=== PATIENT | male | born 1965 | race Caucasian/White ===

== ENCOUNTER 2016-12-12 11:56 | Emergency (ER) | payer SELFPAY ==
[~2016-12-12] VITALS: Ht 193 cm; Wt 75.0 kg
[~2016-12-12 11:56] MED LIST: ASPI325T PO; METO50TA PO
[2016-12-12 12:04] VITALS: BP 146/89; PULSE 76; RESP 16; TEMP 98; O2SAT 98
[2016-12-12 12:16] VITALS: BP 131/86; PULSE 80; RESP 20; TEMP 98; O2SAT 98
--- NOTE | 2016-12-12 12:33 | PD ---
HPI Chief Complaint: Injury Time Seen by Provider: 12:10 Travel History International Travel<30 days: No Contact w/Intl Traveler<30days: No Traveled to known affect area: No History of Present Illness HPI 51-year-old male presents to emergency department via EMS with complaint of left knee pain. He became lightheaded on Saturday and blacked out and fell to the ground. He says his head doesn't hurt and he doesn't think he hit his head. His witnessed the fall. He says he has history of becoming lightheaded and passing out, and he has been through extensive tests, and they cannot find a reason why. He was just diagnosed with stage IV skin cancer. Takes aspirin daily. Denies other anticoagulant therapy. Denies lightheadedness, dizziness, headache. Denies chest pain, shortness breath, abdominal pain, vomiting. Denies focal deficits or weakness. Says he cannot ambulate on the affected extremity. Reports left knee swelling. Denies paresthesias, loss of sensation to the affected extremity. Reports decreased range of motion at the knee. Symptoms are moderate in severity. Has been icing the knee for symptom management. Has not taken any medications to alleviate symptoms. Pain is aggravated with palpation and trying to bend the knee. Allergies to acetaminophen, codeine, ibuprofen, oxycodone; patient says he can take all these medications the just upset his stomach and prefers to take them with crackers. Dr. Ayala is PCP. Has no other medical complaints. No other modifying factors or associated signs and symptoms. PFSH Past Medical History Cancer: Yes (MELENOMA) Cardiovascular Problems: Yes ("REVEARSE HEART BEAT") Diminished Hearing: No Hypertension: Yes Immunizations Current: Yes Past Surgical History Abdominal Surgery: Yes (HERNIA REPAIR X 2) Neurologic Surgery: Yes (CARPAL TUNNEL BILATERALLY) Social History Alcohol Use: Yes (2-3 DAILY BEER) Tobacco Use: Yes (ONE PPD) Substance Use: No Allergies-Medications (Allergen,Severity, Reaction): Coded Allergies: acetaminophen (Unverified Allergy, Severe, ITCHING, 12/12/16) codeine (Unverified Allergy, Severe, ITCHING, 12/12/16) ibuprofen (Unverified Allergy, Severe, UPSET STOMACH, 12/12/16) oxycodone (Unverified Allergy, Severe, GI UPSET, 12/12/16) Reported Meds & Prescriptions Reported Meds & Active Scripts Active Reported Metoprolol Tartrate 50 mg (Metoprolol Tartrate) 50 Mg Tab 50 Mg PO BID Aspirin 325 Mg Tab (Aspirin) 325 Mg Tab 325 Mg PO DAILY Review of Systems Except as stated in HPI: all other systems reviewed are Neg Physical Exam Narrative GENERAL: Well-nourished, well-developed male patient, in no acute distress; afebrile, nontoxic-appearing SKIN: Warm and dry. HEAD: Atraumatic. Normocephalic. EYES: Pupils equal and round. No scleral icterus. No injection or drainage. ENT: Mucosa pink and moist. Airway patent. NECK: Trachea midline. CARDIOVASCULAR: Regular rate. RESPIRATORY: No accessory muscle use. GASTROINTESTINAL: Flat. MUSCULOSKELETAL: Left knee edematous, nonerythematous, and without ecchymosis; full range of motion and flexion to 90; point tenderness to the [-] aspect; joint stable with negative drawer test; no obvious deformity. Left Lower extremity is supple and non-tense with 2+ pedal pulse and sensory intact and without erythema or edema. Unable to assess ambulatory status. No clubbing. No cyanosis. NEUROLOGICAL: Awake and alert. Oriented 3. No obvious cranial nerve deficits. Motor grossly within normal limits. Normal speech. PSYCHIATRIC: Appropriate mood and affect; insight and judgment normal. Data Data Last Documented VS Vital Signs Date Time Temp Pulse Resp B/P (MAP) Pulse Ox O2 Delivery O2 Flow Rate FiO2 12/12/16 12:16 98.0 80 20 131/86 (101) 98 Room Air Orders Orders Knee, Complete (4vws) (12/12/16 12:09) Ice/Cold Pack (12/12/16 12:09) Electrocardiogram (12/12/16 12:41) Acetamin-Hydrocod 325-5 Mg (Tovey 5-325 (12/12/16 13:00) Canvas Knee Splint (Cks) (12/12/16 ) Crutches (12/12/16 13:02) Ed Discharge Order (12/12/16 13:02) MDM Medical Decision Making Medical Screen Exam Complete: Yes Emergency Medical Condition: Yes Medical Record Reviewed: Yes Differential Diagnosis Patellar fracture, tibial plateau fracture, knee strain, ACL tear, meniscal tear Narrative Course 51-year-old male with left knee injury after a syncopal fall on Saturday. Arrived via EMS. Left knee x-ray ordered. I spoke with Dr. melo, my attending physician, and he recommends EKG only, since the patient has history of syncopal episodes and has had extensive workup with no findings in the past. The patient has no other medical complaints other than his left knee pain and swelling, and also agrees with treatment plan. EKG ordered. Lortab ordered. 1255: Left knee x-ray concludes: Patellar fracture. EKG with normal sinus rhythm; without ST elevation or depression; signed off by Dr. Mccallum. Came his knee splint and crutches provided for support. Lortab prescribed for home. Patient instructed to follow-up with orthopedic surgeon. Instructed patient to follow up with primary care provider. Patient verbalizes understanding and agreement with treatment plan. Patient is medically cleared and stable for discharge. Discussed reasons to return to the emergency department. Patient agrees with treatment plan. The patients vital signs are stable and the patient is stable for outpatient follow-up and treatment. Patient discharged home, stable and in no acute distress. Diagnosis Primary Impression: Syncopal episodes Qualified Codes: R55 - Syncope and collapse Additional Impression: Left patella fracture Qualified Codes: S82.002A - Unspecified fracture of left patella, initial encounter for closed fracture Referrals: Orthopaedic Surgeon Primary Care Physician Patient Instructions: General Instructions, Patellar Fracture (ED) Departure Forms: Tests/Procedures, Work Release Special Instructions: Unable to work until cleared by primary care provider or orthopedic surgeon Additional Instructions: Tylenol or ibuprofen as needed and as directed to reduce pain and inflammation Rest, ice, compress, and elevate extremity to decrease pain and inflammation Knee brace for support Crutches for support Avoid aggravating activity; increase activity as tolerated Follow-up with primary care provider Follow-up with orthopedics surgeon; call and make an appointment 1-2 days Return to the emergency department immediately with worsening symptoms Med/Other Pt SpecificInfo: Prescription(s) given Scripts Hydrocodone-Acetaminophen (Lortab) 5-325 Mg Tab 1-2 TAB PO Q6H Y for PAIN, #20 TAB 0 Refills Prov: Amanda Llanos 12/12/16 Disposition: 01 DISCHARGE HOME Condition: Stable Amanda Llanos Dec 12, 2016 12:33
--- NOTE | 2016-12-12 12:52 | RADRPT ---
EXAM DATE/TIME: 12/12/2016 12:31 [facility] COMPARISON: No previous studies available for comparison. INDICATIONS : Left knee pain and swelling after blacking out and falling. MEDICAL HISTORY : Hypertension. Carcinoma, basal cell. SURGICAL HISTORY : Inguinal hernia repair. ENCOUNTER: Initial ACUITY: 4 - 6 days PAIN SCORE: 10/10 LOCATION: Left knee FINDINGS: Patella fracture, 2 part soft tissue swelling enlarged with effusion. Distal femur and proximal tibi a are intact. CONCLUSION: Patellar fracture. Obed Arora MD FACR on December 12, 2016 at 12:48 Board Certified Radiologist. This report was verified electronically.
[2016-12-12] MEDS ORDERED: ACETAMINOPHEN/HYDROcodone 325 MG/5 MG TAB PO ONE (13:00)
[2016-12-12] MEDS ORDERED: HYDR-3533 PO (13:10)
--- NOTE | 2016-12-13 13:30 | EKG ---
Date Performed: 12/12/2016 Time Performed: 12:53:30 PTAGE: 51 years EKG: Ectopic atrial or junctional rhythm which has replaced Sinus rhythm from the old tracing Slight nonspecific ST-T abnormality ABNORMAL ECG PREVIOUS TRACING : 10/31/2015 09.08 DOCTOR: Jordan Harris Interpretating Date/Time 12/13/2016 13:29:27
== END 2016-12-12 13:40 | disposition home or self-care (01) ==
LOC: NEPK 11:56
DX: R55 Syncope and collapse (principal); S82.002A Unspecified fracture of left patella, initial encounter for closed fracture; I10 Essential (primary) hypertension; Z79.82 Long term (current) use of aspirin; W19.XXXA Unspecified fall, initial encounter; Z91.81 History of falling
CPT/HCPCS: 73564; 93005; 99284; E0113; L1830

== ENCOUNTER → 2017-01-03 | Outpatient (CLI) | payer OTHER ==
[~2017-01-03] MED LIST changes: +HYDR-3533 PO; +IOHEXOL 350 MG/ML 10 ML VIAL (for RAD DIAG) IVCONTRAST ONE
--- NOTE | 2017-01-03 15:00 | RADRPT ---
EXAM DATE/TIME: 01/03/2017 14:06 [facility] COMPARISON: No previous studies available for comparison. INDICATIONS : Diffuse abdomen discomfort, basal cell carcinoma. IV CONTRAST: 100 cc Omnipaque 350 (iohexol) IV ; Cumulative dose for multiple exams. ORAL CONTRAST: No oral contrast ingested. RADIATION DOSE: 8.99 CTDIvol (mGy) ; Combined studies - Thorax/Abdomen/Pelvis MEDICAL HISTORY : Hypertension. SURGICAL HISTORY : Inguinal hernia repair. ENCOUNTER: Initial ACUITY: 1 day PAIN SCALE: 1/10 LOCATION: Bilateral lower quadrant TECHNIQUE: Volumetric scanning of the abdomen and pelvis was performed. Using automated exposure control and ad justment of the mA and/or kV according to patient size, radiation dose was kept as low as reasonably achievable to obtain optimal diagnostic quality images. DICOM format image data is available electro nically for review and comparison. FINDINGS: LOWER LUNGS: The visualized lower lungs are clear. LIVER: Homogeneous density without lesion. There is no dilation of the biliary tree. No calcified gallston es. SPLEEN: Normal size without lesion. PANCREAS: Within normal limits. KIDNEYS: Normal in size and shape. There is no mass, stone or hydronephrosis. ADRENAL GLANDS: Within normal limits. VASCULAR: Mild to moderate calcified plaque is present in the aorta. There is no evidence of aneurysmal enlarge ment. BOWEL/MESENTERY: The stomach, small bowel, and colon demonstrate no acute abnormality. There is no free intraperitone al air or fluid. ABDOMINAL WALL: Within normal limits. RETROPERITONEUM: There is no lymphadenopathy. BLADDER: No wall thickening or mass. REPRODUCTIVE: Within normal limits. INGUINAL: There is no lymphadenopathy or hernia. MUSCULOSKELETAL: Severe degenerative disc disease with scoliosis is present throughout the lumbar spine. CONCLUSION: 1. Unremarkable evaluation of the abdomen pelvis. 2. Advanced degenerative disc disease with mild scoliosis of the lumbar spine. Jd Morgan MD on January 03, 2017 at 14:53 Board Certified Radiologist. This report was verified electronically.
--- NOTE | 2017-01-03 16:21 | RADRPT ---
EXAM DATE/TIME: 01/03/2017 14:06 [facility] COMPARISON: No previous studies available for comparison. INDICATIONS : Short of breath, basal cell carcinoma. IV CONTRAST: 100 cc Omnipaque 350 (iohexol) IV ; Cumulative dose for multiple exams. RADIATION DOSE: 8.99 CTDIvol (mGy) ; Combined studies - Thorax/Abdomen/Pelvis MEDICAL HISTORY : Hypertension. SURGICAL HISTORY : Inguinal hernia repair. ENCOUNTER: Initial ACUITY: 1 day PAIN SCALE: 1/10 LOCATION: Bilateral chest TECHNIQUE: Volumetric scanning of the chest was performed. Using automated exposure control and adjustment of t he mA and/or kV according to patient size, radiation dose was kept as low as reasonably achievable to obtain optimal diagnostic quality images. DICOM format image data is available electronically for review and comparison. Follow-up recommendations for detected pulmonary nodules are based at a minimum on nodule size and pa tient risk factors according to Fleischner Society Guidelines. FINDINGS: LUNGS: The lungs are hyperinflated. Emphysematous changes are identified in the right upper lobe. There is r ight apical pleural-parenchymal scarring and mild cortical banding in both lower lobes. There are no suspicious nodular densities. PLEURA: There is no pleural thickening or pleural effusion. MEDIASTINUM: The heart and great vessels demonstrate no acute abnormality. There is no mediastinal or hilar lymph adenopathy. Mild to moderate coronary artery calcification is noted. AXILLAE: Mildly prominent axillary lymph nodes are noted. The largest is identified in the left basilar and me asures 1.6 x 0.9 cm in size. SKELETAL: Within normal limits for patient age. MISCELLANEOUS: A large cutaneous soft tissue mass with subcutaneous extension into the chest wall is identified ante riorly in the mid sternal region. It measures 9.6 x 5.4 x 3.2 cm in size. Poorly defined tissue plane s are seen along its inferior margin with suspected intercostal muscle involvement. Upper bowel structures are unremarkable. CONCLUSION: 1. Large cutaneous/subcutaneous mass in the anterior chest wall along the mid sternum characteristic of the patient's known basal cell carcinoma. There is evidence of chest wall involvement with poor de lineation of the posterior margin. 2. Mildly prominent but not overtly malignant axillary lymph nodes. 3. Emphysematous lung disease with COPD. 4. Coronary calcification. Jd Morgan MD on January 03, 2017 at 16:12 Board Certified Radiologist. This report was verified electronically.
== END ==
LOC: HRAD 13:08
PROVIDERS: ATTEND Surgery
DX: C44.91 Basal cell carcinoma of skin, unspecified (principal)
CPT/HCPCS: 71260; 74177; Q9967

== ENCOUNTER 2017-01-24 18:19 | Observation (INO) | payer OTHER ==
[~2017-01-24] VITALS: Ht 193 cm; Wt 66.7 kg
[~2017-01-24 18:19] MED LIST changes: -IOHEXOL 350 MG/ML 10 ML VIAL (for RAD DIAG) IVCONTRAST ONE
[2017-01-24 18:23] VITALS: BP 135/75; PULSE 60; RESP 16; TEMP 97.5; O2SAT 99
[2017-01-24] MEDS ORDERED: VANCOMYCIN INJ 1,000 MG in SODIUM CHLOR 0.9% 250 ML INJ 250 ML IV ONE (18:45)
[2017-01-24] MEDS ORDERED: MORPHINE SULFATE 4 MG/ML INJ IV PUSH ONE (18:45)
--- NOTE | 2017-01-24 18:46 | PD ---
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 Alonso for IV antibiotics for superinfection to these lesions. Patient reports that he has had these lesions for several years. Over the last 8 weeks or so he has been having purulent drainage and increasing pain. He has not yet received any therapy for these lesions, however Dr. Alonso plans to begin chemotherapy. Patient reports that she will not start chemotherapy until the infection is under control. He denies fevers or chills. Pain is severe, constant, worse with movements. No dyspnea. PFSH Past Medical History Hx Anticoagulant Therapy: No Cancer: Yes (MELENOMA) Cardiovascular Problems: Yes (HTN, CHOL) Diabetes: No Diminished Hearing: No Hypertension: Yes Immunizations Current: Yes Past Surgical History Abdominal Surgery: Yes (HERNIA REPAIR X 2) Neurologic Surgery: Yes (CARPAL TUNNEL BILATERALLY) Social History Alcohol Use: Yes (2-3 DAILY BEER) Tobacco Use: Yes (ONE PPD) Substance Use: No Allergies-Medications (Allergen,Severity, Reaction): Coded Allergies: acetaminophen (Unverified Allergy, Severe, ITCHING, 01/24/17) codeine (Unverified Allergy, Severe, ITCHING, 01/24/17) ibuprofen (Unverified Allergy, Severe, UPSET STOMACH, 01/24/17) oxycodone (Unverified Allergy, Severe, GI UPSET, 01/24/17) Reported Meds & Prescriptions Reported Meds & Active Scripts Active Review of Systems Except as stated in HPI: all other systems reviewed are Neg Physical Exam Narrative GENERAL: Well-developed, well-nourished, comfortable, no apparent distress. SKIN: Large/rays/erythematous lesion with smooth/shiny borders to the anterior chest with areas of necrosis as well as a moderate amount of very foul smelling purulent drainage. There is surrounding warmth and erythema to this wound. He has an ulcerating lesion to his left lateral shoulder as well as mid upper back a moderate size, no purulent, mild surrounding erythema. HEAD: Atraumatic. Normocephalic. EYES: Pupils equal and round. No scleral icterus. No injection or drainage. ENT: Mucous membranes pink and dry. NECK: Trachea midline. No JVD. CARDIOVASCULAR: Regular rate and rhythm. RESPIRATORY: No accessory muscle use. Clear to auscultation. Breath sounds equal bilaterally. GASTROINTESTINAL: Abdomen soft, non-tender, nondistended. MUSCULOSKELETAL: No obvious deformities. No clubbing. No cyanosis. No edema. NEUROLOGICAL: Awake and alert. No obvious cranial nerve deficits. Motor grossly within normal limits. Normal speech. PSYCHIATRIC: Appropriate mood and affect; insight and judgment normal. Data Data Last Documented VS Vital Signs Date Time Temp Pulse Resp B/P (MAP) Pulse Ox O2 Delivery O2 Flow Rate FiO2 01/24/17 20:21 60 18 159/91 (113) 99 Room Air 01/24/17 18:23 97.5 Orders Orders Sepsis Workup Initiated (01/24/17 ) Complete Blood Count With Diff (01/24/17 18:41) Comprehensive Metabolic Panel (01/24/17 18:41) Prothrombin Time / Inr (Pt) (01/24/17 18:41) Act Partial Throm Time (Ptt) (01/24/17 18:41) Lactic Acid Sepsis Protocol (01/24/17 18:41) Blood Culture (01/24/17 18:41) Ecg Monitoring (01/24/17 18:41) Iv Access Insert/Monitor (01/24/17 18:41) Oximetry (01/24/17 18:41) Vancomycin Inj (Vancomycin Inj) (01/24/17 18:45) Morphine Inj (Morphine Inj) (01/24/17 18:45) Wound Culture And Gram Stain (01/24/17 18:44) Admit Order (Ed Use Only) (01/24/17 20:27) Labs Laboratory Tests Test 01/24/17 19:01 White Blood Count 9.6 TH/MM3 Red Blood Count 4.08 MIL/MM3 Hemoglobin 13.0 GM/DL Hematocrit 38.8 % Mean Corpuscular Volume 95.2 FL Mean Corpuscular Hemoglobin 31.9 PG Mean Corpuscular Hemoglobin Concent 33.5 % Red Cell Distribution Width 12.2 % Platelet Count 239 TH/MM3 Mean Platelet Volume 8.8 FL Neutrophils (%) (Auto) 60.3 % Lymphocytes (%) (Auto) 27.7 % Monocytes (%) (Auto) 8.4 % Eosinophils (%) (Auto) 2.9 % Basophils (%) (Auto) 0.7 % Neutrophils # (Auto) 5.8 TH/MM3 Lymphocytes # (Auto) 2.6 TH/MM3 Monocytes # (Auto) 0.8 TH/MM3 Eosinophils # (Auto) 0.3 TH/MM3 Basophils # (Auto) 0.1 TH/MM3 CBC Comment DIFF FINAL Differential Comment Prothrombin Time 10.2 SEC Prothromb Time International Ratio 0.9 RATIO Activated Partial Thromboplast Time 29.2 SEC Blood Urea Nitrogen 5 MG/DL Creatinine 0.51 MG/DL Random Glucose 78 MG/DL Total Protein 7.4 GM/DL Albumin 3.3 GM/DL Calcium Level 8.5 MG/DL Alkaline Phosphatase 107 U/L Aspartate Amino Transf (AST/SGOT) 25 U/L Alanine Aminotransferase (ALT/SGPT) 17 U/L Total Bilirubin 0.3 MG/DL Sodium Level 141 MEQ/L Potassium Level 3.9 MEQ/L Chloride Level 106 MEQ/L Carbon Dioxide Level 28.1 MEQ/L Anion Gap 7 MEQ/L Estimat Glomerular Filtration Rate 171 ML/MIN Lactic Acid Level 2.2 mmol/L [facility] Medical Decision Making Medical Screen Exam Complete: Yes Emergency Medical Condition: Yes Medical Record Reviewed: Yes Differential Diagnosis Skin cancer with superinfection, cellulitis Narrative Course Vital signs are within normal limits. CBC and CMP are essentially unremarkable. Patient has a very large anterior chest wall mass that has a significant amount of very foul-smelling purulent drainage. Sterile nonadherent dressing was applied with Xeroform applied to the wound. Patient was given a dose of IV vancomycin. He will be admitted for further IV antibiotic therapy. Case discussed with hospitalist CARL Peraza and the patient will be admitted to their service under Dr. Dan, Diagnosis Primary Impression: Infected skin lesion Additional Impression: Cellulitis of chest wall Admitting Information Admitting Physician Requests: Admit Joe Garcia MD Jan 24, 2017 18:46
[2017-01-24 19:06] VITALS: BP 147/83; PULSE 60; RESP 18; O2SAT 99
[2017-01-24 19:19] LABS: AUTOMATED NEUTROPHIL # 5.8 TH/MM3 (1.8-7.7); BASOPHIL # 0.1 TH/MM3 (0-0.2); BASOPHIL % 0.7 % (0.0-2.0); EOSINOPHIL # 0.3 TH/MM3 (0-0.4); EOSINOPHIL % 2.9 % (0.0-4.0); HEMATOCRIT 38.8 % (39.0-51.0); HEMO FLAGS DIFF FINAL; LYMPH % 27.7 % (9.0-44.0); LYMPHOCYTE # 2.6 TH/MM3 (1.0-4.8); MEAN CELL VOLUME 95.2 FL (80.0-100.0); MEAN CORPUSCULAR HEMOGLOBIN 31.9 PG (27.0-34.0); MEAN CORPUSCULAR HGB CONC 33.5 % (32.0-36.0); MONO % 8.4 % (0.0-8.0); NEUT % 60.3 % (16.0-70.0); PLATELET COUNT 239 TH/MM3 (150-450); RED BLOOD COUNT 4.08 MIL/MM3 (4.50-5.90); RED CELL DISTRIBUTION WIDTH 12.2 % (11.6-17.2); WHITE BLOOD COUNT 9.6 TH/MM3 (4.0-11.0)
[2017-01-24 19:25] LABS: CHLORIDE 106 MEQ/L (98-107); POTASSIUM 3.9 MEQ/L (3.5-5.1); SODIUM (NA) 141 MEQ/L (136-145)
[2017-01-24 19:29] LABS: ANION GAP 7 MEQ/L (5-15); BICARBONATE 28.1 MEQ/L (21.0-32.0); BLOOD UREA NITROGEN 5 MG/DL (7-18)
[2017-01-24 19:31] LABS: APTT (PATIENT) 29.2 SEC (24.3-30.1); INTERNATIONAL NORMALIZED RATIO 0.9 RATIO; PROTHROMBIN TIME - PATIENT 10.2 SEC (9.8-11.6)
[2017-01-24 19:32] LABS: ALT (GPT) 17 U/L (12-78); AST (GOT) 25 U/L (15-37); GLOMERULAR FILTRATION RATE 171 ML/MIN (>89)
[2017-01-24 19:34] LABS: TOTAL BILIRUBIN ADULT 0.3 MG/DL (0.2-1.0)
[2017-01-24 19:35] LABS: ALKALINE PHOSPHATASE 107 U/L (45-117)
[2017-01-24 20:21] VITALS: BP 159/91; PULSE 60; RESP 18; O2SAT 99
[2017-01-24] MEDS ORDERED: NALOXONE HCL 0.4 MG/ML AMP IV PUSH PRN (20:45)
[2017-01-24] MEDS ORDERED: SODIUM CHLORIDE 0.9% FLUSH 10 ML FLUSH IV FLUSH PRN (20:45)
[2017-01-24] MEDS: SODIUM CHLORIDE 0.9% FLUSH 10 ML FLUSH IV FLUSH SCH (21:00)
[2017-01-24] MEDS ORDERED: Vancomycin Consult Pharmacy 1 EA OTHER SCH (21:00)
[2017-01-24 21:11] LABS: LACTIC ACID GHOST NOT REPORTABLE
[2017-01-24] MEDS: PIPERACIL-TAZO 3.375 GM PREMIX 50 ML IV SCH (21:24)
[2017-01-24] MEDS: ENOXAPARIN SODIUM 40 MG/0.4 ML SYRINGE SQ SCH (21:24)
[2017-01-24 21:26] VITALS: BP 146/83; PULSE 60; RESP 16; O2SAT 99
[2017-01-25] VITALS (7 sets, daily range): BP systolic 126–162; BP diastolic 78–90; PULSE 57–84; RESP 14–20; TEMP 96.2–98.1; O2SAT 97–99
[2017-01-25] MEDS ORDERED: MORPHINE SULFATE 2 MG/ML INJ IV PUSH PRN (02:00)
[2017-01-25] MEDS: PIPERACIL-TAZO 3.375 GM PREMIX 50 ML IV SCH ×3 (03:55→12:57)
[2017-01-25] MEDS ORDERED: VANCOMYCIN INJ 1,250 MG in SODIUM CHLOR 0.9% 250 ML INJ 250 ML IV SCH (06:00)
[2017-01-25 06:51] LABS: BASOPHIL # 0.1 TH/MM3 (0-0.2); BASOPHIL % 0.8 % (0.0-2.0); EOSINOPHIL # 0.4 TH/MM3 (0-0.4); EOSINOPHIL % 4.6 % (0.0-4.0); HEMO FLAGS DIFF FINAL; LYMPH % 21.5 % (9.0-44.0); LYMPHOCYTE # 1.7 TH/MM3 (1.0-4.8); MEAN CELL VOLUME 95.5 FL (80.0-100.0); MEAN CORPUSCULAR HEMOGLOBIN 31.4 PG (27.0-34.0); MEAN CORPUSCULAR HGB CONC 32.9 % (32.0-36.0); MONO % 9.6 % (0.0-8.0); NEUT % 63.5 % (16.0-70.0); PLATELET COUNT 224 TH/MM3 (150-450); RED BLOOD COUNT 3.88 MIL/MM3 (4.50-5.90); RED CELL DISTRIBUTION WIDTH 12.1 % (11.6-17.2)
[2017-01-25 07:01] LABS: POTASSIUM 3.8 MEQ/L (3.5-5.1)
[2017-01-25 07:04] LABS: BICARBONATE 24.5 MEQ/L (21.0-32.0)
[2017-01-25] MEDS ORDERED: PNEUMOCOCCAL POLYVALENT INJ 25 MCG/0.5 ML SYR IM ONE (09:00)
[2017-01-25] MEDS: SODIUM CHLORIDE 0.9% FLUSH 10 ML FLUSH IV FLUSH SCH ×2 (09:09→20:46)
--- NOTE | 2017-01-25 13:48 | HHI.DCPOC ---
Discharge Care Plan Diagnosis: (1) Tumor associated pain Goals to Promote Your Health * To prevent worsening of your condition and complications * To maintain your health at the optimal level Directions to Meet Your Goals Take your medications as prescribed Follow your dietary instruction Follow activity as directed Keep your appointments as scheduled Take your immunizations and boosters as scheduled If your symptoms worsen call your PCP, if no PCP go to Urgent Care Center or Emergency Room Smoking is Dangerous to Your Health. Avoid second hand smoke Call the 24-hour hour crisis hotline for domestic abuse at Reema Delgado MD Jan 25, 2017 13:48
--- NOTE | 2017-01-25 14:37 | HHI.HP ---
[facility] Service [place] [facility] Primary Care Physician David Ramesh MD Admission Diagnosis infected chest wall skin cancer Diagnoses: Chief Complaint: sent by oncology Travel History International Travel<30 Days: No Contact w/Intl Traveler <30 Da: No Traveled to Known Affected Are: No History of Present Illness patient is a 51 male with stage 4 skin ca in outpatient follow up. His oncologist sent him in to the hospital for concern for large fungating mass in chest which will need neoadjuvant chemo prior to surgical resection. He has no fever or chills, no cough, no swelling. He has been trying to manage at home with home wound care using feminine hygiene products for dressings and using soap and water for cleaning. He has difficulty ambulating due to recent knee injury and has been depending on his for care. he has not been on any antibiotics. He was having trouble getting outpatient services due to lack of funding. Review of Systems Constitutional: DENIES: Diaphoretic episodes, Fatigue, Fever, Weight gain, Weight loss, Chills, Dizziness, Change in appetite, Night Sweats Endocrine: DENIES: Heat/cold intolerance, Polydipsia, Polyuria, Polyphagia Eyes: DENIES: Blurred vision, Diplopia, Eye inflammation, Eye pain, Vision loss , Photosensitivity, Double Vision Ears, nose, mouth, throat: DENIES: Tinnitus, Hearing loss, Vertigo, Nasal discharge, Oral lesions, Throat pain, Hoarseness, Ear Pain, Running Nose, Epistaxis, Sinus Pain, Toothache, Odynophagia Respiratory: DENIES: Apneas, Cough, Snoring, Wheezing, Hemoptysis, Sputum production, Shortness of breath Cardiovascular: COMPLAINS OF: Chest pain, DENIES: Palpitations, Syncope, Dyspnea on Exertion, PND, Lower Extremity Edema, Orthopnea, Claudication Gastrointestinal: DENIES: Abdominal pain, Black stools, Bloody stools, Constipation, Diarrhea, Nausea, Vomiting, Difficulty Swallowing, Anorexia Genitourinary: DENIES: Sexual dysfunction, Urinary frequency, Urinary incontinence, Urgency, Hematuria, Dysuria, Nocturia, Penile Discharge, Testicular Pain, Testicular Swelling Musculoskeletal: DENIES: Joint pain, Muscle aches, Stiffness, Joint Swelling, Back pain, Neck pain Integumentary: DENIES: Abnormal pigmentation, Nail changes, Pruritus, Rash Hematologic/lymphatic: DENIES: Bruising, Lymphadenopathy Immunologic/allergic: DENIES: Eczema, Urticaria Neurologic: DENIES: Abnormal gait, Headache, Localized weakness, Paresthesias, Seizures, Speech Problems, Tremor, Poor Balance Psychiatric: DENIES: Anxiety, Confusion, Mood changes, Depression, Hallucinations, Agitation, Suicidal Ideation, Homicidal Ideation, Delusions Except as stated in HPI: all other systems reviewed are Neg Past Family Social History Past Medical History basal cell ca stage 4 Past Surgical History bx Reported Medications denies Allergies: Coded Allergies: acetaminophen (Unverified Allergy, Severe, ITCHING, 01/24/17) codeine (Unverified Allergy, Severe, ITCHING, 01/24/17) ibuprofen (Unverified Allergy, Severe, UPSET STOMACH, 01/24/17) oxycodone (Unverified Allergy, Severe, GI UPSET, 01/24/17) Active Ordered Medications reviewed in the EMR Family History htn Social History acco, etoh, Physical Exam Vital Signs Vital Signs Date Time Temp Pulse Resp B/P (MAP) Pulse Ox O2 Delivery O2 Flow Rate FiO2 01/25/17 12:00 96.2 76 14 159/78 (105) 97 01/25/17 08:00 98.1 79 16 162/82 (108) 98 01/25/17 02:00 97.6 57 20 154/78 (103) 99 01/25/17 00:11 97.8 65 14 126/83 (97) 96 01/25/17 00:00 97.6 57 20 154/78 (103) 99 01/24/17 21:26 60 16 146/83 (104) 99 Room Air 01/24/17 20:21 60 18 159/91 (113) 99 Room Air 01/24/17 19:24 16 01/24/17 19:06 99 Room Air 01/24/17 19:06 60 18 147/83 (104) 99 Room Air 01/24/17 18:23 97.5 60 16 135/75 (95) 99 Physical Exam GENERAL: This is a well-nourished, well-developed patient, in no apparent distress. SKIN: large chest tumor with central necrosis and sloughing, left shuolder and back shallow clean ulcers, No rashes, ecchymoses or lesions. Cool and dry. HEAD: Atraumatic. Normocephalic. No temporal or scalp tenderness. EYES: Pupils equal round and reactive. Extraocular motions intact. No scleral icterus. No injection or drainage. ENT: Nose without bleeding, purulent drainage or septal hematoma. Throat without erythema, tonsillar hypertrophy or exudate. Uvula midline. Airway patent. NECK: Trachea midline. No JVD or lymphadenopathy. Supple, nontender, no meningeal signs. CARDIOVASCULAR: Regular rate and rhythm without murmurs, gallops, or rubs. RESPIRATORY: Clear to auscultation. Breath sounds equal bilaterally. No wheezes , rales, or rhonchi. GASTROINTESTINAL: Abdomen soft, non-tender, nondistended. No hepato-splenomegaly , or palpable masses. No guarding. MUSCULOSKELETAL: Extremities without clubbing, cyanosis, or edema. No joint tenderness, effusion, or edema noted. No calf tenderness. Negative Homans sign bilaterally. NEUROLOGICAL: Awake and alert. Cranial nerves II through XII intact. Motor and sensory grossly within normal limits. Five out of 5 muscle strength in all muscle groups. Normal speech. Laboratory Laboratory Tests Test 01/24/17 19:01 01/24/17 21:28 01/25/17 05:57 White Blood Count 9.6 8.0 Red Blood Count 4.08 3.88 Hemoglobin 13.0 12.2 Hematocrit 38.8 37.0 Mean Corpuscular Volume 95.2 95.5 Mean Corpuscular Hemoglobin 31.9 31.4 Mean Corpuscular Hemoglobin Concent 33.5 32.9 Red Cell Distribution Width 12.2 12.1 Platelet Count 239 224 Mean Platelet Volume 8.8 9.3 Neutrophils (%) (Auto) 60.3 63.5 Lymphocytes (%) (Auto) 27.7 21.5 Monocytes (%) (Auto) 8.4 9.6 Eosinophils (%) (Auto) 2.9 4.6 Basophils (%) (Auto) 0.7 0.8 Neutrophils # (Auto) 5.8 5.0 Lymphocytes # (Auto) 2.6 1.7 Monocytes # (Auto) 0.8 0.8 Eosinophils # (Auto) 0.3 0.4 Basophils # (Auto) 0.1 0.1 CBC Comment DIFF FINAL DIFF FINAL Differential Comment Prothrombin Time 10.2 Prothromb Time International Ratio 0.9 Activated Partial Thromboplast Time 29.2 Blood Urea Nitrogen 5 6 Creatinine 0.51 0.40 Random Glucose 78 64 Total Protein 7.4 Albumin 3.3 Calcium Level 8.5 8.2 Alkaline Phosphatase 107 Aspartate Amino Transf (AST/SGOT) 25 Alanine Aminotransferase (ALT/SGPT) 17 Total Bilirubin 0.3 Sodium Level 141 143 Potassium Level 3.9 3.8 Chloride Level 106 108 Carbon Dioxide Level 28.1 24.5 Anion Gap 7 11 Estimat Glomerular Filtration Rate 171 226 Lactic Acid Level 2.2 2.3 Date/Time Source Procedure Growth Status 01/24/17 19:01 Blood Peripheral Aerobic Blood Culture - Preliminary NO GROWTH IN 1 DAY Resulted 01/24/17 19:01 Blood Peripheral Anaerobic Blood Culture - Preliminary NO GROWTH IN 1 DAY Resulted 01/24/17 18:30 Wound Chest Gram Stain - Final Resulted 01/24/17 18:30 Wound Chest Wound Culture - Preliminary IMMATURE GROWTH - REINCUBATE Resulted Result Diagram: 01/25/17 0557 01/25/17 0557 Caprini VTE Risk Assessment Caprini VTE Risk Assessment: Mod/High Risk (score >= 2) Caprini Risk Assessment Model Point Value = 1 Point Value = 2 Point Value = 3 Point Value = 5 Age 41-60 Minor surgery BMI > 25 kg/m2 Swollen legs Varicose veins or History of unexplained or recurrent spontaneous Oral contraceptives or hormone replacement Sepsis (< 1 month) Serious lung disease, including pneumonia (< 1 month) Abnormal pulmonary function Acute myocardial infarction Congestive heart failure (< 1 month) History of inflammatory bowel disease Medical patient at bed rest Age 61-74 Arthroscopic surgery Major open surgery (> 45 min) Laparoscopic surgery (> 45 min) Malignancy Confined to bed (> 72 hours) Immobilizing plaster cast Central venous access Age >= 75 History of VTE Family history of VTE Factor V Leiden Prothrombin [id number] Lupus anticoagulant Anticardiolipin antibodies Elevated serum homocysteine Heparin-induced thrombocytopenia Other congenital or acquired thrombophilia Stroke (< 1 month) Elective arthroplasty Hip, pelvis, or leg fracture Acute spinal cord injury (< 1 month) Prophylaxis Regimen Total Risk Factor Score Risk Level Prophylaxis Regimen 0-1 Low Early ambulation 2 Moderate Order ONE of the following: *Sequential Compression Device (SCD) *Heparin 5000 units SQ BID 3-4 Higher Order ONE of the following medications: *Heparin 5000 units SQ TID *Enoxaparin/Lovenox 40 mg SQ daily (WT < 150 kg, CrCl > 30 mL/min) *Enoxaparin/Lovenox 30 mg SQ daily (WT < 150 kg, CrCl > 10-29 mL/min) *Enoxaparin/Lovenox 30 mg SQ BID (WT < 150 kg, CrCl > 30 mL/min) AND/OR *Sequential Compression Device (SCD) 5 or more Highest Order ONE of the following medications: *Heparin 5000 units SQ TID (Preferred with Epidurals) *Enoxaparin/Lovenox 40 mg SQ daily (WT < 150 kg, CrCl > 30 mL/min) *Enoxaparin/Lovenox 30 mg SQ daily (WT < 150 kg, CrCl > 10-29 mL/min) *Enoxaparin/Lovenox 30 mg SQ BID (WT < 150 kg, CrCl > 30 mL/min) AND *Sequential Compression Device (SCD) Assessment and Plan Problem List: (1) Tumor associated pain ICD Code: G89.3 - Neoplasm related pain (acute) (chronic) Plan: Not septic Basal cell ca in outpatient management for chemo prior to surgical rx (Dr. Alonso) cont wound care, consult pending bactrim Code Status full code Reema Delgado MD Jan 25, 2017 14:37
[2017-01-25] MEDS ORDERED: traMADol HCL 50 MG TAB PO PRN (15:00)
[2017-01-25] MEDS: SULFAMETHOXAZOLE-TRIMETHOPRIM DS 800-160 MG TAB PO SCH ×2 (17:45→20:46)
[2017-01-25] MEDS: ENOXAPARIN SODIUM 40 MG/0.4 ML SYRINGE SQ SCH (20:46)
[2017-01-26 00:54] VITALS: BP 139/89; PULSE 89; RESP 18; TEMP 98; O2SAT 97
[2017-01-26] MEDS ORDERED: PHARMACY ORDERED LAB ONE (05:45)
[2017-01-26 07:50] VITALS: BP 164/79; PULSE 78; RESP 20; TEMP 97.9
--- NOTE | 2017-01-26 08:35 | MB ---
cc: DEANGELO HERNANDEZ MD DATE OF CONSULTATION: 01/26/2017 REASON FOR CONSULTATION: Infected chest wall, skin cancer known to service. HISTORY OF PRESENT ILLNESS The patient is 51-year-old male with a history of stage IV basal cell skin cancer. He has been evaluated by the oncologist and was sent due to large fungating mass on chest. The patient is in need of neoadjuvant chemo prior to surgical resection, he was denying any fevers or chills at home and states he has had longstanding basal cell carcinoma of his chest wall left shoulder and back, for which again he has been undergoing further workup and treatment. He has been doing dressing changes and good hygiene however, the mass is noted to have increased in some drainage and odor as well. He states he is having some mild pain from this currently at 4/10, with some improvement with pain medication he has a dull ache and denies any associated other symptoms as well. PAST MEDICAL HISTORY Stage IV basal cell cancer. PAST SURGICAL HISTORY Surgical biopsy. MEDICATIONS See EMR. ALLERGIES Acetaminophen, the IV troponin ox was alone. SOCIAL HISTORY Occasional ethyl alcohol, denies smoking or Intravenous drug abuse. FAMILY HISTORY hypertension in parents. REVIEW OF SYSTEMS GENERAL: Denies fevers and chills. HEAD, EYES, EARS, NOSE, AND THROAT: Denies eye pain, ear pain. NECK: Denies for pain. ' LUNGS: Denies cough or wheeze. HEART: Denies chest pain, complaining of or palpitations associated wit cardiac. ABDOMEN: Denies nausea, vomiting. GENITOURINARY: Denies dysuria, hematuria. ENDOCRINE: Denies polyuria, polydipsia. EXTREMITIES: Denies arthralgia, myalgias. PHYSICAL EXAMINATION GENERAL: The patient has no acute distress. HEAD, EYES, EARS, NOSE, AND THROAT: Head normocephalic, atraumatic. NECK: Supple. Trachea midline. HEART: S1-S2 regular rhythm. RESPIRATORY: Bilateral expansion. Clear. ABDOMEN: Soft, nontender, nondistended. MUSCULOSKELETAL: Warm, well-perfused. NEUROLOGIC: 5/5 motor all extremities. GCS of 15. INTEGUMENTARY: Integument large of basal cell tumors central chest wall approximately 15 X 15 cm, left shoulder small 3 X 3-cm back with small basal cell lesion as well. Dressings in place. Scant drainage. LABORATORY AND DIAGNOSTIC DATA Previous CT chest 01/03/2017; large cutaneous anterior chest wall consistent with basal cell, mildly enlarged lymph nodes in axilla, emphysema changes with chronic obstructive pulmonary disease. Coronary calcifications, chest wall mass 9.6 x 5.4 x 3 cm size. LABORATORY WBC and 8.0, hemoglobin 12, 237 platelets 2247, 143, potassium 3.8, chloride 108, BUN is six, creatinine 0.4, glucose 64. ASSESSMENT The patient is 51-year-old male history of longstanding basal cell carcinoma with a very large a fungating mass. PLAN After full clinical radiologic laboratory workup the patient above-named issues including large fungating basal cell carcinoma, I recommend IV antibiotics pain control. Local wound care, does not appear to have evidence of abscess at this time, I would not recommend any aggressive surgical intervention. The patient can continue with hygiene and wound care and follow up with the Dr. Ahn as an outpatient. MD BRYAN Arcos/nato /8:00 AM /8:10 AM
[2017-01-26] MEDS: SODIUM CHLORIDE 0.9% FLUSH 10 ML FLUSH IV FLUSH SCH (09:00)
[2017-01-26] MEDS: SULFAMETHOXAZOLE-TRIMETHOPRIM DS 800-160 MG TAB PO SCH (09:00)
[2017-01-26 11:50] VITALS: BP 154/79; PULSE 81; RESP 20; TEMP 98.3; O2SAT 98
[2017-01-26] MEDS ORDERED: TRAM50 PO (12:49)
--- NOTE | 2017-01-26 12:51 | HHI.DS ---
cc: Yoselin Alonso MD Discharge Summary Admission Date Jan 24, 2017 at 20:28 Discharge Date: Jan 26, 2017 Admitting Diagnosis infected chest wall skin cancer (1) Tumor associated pain ICD Code: G89.3 - Neoplasm related pain (acute) (chronic) Procedures none Brief History - From Admission patient is a 51 male with stage 4 skin ca in outpatient follow up. His oncologist sent him in to the hospital for concern for large fungating mass in chest which will need neoadjuvant chemo prior to surgical resection. He has no fever or chills, no cough, no swelling. He has been trying to manage at home with home wound care using feminine hygiene products for dressings and using soap and water for cleaning. He has difficulty ambulating due to recent knee injury and has been depending on his for care. he has not been on any antibiotics. He was having trouble getting outpatient services due to lack of funding. CBC/BMP: 01/25/17 0557 01/25/17 0557 Significant Findings Laboratory Tests Test 01/24/17 19:01 01/24/17 21:28 01/25/17 05:57 01/26/17 06:22 Red Blood Count 4.08 MIL/MM3 (4.50-5.90) 3.88 MIL/MM3 (4.50-5.90) Hematocrit 38.8 % (39.0-51.0) 37.0 % (39.0-51.0) Monocytes (%) (Auto) 8.4 % (0.0-8.0) 9.6 % (0.0-8.0) Blood Urea Nitrogen 5 MG/DL (7-18) 6 MG/DL (7-18) Creatinine 0.51 MG/DL (0.60-1.30) 0.40 MG/DL (0.60-1.30) Albumin 3.3 GM/DL (3.4-5.0) Lactic Acid Level 2.2 mmol/L (0.4-2.0) 2.3 mmol/L (0.4-2.0) Hemoglobin 12.2 GM/DL (13.0-17.0) Eosinophils (%) (Auto) 4.6 % (0.0-4.0) Random Glucose 64 MG/DL (74-106) Calcium Level 8.2 MG/DL (8.5-10.1) Chloride Level 108 MEQ/L (98-107) Vancomycin Level Trough 3.6 MCG/ML (5.0-10.0) PE at Discharge Chest mass unchanged from previous exam GENERAL: This is a well-nourished, well-developed patient, in no apparent distress. CARDIOVASCULAR: Regular rate and rhythm without murmurs, gallops, or rubs. RESPIRATORY: Clear to auscultation. Breath sounds equal bilaterally. No wheezes , rales, or rhonchi. GASTROINTESTINAL: Abdomen soft, non-tender, nondistended. Normal active bowel sounds MUSCULOSKELETAL: Extremities without clubbing, cyanosis, or edema. NEURO: Alert & Oriented x4 to person, place, time, situation. Moves all ext x4 Pt update on day of discharge Patient seen and evaluated. I did review his plans for discharge as well as plans for wound care Hospital Course This patient is a pleasant 51-year-old gentleman with known advanced stage IV skin cancer. Currently in medical management of the outpatient oncology team as well as outpatient surgery. He is scheduled for neoadjuvant chemotherapy prior to surgical resection. He was sent to the hospital because of some concern for infection as well as the need for wound care. The patient has significant amount of tumor load with some necrosis and sloughing. There has been evaluation by the surgical team recommends continued outpatient management with oncology and surgical services. He was treated with wound dressing changes and continued to improve. He and his spouse are educated on wound care and he was discharged home Pt Condition on Discharge: Good Discharge Disposition: Discharge Home Discharge Time: <= 30 minutes Discharge Instructions DIET: Follow Instructions for: As Tolerated, No Restrictions Activities you can perform: Regular-No Restrictions Follow up Referrals: Oncology/Hematology - 1 Week with Yoselin Alonso MD New Medications: Sulfamethoxazole-Trimethoprim (Sulfamethoxazole-Trimethoprim) 800-160 Mg Tab 1 TAB PO Q12HR for Infection, #6 TAB Tramadol (Ultram) 50 Mg Tab 50 MG PO Q8H PRN for PAIN SCALE 5 TO 10, #30 TAB Reema Delgado MD Jan 26, 2017 12:51
[2017-01-26] MEDS ORDERED: SULF1TAB23 PO (12:59)
== END 2017-01-26 13:52 | disposition home or self-care (01) ==
LOC: PHED 18:19 → INTOOBSV 20:28 → PHEDA 20:28 → PH3A 01-25 00:10
PROVIDERS: ADMIT Hospitalist; ATTEND Hospitalist
DX: G89.3 Neoplasm related pain (acute) (chronic) (principal); C44.519 Basal cell carcinoma of skin of other part of trunk; L03.313 Cellulitis of chest wall; L08.9 Local infection of the skin and subcutaneous tissue, unspecified; I10 Essential (primary) hypertension; F17.200 Nicotine dependence, unspecified, uncomplicated; Z23 Encounter for immunization
CPT/HCPCS: 80048; 80053; 80202; 83605; 85025; 85610; 85730; 87040; 87070; 87077; 87186; 87205; 90471; 90732; 96365; 96366; 96367; 96368; 96372; 96375; 96376; 99285; G0378; J1650; J2270; J2543; J3370; J7050; G0009

== ENCOUNTER 2017-05-05 17:21 | Emergency (ER) | payer OTHER ==
[~2017-05-05] VITALS: Ht 190.5 cm; Wt 72.0 kg
[~2017-05-05 17:21] MED LIST changes: -ASPI325T PO; +DAKINSHST TOPICAL; -HYDR-3533 PO; -METO50TA PO; +PROC10TA PO; +TRAM50 PO; +VISM150C
[2017-05-05 17:40] VITALS: BP 137/83; PULSE 74; RESP 18; TEMP 98.5; O2SAT 98
[2017-05-05 18:19] LABS: AUTOMATED NEUTROPHIL # 5.8 TH/MM3 (1.8-7.7); BASOPHIL # 0.1 TH/MM3 (0-0.2); BASOPHIL % 0.8 % (0.0-2.0); EOSINOPHIL # 0.2 TH/MM3 (0-0.4); EOSINOPHIL % 2.2 % (0.0-4.0); HEMOGLOBIN 10.9 GM/DL (13.0-17.0); LYMPH % 20.4 % (9.0-44.0); LYMPHOCYTE # 1.8 TH/MM3 (1.0-4.8); MEAN CELL VOLUME 97.1 FL (80.0-100.0); MEAN CORPUSCULAR HEMOGLOBIN 33.2 PG (27.0-34.0); MEAN CORPUSCULAR HGB CONC 34.3 % (32.0-36.0); MEAN PLATELET VOLUME 8.7 FL (7.0-11.0); MONO % 10.7 % (0.0-8.0); MONOCYTE # 0.9 TH/MM3 (0-0.9); NEUT % 65.9 % (16.0-70.0); PLATELET COUNT 238 TH/MM3 (150-450); RED BLOOD COUNT 3.29 MIL/MM3 (4.50-5.90); RED CELL DISTRIBUTION WIDTH 13.2 % (11.6-17.2); WHITE BLOOD COUNT 8.8 TH/MM3 (4.0-11.0)
--- NOTE | 2017-05-05 18:19 | PD ---
HPI Chief Complaint: Bleeding Time Seen by Provider: 18:00 Travel History International Travel<30 days: No Contact w/Intl Traveler<30days: No Traveled to known affect area: No History of Present Illness HPI 51 YO M presents to the ED via EMS for evaluation of bleeding from a known SCC of the right upper chest. Patient stats that the bleeding started around 2 pm. He denies injury to the area. He treated at home with a pressure dressing and was able to stop the bleeding "for about an hour" but the bleeding resumed. On presentation he denies headache, dizziness, CP, palpitations, SOB, N/V, weakness. He is current pack-a-day smoker. He states that he is being treated by Dr. Alonso, Oncology and Dr. Quiles, PCP. [facility] Past Medical History Hx Anticoagulant Therapy: No Cancer: Yes (MELENOMA) Cardiovascular Problems: Yes (HTN, CHOL) Diabetes: No Diminished Hearing: No Hypertension: Yes Immunizations Current: Yes Past Surgical History Abdominal Surgery: Yes (HERNIA REPAIR X 2) Neurologic Surgery: Yes (CARPAL TUNNEL BILATERALLY) Social History Alcohol Use: Yes (2-3 DAILY BEER) Tobacco Use: Yes (ONE PPD) Substance Use: Yes (occassionally) Allergies-Medications (Allergen,Severity, Reaction): Coded Allergies: acetaminophen (Unverified Allergy, Severe, ITCHING, 05/05/17) codeine (Unverified Allergy, Severe, ITCHING, 05/05/17) ibuprofen (Unverified Allergy, Severe, UPSET STOMACH, 05/05/17) oxycodone (Unverified Allergy, Severe, GI UPSET, 05/05/17) Reported Meds & Prescriptions Reported Meds & Active Scripts Active Dakins Solution Half Strength Topical (Sodium Hypochlorite) 0.2-0.25 % Soln 473 Ml TOPICAL BID Ultram (Tramadol HCl) 50 Mg Tab 50 Mg PO Q8H PRN Reported Erivedge (Vismodegib) 150 Mg Cap Review of Systems Except as stated in HPI: all other systems reviewed are Neg Physical Exam Narrative GENERAL: Well-nourished, well-developed white male in no acute distress. SKIN: Focused skin assessment warm/dry. Approximate 14 cm lesion characteristic of SCC in the right upper chest. There is pinpoint bleeding in the 12 o'clock position. HEAD: Normocephalic. EYES: No scleral icterus. No injection or drainage. NECK: Supple, trachea midline. No JVD or lymphadenopathy. CARDIOVASCULAR: Regular rate and rhythm without murmurs, gallops, or rubs. RESPIRATORY: Breath sounds equal bilaterally. No accessory muscle use. GASTROINTESTINAL: Abdomen soft, non-tender, nondistended. MUSCULOSKELETAL: No cyanosis, or edema. BACK: Nontender without obvious deformity. No CVA tenderness. Data Data Last Documented VS Vital Signs Date Time Temp Pulse Resp B/P (MAP) Pulse Ox O2 Delivery O2 Flow Rate FiO2 05/05/17 17:40 98.5 74 18 137/83 (101) 98 Orders Orders Complete Blood Count With Diff (05/05/17 18:00) Basic Metabolic Panel (Bmp) (05/05/17 18:00) Ed Discharge Order (05/05/17 18:51) Labs Laboratory Tests Test 05/05/17 18:05 White Blood Count 8.8 TH/MM3 Red Blood Count 3.29 MIL/MM3 Hemoglobin 10.9 GM/DL Hematocrit 32.0 % Mean Corpuscular Volume 97.1 FL Mean Corpuscular Hemoglobin 33.2 PG Mean Corpuscular Hemoglobin Concent 34.3 % Red Cell Distribution Width 13.2 % Platelet Count 238 TH/MM3 Mean Platelet Volume 8.7 FL Neutrophils (%) (Auto) 65.9 % Lymphocytes (%) (Auto) 20.4 % Monocytes (%) (Auto) 10.7 % Eosinophils (%) (Auto) 2.2 % Basophils (%) (Auto) 0.8 % Neutrophils # (Auto) 5.8 TH/MM3 Lymphocytes # (Auto) 1.8 TH/MM3 Monocytes # (Auto) 0.9 TH/MM3 Eosinophils # (Auto) 0.2 TH/MM3 Basophils # (Auto) 0.1 TH/MM3 CBC Comment DIFF FINAL Differential Comment Blood Urea Nitrogen 5 MG/DL Creatinine 0.51 MG/DL Random Glucose 87 MG/DL Calcium Level 8.1 MG/DL Sodium Level 135 MEQ/L Potassium Level 3.9 MEQ/L Chloride Level 103 MEQ/L Carbon Dioxide Level 21.8 MEQ/L Anion Gap 10 MEQ/L Estimat Glomerular Filtration Rate 171 ML/MIN [facility] Medical Decision Making Medical Screen Exam Complete: Yes Emergency Medical Condition: Yes Differential Diagnosis bleeding from chronic wound versus anemia versus wound check versus other Narrative Course 51 YO M presents to the ED via EMS for evaluation of bleeding from a known SCC of the right upper chest. Patient states that the bleeding started around 2 pm. No known trauma. He treated at home with a pressure dressing and was able to stop the bleeding "for about an hour" but the bleeding resumed. He states that he is being treated by Dr. Alonso, Oncology and Dr. Quiles, PCP. Vitals reviewed. On exam there is a 10-12 cm SCC on the right anterior chest wall. there is pinpoint bleeding from the 12 o'clock position. Surgicel was applied and a pressure dressing was held in place for 5 minutes. Bleeding resolved. ABD pads were used for a bulky dressing. CBC with mild anemia, chronic according to chart review. The patient is stable and discharged home. Diagnosis Primary Impression: Bleeding from open wound of chest wall Qualified Codes: S21.101A - Unspecified open wound of right front wall of thorax without penetration into thoracic cavity, initial encounter Referrals: Keshia Quiles MD,Yoselin Peraza MD Patient Instructions: General Instructions, Squamous Cell Carcinoma (DC) Additional Instructions: Rest, hydrate. Keep the wound clean, dry and covered. Follow up with Dr. Quiles and Dr. Alonso. Return to the ED for worsening symptoms or any urgent or emergent medical condition. Disposition: 01 DISCHARGE HOME Condition: Stable Lucrecia Fuchs May 05, 2017 18:19
[2017-05-05 18:36] LABS: BICARBONATE 21.8 MEQ/L (21.0-32.0); CALCIUM 8.1 MG/DL (8.5-10.1); CREATININE 0.51 MG/DL (0.60-1.30)
== END 2017-05-05 21:19 | disposition home or self-care (01) ==
LOC: NEPE 17:21
DX: C44.529 Squamous cell carcinoma of skin of other part of trunk (principal); F17.210 Nicotine dependence, cigarettes, uncomplicated
CPT/HCPCS: 80048; 85025; 99283

== ENCOUNTER 2017-08-01 17:37 | Inpatient (IN) ==
[2017-08-24] MEDS ORDERED: Sodium Chlor 0.9% Inj 250 ML ONE ×2 (23:01)
[2017-08-24] MEDS ORDERED: Morphine Inj 30 MG/30 ML PCA.VIAL PCA ONE (23:44)
[2017-08-25] MEDS ORDERED: Metoprolol Inj 5 MG/5 ML Vial ONE
[2017-08-25] MEDS ORDERED: Azithromycin Inj 500 MG in Sodium Chlor 0.9% Inj 250 ML IV.SIG SCH ×2
[2017-08-25] MEDS ORDERED: Bisacodyl 10 MG Supp RECTAL PRN
[2017-08-25] MEDS: Piperacil/Tazo 4.5 GM Premix 4.5 GM/100 ML BAG IV.SIG SCH ×4 (02:32→18:18)
[2017-08-25] MEDS ORDERED: Metoprolol Tartrate 25 MG Tablet PO SCH (06:00)
[2017-08-25] MEDS ORDERED: PCA - Total MG Morphine Delevered per Shift MISCELLANE ONE (06:00)
[2017-08-25 06:01] LABS: Baso # (Auto) 0.1 th/mm3 (0.0-0.2); Baso % (Auto) 0.6 % (0.0-2.0); Eos # (Auto) 0.4 th/mm3 (0.0-0.4); Eos % (Auto) 3.2 % (0.0-4.0); Hematocrit 31.3 % (39.0-51.0); Hemoglobin 10.2 gm/dL (13.0-17.0); Lymph # (Auto) 1.6 th/mm3 (1.0-4.8); Lymph % (Auto) 13.6 % (9.0-44.0); Mean Corpuscular HGB Conc 32.5 % (32.0-36.0); Mean Corpuscular Hemoglobin 27.9 pg (27.0-34.0); Mean Platelet Volume 9.1 fL (7.0-11.0); Mono % (Auto) 8.7 % (0.0-8.0); Neut # (Auto) 8.7 th/mm3 (1.8-7.7); Neut % (Auto) 73.9 % (16.0-70.0); Platelet Count 524 th/mm3 (150-450); Red Blood Count 3.64 mil/mm3 (4.50-5.90); Red Cell Distribution Width 16.5 % (11.6-17.2); White Blood Count 11.8 th/mm3 (4.0-11.0)
[2017-08-25 06:36] LABS: Anion Gap 11 meq/L (5-15); Blood Urea Nitrogen 4 mg/dL (7-18); Carbon Dioxide 24.9 meq/L (21.0-32.0); Chloride 103 meq/L (98-107); Glomerular Filtration Rate Greater Than 89 mL/min (>89); Glucose,Random 74 mg/dL (74-106); Magnesium 1.4 mg/dL (1.5-2.5); Phosphorus 3.4 mg/dL (2.5-4.9); Sodium 139 meq/L (136-145)
[2017-08-25] MEDS: Metoprolol Inj 5 MG/5 ML Vial IV.PUSH PRN ×2 (06:38→11:45)
[2017-08-25] MEDS ORDERED: Senna/Docusate Sodium 8.6/50 MG Tablet PO SCH (09:00)
[2017-08-25] MEDS: Nystatin 100,000 UNITS/GM Powder 15 GM Bottle TOPICAL SCH ×2 (09:16→16:54)
[2017-08-25] MEDS: Enoxaparin Inj 40 MG/0.4 ML Syringe SQ SCH (09:17)
[2017-08-25] MEDS: Morphine Inj 30 MG/30 ML PCA.VIAL PCA PRN (09:24)
[2017-08-25] MEDS: Sodium Hypochlorite 0.125% Top Soln 500 ML Bottle TOPICAL SCH (09:42)
[2017-08-25] MEDS ORDERED: Mag Sulf 1 gm/100 ml Premix 100 ML IV.SIG ONE (09:45)
[2017-08-25] MEDS: Magnesium Oxide 400 MG Tablet PO SCH ×2 (10:35→22:56)
[2017-08-25] MEDS: Metoprolol Tartrate 50 MG Tablet PO SCH ×2 (10:35→22:56)
[2017-08-25] MEDS ORDERED: Naloxone Inj 0.4 MG/ML Vial IV.PUSH PRN (14:26)
--- NOTE | 2017-08-25 18:33 | P.PN ---
Subjective Interval history: Follow-up chest pain, hypoxia and A. fib. CTA without PE but has bilateral infiltrates and bibasilar alveolar consolidations. Patient complains of shortness of breath with hypoxia. Started on Zosyn and Zithromax. Also developed RVR today received IV Lopressor. Physical Exam Vital signs: Vital Signs 08/24/17 23:35 08/25/17 02:00 08/25/17 03:00 Pulse Rate 110 H 111 H Respiratory Rate 16 Blood Pressure 168/107 H 145/90 H Pulse Oximetry 96 08/25/17 04:10 08/25/17 05:42 08/25/17 13:00 Pulse Rate 94 H Respiratory Rate 16 16 18 Blood Pressure 138/79 Pulse Oximetry 95 08/25/17 14:07 08/25/17 18:05 Pulse Rate Respiratory Rate 18 20 Blood Pressure Pulse Oximetry Intake & Output 08/24/17 08/25/17 08/25/17 18:59 06:59 18:59 Intake Total 680 / 680 Output Total 1890 / 1890 Balance -1210 / -1210 Intake: IV 200 / 200 Zosyn 4.5 GM Premix 4.5 gm In 200 / 200 100 ml @ 200 mls/hr IV.SIG Q6HR TAWANA Rx#:[id number] Oral 480 / 480 Output: Urine 1750 / 1750 Wound Drainage 80 / 80 # 1 Right JN Drain 0 / 0 # 2 Right JN Drain 20 / 20 Anterior Medial Chest 60 / 60 Chest Tube Drainage 60 / 60 #1 Right Upper 60 / 60 Narrative: GENERAL: Patient lying in bed. Appears comfortable. SKIN: Warm and dry. CARDIOVASCULAR: Tachycardic without murmurs, gallops, or rubs. RESPIRATORY: Breath sounds equal bilaterally. No accessory muscle use. CT in place GASTROINTESTINAL: Abdomen soft, non-tender, nondistended. MUSCULOSKELETAL: Chest with wound VAC. No cyanosis, or edema. BACK: Nontender without obvious deformity. No CVA tenderness. Insight and judgment is good Procedures 08/07 PROCEDURES PERFORMED: 1. 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 2. Closure of chest wall defect 6 x 4 cm with dermal matrix biological mesh. 3. Placement of VAC dressing to wound, 26 x 21 cm. 4. Right thoracostomy tube placement. 08/10 vac dressing 08/20 Right pedicled latissimus muscle flap to right chest wound Left pectoralis major muscle flap to right chest wound 08/23 Right chest wound VAC change (77073) Right chest wound debridement (04383, 10446 x 6) Results - Labs CBC & Chem 7: 08/25/17 04:01 08/25/17 04:01 Laboratory Results - last 24 hr 08/22/17 08/22/17 08/23/17 04:40 04:40 05:25 WBC 8.6 RBC 3.32 L Hgb 9.2 L Hct 28.5 L MCV 86.0 MCH 27.8 MCHC 32.4 RDW 16.2 Plt Count 439 MPV 9.6 Neut % (Auto) Lymph % (Auto) [place] % (Auto) Eos % (Auto) Baso % (Auto) Neut # (Auto) Lymph # (Auto) [place] # (Auto) Eos # (Auto) Baso # (Auto) CBC Comment WBC Differential Differential Comment Hematology Comments Sodium 138 136 Potassium 4.0 4.3 Chloride 104 102 Carbon Dioxide 24.8 23.5 Anion Gap 9 11 BUN 3 L 6 L Creatinine 0.37 L 0.45 L Estimated GFR 247 197 Random Glucose 75 130 H Hemoglobin A1c 5.5 Calcium 7.8 L 7.7 L Phosphorus 3.9 Magnesium 1.7 1.4 L Total Bilirubin 0.2 AST 16 ALT 13 Alkaline Phosphatase 106 B-Natriuretic Peptide Total Protein 5.6 L D Albumin 1.6 L Free T4 1.16 TSH 3rd Generation 2.720 08/23/17 08/24/17 08/24/17 05:45 05:48 08:47 WBC 13.1 H 11.3 H RBC 3.18 L 2.99 L Hgb 8.8 L 8.4 L Hct 27.0 L 26.8 L MCV 84.9 89.8 D MCH 27.6 28.2 MCHC 32.5 31.4 L RDW 16.3 16.9 Plt Count 464 H 426 MPV 9.8 9.2 Neut % (Auto) 87.8 H 79.6 H Lymph % (Auto) 7.2 L 10.7 [place] % (Auto) 4.8 9.2 H Eos % (Auto) 0.0 0.3 Baso % (Auto) 0.2 0.2 Neut # (Auto) 11.5 H 9.0 H Lymph # (Auto) 0.9 L 1.2 [place] # (Auto) 0.6 1.0 H Eos # (Auto) 0.0 0.0 Baso # (Auto) 0.0 0.0 CBC Comment DIFF FINAL DIFF FINAL WBC Differential Differential Comment Hematology Comments Sodium 139 Potassium 3.9 Chloride 107 Carbon Dioxide 23.1 Anion Gap 9 BUN 6 L Creatinine 0.55 L Estimated GFR 156 Random Glucose 90 Hemoglobin A1c Calcium 8.0 L Phosphorus 3.3 Magnesium 1.6 Total Bilirubin 0.1 L AST 47 H ALT 23 Alkaline Phosphatase 120 H B-Natriuretic Peptide Total Protein 5.5 L Albumin 1.7 L Free T4 TSH 3rd Generation 08/25/17 08/25/17 08/25/17 04:01 04:01 14:46 WBC 11.8 H RBC 3.64 L Hgb 10.2 L Hct 31.3 L MCV 86.0 MCH 27.9 MCHC 32.5 RDW 16.5 Plt Count 524 H MPV 9.1 Neut % (Auto) 73.9 H Lymph % (Auto) 13.6 [place] % (Auto) 8.7 H Eos % (Auto) 3.2 Baso % (Auto) 0.6 Neut # (Auto) 8.7 H Lymph # (Auto) 1.6 [place] # (Auto) 1.0 H Eos # (Auto) 0.4 Baso # (Auto) 0.1 CBC Comment WBC Differential . Differential Comment Auto diff final Hematology Comments Sodium 139 Potassium 4.0 Chloride 103 Carbon Dioxide 24.9 Anion Gap 11 BUN 4 L Creatinine 0.49 L Estimated GFR Greater than 89 Random Glucose 74 Hemoglobin A1c Calcium 8.0 L Phosphorus 3.4 Magnesium 1.4 L Total Bilirubin AST ALT Alkaline Phosphatase B-Natriuretic Peptide 867 H Total Protein Albumin Free T4 TSH 3rd Generation Assessment and Plan - Plan 51yM s/p chest wall mass resection. now complicated by intermittent afib RVR. increase amiodarone to 400mg po bid and d/c drip. continue po beta blockade. continue aggressive electrolyte replacement. can transfer out of ICU from my standpoint. PAF Rapid ventricular response - We will increase Lopressor to 50 mg every 12 hours - metoprolol 5mg iv prn for HR > 110. May need to restart amiodarone drip - aggressive electrolyte replacement targeting K > 4.5 and Mg > 2.5 - Cards is following- Dr. Sandoval recommending coumadin or noac CHADS score of 3 if pt agrees and cleared by surgery. 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 Change to po oxycodone 10 mg for pain scale 1-5 and Lortab 15 mg scale of 6-10 for better control -Wound VAC and CT in place. -GS following, will be alerted because of tiny right pneumothorax with air leak. Hypoxia with abnormal CTA showing bilateral infiltrates and bibasilar alveolar consolidations suspected pneumonia versus fluid overload. Obtain BNP, blood culture, pneumococcal and Legionella antigen. Continue IV Zosyn and Zithromax for now secondary bacterial infection - resolved -Wound cx: PSAE 08/01 -ID is following -completed course of antibiotics. Prophylactic Cefepime and vanco ordered 08/21. = Appreciate ID assistance. Hypertension -Metoprolol : Monitor renal function, electrolytes replacement per protocol. GI: On PO diet DVT GI prophylaxis -Marcello's and SCDs. Lovenox -GI prophylaxis-on po diet Discharge Planning We will need cardiology, surgery clearance
[2017-08-25] MEDS: Azithromycin Inj 500 MG in Sodium Chlor 0.9% Inj 250 ML IV.SIG SCH (22:58)
[2017-08-26] MEDS: Piperacil/Tazo 4.5 GM Premix 4.5 GM/100 ML BAG IV.SIG SCH ×6 (00:13→23:57)
[2017-08-26] MEDS ORDERED: Atropine Inj 1 MG/10 ML Syringe ONE (01:36)
[2017-08-26] MEDS ORDERED: Chlorhexidine Gluconate 2% 1 Pack (2 Cloths) TOPICAL SCH (02:30)
[2017-08-26] MEDS ORDERED: Sodium Chlor 0.9% Inj 500 ML IV.SIG SCH (03:00)
[2017-08-26 07:38] LABS: Anion Gap 10 meq/L (5-15); Blood Urea Nitrogen 4 mg/dL (7-18); Calcium 7.5 mg/dL (8.5-10.1); Chloride 103 meq/L (98-107); Glomerular Filtration Rate Greater Than 89 mL/min (>89); Glucose,Random 68 mg/dL (74-106); Potassium 3.7 meq/L (3.5-5.1); Sodium 140 meq/L (136-145)
[2017-08-26] MEDS: Metoprolol Tartrate 50 MG Tablet PO SCH ×2 (08:27→23:39)
[2017-08-26] MEDS: Magnesium Oxide 400 MG Tablet PO SCH ×2 (08:27→23:39)
[2017-08-26] MEDS: Enoxaparin Inj 40 MG/0.4 ML Syringe SQ SCH (08:29)
--- NOTE | 2017-08-26 10:37 | P.PN ---
Subjective Interval history: Follow-up A. fib. Converted to SR with episode of bradycardia overnight. Seen after surgery today operative report not yet available. Physical Exam Vital signs: Vital Signs 08/25/17 10:48 08/25/17 11:00 08/25/17 12:00 Temperature 98.4 F Pulse Rate 138 H 139 H 135 H Respiratory Rate 22 Blood Pressure Pulse Oximetry 95 08/25/17 13:00 08/25/17 14:00 08/25/17 14:07 Temperature Pulse Rate 132 H 140 H Respiratory Rate 18 18 Blood Pressure Pulse Oximetry 08/25/17 15:00 08/25/17 16:00 08/25/17 18:05 Temperature 98.6 F Pulse Rate 136 H 103 H Respiratory Rate 22 20 Blood Pressure 111/76 Pulse Oximetry 96 08/25/17 20:00 08/26/17 00:00 08/26/17 04:00 Temperature 98.5 F 98.2 F 98.0 F Pulse Rate 141 H 61 63 Respiratory Rate 20 18 18 Blood Pressure 115/79 103/71 119/72 Pulse Oximetry 97 98 97 08/26/17 10:25 Temperature Pulse Rate Respiratory Rate Blood Pressure Pulse Oximetry 97 Intake & Output 08/25/17 08/26/17 08/26/17 18:59 06:59 18:59 Intake Total 930 / 930 440 / 440 Output Total 1790 / 1790 1010 / 1010 Balance -860 / -860 -570 / -570 Weight 71.8 kg Intake: IV 100 / 100 200 / 200 Zosyn 4.5 GM Premix 4.5 gm In 100 / 100 200 / 200 100 ml @ 200 mls/hr IV.SIG Q6HR TAWANA Rx#:[id number] Oral 830 / 830 240 / 240 Output: Urine 1600 / 1600 1000 / 1000 Wound Drainage 60 / 60 10 / 10 # 1 Right JN Drain 0 / 0 # 2 Right JN Drain 30 / 30 10 / 10 Anterior Medial Chest 30 / 30 Chest Tube Drainage 130 / 130 0 / 0 #1 Right Upper 130 / 130 0 / 0 Other: Date of Last Bowel Movement 08/24/17 Narrative: GENERAL: Patient lying in bed. Appears comfortable. SKIN: Warm and dry. CARDIOVASCULAR: Regular rate and rhythm without murmurs, gallops, or rubs. RESPIRATORY: Breath sounds equal bilaterally. No accessory muscle use. CT in place GASTROINTESTINAL: Abdomen soft, non-tender, nondistended. MUSCULOSKELETAL: Chest with wound VAC. No cyanosis, or edema. BACK: Nontender without obvious deformity. No CVA tenderness. Insight and judgment is good Results - Labs CBC & Chem 7: 08/25/17 04:01 08/26/17 05:04 Laboratory Results - last 24 hr 08/25/17 08/26/17 14:46 05:04 Sodium 140 Potassium 3.7 Chloride 103 Carbon Dioxide 27.0 Anion Gap 10 BUN 4 L Creatinine 0.41 L Estimated GFR Greater than 89 Random Glucose 68 L Calcium 7.5 L B-Natriuretic Peptide 867 H - Procedures 08/07 PROCEDURES PERFORMED: 1. 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 2. Closure of chest wall defect 6 x 4 cm with dermal matrix biological mesh. 3. Placement of VAC dressing to wound, 26 x 21 cm. 4. Right thoracostomy tube placement. 08/10 vac dressing 08/20 Right pedicled latissimus muscle flap to right chest wound Left pectoralis major muscle flap to right chest wound 08/23 Right chest wound VAC change (03953) Right chest wound debridement (52820, 84642 x 6) Assessment and Plan - Plan 51yM s/p chest wall mass resection. now complicated by intermittent afib RVR. increase amiodarone to 400mg po bid and d/c drip. continue po beta blockade. continue aggressive electrolyte replacement. can transfer out of ICU from my standpoint. PAF Rapid ventricular response. Improved status post IV Lopressor 5 mg 2. Now in sinus rhythm - Continue Lopressor 50 mg every 12 hours with hold parameters - metoprolol 5mg iv prn for HR > 110. May need to restart amiodarone drip - aggressive electrolyte replacement targeting K > 4.5 and Mg > 2.5 - Cards is following- Dr. Sandoval recommending coumadin or noac CHADS score of 3 if pt agrees and cleared by surgery. 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 Change to po oxycodone 10 mg for pain scale 1-5 and Lortab 15 mg scale of 6-10 for better control -Wound VAC and CT in place. -GS following, will be alerted because of tiny right pneumothorax with air leak. Patient currently denies shortness of breath. He always has chest pain which is improved from previous after adjusting p.o. meds Hypoxia with abnormal CTA showing bilateral infiltrates and bibasilar alveolar consolidations suspected pneumonia versus fluid overload. Ordered blood culture , pneumococcal and Legionella antigen. Continue IV Zosyn and Zithromax for now. Elevated BNP check echocardiogram secondary bacterial infection - resolved -Wound cx: PSAE 08/01 -ID is following -completed course of antibiotics. Prophylactic Cefepime and vanco ordered 08/21. = Appreciate ID assistance. Hypertension -Metoprolol : Monitor renal function, electrolytes replacement per protocol. GI: On PO diet DVT GI prophylaxis -Marcello's and SCDs. Lovenox -GI prophylaxis-on po diet Discharge Planning We will need cardiology, surgery clearance
--- NOTE | 2017-08-26 10:43 | ECG ---
Date Performed: 08/26/2017 Time Performed: 01:50:50 PTAGE: 51 years EKG: Sinus rhythm with PVC(s) rSr'(V1) - probable normal variant Inferior/lateral ST changes are nonspecific Compared to previous tracing sinus rhythm has replaced atrial fibrillation with rapid response Borderline ECG PREVIOUS TRACING :08/10/17 DOCTOR: Juan Bailey Interpretating Date/Time 08/26/2017 10:41:41
[2017-08-26] MEDS ORDERED: Lidocaine 1%/Epinephrine 1:100,000 Inj 50 ML Vial ONE (11:18)
[2017-08-26] MEDS ORDERED: Bupivacaine/Epinephrine Inj 0.25% 50 ML Vial ONE (11:18)
[2017-08-26] MEDS ORDERED: Phenylephrine/NS 1000 MCG/10ML Syringe IV.PUSH ONE (12:00)
[2017-08-26] MEDS ORDERED: Neostigmine Inj 5 MG/5 ML Syringe IV.PUSH ONE (12:00)
[2017-08-26] MEDS ORDERED: Sodium Chlor 0.9% Inj 500 ML IV.SIG ONE (12:00)
[2017-08-26] MEDS ORDERED: Glycopyrrolate Inj 1 MG/5 ML Syringe IV.PUSH ONE (12:00)
[2017-08-26] MEDS ORDERED: Lidocaine PF 1% Inj 5 ML Syringe INFILTRATN ONE (12:00)
[2017-08-26] MEDS ORDERED: fentaNYL Citrate Inj 100 MCG/2 ML Ampul ONE (13:50)
[2017-08-26] MEDS: Morphine Inj 30 MG/30 ML PCA.VIAL PCA PRN (15:44)
[2017-08-26] MEDS: Nystatin 100,000 UNITS/GM Powder 15 GM Bottle TOPICAL SCH ×2 (19:23→23:38)
[2017-08-26] MEDS: Azithromycin Inj 500 MG in Sodium Chlor 0.9% Inj 250 ML IV.SIG SCH (23:53)
[2017-08-27] MEDS: Piperacil/Tazo 4.5 GM Premix 4.5 GM/100 ML BAG IV.SIG SCH ×4 (06:22→23:35)
[2017-08-27] MEDS: Magnesium Oxide 400 MG Tablet PO SCH ×2 (08:58→23:30)
[2017-08-27] MEDS: Metoprolol Tartrate 50 MG Tablet PO SCH ×2 (08:58→23:30)
[2017-08-27] MEDS: Enoxaparin Inj 40 MG/0.4 ML Syringe SQ SCH (08:59)
[2017-08-27] MEDS: Sodium Hypochlorite 0.125% Top Soln 500 ML Bottle TOPICAL SCH (09:00)
[2017-08-27] MEDS: Morphine Inj 30 MG/30 ML PCA.VIAL PCA PRN ×2 (09:16→15:48)
[2017-08-27] MEDS: Nystatin 100,000 UNITS/GM Powder 15 GM Bottle TOPICAL SCH ×2 (13:05→23:31)
--- NOTE | 2017-08-27 16:58 | ECHRPT ---
Indication: HEART FAILURE CONCLUSIONS Normal left ventricular size. Wall thickness is normal. The left ventricular systolic function is lo w normal with an estimated ejection fraction in the range of 55-60%. Normal wall motion. No definite eviden ce for diastolic dysfunction. Trace mitral valve regurgitation. Minimal mitral annular calcification is present. BP: / HR: Rhythm: MEASUREMENTS (Male / Female) Normal Values Technical Quality: 2D ECHO LV Diastolic Diameter PLAX 5.5 cm 4.2 - 5.9 / 3.9 - 5.3 cm LV Systolic Diameter PLAX 4.0 cm IVS Diastolic Thickness 1.2 cm 0.6 - 1.0 / 0.6 - 0.9 cm LVPW Diastolic Thickness 0.8 cm 0.6 - 1.0 / 0.6 - 0.9 cm LV Relative Wall Thickness 0.4 RV Internal Dim ED PLAX 2.8 cm LA Systolic Diameter LX 4.0 cm 3.0 - 4.0 / 2.7 - 3.8 cm M-MODE Aortic Root Diameter MM 3.3 cm AV Cusp Separation MM 2.3 cm DOPPLER Mitral E Point Velocity 64.2 cm/s Mitral A Point Velocity 36.5 cm/s Mitral E to A Ratio 1.8 TR Peak Velocity 331.0 cm/s TR Peak Gradient 43.8 mmHg Right Atrial Pressure 10.0 mmHg Pulmonary Artery Systolic Pressu 53.8 mmHg Right Ventricular Systolic Press 53.8 mmHg FINDINGS LEFT VENTRICLE Normal left ventricular size. Wall thickness is normal. The left ventricular systolic function is lo w normal with an estimated ejection fraction in the range of 55-60%. Normal wall motion. RIGHT VENTRICLE Normal right ventricular size and systolic function. LEFT ATRIUM The left atrial size is normal. RIGHT ATRIUM The right atrial size is normal. ATRIAL SEPTUM Normal atrial septal thickness without atrial level shunting by limited color doppler interrogation. AORTA The aortic root and proximal ascending aorta are normal in size on limited imaging. MITRAL VALVE Trace mitral valve regurgitation. Minimal mitral annular calcification is present. AORTIC VALVE Trileaflet aortic valve. No aortic valve stenosis or regurgitation. TRICUSPID VALVE Structurally normal tricuspid valve. No tricuspid valve stenosis or regurgitation. PULMONARY VALVE No pulmonary valve regurgitation or stenosis. VESSELS The inferior vena cava is normal in size. PERICARDIUM A left sided pleural effusion is present. Oswald Dubose MD (Electronically Signed) Final Date:27 August 2017 16:58
--- NOTE | 2017-08-27 17:49 | P.OP ---
- Preoperative Diagnosis (1) Open chest wound - Postoperative Diagnosis (1) Open chest wound Date of procedure: 08/26/17 Procedure: Right chest wound VAC change (38250) Debridement of muscle, 30 cm (54783, 14557) Anesthesia: GETA Surgeon: Joey Stauffer MD Operation and Findings: 51-year-old male with right chest wound status post skin cancer resection with resultant latissimus dorsi myocutaneous flap and pectoralis major advancement flap was found to have several centimeters of distal latissimus muscle flap necrosis at the initial VAC change, and is now status post one VAC change and debridement following the muscle flaps. Risks benefits alternative treatments were discussed. All questions were answered and the patient expressed understanding. Patient elected to assume the risks of VAC change under anesthesia with possible skin graft. Informed consent was obtained. Surgical site was marked in the preoperative holding bay. The patient was on antibiotics already for pneumonia which gave good coverage for skin pathogens. He was due for his Zosyn dose, which was given preoperatively. The patient was taken to the operating room and all pressure points were padded. After the smooth induction of general anesthesia the wound VAC was removed. The surgical site was prepped and draped in the usual sterile fashion. There were limited areas of partial necrosis of the latissimus flap, roughly 30 cm. These were sharply debrided to bleeding tissue. The superior aspect of the latissimus, which was viable, was rearranged to abut the cutaneous skin paddle in order to fill in the resultant defect where the muscle was debrided. This allowed for complete coverage of the sternal defect, whose superior aspect had been uncovered following muscle debridement. There were several scattered 1 cm areas of exposed anterior rib, primarily in the inferior aspect of the wound which were not covered by granulation tissue and/or latissimus. Because of this as well as the limited necrosis, the wound was not deemed appropriate for grafting at this time. The wound VAC was replaced and suction applied at -75 mmHg. The plan will be for the patient to be taken back in 3 days for VAC change. If at this time the wound appears stable, the patient will likely undergo wound VAC changes on the floor until the wound bed has confluent granulation tissue, at which time it will likely be skin grafted. All needle sponge and instrument counts were correct 2. The patient was awoken from anesthesia and arrived stable and doing well to the PACU.
--- NOTE | 2017-08-27 17:54 | P.DIET ---
Nutritional Evaluation Type of nutrition evaluation: initial Nutrition consult regarding: Diet Evaluation Nutrition screening: [facility]: Supplement to Oral Intake; Pt w/Low Albumin and Large Wound Subjective Subjective Comments: Pt says he is getting tired of the food. Doesnt Care for Ensure. Pt's brings in Boost supplement for pt w/20g Protein per serving. Pt says he drinks two of the Boost daily. Pt drank a Boost during this visit. Pt provided w/ additional menu options during this visit. Pt receptive to having cafeteria menu options Saturday through Saturday for the lunch meal. Objective - Diagnosis Infected Chest Wall Malignancy - Indications of Malnutrition Classification: Acute disease or injury-related Malnutrition Characteristics: Insufficient energy intake - Objective % IBW: 69 Body Weight Used for Calculations: Actual Energy Needs - Lower Range (kCal/kg): 38 Energy Needs - Upper Range (kCal/kg): 43 Lower Limit kCal/kg (kCals): 2,421 Upper Limit kCal/kg (kCals): 2,739 Lower Limit Protein Factor (Grams per Kg): 1.4 Upper Limit Protein Factor (Grams per Kg): 1.8 Lower Protein Needs (Protein): 89 Upper Protein Needs (Protein): 115 Dietitian Reviewed in Medical Record: Current diet, Curent medications, Intake & Output, Labs, Medical history, Wound/DTI Diet Order: Regular w/Ensure Oral Diet Intake Amount: Fair 50-75% Objective Comments: PMH: AFib, infected chest wall malignancy s/p radical resection of chest wall malignancy; chest w/wound vac inplace Labs Include: Albumin 1.7, pre-albumin 9 LBM 08/24 Assessment Assessment: Pt is at high nutritional risk r/t diagnosis, low BMI and extended hospital stay. [facility] for Ensure. Pt does not like Ensure. Pt's brings preferred Boost supplement for this pt w/20g Protein per serving. Pt reports drinking two Boost daily. Pt provided w/ increased menu options to assist w/adequate po intake and promote healing. Plan to provide pt w/cafeteria lunch options Saturday through Saturday. Labs reviewed-noted concern for low albumin and pre-albumin; however, albumin and pre -albumin are acute-phase proteins and reflect the inflammatory process vs. nutritional status. Wt noted. Dietitian following. Recommendations: 1.Pt does not like Ensure-prefers Boost supplement 2.Pt's brings preferred Boost supplement in for this pt 3.Provide increased menu options to assist w/adequate po intake and promote healing 4.Plan to provide pt w/cafeteria lunch options Saturday through Saturday 5.Dietitian following Dietitian to Monitor: Lab values, Supplement acceptance, Intake & Output, Weight change, PO Intake, Wound/skin status, Medical course
--- NOTE | 2017-08-27 19:34 | P.PNIM ---
Subjective Interval history: patient c/o chest soareness denies sob. Pain controlled with pain medications Denies fevers or chills Physical Exam Vital signs: Vital Signs 08/26/17 20:00 08/27/17 00:00 08/27/17 02:00 Temperature 98.0 F 98.4 F Pulse Rate 96 H 77 Respiratory Rate 18 18 18 Blood Pressure 135/72 140/77 Pulse Oximetry 96 99 08/27/17 04:00 08/27/17 08:00 08/27/17 09:53 Temperature 97.9 F 98.2 F Pulse Rate 65 65 Respiratory Rate 18 16 16 Blood Pressure 124/67 133/73 Pulse Oximetry 95 92 L 08/27/17 12:00 08/27/17 16:00 Temperature 98.7 F 98.5 F Pulse Rate 62 59 L Respiratory Rate 18 18 Blood Pressure 123/72 117/71 Pulse Oximetry 91 L 88 L Intake & Output 08/27/17 08/27/17 08/28/17 06:59 18:59 06:59 Intake Total 200 / 200 680 / 680 Output Total 300 / 300 901 / 901 Balance -100 / -100 -221 / -221 Intake: IV 200 / 200 200 / 200 Zosyn 4.5 GM Premix 4.5 gm In 200 / 200 200 / 200 100 ml @ 200 mls/hr IV.SIG Q6HR [facility] Rx#:[id number] Oral 480 / 480 Output: Urine 300 / 300 900 / 900 Wound Drainage # 2 Right JN Drain Other: # Voids 1 Date of Last Bowel Movement 08/24/17 08/24/17 Narrative: GENERAL: Patient lying in bed. Appears comfortable. SKIN: Warm and dry. CARDIOVASCULAR: Regular rate and rhythm without murmurs, gallops, or rubs. RESPIRATORY: Breath sounds equal bilaterally. No accessory muscle use. CT in place GASTROINTESTINAL: Abdomen soft, non-tender, nondistended. MUSCULOSKELETAL: Chest with wound VAC. No cyanosis, or edema. BACK: Nontender without obvious deformity. No CVA tenderness. Insight and judgment is good Results - Labs CBC & Chem 7: 08/25/17 04:01 08/26/17 05:04 Laboratory Results - last 24 hr 08/27/17 10:02 Prealbumin 9 L Microbiology 08/26/17 10:30 Urine - Clean Catch Urine Streptococcus pneumoniae Antigen ( M - Final Presumptive negative for streptococcus pneumoniae antigen, suggesting no current or recent infection. Infection due to Streptococcus pneumoniae cannot be ruled out since the antigen present in the sample may be below the detection limit of the test. 08/26/17 09:00 Urine - Clean Catch Urine Legionella Antigen - Final Presumptive negative for Legionella pneumophila serogroup 1 antigen in urine, suggesting no recent or recurrent infection. Infection due to Legionella cannot be ruled out since other serogroups and species may cause disease, antigen may not be present in urine in early infection, and the level of antigen present in the urine may be below the detection limit of the test. - Procedures 08/07 PROCEDURES PERFORMED: 1. 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 2. Closure of chest wall defect 6 x 4 cm with dermal matrix biological mesh. 3. Placement of VAC dressing to wound, 26 x 21 cm. 4. Right thoracostomy tube placement. 08/10 vac dressing 08/20 Right pedicled latissimus muscle flap to right chest wound Left pectoralis major muscle flap to right chest wound 08/23 Right chest wound VAC change (39877) Right chest wound debridement (97199, 74868 x 6) Assessment and Plan - Plan 51yM s/p chest wall mass resection. now complicated by intermittent afib RVR. increase amiodarone to 400mg po bid and d/c drip. continue po beta blockade. continue aggressive electrolyte replacement. can transfer out of ICU from my standpoint. PAF Rapid ventricular response. Improved status post IV Lopressor 5 mg 2. Now in sinus rhythm - Continue Lopressor 50 mg every 12 hours with hold parameters - metoprolol 5mg iv prn for HR > 110. May need to restart amiodarone drip - aggressive electrolyte replacement targeting K > 4.5 and Mg > 2.5 - Cards is following- Dr. Sandoval recommending coumadin or noac CHADS score of 3 if pt agrees and cleared by surgery. 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 Change to po oxycodone 10 mg for pain scale 1-5 and Lortab 15 mg scale of 6-10 for better control -Wound VAC and CT in place. -GS following, will be alerted because of tiny right pneumothorax with air leak. Patient currently denies shortness of breath. He always has chest pain which is improved from previous after adjusting p.o. meds. 08/[address] Topete - plan is for wound vac change on . Hypoxia with abnormal CTA showing bilateral infiltrates and bibasilar alveolar consolidations suspected pneumonia versus fluid overload. Ordered blood culture , pneumococcal and Legionella antigen. Continue IV Zosyn and Zithromax for now. 08/27 2D echo with normal ef, no definite diastolic dysfunction. 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 secondary bacterial infection - resolved -Wound cx: PSAE 08/01 -ID is following -completed course of antibiotics. Prophylactic Cefepime and vanco ordered 08/21. = Appreciate ID assistance. Hypertension -Metoprolol : Monitor renal function, electrolytes replacement per protocol. GI: On PO diet DVT GI prophylaxis -Marcello's and SCDs. Lovenox -GI prophylaxis-on po diet Discharge Planning: Continue to monitor in the medical floor.
[2017-08-27] MEDS: Azithromycin Inj 500 MG in Sodium Chlor 0.9% Inj 250 ML IV.SIG SCH (23:36)
[2017-08-28] MEDS: Nystatin 100,000 UNITS/GM Powder 15 GM Bottle TOPICAL SCH ×4 (06:29→21:02)
[2017-08-28] MEDS: Piperacil/Tazo 4.5 GM Premix 4.5 GM/100 ML BAG IV.SIG SCH ×4 (06:30→23:34)
[2017-08-28] MEDS: Morphine Inj 30 MG/30 ML PCA.VIAL PCA PRN ×3 (08:20→22:17)
[2017-08-28] MEDS: Enoxaparin Inj 40 MG/0.4 ML Syringe SQ SCH (08:21)
[2017-08-28] MEDS: Metoprolol Tartrate 50 MG Tablet PO SCH ×2 (08:21→20:54)
[2017-08-28] MEDS: Sodium Hypochlorite 0.125% Top Soln 500 ML Bottle TOPICAL SCH (08:22)
--- NOTE | 2017-08-28 16:30 | P.PNIM ---
Subjective Interval history: The patient denies shortness of breath. Chest pain is controlled. Denies fevers or chills. Physical Exam Vital signs: Vital Signs 08/27/17 20:00 08/28/17 00:00 08/28/17 04:00 Temperature 98.3 F 98.3 F 97.6 F Pulse Rate 62 57 L 53 L Respiratory Rate 18 18 18 Blood Pressure 120/69 119/71 125/70 Pulse Oximetry 93 L 95 96 08/28/17 04:28 08/28/17 08:00 08/28/17 12:00 Temperature 97.9 F 98.6 F Pulse Rate 64 52 L Respiratory Rate 18 14 14 Blood Pressure 136/75 113/69 Pulse Oximetry 94 L 96 08/28/17 16:00 08/28/17 16:13 Temperature Pulse Rate Respiratory Rate 14 14 Blood Pressure Pulse Oximetry Intake & Output 08/27/17 08/28/17 08/28/17 18:59 06:59 18:59 Intake Total 780 / 780 100 / 100 100 / 100 Output Total 1331 / 1331 355 / 355 Balance -551 / -551 -255 / -255 100 / 100 Weight 68 kg Intake: IV 300 / 300 100 / 100 100 / 100 Zosyn 4.5 GM Premix 4.5 gm In 300 / 300 100 / 100 100 / 100 100 ml @ 200 mls/hr IV.SIG Q6HR [facility] Rx#:[id number] Oral 480 / 480 Output: Urine 1200 / 1200 225 / 225 Wound Drainage / 20 / 20 # 1 Right JN Drain 20 / 20 # 2 Right JN Drain Chest Tube Drainage 130 / 130 110 / 110 #1 Right Upper 130 / 130 110 / 110 Other: Date of Last Bowel Movement 08/24/17 08/24/17 08/24/17 Narrative: GENERAL: Patient lying in bed. Appears comfortable. SKIN: Warm and dry. CARDIOVASCULAR: Regular rate and rhythm without murmurs, gallops, or rubs. RESPIRATORY: Breath sounds equal bilaterally. No accessory muscle use. CT in place GASTROINTESTINAL: Abdomen soft, non-tender, nondistended. MUSCULOSKELETAL: Chest with wound VAC. No cyanosis, or edema. BACK: Nontender without obvious deformity. No CVA tenderness. Insight and judgment is good Results - Labs CBC & Chem 7: 08/25/17 04:01 08/26/17 05:04 - Procedures 6/13 PROCEDURES PERFORMED: 1. 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 2. Closure of chest wall defect 6 x 4 cm with dermal matrix biological mesh. 3. Placement of VAC dressing to wound, 26 x 21 cm. 4. Right thoracostomy tube placement. 08/10 vac dressing 08/20 Right pedicled latissimus muscle flap to right chest wound Left pectoralis major muscle flap to right chest wound 08/23 Right chest wound VAC change (02917) Right chest wound debridement (27284, 55715 x 6) Assessment and Plan - Plan 51yM s/p chest wall mass resection. now complicated by intermittent afib RVR. increase amiodarone to 400mg po bid and d/c drip. continue po beta blockade. continue aggressive electrolyte replacement. can transfer out of ICU from my standpoint. PAF Rapid ventricular response. Improved status post IV Lopressor 5 mg 2. Now in sinus rhythm - Continue Lopressor 50 mg every 12 hours with hold parameters - metoprolol 5mg iv prn for HR > 110. May need to restart amiodarone drip - aggressive electrolyte replacement targeting K > 4.5 and Mg > 2.5 - Cards is following- Dr. Sandoval recommending coumadin or noac CHADS score of 3 if pt agrees and cleared by surgery. 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 Change to po oxycodone 10 mg for pain scale 1-5 and Lortab 15 mg scale of 6-10 for better control -Wound VAC and CT in place. -GS following, will be alerted because of tiny right pneumothorax with air leak. Patient currently denies shortness of breath. He always has chest pain which is improved from previous after adjusting p.o. meds. 08/[address] Topete - plan is for wound vac change on . Hypoxia with abnormal CTA showing bilateral infiltrates and bibasilar alveolar consolidations suspected pneumonia versus fluid overload. Ordered blood culture , pneumococcal and Legionella antigen. Continue IV Zosyn and Zithromax for now. 08/27 2D echo with normal ef, no definite diastolic dysfunction. Continue supplemental o2 - if there is clinical deterioration, transfer to icu and consult core dropper. secondary bacterial infection - resolved -Wound cx: PSAE 08/01 -ID is following -completed course of antibiotics. Prophylactic Cefepime and vanco ordered 08/21. = Appreciate ID assistance. Hypertension -Metoprolol : Monitor renal function, electrolytes replacement per protocol. GI: On PO diet DVT GI prophylaxis -Marcello's and SCDs. Lovenox -GI prophylaxis-on po diet Discharge Planning: Continue to monitor in the medical floor.
[2017-08-28] MEDS: Azithromycin Inj 500 MG in Sodium Chlor 0.9% Inj 250 ML IV.SIG SCH (23:35)
[2017-08-29] MEDS ORDERED: Chlorhexidine Gluconate 2% 1 Pack (2 Cloths) TOPICAL SCH (01:30)
[2017-08-29] MEDS ORDERED: Sodium Chlor 0.9% Inj 500 ML IV.SIG SCH (02:00)
[2017-08-29] MEDS: Piperacil/Tazo 4.5 GM Premix 4.5 GM/100 ML BAG IV.SIG SCH ×3 (06:19→17:00)
[2017-08-29] MEDS: Sodium Hypochlorite 0.125% Top Soln 500 ML Bottle TOPICAL SCH (08:49)
[2017-08-29] MEDS: Enoxaparin Inj 40 MG/0.4 ML Syringe SQ SCH (08:50)
[2017-08-29] MEDS: Morphine Inj 30 MG/30 ML PCA.VIAL PCA PRN ×2 (09:47→18:35)
[2017-08-29] MEDS: Metoprolol Tartrate 50 MG Tablet PO SCH ×3 (10:19→22:51)
--- NOTE | 2017-08-29 12:01 | P.PNIM ---
Subjective Interval history: Patient states pain is controlled. Denies fevers or chills, denies cough. Reported 12 episodes of nonsustained V. tach. Bigeminy on telemetry. Physical Exam Vital signs: Vital Signs 08/28/17 16:00 08/28/17 16:13 08/28/17 20:00 Temperature 98.2 F 98.3 F Pulse Rate 59 L 58 L Respiratory Rate 18 14 18 Blood Pressure 138/78 154/77 H Pulse Oximetry 96 98 08/28/17 22:19 08/29/17 00:00 08/29/17 00:08 Temperature 98 F Pulse Rate 55 L Respiratory Rate 18 18 18 Blood Pressure 127/69 Pulse Oximetry 95 08/29/17 02:00 08/29/17 03:49 08/29/17 04:00 Temperature 97.7 F Pulse Rate 74 Respiratory Rate 18 18 18 Blood Pressure 145/71 H Pulse Oximetry 94 L 08/29/17 08:00 08/29/17 10:19 Temperature 97.4 F L Pulse Rate 80 Respiratory Rate 16 16 Blood Pressure 139/73 Pulse Oximetry 92 L Intake & Output 08/28/17 08/29/17 08/29/17 18:59 06:59 18:59 Intake Total 300 / 300 100 / 100 100 / 100 Output Total 220 / 220 700 / 700 180 / 180 Balance 80 / 80 -600 / -600 -80 / -80 Intake: IV 300 / 300 100 / 100 100 / 100 Zosyn 4.5 GM Premix 4.5 gm In 300 / 300 100 / 100 100 / 100 100 ml @ 200 mls/hr IV.SIG Q6HR [facility] Rx#:[id number] Output: Urine 700 / 700 Wound Drainage 20 / 20 30 / 30 # 2 Right JN Drain 20 / 20 30 / 30 Chest Tube Drainage 200 / 200 150 / 150 #1 Right Upper 200 / 200 150 / 150 Other: Date of Last Bowel Movement 08/24/17 Narrative: GENERAL: Patient lying in bed. Appears comfortable. SKIN: Warm and dry. CARDIOVASCULAR: Regular rate and rhythm without murmurs, gallops, or rubs. RESPIRATORY: Breath sounds equal bilaterally. No accessory muscle use. CT in place GASTROINTESTINAL: Abdomen soft, non-tender, nondistended. MUSCULOSKELETAL: Chest with wound VAC. No cyanosis, or edema. BACK: Nontender without obvious deformity. No CVA tenderness. Insight and judgment is good Results - Labs CBC & Chem 7: 08/29/17 12:30 08/29/17 17:13 - Procedures 08/07 PROCEDURES PERFORMED: 1. 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 2. Closure of chest wall defect 6 x 4 cm with dermal matrix biological mesh. 3. Placement of VAC dressing to wound, 26 x 21 cm. 4. Right thoracostomy tube placement. 08/10 vac dressing 08/20 Right pedicled latissimus muscle flap to right chest wound Left pectoralis major muscle flap to right chest wound 08/23 Right chest wound VAC change (18673) Right chest wound debridement (65547, 14096 x 6) Assessment and Plan - Plan 51yM s/p chest wall mass resection. now complicated by intermittent afib RVR. increase amiodarone to 400mg po bid and d/c drip. continue po beta blockade. continue aggressive electrolyte replacement. can transfer out of ICU from my standpoint. PAF Rapid ventricular response. Improved status post IV Lopressor 5 mg 2. Now in sinus rhythm - Continue Lopressor 50 mg every 12 hours with hold parameters - metoprolol 5mg iv prn for HR > 110. May need to restart amiodarone drip - Cards is following- Dr. Sandoval recommending coumadin or noac CHADS score of 3 if pt agrees and cleared by surgery. EP recommended amio be dc - 08/29 patient having runs of bigeminy and nonsustained V. tach versus paroxysmal A. fib. Will obtain an EKG, check troponin. Discussed the case with anesthesiology who feels that is not safe to place the patient under anesthesia given that the patient is on bigeminy on telemetry and has had a run of 12 beats of V. tach versus paroxysmal atrial fibrillation. - I will give aggressive electrolyte replacement start getting a potassium more than 4.5 and magnesium more than 2.5. -At this time Dr. Sandoval is absent on vacation, tried reaching Dr. Crawley who seems is also medication as well. Discussed the case with Dr. Sandoval over the phone who stated that the patient is not a good candidate for any further cardiac workup. Recommended calling for consultation. I called Dr. Buchanan who also states that he is on medication as well. - Continue to monitor on telemetry. Surgical procedure will need to be postponed until the patient is cleared by cardiology. Tried to communicate with Dr Crawley via Text message to his phone but no answer. 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 Change to po oxycodone 10 mg for pain scale 1-5 and Lortab 15 mg scale of 6-10 for better control -Wound VAC and CT in place. -GS following, will be alerted because of tiny right pneumothorax with air leak. Patient currently denies shortness of breath. He always has chest pain which is improved from previous after adjusting p.o. meds. 08/29 -surgical procedure canceled due to cardiac rhythm abnormalities as mentioned above. Hypoxia with abnormal CTA showing bilateral infiltrates and bibasilar alveolar consolidations suspected pneumonia versus fluid overload. Ordered blood culture , pneumococcal and Legionella antigen. Continue IV Zosyn and Zithromax for now. 08/27 2D echo with normal ef, no definite diastolic dysfunction. Continue supplemental o2 - if there is clinical deterioration, transfer to icu and consult measurement technician. secondary bacterial infection - resolved -Wound cx: PSAE 08/01 -ID is following -completed course of antibiotics. Prophylactic Cefepime and vanco ordered 08/21. = Appreciate ID assistance. Hypertension -Metoprolol -Seems to be stable. : Monitor renal function, electrolytes replacement per protocol. GI: Patient n.p.o. for procedure. Resume p.o. diet. DVT GI prophylaxis -Marcello's and SCDs. Lovenox -GI prophylaxis-on po diet Discharge Planning: Continue to monitor in the medical floor. The patient needs cardiology evaluation by EP.
[2017-08-29 13:07] LABS: Baso # (Auto) 0.1 th/mm3 (0.0-0.2); Eos # (Auto) 0.4 th/mm3 (0.0-0.4); Eos % (Auto) 3.6 % (0.0-4.0); Hematocrit 29.1 % (39.0-51.0); Hemoglobin 9.4 gm/dL (13.0-17.0); Lymph # (Auto) 1.4 th/mm3 (1.0-4.8); Lymph % (Auto) 12.6 % (9.0-44.0); Mean Corpuscular HGB Conc 32.2 % (32.0-36.0); Mean Corpuscular Hemoglobin 27.9 pg (27.0-34.0); Mean Corpuscular Volume 86.8 fL (80.0-100.0); Mean Platelet Volume 9.2 fL (7.0-11.0); Mono # (Auto) 0.7 th/mm3 (0.0-0.9); Mono % (Auto) 6.2 % (0.0-8.0); Neut # (Auto) 8.7 th/mm3 (1.8-7.7); Neut % (Auto) 76.6 % (16.0-70.0); Platelet Count 579 th/mm3 (150-450); Red Blood Count 3.35 mil/mm3 (4.50-5.90); Red Cell Distribution Width 16.8 % (11.6-17.2); White Blood Count 11.4 th/mm3 (4.0-11.0)
[2017-08-29 13:30] LABS: Albumin 1.7 g/dL (3.4-5.0); Anion Gap 10 meq/L (5-15); Aspartate Aminotransferase 33 U/L (15-37); Blood Urea Nitrogen 3 mg/dL (7-18); Calcium 7.9 mg/dL (8.5-10.1); Carbon Dioxide 26.4 meq/L (21.0-32.0); Chloride 103 meq/L (98-107); Glomerular Filtration Rate Greater Than 89 mL/min (>89); Glucose,Random 86 mg/dL (74-106); Magnesium 1.7 mg/dL (1.5-2.5); Potassium 3.9 meq/L (3.5-5.1); Sodium 139 meq/L (136-145)
[2017-08-29 13:34] LABS: Alanine Aminotransferase 25 U/L (12-78); Alkaline Phosphatase 128 U/L (45-117); Phosphorus 3.8 mg/dL (2.5-4.9); Total Protein 5.7 g/dL (6.4-8.2)
--- NOTE | 2017-08-29 14:28 | ECG ---
Date Performed: 08/29/2017 Time Performed: 13:52:38 PTAGE: 51 years EKG: SINUS BRADYCARDIA WITH SHORT RI INTERVAL Nonspecific ST changes ABNORMAL ECG Compared to pr ior electrocardiogram, Premature ventricular contractions no longer present. PREVIOUS TRACING : 08/26/2017 01.50 DOCTOR: Олег Han Interpretating Date/Time 08/29/2017 14:27:06
[2017-08-29] MEDS ORDERED: Magnesium Sulfate Inj 2 GM in Sodium Chlor 0.9% Inj 96 ML IV.SIG ONE (15:00)
[2017-08-29] MEDS: Nystatin 100,000 UNITS/GM Powder 15 GM Bottle TOPICAL SCH ×2 (16:01→22:52)
[2017-08-30] MEDS: Nystatin 100,000 UNITS/GM Powder 15 GM Bottle TOPICAL SCH (06:28)
[2017-08-30] MEDS: Enoxaparin Inj 40 MG/0.4 ML Syringe SQ SCH (09:08)
[2017-08-30] MEDS: Metoprolol Tartrate 50 MG Tablet PO SCH ×3 (09:27→11:15)
[2017-08-30] MEDS: Morphine Inj 30 MG/30 ML PCA.VIAL PCA PRN ×2 (09:47→21:34)
[2017-08-30] MEDS: Piperacil/Tazo 4.5 GM Premix 4.5 GM/100 ML BAG IV.SIG SCH ×4 (11:17→17:04)
--- NOTE | 2017-08-30 14:54 | P.PNCA ---
Subjective Interval history: asked to see patient due to afib RVR and Vtach currently asymptomatic hemodynamically stable but tachycardiac complex medical history Physical Exam Vital signs: Vital Signs 08/29/17 16:00 08/29/17 20:00 08/29/17 20:15 Temperature 97.5 F L 98.0 F Pulse Rate 56 L 59 L 60 Respiratory Rate 16 17 Blood Pressure 125/72 151/78 H Pulse Oximetry 95 95 08/29/17 22:44 08/30/17 00:00 08/30/17 04:00 Temperature 98.0 F Pulse Rate 67 67 Respiratory Rate 18 17 Blood Pressure 163/83 H Pulse Oximetry 99 08/30/17 06:17 08/30/17 08:00 08/30/17 11:07 Temperature 97.8 F 97.7 F 97.7 F Pulse Rate 59 L 57 L 144 H Respiratory Rate 16 17 18 Blood Pressure 150/82 H 145/73 H 122/91 H Pulse Oximetry 100 94 L 95 Intake & Output 08/29/17 08/30/17 08/30/17 18:59 06:59 18:59 Intake Total 200 / 200 200 / 200 Output Total 680 / 680 970 / 970 Balance -480 / -480 -770 / -770 Weight 133.2 kg Intake: IV 200 / 200 Zosyn 4.5 GM Premix 4.5 gm In 200 / 200 100 ml @ 200 mls/hr IV.SIG Q6HR [facility] Rx#:[id number] Other 200 / 200 Output: Urine 900 / 900 Pleural Fluid 30 / 30 Wound Drainage 530 / 530 40 / 40 # 2 Right JN Drain 30 / 30 40 / 40 Medial Chest 500 / 500 Chest Tube Drainage 150 / 150 #1 Right Upper 150 / 150 Other: # Voids 1 Date of Last Bowel Movement 08/29/17 08/29/17 # Bowel Movements 1 - Constitutional no acute distress - Routine HEENT Exam Head: Present: normocephalic Eye: Present: EOMI, PERRL - Routine Neck Exam Present: supple - Routine Respiratory Exam Present: CTA bilaterally - Routine Cardiovascular Exam Present: irregularly irregular - Routine Abdominal Exam Present: soft Assessment and Plan - Assessment (1) Afib Code(s): I48.91 - Unspecified atrial fibrillation Status: Acute (2) Ventricular tachycardia Code(s): I47.2 - Ventricular tachycardia Status: Acute - Plan Atrial fibrillation with rapid ventricular rate Ventricular tachycardia Tachybradycardia syndrome Telemetry was reviewed. Patient had bradycardic episode this morning metoprolol was initially held. Patient is now tachycardic and did receive metoprolol with heart rates in the 130 bpm range. Patient had a 12 beat run of ventricular tachycardia earlier today. Review of transthoracic echocardiogram revealed normal left ventricular systolic function. Patient had previously been followed by electrophysiology in addition to Dr. Sandoval. After discussion with hospitalist we have decided to initiate amiodarone given the arrhythmia with tachybradycardia syndrome for concern of further AV seda blockade could cause reciprocal bradycardia. Patient has history of paroxysmal atrial fibrillation with most recent episode onset less than 48 hours. Patient is not a candidate for anticoagulation therapy. We will initiate amiodarone bolus followed by drip and transferred to cardiac telemetry unit for monitoring.
--- NOTE | 2017-08-30 16:25 | P.PNIM ---
Subjective Interval history: The patient denies shortness of breath, chest pain. Patient also denies palpitations. As per report the patient initially was bradycardic and then patient became tachycardic into the 140s-150s. Patient denies fevers, chills, nausea, vomiting, diarrhea, abdominal pain. Only complains of soreness in the chest . Physical Exam Vital signs: Vital Signs 08/29/17 20:00 08/29/17 20:15 08/29/17 22:44 Temperature 98.0 F Pulse Rate 59 L 60 Respiratory Rate 17 18 Blood Pressure 151/78 H Pulse Oximetry 95 08/30/17 00:00 08/30/17 04:00 08/30/17 06:17 Temperature 98.0 F 97.8 F Pulse Rate 67 67 59 L Respiratory Rate 17 16 Blood Pressure 163/83 H 150/82 H Pulse Oximetry 99 100 08/30/17 08:00 08/30/17 11:07 08/30/17 15:39 Temperature 97.7 F 97.7 F 98.1 F Pulse Rate 57 L 144 H 68 Respiratory Rate 17 18 16 Blood Pressure 145/73 H 122/91 H 114/75 Pulse Oximetry 94 L 95 94 L Intake & Output 08/29/17 08/30/17 08/30/17 18:59 06:59 18:59 Intake Total 200 / 200 300 / 300 Output Total 680 / 680 970 / 970 Balance -480 / -480 -670 / -670 Weight 133.2 kg Intake: IV 200 / 200 100 / 100 Zosyn 4.5 GM Premix 4.5 gm In 200 / 200 100 / 100 100 ml @ 200 mls/hr IV.SIG Q6HR [facility] Rx#:[id number] Other 200 / 200 Output: Urine 900 / 900 Pleural Fluid 30 / 30 Wound Drainage 530 / 530 40 / 40 # 2 Right JN Drain 30 / 30 40 / 40 Medial Chest 500 / 500 Chest Tube Drainage 150 / 150 #1 Right Upper 150 / 150 Other: # Voids 1 Date of Last Bowel Movement 08/29/17 08/29/17 # Bowel Movements 1 Narrative: GENERAL: Patient lying in bed. Appears comfortable. SKIN: Warm and dry. CARDIOVASCULAR: Regular rate and rhythm without murmurs, gallops, or rubs. Tachycardic. RESPIRATORY: Breath sounds equal bilaterally. No accessory muscle use. CT in place GASTROINTESTINAL: Abdomen soft, non-tender, nondistended. MUSCULOSKELETAL: Chest with wound VAC. No cyanosis, or edema. BACK: Nontender without obvious deformity. No CVA tenderness. Insight and judgment is good Results - Labs CBC & Chem 7: 08/29/17 12:30 08/29/17 17:13 Laboratory Results - last 24 hr 08/29/17 17:13 Potassium 4.4 - Procedures 08/07 PROCEDURES PERFORMED: 1. 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 2. Closure of chest wall defect 6 x 4 cm with dermal matrix biological mesh. 3. Placement of VAC dressing to wound, 26 x 21 cm. 4. Right thoracostomy tube placement. 08/10 vac dressing 08/20 Right pedicled latissimus muscle flap to right chest wound Left pectoralis major muscle flap to right chest wound 08/23 Right chest wound VAC change (39536) Right chest wound debridement (82213, 53552 x 6) Assessment and Plan - Plan 51yM s/p chest wall mass resection. now complicated by intermittent afib RVR. increase amiodarone to 400mg po bid and d/c drip. continue po beta blockade. continue aggressive electrolyte replacement. can transfer out of ICU from my standpoint. PAF Rapid ventricular response. Improved status post IV Lopressor 5 mg 2. Now in sinus rhythm - Continue Lopressor 50 mg every 12 hours with hold parameters - metoprolol 5mg iv prn for HR > 110. May need to restart amiodarone drip - Cards is following- Dr. Sandoval recommending coumadin or noac CHADS score of 3 if pt agrees and cleared by surgery. EP recommended amio be dc - 08/29 patient having runs of bigeminy and nonsustained V. tach versus paroxysmal A. fib. Will obtain an EKG, check troponin. Discussed the case with anesthesiology who feels that is not safe to place the patient under anesthesia given that the patient is on bigeminy on telemetry and has had a run of 12 beats of V. tach versus paroxysmal atrial fibrillation. - I will give aggressive electrolyte replacement start getting a potassium more than 4.5 and magnesium more than 2.5. -At this time Dr. Sandoval is absent on vacation, tried reaching Dr. Crawley who seems is also medication as well. Discussed the case with Dr. Sandoval over the phone who stated that the patient is not a good candidate for any further cardiac workup. Recommended calling for consultation. I called Dr. Buchanan who also states that he is on medication as well. - Continue to monitor on telemetry. Surgical procedure will need to be postponed until the patient is cleared by cardiology. Tried to communicate with Dr Crawley via Text message to his phone but no answer. 08/30 patient initially bradycardic in the 50s, then became tachycardic with a heart rate in the 140s. Consulted cardiology. Dr. pope saw the patient. Appreciate recommendations. Initiate amiodarone given arrhythmia with tachybradycardia syndrome. For the patient to the cardiac floor for further treatment. 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 Continue pain management with morphine [employer] P[employer]. Change to po oxycodone 10 mg for pain scale 1-5 and Lortab 15 mg scale of 6-10 for better control -Wound VAC and CT in place. -GS following, will be alerted because of tiny right pneumothorax with air leak. Patient currently denies shortness of breath. He always has chest pain which is improved from previous after adjusting p.o. meds. 08/29 -surgical procedure canceled due to cardiac rhythm abnormalities as mentioned above. Hypoxia with abnormal CTA showing bilateral infiltrates and bibasilar alveolar consolidations suspected pneumonia versus fluid overload. Ordered blood culture , pneumococcal and Legionella antigen. Continue IV Zosyn and Zithromax for now. 08/27 2D echo with normal ef, no definite diastolic dysfunction. Continue supplemental o2 - if there is clinical deterioration, transfer to icu and consult boarding house cook. secondary bacterial infection - resolved -Wound cx: PSAE 08/01 -ID is following -completed course of antibiotics. Prophylactic Cefepime and vanco ordered 08/21. = Appreciate ID assistance. Hypertension -Discontinue metoprolol given tachycardia-bradycardia syndrome. -Seems to be stable. : Monitor renal function, electrolytes replacement per protocol. GI: Continue regular diet. DVT GI prophylaxis -Marcello's and SCDs. Lovenox -GI prophylaxis-on po diet Discharge Planning: Transfer to cardiac floor. Patient will be started on amiodarone drip. Patient will need surgical procedure after cardiology clearance patient.
[2017-08-30] MEDS ORDERED: Amiodarone Inj 150 MG in Dextrose 5% in Water Inj 97 ML IV.SIG ONE ×2 (17:00)
[2017-08-30 19:40] LABS: Vitamin C (Ascorbic Acid) ND mg/dL (())
[2017-08-31] MEDS: Piperacil/Tazo 4.5 GM Premix 4.5 GM/100 ML BAG IV.SIG SCH ×4 (01:15→17:40)
[2017-08-31] MEDS: Metoprolol Tartrate 50 MG Tablet PO SCH (10:06)
[2017-08-31] MEDS: Enoxaparin Inj 40 MG/0.4 ML Syringe SQ SCH (10:07)
--- NOTE | 2017-08-31 10:38 | ECG ---
Date Performed: 08/30/2017 Time Performed: 14:21:01 PTAGE: 51 years EKG: ATRIAL FLUTTER/TACHYCARDIA WITH RAPID VENTRICULAR RESPONSE NONSPECIFIC ST & T-WAVE ABNORMAL ITY ABNORMAL RHYTHM ECG PREVIOUS TRACING : 08/29/2017 13.52 Compared to previous tracing, atrial flutter/tachycardia rojas s replaced sinus bradycardia, nonspecific ST/T changes are now present. DOCTOR: Oswald Dubose Interpretating Date/Time 08/31/2017 10:37:19
[2017-08-31] MEDS ORDERED: Mag Sulf 1 gm/100 ml Premix 100 ML IV.SIG ONE (13:09)
[2017-08-31] MEDS: Nystatin 100,000 UNITS/GM Powder 15 GM Bottle TOPICAL SCH (15:25)
[2017-08-31] MEDS: Mag Sulf 1 gm/100 ml Premix 100 ML IV.SIG SCH (15:27)
[2017-08-31] MEDS: Sodium Hypochlorite 0.125% Top Soln 500 ML Bottle TOPICAL SCH (19:32)
[2017-09-01 00:58] LABS: Baso # (Auto) 0.1 th/mm3 (0.0-0.2); Baso % (Auto) 1.2 % (0.0-2.0); Eos # (Auto) 0.4 th/mm3 (0.0-0.4); Hemoglobin 8.9 gm/dL (13.0-17.0); Lymph # (Auto) 1.9 th/mm3 (1.0-4.8); Lymph % (Auto) 21.5 % (9.0-44.0); Mean Corpuscular HGB Conc 34.3 % (32.0-36.0); Mean Corpuscular Volume 84.5 fL (80.0-100.0); Mean Platelet Volume 8.8 fL (7.0-11.0); Mono # (Auto) 0.7 th/mm3 (0.0-0.9); Neut # (Auto) 5.7 th/mm3 (1.8-7.7); Neut % (Auto) 64.3 % (16.0-70.0); Platelet Count 535 th/mm3 (150-450); Red Blood Count 3.08 mil/mm3 (4.50-5.90); Red Cell Distribution Width 16.2 % (11.6-17.2); White Blood Count 8.9 th/mm3 (4.0-11.0)
[2017-09-01] MEDS: Nystatin 100,000 UNITS/GM Powder 15 GM Bottle TOPICAL SCH ×5 (01:06→23:24)
[2017-09-01] MEDS: Piperacil/Tazo 4.5 GM Premix 4.5 GM/100 ML BAG IV.SIG SCH ×4 (01:07→17:49)
[2017-09-01 01:24] LABS: Alanine Aminotransferase 39 U/L (12-78); Albumin 1.8 g/dL (3.4-5.0); Alkaline Phosphatase 144 U/L (45-117); Anion Gap 10 meq/L (5-15); Aspartate Aminotransferase 60 U/L (15-37); Blood Urea Nitrogen 4 mg/dL (7-18); Calcium 7.6 mg/dL (8.5-10.1); Chloride 104 meq/L (98-107); Glomerular Filtration Rate Greater Than 89 mL/min (>89); Glucose,Random 86 mg/dL (74-106); Phosphorus 3.2 mg/dL (2.5-4.9); Potassium 3.4 meq/L (3.5-5.1); Sodium 138 meq/L (136-145); Total Protein 5.7 g/dL (6.4-8.2)
[2017-09-01] MEDS: Enoxaparin Inj 40 MG/0.4 ML Syringe SQ SCH (09:16)
[2017-09-01] MEDS: Metoprolol Tartrate 50 MG Tablet PO SCH ×2 (09:16→23:24)
--- NOTE | 2017-09-01 11:01 | P.PN ---
Subjective Interval history: Late entry for 08/31/2017. Follow-up for malignant fungating chest wall mass, atrial fibrillation, ventricular tachycardia. Patient is currently doing well. He is on amiodarone drip. He has persistent chest discomfort from chest wall mass. No fever or chills. Physical Exam Vital signs: Vital Signs 08/31/17 11:00 08/31/17 12:00 08/31/17 13:00 Temperature 98 F Pulse Rate 68 68 62 Respiratory Rate 22 Blood Pressure 140/82 Pulse Oximetry 08/31/17 14:00 08/31/17 15:00 08/31/17 16:00 Temperature 98 F Pulse Rate 58 L 52 L 68 Respiratory Rate 18 Blood Pressure 148/80 H Pulse Oximetry 97 08/31/17 16:53 08/31/17 20:00 08/31/17 21:00 Temperature Pulse Rate 58 L 54 L 50 L Respiratory Rate Blood Pressure Pulse Oximetry 08/31/17 22:00 08/31/17 23:00 09/01/17 00:00 Temperature 98.3 F Pulse Rate 48 L 50 L 52 L Respiratory Rate 16 Blood Pressure 137/84 Pulse Oximetry 98 09/01/17 01:00 09/01/17 02:00 09/01/17 03:00 Temperature Pulse Rate 52 L 50 L 54 L Respiratory Rate 16 Blood Pressure Pulse Oximetry 98 09/01/17 04:00 09/01/17 04:05 09/01/17 05:00 Temperature Pulse Rate 54 L 51 L 52 L Respiratory Rate Blood Pressure Pulse Oximetry 09/01/17 06:00 09/01/17 07:00 Temperature 98.0 F Pulse Rate 52 L 67 Respiratory Rate 18 Blood Pressure 146/84 H Pulse Oximetry 96 Intake & Output 08/31/17 09/01/17 09/01/17 18:59 06:59 18:59 Intake Total 550 / 550 350 / 350 Output Total 640 / 640 1225 / 1225 Balance -90 / -90 -875 / -875 Weight 63 kg Intake: IV 550 / 550 350 / 350 Cordarone Inj 450 MG In D5W Inj 250 / 250 250 / 250 241 ML @ 1 MG/MIN 33.33 mls/hr IV.CONT .Q7H31M [facility] Rx#: [id number] Zosyn 4.5 GM Premix 4.5 gm In 300 / 300 100 / 100 100 ml @ 200 mls/hr IV.SIG Q6HR [facility] Rx#:[id number] Output: Urine 600 / 600 1225 / 1225 Wound Drainage # 2 Right JN Drain Chest Tube Drainage #1 Right Upper Other: Date of Last Bowel Movement 08/29/17 08/31/17 # Bowel Movements 1 Narrative: GENERAL: Patient lying in bed. Appears comfortable. SKIN: Warm and dry. CARDIOVASCULAR: Regular rate and rhythm without murmurs, gallops, or rubs. Tachycardic. RESPIRATORY: Breath sounds equal bilaterally. No accessory muscle use. CT in place GASTROINTESTINAL: Abdomen soft, non-tender, nondistended. MUSCULOSKELETAL: Chest with wound VAC. No cyanosis, or edema. BACK: Nontender without obvious deformity. No CVA tenderness. Insight and judgment is good Results - Labs CBC & Chem 7: 09/01/17 00:23 09/01/17 00:23 Laboratory Results - last 24 hr 09/01/17 09/01/17 00:23 00:23 WBC 8.9 RBC 3.08 L Hgb 8.9 L Hct 26.0 L MCV 84.5 MCH 29.0 MCHC 34.3 RDW 16.2 Plt Count 535 H MPV 8.8 Neut % (Auto) 64.3 Lymph % (Auto) 21.5 [place] % (Auto) 8.0 Eos % (Auto) 5.0 H Baso % (Auto) 1.2 Neut # (Auto) 5.7 Lymph # (Auto) 1.9 [place] # (Auto) 0.7 Eos # (Auto) 0.4 Baso # (Auto) 0.1 WBC Differential . Differential Comment Auto diff final Sodium 138 Potassium 3.4 L Chloride 104 Carbon Dioxide 24.0 Anion Gap 10 BUN 4 L Creatinine 0.48 L Estimated GFR Greater than 89 Random Glucose 86 Calcium 7.6 L Phosphorus 3.2 Magnesium 2.0 Total Bilirubin 0.2 AST 60 H ALT 39 Alkaline Phosphatase 144 H Total Protein 5.7 L Albumin 1.8 L - Procedures 08/07 PROCEDURES PERFORMED: 1. 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 2. Closure of chest wall defect 6 x 4 cm with dermal matrix biological mesh. 3. Placement of VAC dressing to wound, 26 x 21 cm. 4. Right thoracostomy tube placement. 08/10 vac dressing 08/20 Right pedicled latissimus muscle flap to right chest wound Left pectoralis major muscle flap to right chest wound 08/23 Right chest wound VAC change (12049) Right chest wound debridement (85081, 53712 x 6) Assessment and Plan - Plan Mr. Street is a 51-year-old male with a history of locally advanced basosquamous carcinoma and hypertension who was sent to the hospital by his oncologist due to hypercalcemia. He complained of abdominal pain that was cramping in quality. He also complained of purulent discharge from his chest wall fungating mass. On 08/07/2017 patient was taken to OR for radical resection of chest wall malignancy. He underwent resection of sternum and costochondral area of ribs 2 as well as wound VAC placement. Postoperatively he was admitted to ICU. Patient developed atrial fibrillation with RVR. On 08/29 patient had runs of nonsustained ventricular tachycardia. Dr. pope evaluated patient and started patient on amiodarone drip. Atrial fibrillation with rapid ventricular rate Ventricular tachycardia Tachybradycardia syndrome -Continue amiodarone drip. Patient is currently in normal sinus rhythm with normal heart rate. -Will discuss with Dr. Pope's team regarding cardiac clearance for plastic surgery on 09/02/2017. -Magnesium is 1.5 and potassium within normal range. Will replace magnesium with IV magnesium sulfate. -Continue metoprolol tartrate 50 mg p.o. twice daily Malignant fungating chest wall mass -Status post surgical resection on 08/07/2017. Wound VAC is in place. Plastic surgery consulted. -Continue Zosyn 4.5 g every 6 hours and azithromycin 500 mg daily Full code. Lovenox.
--- NOTE | 2017-09-01 11:04 | P.PN ---
Subjective Interval history: Follow-up for malignant fungating chest wall mass, atrial fibrillation, ventricular tachycardia. Patient is currently doing well. Remains in sinus rhythm. Currently on amiodarone drip. He does have persistent chest pain from fungating mass. No fever or chills. Physical Exam Vital signs: Vital Signs 08/31/17 12:00 08/31/17 13:00 08/31/17 14:00 Temperature Pulse Rate 68 62 58 L Respiratory Rate Blood Pressure Pulse Oximetry 08/31/17 15:00 08/31/17 16:00 08/31/17 16:53 Temperature 98 F Pulse Rate 52 L 68 58 L Respiratory Rate 18 Blood Pressure 148/80 H Pulse Oximetry 97 08/31/17 20:00 08/31/17 21:00 08/31/17 22:00 Temperature Pulse Rate 54 L 50 L 48 L Respiratory Rate Blood Pressure Pulse Oximetry 08/31/17 23:00 09/01/17 00:00 09/01/17 01:00 Temperature 98.3 F Pulse Rate 50 L 52 L 52 L Respiratory Rate 16 Blood Pressure 137/84 Pulse Oximetry 98 09/01/17 02:00 09/01/17 03:00 09/01/17 04:00 Temperature Pulse Rate 50 L 54 L 54 L Respiratory Rate 16 Blood Pressure Pulse Oximetry 98 09/01/17 04:05 09/01/17 05:00 09/01/17 06:00 Temperature Pulse Rate 51 L 52 L 52 L Respiratory Rate Blood Pressure Pulse Oximetry 09/01/17 07:00 Temperature 98.0 F Pulse Rate 67 Respiratory Rate 18 Blood Pressure 146/84 H Pulse Oximetry 96 Intake & Output 08/31/17 09/01/17 09/01/17 18:59 06:59 18:59 Intake Total 550 / 550 350 / 350 Output Total 640 / 640 1225 / 1225 Balance -90 / -90 -875 / -875 Weight 63 kg Intake: IV 550 / 550 350 / 350 Cordarone Inj 450 MG In D5W Inj 250 / 250 250 / 250 241 ML @ 1 MG/MIN 33.33 mls/hr IV.CONT .Q7H31M [facility] Rx#: [id number] Zosyn 4.5 GM Premix 4.5 gm In 300 / 300 100 / 100 100 ml @ 200 mls/hr IV.SIG Q6HR [facility] Rx#:[id number] Output: Urine 600 / 600 1225 / 1225 Wound Drainage # 2 Right JN Drain Chest Tube Drainage #1 Right Upper Other: Date of Last Bowel Movement 08/29/17 08/31/17 # Bowel Movements 1 Narrative: GENERAL: Patient lying in bed. Appears comfortable. SKIN: Warm and dry. CARDIOVASCULAR: Regular rate and rhythm without murmurs, gallops, or rubs. Tachycardic. RESPIRATORY: Breath sounds equal bilaterally. No accessory muscle use. CT in place GASTROINTESTINAL: Abdomen soft, non-tender, nondistended. MUSCULOSKELETAL: Chest with wound VAC. No cyanosis, or edema. BACK: Nontender without obvious deformity. No CVA tenderness. Insight and judgment is good Results - Labs CBC & Chem 7: 09/01/17 00:23 09/01/17 00:23 Laboratory Results - last 24 hr 09/01/17 09/01/17 00:23 00:23 WBC 8.9 RBC 3.08 L Hgb 8.9 L Hct 26.0 L MCV 84.5 MCH 29.0 MCHC 34.3 RDW 16.2 Plt Count 535 H MPV 8.8 Neut % (Auto) 64.3 Lymph % (Auto) 21.5 [place] % (Auto) 8.0 Eos % (Auto) 5.0 H Baso % (Auto) 1.2 Neut # (Auto) 5.7 Lymph # (Auto) 1.9 [place] # (Auto) 0.7 Eos # (Auto) 0.4 Baso # (Auto) 0.1 WBC Differential . Differential Comment Auto diff final Sodium 138 Potassium 3.4 L Chloride 104 Carbon Dioxide 24.0 Anion Gap 10 BUN 4 L Creatinine 0.48 L Estimated GFR Greater than 89 Random Glucose 86 Calcium 7.6 L Phosphorus 3.2 Magnesium 2.0 Total Bilirubin 0.2 AST 60 H ALT 39 Alkaline Phosphatase 144 H Total Protein 5.7 L Albumin 1.8 L - Procedures 08/07 PROCEDURES PERFORMED: 1. 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 2. Closure of chest wall defect 6 x 4 cm with dermal matrix biological mesh. 3. Placement of VAC dressing to wound, 26 x 21 cm. 4. Right thoracostomy tube placement. 08/10 vac dressing 08/20 Right pedicled latissimus muscle flap to right chest wound Left pectoralis major muscle flap to right chest wound 08/23 Right chest wound VAC change (44960) Right chest wound debridement (95909, 93845 x 6) Assessment and Plan - Plan Mr. Street is a 51-year-old male with a history of locally advanced basosquamous carcinoma and hypertension who was sent to the hospital by his oncologist due to hypercalcemia. He complained of abdominal pain that was cramping in quality. He also complained of purulent discharge from his chest wall fungating mass. On 08/07/2017 patient was taken to OR for radical resection of chest wall malignancy. He underwent resection of sternum and costochondral area of ribs 2 as well as wound VAC placement. Postoperatively he was admitted to ICU. Patient developed atrial fibrillation with RVR. On 08/29 patient had runs of nonsustained ventricular tachycardia. Dr. pope evaluated patient and started patient on amiodarone drip. Atrial fibrillation with rapid ventricular rate Ventricular tachycardia Tachybradycardia syndrome -Continue amiodarone drip. Patient is currently in normal sinus rhythm with normal heart rate. -Discussed with Dr. Pope's team regarding cardiac clearance for plastic surgery on 09/02/2017. -Magnesium is 2.0 and potassium 3.4 today. We will provide p.o. potassium chloride. -Continue metoprolol tartrate 50 mg p.o. twice daily Malignant fungating chest wall mass -Status post surgical resection on 08/07/2017. Wound VAC is in place. Plastic surgery consulted. -Continue Zosyn 4.5 g every 6 hours and azithromycin 500 mg daily -Continue [place] for pain. Patient does not want to use morphine NURSE INTERN. Full code. Lovenox.
--- NOTE | 2017-09-01 11:05 | P.PNCA ---
Physical Exam Vital signs: Vital Signs 08/31/17 12:00 08/31/17 13:00 08/31/17 14:00 Temperature Pulse Rate 68 62 58 L Respiratory Rate Blood Pressure Pulse Oximetry 08/31/17 15:00 08/31/17 16:00 08/31/17 16:53 Temperature 98 F Pulse Rate 52 L 68 58 L Respiratory Rate 18 Blood Pressure 148/80 H Pulse Oximetry 97 08/31/17 20:00 08/31/17 21:00 08/31/17 22:00 Temperature Pulse Rate 54 L 50 L 48 L Respiratory Rate Blood Pressure Pulse Oximetry 08/31/17 23:00 09/01/17 00:00 09/01/17 01:00 Temperature 98.3 F Pulse Rate 50 L 52 L 52 L Respiratory Rate 16 Blood Pressure 137/84 Pulse Oximetry 98 09/01/17 02:00 09/01/17 03:00 09/01/17 04:00 Temperature Pulse Rate 50 L 54 L 54 L Respiratory Rate 16 Blood Pressure Pulse Oximetry 98 09/01/17 04:05 09/01/17 05:00 09/01/17 06:00 Temperature Pulse Rate 51 L 52 L 52 L Respiratory Rate Blood Pressure Pulse Oximetry 09/01/17 07:00 Temperature 98.0 F Pulse Rate 67 Respiratory Rate 18 Blood Pressure 146/84 H Pulse Oximetry 96 Intake & Output 08/31/17 09/01/17 09/01/17 18:59 06:59 18:59 Intake Total 550 / 550 350 / 350 Output Total 640 / 640 1225 / 1225 Balance -90 / -90 -875 / -875 Weight 63 kg Intake: IV 550 / 550 350 / 350 Cordarone Inj 450 MG In D5W Inj 250 / 250 250 / 250 241 ML @ 1 MG/MIN 33.33 mls/hr IV.CONT .Q7H31M [facility] Rx#: [id number] Zosyn 4.5 GM Premix 4.5 gm In 300 / 300 100 / 100 100 ml @ 200 mls/hr IV.SIG Q6HR [facility] Rx#:[id number] Output: Urine 600 / 600 1225 / 1225 Wound Drainage 20 / 20 # 2 Right JN Drain 20 / 20 Chest Tube Drainage 20 / 20 #1 Right Upper 20 / 20 Other: Date of Last Bowel Movement 08/29/17 08/31/17 # Bowel Movements 1 Assessment and Plan - Assessment (1) Afib Code(s): I48.91 - Unspecified atrial fibrillation Status: Acute (2) Ventricular tachycardia Code(s): I47.2 - Ventricular tachycardia Status: Acute - Plan Atrial fibrillation with rapid ventricular rate Ventricular tachycardia Tachybradycardia syndrome currently NSR convert to amio PO clear from cardio perspective for surgery with intermediate risk will sign off call with further questions
[2017-09-01] MEDS: Sodium Hypochlorite 0.125% Top Soln 500 ML Bottle TOPICAL SCH ×2 (15:59→21:48)
[2017-09-01] MEDS: Mag Sulf 1 gm/100 ml Premix 100 ML IV.SIG SCH (21:56)
[2017-09-01] MEDS: Azithromycin Inj 500 MG in Sodium Chlor 0.9% Inj 250 ML IV.SIG SCH ×3 (23:20→23:22)
[2017-09-02] MEDS: Nystatin 100,000 UNITS/GM Powder 15 GM Bottle TOPICAL SCH ×3 (03:08→18:55)
[2017-09-02] MEDS: Amiodarone 200 MG Tablet PO SCH (08:39)
[2017-09-02] MEDS: Metoprolol Tartrate 50 MG Tablet PO SCH ×2 (08:39→20:41)
[2017-09-02] MEDS: Sodium Hypochlorite 0.125% Top Soln 500 ML Bottle TOPICAL SCH (08:45)
[2017-09-02] MEDS: Enoxaparin Inj 40 MG/0.4 ML Syringe SQ SCH (09:13)
[2017-09-02] MEDS: Piperacil/Tazo 4.5 GM Premix 4.5 GM/100 ML BAG IV.SIG SCH ×4 (09:13→18:56)
[2017-09-02] MEDS ORDERED: Lidocaine PF 1% Inj 5 ML Syringe INFILTRATN ONE (12:00)
[2017-09-02] MEDS ORDERED: Phenylephrine/NS 1000 MCG/10ML Syringe IV.PUSH ONE (12:00)
[2017-09-02] MEDS ORDERED: HYDROmorphone PF Inj 2 MG/ML Vial ONE (12:30)
[2017-09-02 15:52] LABS: Zinc 50 mcg/dL (60-130)
[2017-09-02] MEDS: Azithromycin Inj 500 MG in Sodium Chlor 0.9% Inj 250 ML IV.SIG SCH (23:00)
[2017-09-03] MEDS: Nystatin 100,000 UNITS/GM Powder 15 GM Bottle TOPICAL SCH ×4 (00:04→22:56)
[2017-09-03] MEDS: Piperacil/Tazo 4.5 GM Premix 4.5 GM/100 ML BAG IV.SIG SCH ×4 (00:17→18:00)
[2017-09-03] MEDS: Metoprolol Tartrate 50 MG Tablet PO SCH ×2 (09:26→20:15)
[2017-09-03] MEDS: Amiodarone 200 MG Tablet PO SCH (09:26)
[2017-09-03] MEDS: Sodium Hypochlorite 0.125% Top Soln 500 ML Bottle TOPICAL SCH (09:27)
[2017-09-03] MEDS: Enoxaparin Inj 40 MG/0.4 ML Syringe SQ SCH (12:22)
--- NOTE | 2017-09-03 12:39 | P.PNIM ---
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 Patient is currently doing well. Remains in sinus rhythm. Currently on amiodarone drip. He does have persistent chest pain from fungating mass. No fever or chills. 7-10 TO HAVE DRAIN TAKEN OUT TODAY NO NEW ISSUES HAS CHRONIC PAIN IN HIS CHEST DUE TO MASS DW RN AND PT AND CM Physical Exam Vital signs: Vital Signs 09/02/17 14:00 09/02/17 14:03 09/02/17 14:15 Temperature 98.2 F 98.2 F 98.2 F Pulse Rate 54 L 56 L 55 L Respiratory Rate 16 16 16 Blood Pressure 127/73 129/75 126/73 Pulse Oximetry 97 99 99 09/02/17 15:00 09/02/17 16:00 09/02/17 17:00 Temperature Pulse Rate 48 L 53 L 54 L Respiratory Rate Blood Pressure Pulse Oximetry 09/02/17 18:00 09/02/17 19:00 09/02/17 19:15 Temperature 97.9 F Pulse Rate 59 L 53 L 61 Respiratory Rate 18 Blood Pressure 114/64 Pulse Oximetry 98 09/02/17 20:00 09/02/17 21:00 09/02/17 22:00 Temperature Pulse Rate 60 56 L 68 Respiratory Rate Blood Pressure Pulse Oximetry 09/02/17 22:34 09/02/17 23:00 09/03/17 00:00 Temperature 98.5 F Pulse Rate 61 112 H Respiratory Rate 18 18 Blood Pressure 118/71 Pulse Oximetry 96 09/03/17 01:00 09/03/17 02:00 09/03/17 03:00 Temperature 98.2 F Pulse Rate 66 58 L 63 Respiratory Rate 18 Blood Pressure 130/79 Pulse Oximetry 96 09/03/17 04:00 09/03/17 05:00 09/03/17 06:00 Temperature Pulse Rate 63 63 62 Respiratory Rate Blood Pressure Pulse Oximetry 09/03/17 07:00 09/03/17 08:00 Temperature 98.0 F Pulse Rate 63 58 L Respiratory Rate 16 Blood Pressure 137/80 Pulse Oximetry 95 Intake & Output 09/02/17 09/03/17 09/03/17 18:59 06:59 18:59 Intake Total 1140 / 1140 1340 / 1340 Output Total 810 / 810 350 / 350 Balance 330 / 330 990 / 990 Weight 70.5 kg Intake: IV 200 / 200 800 / 800 Azithromycin Inj 500 MG In NS 500 / 500 Inj 250 ML @ 250 mls/hr IV.SIG Q24H TAWANA Rx#:[id number] Zosyn 4.5 GM Premix 4.5 gm In 200 / 200 300 / 300 100 ml @ 200 mls/hr IV.SIG Q6HR TAWANA Rx#:[id number] Oral 240 / 240 480 / 480 Anesthesia Amount 700 / 700 Other 60 / 60 Output: Urine 800 / 800 350 / 350 Estimated Blood Loss Other: # Voids 1 Date of Last Bowel Movement 09/02/17 09/02/17 # Bowel Movements 1 Narrative: GENERAL: Patient lying in bed. Appears comfortable. Eyes: PERRLA EOMI no scleral icterus Head: Normocephalic atraumatic Neck: Supple no JVD SKIN: Warm and dry. Chest is dressed with VAC in place CARDIOVASCULAR: IRRegular rate and rhythm without murmurs, gallops, or rubs. Tachycardic. RESPIRATORY: Breath sounds equal bilaterally. No accessory muscle use. CT in place GASTROINTESTINAL: Abdomen soft, non-tender, nondistended. MUSCULOSKELETAL: Chest with wound VAC. No cyanosis, or edema. BACK: Nontender without obvious deformity. No CVA tenderness. Insight and judgment is good Mood and behavior is appropriate Results - Labs CBC & Chem 7: 09/01/17 00:23 09/01/17 00:23 Laboratory Results - last 24 hr 08/27/17 10:02 Zinc 50 L - Procedures 08/07 PROCEDURES PERFORMED: 1. 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 2. Closure of chest wall defect 6 x 4 cm with dermal matrix biological mesh. 3. Placement of VAC dressing to wound, 26 x 21 cm. 4. Right thoracostomy tube placement. 08/10 vac dressing 08/20 Right pedicled latissimus muscle flap to right chest wound Left pectoralis major muscle flap to right chest wound 08/23 Right chest wound VAC change (36531) Right chest wound debridement (90489, 52443 x 6) Assessment and Plan - Plan Mr. Street is a 51-year-old male with a history of locally advanced basosquamous carcinoma and hypertension who was sent to the hospital by his oncologist due to hypercalcemia. He complained of abdominal pain that was cramping in quality. He also complained of purulent discharge from his chest wall fungating mass. On 08/07/2017 patient was taken to OR for radical resection of chest wall malignancy. He underwent resection of sternum and costochondral area of ribs 2 as well as wound VAC placement. Postoperatively he was admitted to ICU. Patient developed atrial fibrillation with RVR. On 08/29 patient had runs of nonsustained ventricular tachycardia. Dr. pope evaluated patient and started patient on amiodarone drip. Atrial fibrillation with rapid ventricular rate Ventricular tachycardia Tachybradycardia syndrome -Continue amiodarone drip. Patient is currently in normal sinus rhythm with normal heart rate. -Discussed with Dr. Pope's team regarding cardiac clearance for plastic surgery on 09/02/2017. -Magnesium is 2.0 and potassium 3.4 today. We will provide p.o. potassium chloride. -Continue metoprolol tartrate 50 mg p.o. twice daily Malignant fungating chest wall mass -Status post surgical resection on 08/07/2017. Wound VAC is in place. Plastic surgery consulted. -Continue Zosyn 4.5 g every 6 hours and azithromycin 500 mg daily -Continue [place] for pain. 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 Wound care per plastics and steel handler Full code. Kaitlin. Code Status: Full code Discussed Condition With: RN and patient and and case management Discharge Planning: Pending clearance by all for discharge
--- NOTE | 2017-09-03 14:29 | XR ---
EXAM DATE: 09/03/2017 1:23 PM EDT AGE/SEX: 51 years / Male INDICATIONS: Post chest tube removal. CLINICAL DATA: This is the patient's subsequent encounter. Patient reports that signs and symptoms h ave been present for 1 day and indicates a pain score of 2/10. MEDICAL/SURGICAL HISTORY: . Malignant tumor in chest. . Heart surgeries. COMPARISON: [facility] [place], CT PULMONARY ANGIOGRAM, 08/24/2017. . FINDINGS: A single AP view of the chest demonstrates the lungs to be symmetrically aerated without evidence of mass, infiltrate or effusion. No pneumothorax following right-sided chest tube removal. The cardiome diastinal contours are unremarkable. Osseous structures are intact. CONCLUSION: No pneumothorax on right sided chest tube removal. Electronically signed by: Ronald Uriostegui MD 09/03/2017 2:28 PM EDT
--- NOTE | 2017-09-03 14:42 | P.PNGS ---
Subjective Patient reports: no new complaints (Anxious that getting chest tube out will hurt ) Physical Exam Vital signs: Vital Signs 09/02/17 15:00 09/02/17 16:00 09/02/17 17:00 Temperature Pulse Rate 48 L 53 L 54 L Respiratory Rate Blood Pressure Pulse Oximetry 09/02/17 18:00 09/02/17 19:00 09/02/17 19:15 Temperature 97.9 F Pulse Rate 59 L 53 L 61 Respiratory Rate 18 Blood Pressure 114/64 Pulse Oximetry 98 09/02/17 20:00 09/02/17 21:00 09/02/17 22:00 Temperature Pulse Rate 60 56 L 68 Respiratory Rate Blood Pressure Pulse Oximetry 09/02/17 22:34 09/02/17 23:00 09/03/17 00:00 Temperature 98.5 F Pulse Rate 61 112 H Respiratory Rate 18 18 Blood Pressure 118/71 Pulse Oximetry 96 09/03/17 01:00 09/03/17 02:00 09/03/17 03:00 Temperature 98.2 F Pulse Rate 66 58 L 63 Respiratory Rate 18 Blood Pressure 130/79 Pulse Oximetry 96 09/03/17 04:00 09/03/17 05:00 09/03/17 06:00 Temperature Pulse Rate 63 63 62 Respiratory Rate Blood Pressure Pulse Oximetry 09/03/17 07:00 09/03/17 08:00 09/03/17 09:00 Temperature 98.0 F Pulse Rate 63 58 L 60 Respiratory Rate 16 Blood Pressure 137/80 Pulse Oximetry 95 09/03/17 10:00 09/03/17 11:00 09/03/17 12:00 Temperature 98.0 F Pulse Rate 56 L 58 L 58 L Respiratory Rate 16 Blood Pressure 136/75 Pulse Oximetry 95 09/03/17 13:00 09/03/17 14:00 Temperature Pulse Rate 60 58 L Respiratory Rate Blood Pressure Pulse Oximetry Intake & Output 09/02/17 09/03/17 09/03/17 18:59 06:59 18:59 Intake Total 1140 / 1140 1340 / 1340 100 / 100 Output Total 810 / 810 350 / 350 Balance 330 / 330 990 / 990 100 / 100 Weight 70.5 kg Intake: IV 200 / 200 800 / 800 100 / 100 Azithromycin Inj 500 MG In NS 500 / 500 Inj 250 ML @ 250 mls/hr IV.SIG Q24H TAWANA Rx#:[id number] Zosyn 4.5 GM Premix 4.5 gm In 200 / 200 300 / 300 100 / 100 100 ml @ 200 mls/hr IV.SIG Q6HR TAWANA Rx#:[id number] Oral 240 / 240 480 / 480 Anesthesia Amount 700 / 700 Other 60 / 60 Output: Urine 800 / 800 350 / 350 Estimated Blood Loss Other: # Voids 1 Date of Last Bowel Movement 09/02/17 09/02/17 # Bowel Movements 1 Narrative: GENERAL: 51 year old male resting in bed in no acute distress SKIN: Large chest wound vac in place with good seal HEAD: Atraumatic. Normocephalic. EYES: Pupils equal and round. No scleral icterus. No injection or drainage. ENT: No nasal bleeding or discharge. Mucous membranes pink and moist. NECK: Trachea midline. CARDIOVASCULAR: Regular rate and rhythm. RESPIRATORY: No accessory muscle use. Clear to auscultation. Breath sounds equal bilaterally. GASTROINTESTINAL: Abdomen soft, non-tender, nondistended. MUSCULOSKELETAL: Extremities without clubbing, cyanosis, or edema. No obvious deformities. NEUROLOGICAL: Awake and alert. No obvious cranial nerve deficits. Motor grossly within normal limits. Five out of 5 muscle strength in the arms and legs. Normal speech. PSYCHIATRIC: Appropriate mood and affect; insight and judgment normal. RIGHT sided chest tube removed today Assessment and Plan - Plan 51 year old male s/p radical resection of large chest mass -Plastics following -Chest tube removed yesterday; post CXR stable -Regular diet -Pain control -General Surgery will follow peripherally
--- NOTE | 2017-09-03 16:24 | P.DIET ---
Nutritional Evaluation Type of nutrition evaluation: follow-up Nutrition consult regarding: Diet Evaluation Nutrition screening: MDC (Supplement to Oral Intake, Pt w/ Low Albumin and Large Wound) Subjective Subjective Comments: Attempted to see pt but was getting ultrasound done on my visit. Objective - Diagnosis Infected Chest Wall Malignancy - Objective % IBW: 78 Body Weight Used for Calculations: IBW (202#) Energy Needs - Lower Range (kCal/kg): 28 Energy Needs - Upper Range (kCal/kg): 32 Lower Limit kCal/kg (kCals): 2,570 Upper Limit kCal/kg (kCals): 2,938 Lower Limit Protein Factor (Grams per Kg): 1.2 Upper Limit Protein Factor (Grams per Kg): 1.5 Lower Protein Needs (Protein): 110 Upper Protein Needs (Protein): 138 Dietitian Reviewed in Medical Record: Current diet, Curent medications, Intake & Output, Labs, Medical history, Wound/DTI (Chest incision w/ wound VAC) Diet Order: Regular w/Ensure Objective Comments: s/p radical resection of chest wall malignancy & VAC placement on 08/07 Meds: Vitamin B12 LBM 09/03 Assessment Assessment: Pt getting an ultrasound on visit. Per EMR, pt still has wound vac to chest. He is s/p radical resection of chest wall malignancy per GS notes. Pt remains at nutritional risk r/t wound VAC and medical dx of lung cancer. Pt is on a Heart Healthy diet, recommend liberalizing to Regular diet to allow more food options. Pt unable to receive cafeteria menu for lunch unless he's on a Regular diet. PO intake is okay, sporadic. Per previous RD note, pts is bringing Boost from home. Dietitian following. Recommendations: 1. Recommend Regular diet for more food options. 2. supposedly providing pt w/ Boost from home. 3. Will provide cafeteria menu if pt advances to a Regular diet. Dietitian to Monitor: Lab values, Supplement acceptance, Intake & Output, Diet tolerance, Weight change, PO Intake, Medical course
--- NOTE | 2017-09-03 19:06 | P.OP ---
Date of procedure: 09/02/17 Procedure: Right chest wound VAC change under anesthesia (24625) Anesthesia: CARMENA Surgeon: Joey Stauffer MD Operation and Findings: 51-year-old male with right chest wound, status post right latissimus dorsi myocutaneous and left pectoralis major muscle flaps and wound VAC placement. Risks benefits alternative treatments discussed. All questions answered and the patient expressed understanding. Patient elected to assume the risks of right chest wound VAC change under anesthesia. Informed consent obtained. Surgical site was marked in the preoperative holding bay. The patient was taken to the operating room and all pressure points were padded. A surgical timeout was performed. After the smooth induction of general anesthesia, the right chest wound VAC was removed. Surgical site was prepped and draped in the usual sterile fashion. The muscle flaps appeared viable. There was no necrotic tissue. The wound was granulating well. The skin paddle and latissimus muscle flaps were seen to completely cover the sternal defect and were firmly adherent. There were scattered inferior areas of less than 1 cm exposed costal bone without granulation tissue, though much improved from the previous VAC change, and bone appeared viable. The surgical site was cleaned and a new wound VAC dressing was placed and suction was set to -75 mmHg. All needle sponge and instrument counts were correct 2. The patient was awoken from anesthesia and arrived stable and doing well to the PACU.
[2017-09-03] MEDS: Azithromycin Inj 500 MG in Sodium Chlor 0.9% Inj 250 ML IV.SIG SCH (22:56)
[2017-09-04] MEDS: Piperacil/Tazo 4.5 GM Premix 4.5 GM/100 ML BAG IV.SIG SCH ×4 (01:02→18:10)
[2017-09-04] MEDS: Nystatin 100,000 UNITS/GM Powder 15 GM Bottle TOPICAL SCH ×3 (05:27→21:19)
[2017-09-04] MEDS: Sodium Hypochlorite 0.125% Top Soln 500 ML Bottle TOPICAL SCH (08:00)
[2017-09-04] MEDS: Enoxaparin Inj 40 MG/0.4 ML Syringe SQ SCH (08:00)
[2017-09-04] MEDS: Metoprolol Tartrate 50 MG Tablet PO SCH ×2 (08:00→21:00)
[2017-09-04] MEDS: Amiodarone 200 MG Tablet PO SCH (08:00)
[2017-09-04 08:13] LABS: Baso % (Auto) 0.2 % (0.0-2.0); Eos % (Auto) 0.2 % (0.0-4.0); Hematocrit 28.2 % (39.0-51.0); Hemoglobin 9.2 gm/dL (13.0-17.0); Lymph # (Auto) 1.4 th/mm3 (1.0-4.8); Lymph % (Auto) 16.6 % (9.0-44.0); Mean Corpuscular HGB Conc 32.5 % (32.0-36.0); Mean Corpuscular Hemoglobin 27.8 pg (27.0-34.0); Mean Corpuscular Volume 85.7 fL (80.0-100.0); Mean Platelet Volume 8.9 fL (7.0-11.0); Mono # (Auto) 0.7 th/mm3 (0.0-0.9); Mono % (Auto) 7.9 % (0.0-8.0); Neut # (Auto) 6.5 th/mm3 (1.8-7.7); Neut % (Auto) 75.1 % (16.0-70.0); Platelet Count 507 th/mm3 (150-450); Red Blood Count 3.29 mil/mm3 (4.50-5.90); White Blood Count 8.7 th/mm3 (4.0-11.0)
[2017-09-04 08:36] LABS: Albumin 1.9 g/dL (3.4-5.0); Anion Gap 10 meq/L (5-15); Aspartate Aminotransferase 47 U/L (15-37); Blood Urea Nitrogen 9 mg/dL (7-18); Calcium 8.2 mg/dL (8.5-10.1); Carbon Dioxide 23.9 meq/L (21.0-32.0); Chloride 106 meq/L (98-107); Glomerular Filtration Rate Greater Than 89 mL/min (>89); Glucose,Random 79 mg/dL (74-106); Magnesium 1.7 mg/dL (1.5-2.5); Potassium 3.9 meq/L (3.5-5.1); Sodium 140 meq/L (136-145)
[2017-09-04 08:39] LABS: Alanine Aminotransferase 38 U/L (12-78); Alkaline Phosphatase 125 U/L (45-117); Phosphorus 2.6 mg/dL (2.5-4.9); Total Protein 5.7 g/dL (6.4-8.2)
--- NOTE | 2017-09-04 14:09 | P.PNIM ---
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 Patient is currently doing well. Remains in sinus rhythm. Currently on amiodarone drip. He does have persistent chest pain from fungating mass. No fever or chills. 09-03 TO HAVE DRAIN TAKEN OUT TODAY NO NEW ISSUES HAS CHRONIC PAIN IN HIS CHEST DUE TO MASS DW RN AND PT AND CM 09-04 SEEN BY PALLIATIVE CARE DW RN AND PT HAD DRAIN TAKEN OUT DW RN AND PT NEEDS TO BE MORE MOBILE Physical Exam Vital signs: Vital Signs 09/03/17 15:00 09/03/17 16:00 09/03/17 17:00 Temperature 98.6 F Pulse Rate 57 L 56 L 54 L Respiratory Rate 16 Blood Pressure 128/73 Pulse Oximetry 99 09/03/17 18:00 09/03/17 19:00 09/03/17 20:00 Temperature 98.1 F Pulse Rate 58 L 61 58 L Respiratory Rate 18 Blood Pressure 136/80 Pulse Oximetry 100 09/03/17 21:00 09/03/17 22:00 09/03/17 22:56 Temperature Pulse Rate 56 L 56 L Respiratory Rate 18 Blood Pressure Pulse Oximetry 09/03/17 23:00 09/04/17 00:00 09/04/17 01:00 Temperature 98.5 F Pulse Rate 58 L 58 L 54 L Respiratory Rate 18 Blood Pressure 129/75 Pulse Oximetry 97 09/04/17 02:00 09/04/17 03:00 09/04/17 04:00 Temperature 98.3 F Pulse Rate 71 54 L 52 L Respiratory Rate 20 Blood Pressure 131/79 Pulse Oximetry 98 09/04/17 05:00 09/04/17 06:00 09/04/17 07:00 Temperature 97.8 F Pulse Rate 53 L 52 L 51 L Respiratory Rate 16 Blood Pressure 142/92 H Pulse Oximetry 96 09/04/17 08:00 09/04/17 09:00 09/04/17 10:00 Temperature Pulse Rate 51 L 50 L 51 L Respiratory Rate Blood Pressure Pulse Oximetry 09/04/17 11:00 Temperature 98.6 F Pulse Rate 55 L Respiratory Rate 18 Blood Pressure 144/81 H Pulse Oximetry 99 Intake & Output 09/03/17 09/04/17 09/04/17 18:59 06:59 18:59 Intake Total 960 / 960 780 / 780 100 / 100 Output Total 725 / 725 650 / 650 Balance 235 / 235 130 / 130 100 / 100 Weight 60.5 kg Intake: IV 100 / 100 300 / 300 100 / 100 Zosyn 4.5 GM Premix 4.5 gm In 100 / 100 300 / 300 100 / 100 100 ml @ 200 mls/hr IV.SIG Q6HR TAWANA Rx#:[id number] Oral 860 / 860 480 / 480 Output: Urine 600 / 600 650 / 650 Wound Drainage 125 / 125 Anterior Medial Chest 125 / 125 Other: # Voids 1 Date of Last Bowel Movement 09/02/17 09/03/17 09/02/17 # Bowel Movements 1 Narrative: GENERAL: 51 year old male resting in bed in no acute distress SKIN: Large chest wound vac in place with good seal HEAD: Atraumatic. Normocephalic. EYES: Pupils equal and round. No scleral icterus. No injection or drainage. ENT: No nasal bleeding or discharge. Mucous membranes pink and moist. NECK: Trachea midline. CARDIOVASCULAR: Regular rate and rhythm. RESPIRATORY: No accessory muscle use. Clear to auscultation. Breath sounds equal bilaterally. GASTROINTESTINAL: Abdomen soft, non-tender, nondistended. MUSCULOSKELETAL: Extremities without clubbing, cyanosis, or edema. No obvious deformities. NEUROLOGICAL: Awake and alert. No obvious cranial nerve deficits. Motor grossly within normal limits. Five out of 5 muscle strength in the arms and legs. Normal speech. PSYCHIATRIC: Appropriate mood and affect; insight and judgment normal. RIGHT sided chest tube removed today Results - Labs CBC & Chem 7: 09/04/17 07:21 09/04/17 07:21 Laboratory Results - last 24 hr 09/02/17 09/04/17 09/04/17 08:11 07:21 07:21 WBC 8.7 RBC 3.29 L Hgb 9.2 L Hct 28.2 L MCV 85.7 MCH 27.8 MCHC 32.5 RDW 17.0 Plt Count 507 H MPV 8.9 Neut % (Auto) 75.1 H Lymph % (Auto) 16.6 [place] % (Auto) 7.9 Eos % (Auto) 0.2 Baso % (Auto) 0.2 Neut # (Auto) 6.5 Lymph # (Auto) 1.4 [place] # (Auto) 0.7 Eos # (Auto) 0.0 Baso # (Auto) 0.0 WBC Differential . Differential Comment Auto diff final Sodium 140 Potassium 3.9 Chloride 106 Carbon Dioxide 23.9 Anion Gap 10 BUN 9 Creatinine 0.55 L Estimated GFR Greater than 89 Random Glucose 79 Calcium 8.2 L Phosphorus 2.6 Magnesium 1.7 Total Bilirubin 0.2 AST 47 H ALT 38 Alkaline Phosphatase 125 H Total Protein 5.7 L Albumin 1.9 L Ascorbic Acid 0.4000 - Imaging Impressions Chest X-Ray 09/03/17 00:00 CONCLUSION: No pneumothorax on right sided chest tube removal. - Procedures 08/07 PROCEDURES PERFORMED: 1. 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 2. Closure of chest wall defect 6 x 4 cm with dermal matrix biological mesh. 3. Placement of VAC dressing to wound, 26 x 21 cm. 4. Right thoracostomy tube placement. 08/10 vac dressing 08/20 Right pedicled latissimus muscle flap to right chest wound Left pectoralis major muscle flap to right chest wound 08/23 Right chest wound VAC change (04503) Right chest wound debridement (94256, 44436 x 6) Assessment and Plan - Plan Mr. Street is a 51-year-old male with a history of locally advanced basosquamous carcinoma and hypertension who was sent to the hospital by his oncologist due to hypercalcemia. He complained of abdominal pain that was cramping in quality. He also complained of purulent discharge from his chest wall fungating mass. On 08/07/2017 patient was taken to OR for radical resection of chest wall malignancy. He underwent resection of sternum and costochondral area of ribs 2 as well as wound VAC placement. Postoperatively he was admitted to ICU. Patient developed atrial fibrillation with RVR. On 08/29 patient had runs of nonsustained ventricular tachycardia. Dr. pope evaluated patient and started patient on amiodarone drip. Atrial fibrillation with rapid ventricular rate Ventricular tachycardia Tachybradycardia syndrome -Continue amiodarone drip. Patient is currently in normal sinus rhythm with normal heart rate. -Discussed with Dr. Pope's team regarding cardiac clearance for plastic surgery on 09/02/2017. -Magnesium is 2.0 and potassium 3.4 today. We will provide p.o. potassium chloride. -Continue metoprolol tartrate 50 mg p.o. twice daily Malignant fungating chest wall mass -Status post surgical resection on 08/07/2017. Wound VAC is in place. Plastic surgery consulted. -Continue Zosyn 4.5 g every 6 hours and azithromycin 500 mg daily -Continue [place] for pain. 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 Lovenox. Code Status: FULL CODE Discussed Condition With: RN AND PT AND CASE MANAGEMENT AND PALLIATIVE CARE Discharge Planning: Pending clearance by all for discharge
--- NOTE | 2017-09-04 14:58 | P.CONPAL ---
Consult Service: Palliative Care Requesting Physician: Obed Chandler Reason for Consult: a. To assist with evaluation and management of symptoms including:pain b. To assist medical decision maker(s) with: better understanding of current medical conditions; weighing benefits/burdens of medical treatment options; making medical treatment decisions. Primary Care Provider: UNKNOWN History of Present Illness History of Present Illness: Patient is a 51 year old with locally advanced basosquamous carcinoma and hypertension sent over to the hospital by oncology due to abnormal calcium level on 08/01/2017. Pt complainted of purulent drainage from chest wall. Pt had completed chemotherapy approximately for 2 weeks. In the ER. * Vitals Temp 97.9, pulse 107, RR 17, BP 138/74, pulse ox 99. * WBC 15.2, h and H 9.7 and 29.5; plt 409. * Na 137; K 3.2; Cl 97; CO2 24.1; BUN 13; Cr 0.57 * PT 10.8; INR 1.1; PTT 25.2. * Chest CT shows a fungating chest wall mass lesion becoming locally invassive invading the chest wall, anterior mediastinum causing osseious destruction of the adjacent sternum. Patient admitted for sepsis from mediastinal mass. Pt started on Vanc/zosyn. Wound culture pending. ID consulted, oncology consulted. General surgery consulted to evaluate for possible resection. 08/02 to 08/05-General surgery saw patient and planned for surgical resection for locally advanced basosquamous carcinoma. Wound culture form 08/01 grew out psudomonas. ID following. Cardiology consulted as pt was found to be in A-fib and following. LUIZ score of 2, and will consitder anticoagulation after cleared by surgeon. 08/06 to 08/10. Dr. Crawley was consulted for possible AV block. He feels pt does not appear to have afib. He recommends to proceed with surgery as schedule, continue mamangment per Dr. Sandoval. On 08/07 underwent surgery for radical resection of chest wall malignancy 16 x 16 cm with resection of sternum and costochondral area of ribs x 2 and right pleural. Wound VAC plast. Post- operatively pt admitted to ICU. Had run of Afib with rvr, given lopressor, treated for hypokalemia and hypmagnesemia. On 08/10 went for wound VAC exchange tomorrow. 08/11- to 08/13- Remains in icu and condition complicated by afib followed by cardiology and electrophysiology. Patient subsequently was stable enough to be transferred out of the ICU. 08/14- 09/04- Continue to have prolong course of hospitalization, with various surgery (radical resection/ closure of chest wall defect, wound VAC, debridment , flap placement etc.Right pedicled latissimus muscle flap to right chest wound ;Left pectoralis major muscle flap to right chest wound. 08/23 Right chest wound VAC change (95483) Right chest wound debridement ([id number], [id number] x 6) Plastic / general surgery following for wound care s/p surgery. Pt is planned for radiation once stable. there continues to be bouts of tacy cardia which cardiology and cardiophysiology following. pt condition complicated by pain and palliative care was consulted. In lesliey: Pt is a 51 year old with a prolong hospitalization for >1 month for a fungating chest mass/ locally advanced basosqumous carcionma. Pt is s/p radical surgical chest wall resection, with resection of sternum, costochondrial area. pt also has various followup surgeres (wound vac placment , debridement, flap placement etc) and followed by plastic and surgery. condition complicated by Afib/tacybrady syndrome (both cardiology and cardiophyiology involved. ID has been following for wound managment. Palliative care consulted for pain managment. Patient has been getting hydrocodone 15 mg PO q 4 ho)ur prn pain and has 7 doses. Patient has not been using oxycodone that is ordered. On my visit pt was sleeping, but easily awakens. He says today the pain is relatively well controlled. Pain is mostly mid chest area, the site of surgeries. He states pain is only worse at night, but pain meds usually brings it down. He endorse what he takes right now is adequate. I endorse relative fustration at the long hospitalization he has had. He states he could not keep track of what is going and and prefer to be present. Family meeting is set up at 10:00 am tomorrow. Function/Cognitive Trajectory: He has been getting weaker, and endorse worsening pain at mid sternum area prior to current hospitalization. He was only taking ibuprofen to control the pain. Review of Systems Constitutional: Reports fatigue, Reports weakness Eyes: Denies blurry vision, Denies change in vision Ears, Nose, Mouth, and Throat: Denies abnormal hearing, Denies bleeding gums, Denies bad breath Cardiovascular: Reports irregular heart rhythm, Denies leg pain with activity, Denies leg sores Respiratory: Denies change in phlegm color, Denies chest congestion, Denies cough Gastrointestinal: Denies abdominal pain, Denies belching, Denies black, tarry stools, Denies bloating Genitourinary: Denies decreased urination, Denies difficulty urinating, Denies scrotal swelling Musculoskeletal: Reports body aches (mid sternal pain) Skin/Breast: Denies bleeding lesions Neurologic: Denies abnormal hearing, Denies fainting, Denies frequent falls Psychiatric: Denies behavioral changes, Denies confusion Endocrine: Denies cold intolerance, Denies excessive sweating Hematologic/Lymphatic: Denies easy bleeding, Denies easy bruising Allergic/Immunologic: Denies lip swelling, Denies throat swelling, Denies tongue swelling PMFSH - History History Provided By: Patient - Medical History Medical History: Medical History (Last Updated 09/04/17 @ 16:32 by Iain Rodriguez MD) Arrhythmia Basal cell carcinoma Dyslipidemia Hypertension - Surgical History Surgical History: Surgical History (Last Updated 09/04/17 @ 16:33 by Iain Rodriguez MD) H/O hernia repair H/O radical excision of skin lesion - Family History Family History: Family History (Last Updated 09/04/17 @ 16:40 by Iain Rodriguez MD) Mother Esophageal carcinoma - Tobacco History Tobacco Use In Past 30 Days: Yes Smoking Status: Current every day smoker - Alcohol History How Often Do You Have a Drink Containing Alcohol: 4 or more times a week - Substance Use History Substance History: No History of Abuse (denies) Medications and Allergies Active Medications: Active Medications Hydrocodone Bitart/Acetaminophen ([place] 7.5/325) 2 tab PO Q4H PRN PRN Reason: PAIN SCALE 6 TO 10 Last Admin: 09/04/17 12:19 Dose: 2 tab Al Hydroxide/Mg Hydroxide (Milk Of Magnesia Liq) 30 ml PO Q12H PRN PRN Reason: Mild Constipation Albuterol (Duoneb Neb (Prn)) 1 ampul NEB Q2HR NEB PRN PRN Reason: SHORTNESS OF BREATH Amiodarone HCl (Cordarone) 200 mg PO DAILY [place] Last Admin: 09/04/17 08:00 Dose: 200 mg Aspirin (Ecotrin) 81 mg PO DAILY [facility] Bisacodyl (Dulcolax Supp) 10 mg RECTAL DAILY PRN PRN Reason: SEVERE CONSITIPATION Clonidine HCl (Catapres) 0.1 mg PO Q6H PRN PRN Reason: SBP>160, DBP>90 Cyanocobalamin (Vitamin B12) 1,000 mcg PO DAILY [facility] Last Admin: 09/04/17 08:00 Dose: 1,000 mcg Enoxaparin Sodium (Lovenox Inj) 40 mg SQ DAILY [facility] Last Admin: 09/04/17 08:00 Dose: 40 mg Morphine Sulfate (Morphine Inj) 30 mg in 30 mls @ 0 mls/hr [facility]IE [facility]CKER UNSCH PRN PRN Reason: per TIE BUCKER parameters Last Admin: 08/30/17 21:34 Dose: 0 mls/hr Piperacillin/Tazobactam/Dextrose (Zosyn 4.5 Gm Premix) 4.5 gm in 100 mls @ 200 mls/hr IV.SIG Q6HR [facility] Last Infusion: 09/04/17 12:19 Dose: Infused Azithromycin 500 mg/ Sodium (Chloride) 250 mls @ 250 mls/hr IV.SIG Q24H [facility] Last Admin: 09/03/17 22:56 Dose: 250 mls/hr Lactulose (Lactulose Liq) 30 ml PO DAILY PRN PRN Reason: SEVERE CONSITIPATION Metoprolol Tartrate (Lopressor Inj) 5 mg IV.PUSH Q5M PRN PRN Reason: HR>110 Last Admin: 08/25/17 11:45 Dose: 5 mg Metoprolol Tartrate (Lopressor) 50 mg PO BID [facility] Last Admin: 09/04/17 08:00 Dose: 50 mg Naloxone HCl (Narcan Inj) 0.4 mg IV.PUSH PRN PRN PRN Reason: Resp rate < 10 Nystatin (Mycostatin Powder) 1 applicatio TOPICAL Q8HR [facility] Last Admin: 09/04/17 05:27 Dose: 1 applicatio Oxycodone HCl (Roxicodone) 10 mg PO Q4H PRN PRN Reason: PAIN SCALE 1-5 OR MILD SOB Sennosides (Senokot) 17.2 mg PO Q12H PRN PRN Reason: Moderate Constipation Sodium Chloride (Ns Flush) 2 ml IV.FLUSH UNSCH PRN PRN Reason: IV FLUSH Sodium Chloride (Ns Flush) 2 ml IV.FLUSH BID [facility] Last Admin: 09/04/17 08:00 Dose: 2 ml Sodium Hypochlorite ([place] 0.124% Top Soln) 500 ml TOPICAL DAILY [facility] Last Admin: 09/04/17 08:00 Dose: 500 ml Allergies Allergy/AdvReac Type Severity Reaction Status Date / Time acetaminophen Allergy Severe ITCHING Verified 08/25/17 03:18 codeine Allergy Severe ITCHING Verified 08/25/17 03:18 ibuprofen Allergy Severe UPSET Verified 08/25/17 03:18 STOMACH oxycodone Allergy Severe GI UPSET Verified 08/25/17 03:18 Home Medications Medication Instructions Recorded Confirmed Type sodium hypochlorite 473 ml TOPICAL BID 08/24/17 08/24/17 History vismodegib 150 mg PO ONCE 08/24/17 08/24/17 History Advance Directives Living Will: No Healthcare Surrogate: No Physical Exam Vital Signs: Vital Signs - 24 hr 09/03/17 15:00 09/03/17 16:00 09/03/17 17:00 Temperature 98.6 F Pulse Rate 57 L 56 L 54 L Respiratory Rate 16 Blood Pressure 128/73 Pulse Oximetry 99 09/03/17 18:00 09/03/17 19:00 09/03/17 20:00 Temperature 98.1 F Pulse Rate 58 L 61 58 L Respiratory Rate 18 Blood Pressure 136/80 Pulse Oximetry 100 09/03/17 21:00 09/03/17 22:00 09/03/17 22:56 Temperature Pulse Rate 56 L 56 L Respiratory Rate 18 Blood Pressure Pulse Oximetry 09/03/17 23:00 09/04/17 00:00 09/04/17 01:00 Temperature 98.5 F Pulse Rate 58 L 58 L 54 L Respiratory Rate 18 Blood Pressure 129/75 Pulse Oximetry 97 09/04/17 02:00 09/04/17 03:00 09/04/17 04:00 Temperature 98.3 F Pulse Rate 71 54 L 52 L Respiratory Rate 20 Blood Pressure 131/79 Pulse Oximetry 98 09/04/17 05:00 09/04/17 06:00 09/04/17 07:00 Temperature 97.8 F Pulse Rate 53 L 52 L 51 L Respiratory Rate 16 Blood Pressure 142/92 H Pulse Oximetry 96 09/04/17 08:00 09/04/17 09:00 09/04/17 10:00 Temperature Pulse Rate 51 L 50 L 51 L Respiratory Rate Blood Pressure Pulse Oximetry 09/04/17 11:00 Temperature 98.6 F Pulse Rate 55 L Respiratory Rate 18 Blood Pressure 144/81 H Pulse Oximetry 99 I&O: Intake & Output 09/02/17 09/03/17 09/04/17 09/05/17 06:59 06:59 06:59 06:59 Intake Total 2040 / 2040 2480 / 2480 1740 / 1740 100 / 100 Output Total 860 / 860 1160 / 1160 1375 / 1375 Balance 1180 / 1180 1320 / 1320 365 / 365 100 / 100 Weight 63 kg 70.5 kg 60.5 kg Physical Exam: CONSTITUTIONAL/GENERAL: This is an 51 year old male, appears fatigue at times. SKIN: No jaundice, rashes, or lesions. Wound VAC mid-sternum HEAD: Atraumatic. Normocephalic. EYES: Pupils equal and round and reactive. Extraocular motions intact. No scleral icterus. No injection or drainage. Fundi not examined. ENT: Hearing grossly normal. Nose without bleeding or purulent drainage. Throat without visible erythema, exudates, masses, or lesions. NECK: Trachea midline. Supple, nontender. No palpable thyroid enlargement or nodularity. CARDIOVASCULAR: irregularly without murmurs, gallops, or rubs. RESPIRATORY/CHEST: Symmetric, unlabored respirations. Clear to auscultation. Breath sounds equal bilaterally. No wheezes, rales, or rhonchi. GASTROINTESTINAL: Abdomen soft, non-tender, nondistended. No hepato-splenomegaly , or palpable masses. No guarding. Bowel sounds present. GENITOURINARY: Without palpable bladder distension. Leroy catheter in place. MUSCULOSKELETAL: Extremities without clubbing, cyanosis, or edema. LYMPHATICS: No palpable cervical or supraclavicular adenopathy. NEUROLOGICAL: Awake and alert. Motor and sensory grossly within normal limits. Follows commands. Cognitively sharp. Moves all extremities. PSYCHIATRIC: No obvious anxiety/depression. no apparent hallucinations or other psychotic thought process. Diagnostic Tests Laboratory: Laboratory Results - last 72 hr 08/27/17 09/02/17 09/04/17 10:02 08:11 07:21 WBC 8.7 RBC 3.29 L Hgb 9.2 L Hct 28.2 L MCV 85.7 MCH 27.8 MCHC 32.5 RDW 17.0 Plt Count 507 H MPV 8.9 Neut % (Auto) 75.1 H Lymph % (Auto) 16.6 [place] % (Auto) 7.9 Eos % (Auto) 0.2 Baso % (Auto) 0.2 Neut # (Auto) 6.5 Lymph # (Auto) 1.4 [place] # (Auto) 0.7 Eos # (Auto) 0.0 Baso # (Auto) 0.0 WBC Differential . Differential Comment Auto diff final Sodium Potassium Chloride Carbon Dioxide Anion Gap BUN Creatinine Estimated GFR Random Glucose Calcium Phosphorus Magnesium Total Bilirubin AST ALT Alkaline Phosphatase Total Protein Albumin Ascorbic Acid 0.4000 Zinc 50 L 09/04/17 07:21 WBC RBC Hgb Hct MCV MCH MCHC RDW Plt Count MPV Neut % (Auto) Lymph % (Auto) [place] % (Auto) Eos % (Auto) Baso % (Auto) Neut # (Auto) Lymph # (Auto) [place] # (Auto) Eos # (Auto) Baso # (Auto) WBC Differential Differential Comment Sodium 140 Potassium 3.9 Chloride 106 Carbon Dioxide 23.9 Anion Gap 10 BUN 9 Creatinine 0.55 L Estimated GFR Greater than 89 Random Glucose 79 Calcium 8.2 L Phosphorus 2.6 Magnesium 1.7 Total Bilirubin 0.2 AST 47 H ALT 38 Alkaline Phosphatase 125 H Total Protein 5.7 L Albumin 1.9 L Ascorbic Acid Zinc Result Diagrams: 09/04/17 07:21 09/04/17 07:21 Microbiology: Microbiology 08/26/17 10:30 Urine - Clean Catch Urine Streptococcus pneumoniae Antigen ( M - Final Presumptive negative for streptococcus pneumoniae antigen, suggesting no current or recent infection. Infection due to Streptococcus pneumoniae cannot be ruled out since the antigen present in the sample may be below the detection limit of the test. 08/26/17 09:00 Urine - Clean Catch Urine Legionella Antigen - Final Presumptive negative for Legionella pneumophila serogroup 1 antigen in urine, suggesting no recent or recurrent infection. Infection due to Legionella cannot be ruled out since other serogroups and species may cause disease, antigen may not be present in urine in early infection, and the level of antigen present in the urine may be below the detection limit of the test. Imaging: Laboratory Tests 08/01/17 08/01/17 08/01/17 21:15 21:15 21:15 WBC RBC Hgb Hct MCV MCH MCHC RDW Plt Count MPV Neut % (Auto) Lymph % (Auto) [place] % (Auto) Eos % (Auto) Baso % (Auto) Neut # (Auto) Lymph # (Auto) [place] # (Auto) Eos # (Auto) Baso # (Auto) CBC Comment WBC Differential Differential Comment Hematology Comments PT 10.8 INR 1.1 APTT 25.2 Puncture Site Patient Temperature HCO3 Base Excess O2 Saturation ABG pH ABG pCO2 ABG pO2 ABG O2 Content ABG Carboxyhemoglobin ABG Methemoglobin Hemoglobin O2 Delivery Device Liter Flow Vent Setting Inspired O2 Sodium 137 Potassium 3.2 L Chloride 97 L Carbon Dioxide 24.1 Anion Gap 16 H BUN 13 Creatinine 0.57 L Estimated GFR 150 Random Glucose 86 Hemoglobin A1c Lactic Acid 3.9 H Calcium 11.1 H Prot Corrected Calcium Phosphorus Magnesium 1.4 L Iron TIBC % Saturation Ferritin Total Bilirubin 0.2 AST 19 ALT 17 Alkaline Phosphatase 105 Troponin I B-Natriuretic Peptide Total Protein 6.9 Albumin 2.4 L Prealbumin Triglycerides Cholesterol LDL Cholesterol HDL Cholesterol Cholesterol/HDL Ratio Lipase 82 Ascorbic Acid Vitamin B12 Folate Free T4 TSH 3rd Generation Urine Color Urine Turbidity Urine pH Ur Specific [place] Urine Protein Urine Glucose (UA) Urine Ketones Urine Occult Blood Urine Nitrite Urine Bilirubin Urine Urobilinogen Ur Leukocyte Esterase Urine RBC Urine WBC Micro UA Comment Zinc 08/01/17 08/02/17 08/02/17 21:15 00:30 00:30 WBC 15.2 H RBC 3.50 L Hgb 9.7 L Hct 29.5 L MCV 84.3 MCH 27.6 MCHC 32.7 RDW 17.5 H Plt Count 409 MPV 9.3 Neut % (Auto) 74.1 H Lymph % (Auto) 13.0 [place] % (Auto) 9.9 H Eos % (Auto) 2.2 Baso % (Auto) 0.8 Neut # (Auto) 11.3 H Lymph # (Auto) 2.0 [place] # (Auto) 1.5 H Eos # (Auto) 0.3 Baso # (Auto) 0.1 CBC Comment DIFF FINAL WBC Differential Differential Comment Hematology Comments PT INR APTT Puncture Site Patient Temperature HCO3 Base Excess O2 Saturation ABG pH ABG pCO2 ABG pO2 ABG O2 Content ABG Carboxyhemoglobin ABG Methemoglobin Hemoglobin O2 Delivery Device Liter Flow Vent Setting Inspired O2 Sodium Potassium Chloride Carbon Dioxide Anion Gap BUN Creatinine Estimated GFR Random Glucose Hemoglobin A1c Lactic Acid 1.8 Calcium Prot Corrected Calcium Phosphorus Magnesium Iron TIBC % Saturation Ferritin Total Bilirubin AST ALT Alkaline Phosphatase Troponin I B-Natriuretic Peptide Total Protein Albumin Prealbumin Triglycerides Cholesterol LDL Cholesterol HDL Cholesterol Cholesterol/HDL Ratio Lipase Ascorbic Acid Vitamin B12 Folate Free T4 TSH 3rd Generation Urine Color LIGHT-YELLOW Urine Turbidity CLEAR Urine pH 7.0 Ur Specific [place] 1.034 Urine Protein NEG Urine Glucose (UA) NEG Urine Ketones NEG Urine Occult Blood TRACE H Urine Nitrite NEG Urine Bilirubin NEG Urine Urobilinogen LESS THAN 2.0 Ur Leukocyte Esterase NEG Urine RBC 3 Urine WBC 2 Micro UA Comment CATH-CULT NOT IND Zinc 08/02/17 08/02/17 08/03/17 08:40 08:40 05:45 WBC 12.5 H RBC 3.06 L Hgb 8.5 L Hct 26.2 L MCV 85.6 MCH 27.8 MCHC 32.5 RDW 17.1 Plt Count 359 MPV 9.8 Neut % (Auto) 69.1 Lymph % (Auto) 12.8 [place] % (Auto) 13.2 H Eos % (Auto) 3.9 Baso % (Auto) 1.0 Neut # (Auto) 8.6 H Lymph # (Auto) 1.6 [place] # (Auto) 1.6 H Eos # (Auto) 0.5 H Baso # (Auto) 0.1 CBC Comment DIFF FINAL WBC Differential Differential Comment Hematology Comments PT INR APTT Puncture Site Patient Temperature HCO3 Base Excess O2 Saturation ABG pH ABG pCO2 ABG pO2 ABG O2 Content ABG Carboxyhemoglobin ABG Methemoglobin Hemoglobin O2 Delivery Device Liter Flow Vent Setting Inspired O2 Sodium 138 Potassium 3.8 Chloride 106 D Carbon Dioxide 24.0 Anion Gap 8 BUN 10 Creatinine 0.53 L 0.51 L Estimated GFR 163 171 Random Glucose 78 Hemoglobin A1c Lactic Acid Calcium 10.0 D Prot Corrected Calcium Phosphorus Magnesium Iron TIBC % Saturation Ferritin Total Bilirubin AST ALT Alkaline Phosphatase Troponin I B-Natriuretic Peptide Total Protein Albumin Prealbumin Triglycerides Cholesterol LDL Cholesterol HDL Cholesterol Cholesterol/HDL Ratio Lipase Ascorbic Acid Vitamin B12 Folate Free T4 TSH 3rd Generation Urine Color Urine Turbidity Urine pH Ur Specific [place] Urine Protein Urine Glucose (UA) Urine Ketones Urine Occult Blood Urine Nitrite Urine Bilirubin Urine Urobilinogen Ur Leukocyte Esterase Urine RBC Urine WBC Micro UA Comment Zinc 08/03/17 08/03/17 08/03/17 05:45 11:15 16:55 WBC 12.3 H RBC 2.92 L Hgb 8.1 L Hct 24.8 L MCV 85.1 MCH 27.9 MCHC 32.8 RDW 17.2 Plt Count 353 MPV 10.0 Neut % (Auto) 72.8 H Lymph % (Auto) 11.9 [place] % (Auto) 10.5 H Eos % (Auto) 4.1 H Baso % (Auto) 0.7 Neut # (Auto) 9.0 H Lymph # (Auto) 1.5 [place] # (Auto) 1.3 H Eos # (Auto) 0.5 H Baso # (Auto) 0.1 CBC Comment DIFF FINAL WBC Differential Differential Comment Hematology Comments PT INR APTT Puncture Site Patient Temperature HCO3 Base Excess O2 Saturation ABG pH ABG pCO2 ABG pO2 ABG O2 Content ABG Carboxyhemoglobin ABG Methemoglobin Hemoglobin O2 Delivery Device Liter Flow Vent Setting Inspired O2 Sodium Potassium Chloride Carbon Dioxide Anion Gap BUN Creatinine Estimated GFR Random Glucose Hemoglobin A1c Lactic Acid Calcium Prot Corrected Calcium Phosphorus Magnesium Iron TIBC % Saturation Ferritin Total Bilirubin AST ALT Alkaline Phosphatase Troponin I LESS THAN 0.02 L 0.02 B-Natriuretic Peptide Total Protein Albumin Prealbumin Triglycerides Cholesterol LDL Cholesterol HDL Cholesterol Cholesterol/HDL Ratio Lipase Ascorbic Acid Vitamin B12 Folate Free T4 1.09 TSH 3rd Generation 1.760 Urine Color Urine Turbidity Urine pH Ur Specific [place] Urine Protein Urine Glucose (UA) Urine Ketones Urine Occult Blood Urine Nitrite Urine Bilirubin Urine Urobilinogen Ur Leukocyte Esterase Urine RBC Urine WBC Micro UA Comment Zinc 08/04/17 08/04/17 08/06/17 11:32 11:32 13:50 WBC 11.2 H RBC 2.99 L Hgb 8.3 L Hct 25.2 L MCV 84.3 MCH 27.7 MCHC 32.8 RDW 17.2 Plt Count 414 MPV 9.5 Neut % (Auto) 71.7 H Lymph % (Auto) 13.8 [place] % (Auto) 9.8 H Eos % (Auto) 3.8 Baso % (Auto) 0.9 Neut # (Auto) 8.1 H Lymph # (Auto) 1.6 [place] # (Auto) 1.1 H Eos # (Auto) 0.4 Baso # (Auto) 0.1 CBC Comment DIFF FINAL WBC Differential Differential Comment Hematology Comments PT INR APTT Puncture Site Patient Temperature HCO3 Base Excess O2 Saturation ABG pH ABG pCO2 ABG pO2 ABG O2 Content ABG Carboxyhemoglobin ABG Methemoglobin Hemoglobin O2 Delivery Device Liter Flow Vent Setting Inspired O2 Sodium 139 Potassium 3.0 L 3.1 L Chloride 104 Carbon Dioxide 25.3 Anion Gap 10 BUN 7 Creatinine 0.71 Estimated GFR 117 Random Glucose 89 Hemoglobin A1c Lactic Acid Calcium 9.6 Prot Corrected Calcium Phosphorus Magnesium Iron TIBC % Saturation Ferritin Total Bilirubin AST ALT Alkaline Phosphatase Troponin I B-Natriuretic Peptide Total Protein Albumin Prealbumin Triglycerides 110 Cholesterol 98 L LDL Cholesterol 52 HDL Cholesterol 24.5 L Cholesterol/HDL Ratio 4.00 Lipase Ascorbic Acid Vitamin B12 Folate Free T4 TSH 3rd Generation Urine Color Urine Turbidity Urine pH Ur Specific [place] Urine Protein Urine Glucose (UA) Urine Ketones Urine Occult Blood Urine Nitrite Urine Bilirubin Urine Urobilinogen Ur Leukocyte Esterase Urine RBC Urine WBC Micro UA Comment Zinc 08/06/17 08/07/17 08/07/17 14:38 05:38 05:38 WBC 9.6 RBC 2.83 L Hgb 8.1 L Hct 24.1 L MCV 85.1 MCH 28.4 MCHC 33.4 RDW 17.1 Plt Count 368 MPV 9.5 Neut % (Auto) 69.9 Lymph % (Auto) 14.7 [place] % (Auto) 10.2 H Eos % (Auto) 4.1 H Baso % (Auto) 1.1 Neut # (Auto) 6.7 Lymph # (Auto) 1.4 [place] # (Auto) 1.0 H Eos # (Auto) 0.4 Baso # (Auto) 0.1 CBC Comment DIFF FINAL WBC Differential Differential Comment Hematology Comments PT INR APTT Puncture Site Patient Temperature HCO3 Base Excess O2 Saturation ABG pH ABG pCO2 ABG pO2 ABG O2 Content ABG Carboxyhemoglobin ABG Methemoglobin Hemoglobin O2 Delivery Device Liter Flow Vent Setting Inspired O2 Sodium 139 Potassium 3.2 L Chloride 105 Carbon Dioxide 23.2 Anion Gap 11 BUN 4 L Creatinine 0.60 Estimated GFR 141 Random Glucose 73 L Hemoglobin A1c Lactic Acid Calcium 10.0 Prot Corrected Calcium Phosphorus 2.5 Magnesium 1.4 L Iron 18 L TIBC 181 L % Saturation 10.0 L Ferritin 78 Total Bilirubin 0.3 AST 17 ALT 10 L Alkaline Phosphatase 86 Troponin I B-Natriuretic Peptide Total Protein 5.8 L D Albumin 1.8 L Prealbumin Triglycerides Cholesterol LDL Cholesterol HDL Cholesterol Cholesterol/HDL Ratio Lipase Ascorbic Acid Vitamin B12 291 Folate 19.8 H Free T4 TSH 3rd Generation Urine Color Urine Turbidity Urine pH Ur Specific [place] Urine Protein Urine Glucose (UA) Urine Ketones Urine Occult Blood Urine Nitrite Urine Bilirubin Urine Urobilinogen Ur Leukocyte Esterase Urine RBC Urine WBC Micro UA Comment Zinc 08/07/17 08/07/17 08/08/17 15:35 17:57 04:40 WBC 12.9 H RBC 4.21 L Hgb 12.0 L D Hct 35.4 L MCV 84.0 MCH 28.5 MCHC 33.9 RDW 15.8 Plt Count 339 MPV 9.3 Neut % (Auto) 88.9 H Lymph % (Auto) 7.1 L [place] % (Auto) 2.6 Eos % (Auto) 0.9 Baso % (Auto) 0.5 Neut # (Auto) 11.5 H Lymph # (Auto) 0.9 L [place] # (Auto) 0.3 Eos # (Auto) 0.1 Baso # (Auto) 0.1 CBC Comment DIFF FINAL WBC Differential Differential Comment Hematology Comments PT INR APTT Puncture Site DRAWN IN OR Patient Temperature 98.6 HCO3 23 Base Excess -1.6 O2 Saturation 96 ABG pH 7.38 ABG pCO2 39 ABG pO2 127 H ABG O2 Content 18.1 ABG Carboxyhemoglobin 0.6 ABG Methemoglobin 1.5 Hemoglobin 13.2 O2 Delivery Device OR Liter Flow 0 Vent Setting OR Inspired O2 93 Sodium 139 Potassium 3.4 L Chloride 105 Carbon Dioxide 22.6 Anion Gap 11 BUN 4 L Creatinine 0.48 L Estimated GFR 183 Random Glucose 146 H Hemoglobin A1c Lactic Acid Calcium 8.5 D Prot Corrected Calcium Phosphorus Magnesium Iron TIBC % Saturation Ferritin Total Bilirubin 0.6 AST 7 L ALT 8 L Alkaline Phosphatase 76 Troponin I B-Natriuretic Peptide Total Protein 5.5 L Albumin 1.6 L Prealbumin Triglycerides Cholesterol LDL Cholesterol HDL Cholesterol Cholesterol/HDL Ratio Lipase Ascorbic Acid Vitamin B12 Folate Free T4 TSH 3rd Generation Urine Color Urine Turbidity Urine pH Ur Specific [place] Urine Protein Urine Glucose (UA) Urine Ketones Urine Occult Blood Urine Nitrite Urine Bilirubin Urine Urobilinogen Ur Leukocyte Esterase Urine RBC Urine WBC Micro UA Comment Zinc 08/08/17 08/08/17 08/09/17 04:40 13:35 04:55 WBC 17.1 H RBC 4.17 L Hgb 11.6 L Hct 34.7 L MCV 83.2 MCH 27.7 MCHC 33.3 RDW 15.5 Plt Count 344 MPV 9.2 Neut % (Auto) 93.1 H Lymph % (Auto) 3.9 L [place] % (Auto) 2.8 Eos % (Auto) 0.0 Baso % (Auto) 0.2 Neut # (Auto) 15.9 H Lymph # (Auto) 0.7 L [place] # (Auto) 0.5 Eos # (Auto) 0.0 Baso # (Auto) 0.0 CBC Comment DIFF FINAL WBC Differential Differential Comment Hematology Comments PT INR APTT Puncture Site Patient Temperature HCO3 Base Excess O2 Saturation ABG pH ABG pCO2 ABG pO2 ABG O2 Content ABG Carboxyhemoglobin ABG Methemoglobin Hemoglobin O2 Delivery Device Liter Flow Vent Setting Inspired O2 Sodium 140 Potassium 3.6 4.1 Chloride 106 Carbon Dioxide 23.9 Anion Gap 10 BUN 6 L Creatinine 0.46 L Estimated GFR 192 Random Glucose 98 Hemoglobin A1c Lactic Acid Calcium 8.1 L Prot Corrected Calcium Phosphorus Magnesium 2.1 D Iron TIBC % Saturation Ferritin Total Bilirubin AST ALT Alkaline Phosphatase Troponin I B-Natriuretic Peptide Total Protein Albumin Prealbumin Triglycerides Cholesterol LDL Cholesterol HDL Cholesterol Cholesterol/HDL Ratio Lipase Ascorbic Acid Vitamin B12 Folate Free T4 TSH 3rd Generation Urine Color Urine Turbidity Urine pH Ur Specific [place] Urine Protein Urine Glucose (UA) Urine Ketones Urine Occult Blood Urine Nitrite Urine Bilirubin Urine Urobilinogen Ur Leukocyte Esterase Urine RBC Urine WBC Micro UA Comment Zinc 08/09/17 08/10/17 08/10/17 04:55 02:32 02:35 WBC 14.3 H 14.6 H RBC 3.85 L 4.15 L Hgb 10.7 L 11.4 L Hct 32.4 L 34.6 L MCV 84.2 83.5 MCH 27.8 27.6 MCHC 33.0 33.0 RDW 15.9 16.5 Plt Count 358 396 MPV 9.3 9.4 Neut % (Auto) 80.5 H 72.9 H Lymph % (Auto) 11.8 17.3 [place] % (Auto) 7.2 7.8 Eos % (Auto) 0.1 1.0 Baso % (Auto) 0.4 1.0 Neut # (Auto) 11.6 H 10.7 H Lymph # (Auto) 1.7 2.5 [place] # (Auto) 1.0 H 1.1 H Eos # (Auto) 0.0 0.2 Baso # (Auto) 0.1 0.1 CBC Comment DIFF FINAL DIFF FINAL WBC Differential Differential Comment Hematology Comments PT INR APTT Puncture Site Patient Temperature HCO3 Base Excess O2 Saturation ABG pH ABG pCO2 ABG pO2 ABG O2 Content ABG Carboxyhemoglobin ABG Methemoglobin Hemoglobin O2 Delivery Device Liter Flow Vent Setting Inspired O2 Sodium 141 Potassium 3.4 L Chloride 108 H Carbon Dioxide 23.6 Anion Gap 9 BUN 5 L Creatinine 0.49 L Estimated GFR 179 Random Glucose 95 Hemoglobin A1c Lactic Acid Calcium 8.0 L Prot Corrected Calcium Phosphorus 2.8 Magnesium 1.4 L D Iron TIBC % Saturation Ferritin Total Bilirubin 0.3 AST 16 ALT 8 L Alkaline Phosphatase 76 Troponin I B-Natriuretic Peptide Total Protein 5.7 L Albumin 1.7 L Prealbumin Triglycerides Cholesterol LDL Cholesterol HDL Cholesterol Cholesterol/HDL Ratio Lipase Ascorbic Acid Vitamin B12 Folate Free T4 TSH 3rd Generation Urine Color Urine Turbidity Urine pH Ur Specific [place] Urine Protein Urine Glucose (UA) Urine Ketones Urine Occult Blood Urine Nitrite Urine Bilirubin Urine Urobilinogen Ur Leukocyte Esterase Urine RBC Urine WBC Micro UA Comment Zinc 08/10/17 08/10/17 08/10/17 02:35 10:50 10:50 WBC RBC Hgb Hct MCV MCH MCHC RDW Plt Count MPV Neut % (Auto) Lymph % (Auto) [place] % (Auto) Eos % (Auto) Baso % (Auto) Neut # (Auto) Lymph # (Auto) [place] # (Auto) Eos # (Auto) Baso # (Auto) CBC Comment WBC Differential Differential Comment Hematology Comments PT INR APTT Puncture Site Patient Temperature HCO3 Base Excess O2 Saturation ABG pH ABG pCO2 ABG pO2 ABG O2 Content ABG Carboxyhemoglobin ABG Methemoglobin Hemoglobin O2 Delivery Device Liter Flow Vent Setting Inspired O2 Sodium Potassium 4.1 Chloride Carbon Dioxide Anion Gap BUN Creatinine Estimated GFR Random Glucose Hemoglobin A1c Lactic Acid Calcium Prot Corrected Calcium Phosphorus Magnesium 1.8 Iron TIBC % Saturation Ferritin Total Bilirubin AST ALT Alkaline Phosphatase Troponin I LESS THAN 0.02 L LESS THAN 0.02 L B-Natriuretic Peptide Total Protein Albumin Prealbumin Triglycerides Cholesterol LDL Cholesterol HDL Cholesterol Cholesterol/HDL Ratio Lipase Ascorbic Acid Vitamin B12 Folate Free T4 TSH 3rd Generation Urine Color Urine Turbidity Urine pH Ur Specific [place] Urine Protein Urine Glucose (UA) Urine Ketones Urine Occult Blood Urine Nitrite Urine Bilirubin Urine Urobilinogen Ur Leukocyte Esterase Urine RBC Urine WBC Micro UA Comment Zinc 08/10/17 08/10/17 08/11/17 16:25 21:15 05:35 WBC RBC Hgb Hct MCV MCH MCHC RDW Plt Count MPV Neut % (Auto) Lymph % (Auto) [place] % (Auto) Eos % (Auto) Baso % (Auto) Neut # (Auto) Lymph # (Auto) [place] # (Auto) Eos # (Auto) Baso # (Auto) CBC Comment WBC Differential Differential Comment Hematology Comments PT INR APTT Puncture Site Patient Temperature HCO3 Base Excess O2 Saturation ABG pH ABG pCO2 ABG pO2 ABG O2 Content ABG Carboxyhemoglobin ABG Methemoglobin Hemoglobin O2 Delivery Device Liter Flow Vent Setting Inspired O2 Sodium 138 Potassium 3.5 3.9 Chloride 103 Carbon Dioxide 25.0 Anion Gap 10 BUN 4 L Creatinine 0.48 L Estimated GFR 183 Random Glucose 86 Hemoglobin A1c Lactic Acid Calcium 8.2 L Prot Corrected Calcium Phosphorus Magnesium 1.6 1.6 Iron TIBC % Saturation Ferritin Total Bilirubin AST ALT Alkaline Phosphatase Troponin I LESS THAN 0.02 L B-Natriuretic Peptide Total Protein Albumin Prealbumin Triglycerides Cholesterol LDL Cholesterol HDL Cholesterol Cholesterol/HDL Ratio Lipase Ascorbic Acid Vitamin B12 Folate Free T4 TSH 3rd Generation Urine Color Urine Turbidity Urine pH Ur Specific [place] Urine Protein Urine Glucose (UA) Urine Ketones Urine Occult Blood Urine Nitrite Urine Bilirubin Urine Urobilinogen Ur Leukocyte Esterase Urine RBC Urine WBC Micro UA Comment Zinc 08/11/17 08/11/17 08/12/17 14:55 23:21 06:00 WBC RBC Hgb Hct MCV MCH MCHC RDW Plt Count MPV Neut % (Auto) Lymph % (Auto) [place] % (Auto) Eos % (Auto) Baso % (Auto) Neut # (Auto) Lymph # (Auto) [place] # (Auto) Eos # (Auto) Baso # (Auto) CBC Comment WBC Differential Differential Comment Hematology Comments PT INR APTT Puncture Site Patient Temperature HCO3 Base Excess O2 Saturation ABG pH ABG pCO2 ABG pO2 ABG O2 Content ABG Carboxyhemoglobin ABG Methemoglobin Hemoglobin O2 Delivery Device Liter Flow Vent Setting Inspired O2 Sodium 135 L Potassium 3.9 3.8 4.1 Chloride 101 Carbon Dioxide 24.7 Anion Gap 9 BUN 3 L Creatinine 0.53 L Estimated GFR 163 Random Glucose 105 Hemoglobin A1c Lactic Acid Calcium 8.2 L Prot Corrected Calcium Phosphorus Magnesium 1.8 1.7 1.6 Iron TIBC % Saturation Ferritin Total Bilirubin AST ALT Alkaline Phosphatase Troponin I B-Natriuretic Peptide Total Protein Albumin Prealbumin Triglycerides Cholesterol LDL Cholesterol HDL Cholesterol Cholesterol/HDL Ratio Lipase Ascorbic Acid Vitamin B12 Folate Free T4 TSH 3rd Generation Urine Color Urine Turbidity Urine pH Ur Specific [place] Urine Protein Urine Glucose (UA) Urine Ketones Urine Occult Blood Urine Nitrite Urine Bilirubin Urine Urobilinogen Ur Leukocyte Esterase Urine RBC Urine WBC Micro UA Comment Zinc 08/12/17 08/13/17 08/13/17 16:30 06:00 06:20 WBC 12.2 H RBC 4.02 L Hgb 11.2 L Hct 34.2 L MCV 85.2 MCH 27.8 MCHC 32.6 RDW 16.4 Plt Count 489 H MPV 9.1 Neut % (Auto) 73.2 H Lymph % (Auto) 13.2 [place] % (Auto) 7.8 Eos % (Auto) 5.0 H Baso % (Auto) 0.8 Neut # (Auto) 8.9 H Lymph # (Auto) 1.6 [place] # (Auto) 0.9 Eos # (Auto) 0.6 H Baso # (Auto) 0.1 CBC Comment DIFF FINAL WBC Differential Differential Comment Hematology Comments PT INR APTT Puncture Site Patient Temperature HCO3 Base Excess O2 Saturation ABG pH ABG pCO2 ABG pO2 ABG O2 Content ABG Carboxyhemoglobin ABG Methemoglobin Hemoglobin O2 Delivery Device Liter Flow Vent Setting Inspired O2 Sodium 135 L Potassium 3.8 4.2 Chloride 101 Carbon Dioxide 23.7 Anion Gap 10 BUN 3 L Creatinine 0.58 L Estimated GFR 147 Random Glucose 93 Hemoglobin A1c Lactic Acid Calcium 8.6 Prot Corrected Calcium Phosphorus Magnesium 3.4 H D 1.9 D Iron TIBC % Saturation Ferritin Total Bilirubin AST ALT Alkaline Phosphatase Troponin I B-Natriuretic Peptide Total Protein Albumin Prealbumin Triglycerides Cholesterol LDL Cholesterol HDL Cholesterol Cholesterol/HDL Ratio Lipase Ascorbic Acid Vitamin B12 Folate Free T4 TSH 3rd Generation Urine Color Urine Turbidity Urine pH Ur Specific [place] Urine Protein Urine Glucose (UA) Urine Ketones Urine Occult Blood Urine Nitrite Urine Bilirubin Urine Urobilinogen Ur Leukocyte Esterase Urine RBC Urine WBC Micro UA Comment Zinc 08/13/17 08/14/17 08/14/17 09:45 05:10 05:10 WBC 10.9 RBC 3.87 L Hgb 11.1 L Hct 33.1 L MCV 85.5 MCH 28.6 MCHC 33.5 RDW 16.4 Plt Count 433 MPV 9.5 Neut % (Auto) Lymph % (Auto) [place] % (Auto) Eos % (Auto) Baso % (Auto) Neut # (Auto) Lymph # (Auto) [place] # (Auto) Eos # (Auto) Baso # (Auto) CBC Comment WBC Differential Differential Comment Hematology Comments PT INR APTT Puncture Site Cancelled Patient Temperature Cancelled HCO3 Cancelled Base Excess Cancelled O2 Saturation Cancelled ABG pH Cancelled ABG pCO2 Cancelled ABG pO2 Cancelled ABG O2 Content Cancelled ABG Carboxyhemoglobin Cancelled ABG Methemoglobin Cancelled Hemoglobin Cancelled O2 Delivery Device Cancelled Liter Flow Cancelled Vent Setting Cancelled Inspired O2 Cancelled Sodium 136 Potassium 3.8 Chloride 103 Carbon Dioxide 22.7 Anion Gap 10 BUN 4 L Creatinine 0.49 L Estimated GFR 179 Random Glucose 77 Hemoglobin A1c Lactic Acid Calcium 8.2 L Prot Corrected Calcium Phosphorus Magnesium 1.8 Iron TIBC % Saturation Ferritin Total Bilirubin AST ALT Alkaline Phosphatase Troponin I B-Natriuretic Peptide Total Protein Albumin Prealbumin Triglycerides Cholesterol LDL Cholesterol HDL Cholesterol Cholesterol/HDL Ratio Lipase Ascorbic Acid Vitamin B12 Folate Free T4 TSH 3rd Generation Urine Color Urine Turbidity Urine pH Ur Specific [place] Urine Protein Urine Glucose (UA) Urine Ketones Urine Occult Blood Urine Nitrite Urine Bilirubin Urine Urobilinogen Ur Leukocyte Esterase Urine RBC Urine WBC Micro UA Comment Zinc 08/15/17 08/15/17 08/16/17 05:36 05:36 04:42 WBC 9.9 RBC 4.31 L Hgb 12.0 L Hct 36.6 L MCV 84.9 MCH 27.8 MCHC 32.7 RDW 16.6 Plt Count 541 H MPV 9.9 Neut % (Auto) Lymph % (Auto) [place] % (Auto) Eos % (Auto) Baso % (Auto) Neut # (Auto) Lymph # (Auto) [place] # (Auto) Eos # (Auto) Baso # (Auto) CBC Comment WBC Differential Differential Comment Hematology Comments PT INR APTT Puncture Site Patient Temperature HCO3 Base Excess O2 Saturation ABG pH ABG pCO2 ABG pO2 ABG O2 Content ABG Carboxyhemoglobin ABG Methemoglobin Hemoglobin O2 Delivery Device Liter Flow Vent Setting Inspired O2 Sodium 135 L 138 Potassium 4.3 4.0 Chloride 102 105 Carbon Dioxide 20.4 L 21.9 Anion Gap 13 11 BUN 6 L 6 L Creatinine 0.52 L 0.40 L Estimated GFR 167 226 Random Glucose 137 H 96 Hemoglobin A1c Lactic Acid Calcium 8.7 7.9 L D Prot Corrected Calcium Phosphorus Magnesium 1.7 1.5 Iron TIBC % Saturation Ferritin Total Bilirubin AST ALT Alkaline Phosphatase Troponin I B-Natriuretic Peptide Total Protein Albumin Prealbumin Triglycerides Cholesterol LDL Cholesterol HDL Cholesterol Cholesterol/HDL Ratio Lipase Ascorbic Acid Vitamin B12 Folate Free T4 TSH 3rd Generation Urine Color Urine Turbidity Urine pH Ur Specific [place] Urine Protein Urine Glucose (UA) Urine Ketones Urine Occult Blood Urine Nitrite Urine Bilirubin Urine Urobilinogen Ur Leukocyte Esterase Urine RBC Urine WBC Micro UA Comment Zinc 08/16/17 08/16/17 08/17/17 04:42 10:51 05:30 WBC 11.5 H RBC 3.90 L Hgb 10.8 L Hct 33.4 L MCV 85.8 MCH 27.8 MCHC 32.4 RDW 16.5 Plt Count 436 MPV 9.5 Neut % (Auto) 80.3 H Lymph % (Auto) 9.5 [place] % (Auto) 9.9 H Eos % (Auto) 0.1 Baso % (Auto) 0.2 Neut # (Auto) 9.3 H Lymph # (Auto) 1.1 [place] # (Auto) 1.1 H Eos # (Auto) 0.0 Baso # (Auto) 0.0 CBC Comment DIFF FINAL WBC Differential Differential Comment Hematology Comments PT INR APTT Puncture Site DRAWN IN OR Patient Temperature 98.6 HCO3 23 Base Excess -1.1 O2 Saturation 96 ABG pH 7.37 L ABG pCO2 42 ABG pO2 158 H ABG O2 Content 17.6 ABG Carboxyhemoglobin 0.7 ABG Methemoglobin 1.5 Hemoglobin 12.8 O2 Delivery Device OR Liter Flow Vent Setting OR Inspired O2 100 Sodium 140 Potassium 3.7 Chloride 108 H Carbon Dioxide 22.8 Anion Gap 9 BUN 5 L Creatinine 0.41 L Estimated GFR 220 Random Glucose 83 Hemoglobin A1c Lactic Acid Calcium 7.5 L Prot Corrected Calcium Phosphorus Magnesium 1.5 Iron TIBC % Saturation Ferritin Total Bilirubin AST ALT Alkaline Phosphatase Troponin I B-Natriuretic Peptide Total Protein Albumin Prealbumin Triglycerides Cholesterol LDL Cholesterol HDL Cholesterol Cholesterol/HDL Ratio Lipase Ascorbic Acid Vitamin B12 Folate Free T4 TSH 3rd Generation Urine Color Urine Turbidity Urine pH Ur Specific [place] Urine Protein Urine Glucose (UA) Urine Ketones Urine Occult Blood Urine Nitrite Urine Bilirubin Urine Urobilinogen Ur Leukocyte Esterase Urine RBC Urine WBC Micro UA Comment Zinc 08/17/17 08/18/17 08/18/17 05:30 04:30 04:30 WBC 10.7 13.4 H RBC 3.34 L 3.40 L Hgb 9.6 L 9.4 L Hct 28.6 L 29.0 L MCV 85.5 85.3 MCH 28.6 27.7 MCHC 33.5 32.4 RDW 16.5 16.6 Plt Count 395 368 MPV 9.1 9.5 Neut % (Auto) Lymph % (Auto) [place] % (Auto) Eos % (Auto) Baso % (Auto) Neut # (Auto) Lymph # (Auto) [place] # (Auto) Eos # (Auto) Baso # (Auto) CBC Comment WBC Differential Differential Comment Hematology Comments PT INR APTT Puncture Site Patient Temperature HCO3 Base Excess O2 Saturation ABG pH ABG pCO2 ABG pO2 ABG O2 Content ABG Carboxyhemoglobin ABG Methemoglobin Hemoglobin O2 Delivery Device Liter Flow Vent Setting Inspired O2 Sodium 138 Potassium 3.0 L Chloride 105 Carbon Dioxide 21.7 Anion Gap 11 BUN 4 L Creatinine 0.41 L Estimated GFR 220 Random Glucose 83 Hemoglobin A1c Lactic Acid Calcium 7.6 L Prot Corrected Calcium Phosphorus Magnesium Iron TIBC % Saturation Ferritin Total Bilirubin AST ALT Alkaline Phosphatase Troponin I B-Natriuretic Peptide Total Protein Albumin Prealbumin Triglycerides Cholesterol LDL Cholesterol HDL Cholesterol Cholesterol/HDL Ratio Lipase Ascorbic Acid Vitamin B12 Folate Free T4 TSH 3rd Generation Urine Color Urine Turbidity Urine pH Ur Specific [place] Urine Protein Urine Glucose (UA) Urine Ketones Urine Occult Blood Urine Nitrite Urine Bilirubin Urine Urobilinogen Ur Leukocyte Esterase Urine RBC Urine WBC Micro UA Comment Zinc 08/19/17 08/19/17 08/19/17 04:21 04:21 04:21 WBC 12.2 H RBC 2.90 L Hgb 8.1 L Hct 24.9 L MCV 85.7 MCH 27.8 MCHC 32.5 RDW 15.8 Plt Count 326 MPV 9.8 Neut % (Auto) Lymph % (Auto) [place] % (Auto) Eos % (Auto) Baso % (Auto) Neut # (Auto) Lymph # (Auto) [place] # (Auto) Eos # (Auto) Baso # (Auto) CBC Comment WBC Differential Differential Comment Hematology Comments PT INR APTT Puncture Site Patient Temperature HCO3 Base Excess O2 Saturation ABG pH ABG pCO2 ABG pO2 ABG O2 Content ABG Carboxyhemoglobin ABG Methemoglobin Hemoglobin O2 Delivery Device Liter Flow Vent Setting Inspired O2 Sodium 142 Potassium 2.9 L* Chloride 111 H Carbon Dioxide 19.9 L Anion Gap 11 BUN 4 L Creatinine 0.25 L Estimated GFR 389 Random Glucose 74 Hemoglobin A1c Lactic Acid Calcium 6.5 L* D Prot Corrected Calcium 7.9 L Phosphorus Magnesium 1.5 Cancelled Iron TIBC % Saturation Ferritin Total Bilirubin AST ALT Alkaline Phosphatase Troponin I B-Natriuretic Peptide Total Protein 4.3 L Albumin 1.2 L Cancelled Prealbumin Triglycerides Cholesterol LDL Cholesterol HDL Cholesterol Cholesterol/HDL Ratio Lipase Ascorbic Acid Vitamin B12 Folate Free T4 TSH 3rd Generation Urine Color Urine Turbidity Urine pH Ur Specific [place] Urine Protein Urine Glucose (UA) Urine Ketones Urine Occult Blood Urine Nitrite Urine Bilirubin Urine Urobilinogen Ur Leukocyte Esterase Urine RBC Urine WBC Micro UA Comment Zinc 08/20/17 08/20/17 08/20/17 09:52 09:52 09:52 WBC 10.1 RBC 3.11 L Hgb 8.9 L Hct 26.6 L MCV 85.4 MCH 28.7 MCHC 33.6 RDW 16.2 Plt Count 373 MPV 9.5 Neut % (Auto) 78.9 H Lymph % (Auto) 9.8 [place] % (Auto) 8.7 H Eos % (Auto) 2.1 Baso % (Auto) 0.5 Neut # (Auto) 7.9 H Lymph # (Auto) 1.0 [place] # (Auto) 0.9 Eos # (Auto) 0.2 Baso # (Auto) 0.0 CBC Comment DIFF FINAL WBC Differential Differential Comment Hematology Comments PT INR APTT Puncture Site Patient Temperature HCO3 Base Excess O2 Saturation ABG pH ABG pCO2 ABG pO2 ABG O2 Content ABG Carboxyhemoglobin ABG Methemoglobin Hemoglobin O2 Delivery Device Liter Flow Vent Setting Inspired O2 Sodium 138 Potassium 3.6 3.6 Chloride 106 Carbon Dioxide 22.4 Anion Gap 10 BUN 3 L Creatinine 0.31 L Estimated GFR 303 Random Glucose 82 Hemoglobin A1c Lactic Acid Calcium 7.5 L D Prot Corrected Calcium Phosphorus 2.6 Magnesium 1.6 Iron TIBC % Saturation Ferritin Total Bilirubin AST ALT Alkaline Phosphatase Troponin I B-Natriuretic Peptide Total Protein Albumin 1.4 L Prealbumin Triglycerides Cholesterol LDL Cholesterol HDL Cholesterol Cholesterol/HDL Ratio Lipase Ascorbic Acid Vitamin B12 Folate Free T4 TSH 3rd Generation Urine Color Urine Turbidity Urine pH Ur Specific [place] Urine Protein Urine Glucose (UA) Urine Ketones Urine Occult Blood Urine Nitrite Urine Bilirubin Urine Urobilinogen Ur Leukocyte Esterase Urine RBC Urine WBC Micro UA Comment Zinc 08/21/17 08/21/17 08/22/17 05:07 05:07 04:40 WBC 9.6 RBC 3.60 L Hgb 10.1 L Hct 30.8 L MCV 85.5 MCH 28.2 MCHC 33.0 RDW 16.0 Plt Count 480 H MPV 10.0 Neut % (Auto) 68.6 Lymph % (Auto) 14.3 [place] % (Auto) 11.4 H Eos % (Auto) 4.9 H Baso % (Auto) 0.8 Neut # (Auto) 6.6 Lymph # (Auto) 1.4 [place] # (Auto) 1.1 H Eos # (Auto) 0.5 H Baso # (Auto) 0.1 CBC Comment DIFF FINAL WBC Differential Differential Comment Hematology Comments PT INR APTT Puncture Site Patient Temperature HCO3 Base Excess O2 Saturation ABG pH ABG pCO2 ABG pO2 ABG O2 Content ABG Carboxyhemoglobin ABG Methemoglobin Hemoglobin O2 Delivery Device Liter Flow Vent Setting Inspired O2 Sodium 139 138 Potassium 3.5 4.0 Chloride 103 104 Carbon Dioxide 25.9 24.8 Anion Gap 10 9 BUN 3 L 3 L Creatinine 0.37 L 0.37 L Estimated GFR 247 247 Random Glucose 74 75 Hemoglobin A1c Lactic Acid Calcium 7.6 L 7.8 L Prot Corrected Calcium Phosphorus 3.2 Magnesium 1.7 1.7 Iron TIBC % Saturation Ferritin Total Bilirubin AST ALT Alkaline Phosphatase Troponin I B-Natriuretic Peptide Total Protein Albumin 1.5 L Prealbumin Triglycerides Cholesterol LDL Cholesterol HDL Cholesterol Cholesterol/HDL Ratio Lipase Ascorbic Acid Vitamin B12 Folate Free T4 TSH 3rd Generation Urine Color Urine Turbidity Urine pH Ur Specific [place] Urine Protein Urine Glucose (UA) Urine Ketones Urine Occult Blood Urine Nitrite Urine Bilirubin Urine Urobilinogen Ur Leukocyte Esterase Urine RBC Urine WBC Micro UA Comment Zinc 08/22/17 08/23/17 08/23/17 04:40 05:25 05:45 WBC 8.6 13.1 H RBC 3.32 L 3.18 L Hgb 9.2 L 8.8 L Hct 28.5 L 27.0 L MCV 86.0 84.9 MCH 27.8 27.6 MCHC 32.4 32.5 RDW 16.2 16.3 Plt Count 439 464 H MPV 9.6 9.8 Neut % (Auto) 87.8 H Lymph % (Auto) 7.2 L [place] % (Auto) 4.8 Eos % (Auto) 0.0 Baso % (Auto) 0.2 Neut # (Auto) 11.5 H Lymph # (Auto) 0.9 L [place] # (Auto) 0.6 Eos # (Auto) 0.0 Baso # (Auto) 0.0 CBC Comment DIFF FINAL WBC Differential Differential Comment Hematology Comments PT INR APTT Puncture Site Patient Temperature HCO3 Base Excess O2 Saturation ABG pH ABG pCO2 ABG pO2 ABG O2 Content ABG Carboxyhemoglobin ABG Methemoglobin Hemoglobin O2 Delivery Device Liter Flow Vent Setting Inspired O2 Sodium 136 Potassium 4.3 Chloride 102 Carbon Dioxide 23.5 Anion Gap 11 BUN 6 L Creatinine 0.45 L Estimated GFR 197 Random Glucose 130 H Hemoglobin A1c 5.5 Lactic Acid Calcium 7.7 L Prot Corrected Calcium Phosphorus 3.9 Magnesium 1.4 L Iron TIBC % Saturation Ferritin Total Bilirubin 0.2 AST 16 ALT 13 Alkaline Phosphatase 106 Troponin I B-Natriuretic Peptide Total Protein 5.6 L D Albumin 1.6 L Prealbumin Triglycerides Cholesterol LDL Cholesterol HDL Cholesterol Cholesterol/HDL Ratio Lipase Ascorbic Acid Vitamin B12 Folate Free T4 1.16 TSH 3rd Generation 2.720 Urine Color Urine Turbidity Urine pH Ur Specific [place] Urine Protein Urine Glucose (UA) Urine Ketones Urine Occult Blood Urine Nitrite Urine Bilirubin Urine Urobilinogen Ur Leukocyte Esterase Urine RBC Urine WBC Micro UA Comment Zinc 08/24/17 08/24/17 08/25/17 05:48 08:47 04:01 WBC 11.3 H RBC 2.99 L Hgb 8.4 L Hct 26.8 L MCV 89.8 D MCH 28.2 MCHC 31.4 L RDW 16.9 Plt Count 426 MPV 9.2 Neut % (Auto) 79.6 H Lymph % (Auto) 10.7 [place] % (Auto) 9.2 H Eos % (Auto) 0.3 Baso % (Auto) 0.2 Neut # (Auto) 9.0 H Lymph # (Auto) 1.2 [place] # (Auto) 1.0 H Eos # (Auto) 0.0 Baso # (Auto) 0.0 CBC Comment DIFF FINAL WBC Differential Differential Comment Hematology Comments PT INR APTT Puncture Site Patient Temperature HCO3 Base Excess O2 Saturation ABG pH ABG pCO2 ABG pO2 ABG O2 Content ABG Carboxyhemoglobin ABG Methemoglobin Hemoglobin O2 Delivery Device Liter Flow Vent Setting Inspired O2 Sodium 139 139 Potassium 3.9 4.0 Chloride 107 103 Carbon Dioxide 23.1 24.9 Anion Gap 9 11 BUN 6 L 4 L Creatinine 0.55 L 0.49 L Estimated GFR 156 Greater than 89 Random Glucose 90 74 Hemoglobin A1c Lactic Acid Calcium 8.0 L 8.0 L Prot Corrected Calcium Phosphorus 3.3 3.4 Magnesium 1.6 1.4 L Iron TIBC % Saturation Ferritin Total Bilirubin 0.1 L AST 47 H ALT 23 Alkaline Phosphatase 120 H Troponin I B-Natriuretic Peptide Total Protein 5.5 L Albumin 1.7 L Prealbumin Triglycerides Cholesterol LDL Cholesterol HDL Cholesterol Cholesterol/HDL Ratio Lipase Ascorbic Acid Vitamin B12 Folate Free T4 TSH 3rd Generation Urine Color Urine Turbidity Urine pH Ur Specific [place] Urine Protein Urine Glucose (UA) Urine Ketones Urine Occult Blood Urine Nitrite Urine Bilirubin Urine Urobilinogen Ur Leukocyte Esterase Urine RBC Urine WBC Micro UA Comment Zinc 08/25/17 08/25/17 08/26/17 04:01 14:46 05:04 WBC 11.8 H RBC 3.64 L Hgb 10.2 L Hct 31.3 L MCV 86.0 MCH 27.9 MCHC 32.5 RDW 16.5 Plt Count 524 H MPV 9.1 Neut % (Auto) 73.9 H Lymph % (Auto) 13.6 [place] % (Auto) 8.7 H Eos % (Auto) 3.2 Baso % (Auto) 0.6 Neut # (Auto) 8.7 H Lymph # (Auto) 1.6 [place] # (Auto) 1.0 H Eos # (Auto) 0.4 Baso # (Auto) 0.1 CBC Comment WBC Differential . Differential Comment Auto diff final Hematology Comments PT INR APTT Puncture Site Patient Temperature HCO3 Base Excess O2 Saturation ABG pH ABG pCO2 ABG pO2 ABG O2 Content ABG Carboxyhemoglobin ABG Methemoglobin Hemoglobin O2 Delivery Device Liter Flow Vent Setting Inspired O2 Sodium 140 Potassium 3.7 Chloride 103 Carbon Dioxide 27.0 Anion Gap 10 BUN 4 L Creatinine 0.41 L Estimated GFR Greater than 89 Random Glucose 68 L Hemoglobin A1c Lactic Acid Calcium 7.5 L Prot Corrected Calcium Phosphorus Magnesium Iron TIBC % Saturation Ferritin Total Bilirubin AST ALT Alkaline Phosphatase Troponin I B-Natriuretic Peptide 867 H Total Protein Albumin Prealbumin Triglycerides Cholesterol LDL Cholesterol HDL Cholesterol Cholesterol/HDL Ratio Lipase Ascorbic Acid Vitamin B12 Folate Free T4 TSH 3rd Generation Urine Color Urine Turbidity Urine pH Ur Specific [place] Urine Protein Urine Glucose (UA) Urine Ketones Urine Occult Blood Urine Nitrite Urine Bilirubin Urine Urobilinogen Ur Leukocyte Esterase Urine RBC Urine WBC Micro UA Comment Zinc 08/27/17 08/27/17 08/29/17 10:02 10:02 12:30 WBC 11.4 H RBC 3.35 L Hgb 9.4 L Hct 29.1 L MCV 86.8 MCH 27.9 MCHC 32.2 RDW 16.8 Plt Count 579 H MPV 9.2 Neut % (Auto) 76.6 H Lymph % (Auto) 12.6 [place] % (Auto) 6.2 Eos % (Auto) 3.6 Baso % (Auto) 1.0 Neut # (Auto) 8.7 H Lymph # (Auto) 1.4 [place] # (Auto) 0.7 Eos # (Auto) 0.4 Baso # (Auto) 0.1 CBC Comment WBC Differential . Differential Comment Auto diff final Hematology Comments PT INR APTT Puncture Site Patient Temperature HCO3 Base Excess O2 Saturation ABG pH ABG pCO2 ABG pO2 ABG O2 Content ABG Carboxyhemoglobin ABG Methemoglobin Hemoglobin O2 Delivery Device Liter Flow Vent Setting Inspired O2 Sodium Potassium Chloride Carbon Dioxide Anion Gap BUN Creatinine Estimated GFR Random Glucose Hemoglobin A1c Lactic Acid Calcium Prot Corrected Calcium Phosphorus Magnesium Iron TIBC % Saturation Ferritin Total Bilirubin AST ALT Alkaline Phosphatase Troponin I B-Natriuretic Peptide Total Protein Albumin Prealbumin 9 L Triglycerides Cholesterol LDL Cholesterol HDL Cholesterol Cholesterol/HDL Ratio Lipase Ascorbic Acid ND Vitamin B12 Folate Free T4 TSH 3rd Generation Urine Color Urine Turbidity Urine pH Ur Specific [place] Urine Protein Urine Glucose (UA) Urine Ketones Urine Occult Blood Urine Nitrite Urine Bilirubin Urine Urobilinogen Ur Leukocyte Esterase Urine RBC Urine WBC Micro UA Comment Zinc 50 L 08/29/17 08/29/17 08/29/17 12:30 12:30 12:30 WBC RBC Hgb Hct MCV MCH MCHC RDW Plt Count MPV Neut % (Auto) Lymph % (Auto) [place] % (Auto) Eos % (Auto) Baso % (Auto) Neut # (Auto) Lymph # (Auto) [place] # (Auto) Eos # (Auto) Baso # (Auto) CBC Comment WBC Differential Differential Comment Hematology Comments PT INR APTT Puncture Site Patient Temperature HCO3 Base Excess O2 Saturation ABG pH ABG pCO2 ABG pO2 ABG O2 Content ABG Carboxyhemoglobin ABG Methemoglobin Hemoglobin O2 Delivery Device Liter Flow Vent Setting Inspired O2 Sodium 139 Potassium 3.9 Chloride 103 Carbon Dioxide 26.4 Anion Gap 10 BUN 3 L Creatinine 0.44 L Estimated GFR Greater than 89 Random Glucose 86 Hemoglobin A1c Lactic Acid Calcium 7.9 L Prot Corrected Calcium Phosphorus 3.8 Magnesium 1.7 1.6 Iron TIBC % Saturation Ferritin Total Bilirubin 0.2 AST 33 ALT 25 Alkaline Phosphatase 128 H Troponin I Less than 0.02 L B-Natriuretic Peptide Total Protein 5.7 L Albumin 1.7 L Prealbumin Triglycerides Cholesterol LDL Cholesterol HDL Cholesterol Cholesterol/HDL Ratio Lipase Ascorbic Acid Vitamin B12 Folate Free T4 TSH 3rd Generation Urine Color Urine Turbidity Urine pH Ur Specific [place] Urine Protein Urine Glucose (UA) Urine Ketones Urine Occult Blood Urine Nitrite Urine Bilirubin Urine Urobilinogen Ur Leukocyte Esterase Urine RBC Urine WBC Micro UA Comment Zinc 08/29/17 09/01/17 09/01/17 17:13 00:23 00:23 WBC 8.9 RBC 3.08 L Hgb 8.9 L Hct 26.0 L MCV 84.5 MCH 29.0 MCHC 34.3 RDW 16.2 Plt Count 535 H MPV 8.8 Neut % (Auto) 64.3 Lymph % (Auto) 21.5 [place] % (Auto) 8.0 Eos % (Auto) 5.0 H Baso % (Auto) 1.2 Neut # (Auto) 5.7 Lymph # (Auto) 1.9 [place] # (Auto) 0.7 Eos # (Auto) 0.4 Baso # (Auto) 0.1 CBC Comment WBC Differential . Differential Comment Auto diff final Hematology Comments PT INR APTT Puncture Site Patient Temperature HCO3 Base Excess O2 Saturation ABG pH ABG pCO2 ABG pO2 ABG O2 Content ABG Carboxyhemoglobin ABG Methemoglobin Hemoglobin O2 Delivery Device Liter Flow Vent Setting Inspired O2 Sodium 138 Potassium 4.4 3.4 L Chloride 104 Carbon Dioxide 24.0 Anion Gap 10 BUN 4 L Creatinine 0.48 L Estimated GFR Greater than 89 Random Glucose 86 Hemoglobin A1c Lactic Acid Calcium 7.6 L Prot Corrected Calcium Phosphorus 3.2 Magnesium 2.0 Iron TIBC % Saturation Ferritin Total Bilirubin 0.2 AST 60 H ALT 39 Alkaline Phosphatase 144 H Troponin I B-Natriuretic Peptide Total Protein 5.7 L Albumin 1.8 L Prealbumin Triglycerides Cholesterol LDL Cholesterol HDL Cholesterol Cholesterol/HDL Ratio Lipase Ascorbic Acid Vitamin B12 Folate Free T4 TSH 3rd Generation Urine Color Urine Turbidity Urine pH Ur Specific [place] Urine Protein Urine Glucose (UA) Urine Ketones Urine Occult Blood Urine Nitrite Urine Bilirubin Urine Urobilinogen Ur Leukocyte Esterase Urine RBC Urine WBC Micro UA Comment Zinc 09/02/17 09/04/17 09/04/17 08:11 07:21 07:21 WBC 8.7 RBC 3.29 L Hgb 9.2 L Hct 28.2 L MCV 85.7 MCH 27.8 MCHC 32.5 RDW 17.0 Plt Count 507 H MPV 8.9 Neut % (Auto) 75.1 H Lymph % (Auto) 16.6 [place] % (Auto) 7.9 Eos % (Auto) 0.2 Baso % (Auto) 0.2 Neut # (Auto) 6.5 Lymph # (Auto) 1.4 [place] # (Auto) 0.7 Eos # (Auto) 0.0 Baso # (Auto) 0.0 CBC Comment WBC Differential . Differential Comment Auto diff final Hematology Comments PT INR APTT Puncture Site Patient Temperature HCO3 Base Excess O2 Saturation ABG pH ABG pCO2 ABG pO2 ABG O2 Content ABG Carboxyhemoglobin ABG Methemoglobin Hemoglobin O2 Delivery Device Liter Flow Vent Setting Inspired O2 Sodium 140 Potassium 3.9 Chloride 106 Carbon Dioxide 23.9 Anion Gap 10 BUN 9 Creatinine 0.55 L Estimated GFR Greater than 89 Random Glucose 79 Hemoglobin A1c Lactic Acid Calcium 8.2 L Prot Corrected Calcium Phosphorus 2.6 Magnesium 1.7 Iron TIBC % Saturation Ferritin Total Bilirubin 0.2 AST 47 H ALT 38 Alkaline Phosphatase 125 H Troponin I B-Natriuretic Peptide Total Protein 5.7 L Albumin 1.9 L Prealbumin Triglycerides Cholesterol LDL Cholesterol HDL Cholesterol Cholesterol/HDL Ratio Lipase Ascorbic Acid 0.4000 Vitamin B12 Folate Free T4 TSH 3rd Generation Urine Color Urine Turbidity Urine pH Ur Specific [place] Urine Protein Urine Glucose (UA) Urine Ketones Urine Occult Blood Urine Nitrite Urine Bilirubin Urine Urobilinogen Ur Leukocyte Esterase Urine RBC Urine WBC Micro UA Comment Zinc ITS Impressions Chest X-Ray 09/03/17 00:00 CONCLUSION: No pneumothorax on right sided chest tube removal. Procedures: 08/07 PROCEDURES PERFORMED: 1. 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 2. Closure of chest wall defect 6 x 4 cm with dermal matrix biological mesh. 3. Placement of VAC dressing to wound, 26 x 21 cm. 4. Right thoracostomy tube placement. 08/10 vac dressing 08/20 Right pedicled latissimus muscle flap to right chest wound Left pectoralis major muscle flap to right chest wound 08/23 Right chest wound VAC change (73961) Right chest wound debridement ([id number], [id number] x 6) Patient/Family Conference Present at Family Conference: none Family Conference Location: Bedside Issues Discussed: * Palliative care role, purpose, approach * Additional medical, psychosocial, and spiritual history * Patients general health, functional status, and cognitive changes in the months leading up to the current hospitalization * Patient/family understanding of the current medical problems * Patient/family understanding of prognosis * Patients goals of care as best understood from advance directives and/or conversations and/or values * Current medical treatment options and benefits/burdens of those options * Likely scenarios comparing ongoing aggressive care with a transition to comfort measures only * Questions answered to the best of my ability * Palliative care contact information provided Assessment and Plan - Disease Oriented Problem List (1) Basal cell carcinoma (2) Open chest wound Comment: multi drug resistance psudomonas (3) Afib (4) Ventricular tachycardia - Symptom Scale (1) Pain 0-10 Scale: 2 Pertinent Non-Medical Issues: Psychosocial:Originally from [place]. Moved to [place] in the 70s. . No Children. Worked in [employer] Spiritual:[employer] Legal:no known advance directive. Pt's spouse would be proxy Ethical issues impacting care:none at this time. Important Contacts: spouse Barb Carpio [phone] Prognosis: Prognosis is guarded. 51 year old with basal cell cancer s/p radical resection of sternum chest. Condition complicated by arrhtymias, pain, severe post surgica wounds, infection. Code Status: Full Code Plan: == capacity- pt has capacity to make medical decsions. == if pt was to lose capacity, pt's spouse would serve as proxy. == goals of care: pt would prefer to be present. Pending family meeting tomorrow at 10Aam. == symptoms: pain- pt state pain currently is well managed with hydrocodone. He does not want to change it at this point He will have halfway pain given the various surgery and radiation. He ask more detailed to be discussed tomorrow with . Pain is mainly site of the surgery, and worse at night. depression- he denies any depression. == Code: status, will be full by default until discussion family meeting tomorrow. == palliative care will continue to follow to provide support/ goals of care conversation/ and symptom managment as clinical conditon evolves. Appreciation Thank you for the opportunity to participate in the care of Britton Street. Attestation Attestation: To help prompt me to consider important information that might be impacting today's encounter and assessment, information from prior notes written by myself or my colleagues may have been "brought forward" into today's note. My signature on this note, however, is an attestation that I personally performed the exam, history, and/or decision-making noted today, and, unless otherwise indicated, the interactions with patient, family, and staff as well as the review of records all occurred today. I also attest that the listed assessment and stated plan reflect my best clinical judgment today based on the combination of historical information, prior notes, and today's exam/ interactions. When time spent is documented, it refers only to time spent today by the signer, or if indicated, combined time spent today by collaborating physician/nurse practitioner.
[2017-09-04] MEDS: Azithromycin Inj 500 MG in Sodium Chlor 0.9% Inj 250 ML IV.SIG SCH (23:00)
[2017-09-05] MEDS: Piperacil/Tazo 4.5 GM Premix 4.5 GM/100 ML BAG IV.SIG SCH ×4 (01:30→21:05)
[2017-09-05] MEDS: Nystatin 100,000 UNITS/GM Powder 15 GM Bottle TOPICAL SCH ×3 (05:42→23:45)
[2017-09-05] MEDS: Metoprolol Tartrate 50 MG Tablet PO SCH ×2 (10:27→21:03)
[2017-09-05] MEDS: Amiodarone 200 MG Tablet PO SCH (10:27)
[2017-09-05] MEDS: Enoxaparin Inj 40 MG/0.4 ML Syringe SQ SCH (10:29)
[2017-09-05] MEDS: Sodium Hypochlorite 0.125% Top Soln 500 ML Bottle TOPICAL SCH (12:52)
--- NOTE | 2017-09-05 14:26 | P.PNIM ---
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 Patient is currently doing well. Remains in sinus rhythm. Currently on amiodarone drip. He does have persistent chest pain from fungating mass. No fever or chills. 09-03 TO HAVE DRAIN TAKEN OUT TODAY NO NEW ISSUES HAS CHRONIC PAIN IN HIS CHEST DUE TO MASS DW RN AND PT AND CM 09-04 SEEN BY PALLIATIVE CARE DW RN AND PT HAD DRAIN TAKEN OUT DW RN AND PT NEEDS TO BE MORE MOBILE 09-05 NEEDS TO WORK WITH PT AND OT AND GET OUT OF BED DW RN AND PT NEEDS TO BECOME MORE MOBILE AM LABS Physical Exam Vital signs: Vital Signs 09/04/17 15:00 09/04/17 16:00 09/04/17 17:00 Temperature 98.7 F Pulse Rate 58 L 56 L 56 L Respiratory Rate 18 Blood Pressure 122/70 Pulse Oximetry 99 09/04/17 18:00 09/04/17 19:00 09/04/17 20:00 Temperature 98.3 F Pulse Rate 56 L 53 L 56 L Respiratory Rate 16 Blood Pressure 127/71 Pulse Oximetry 09/04/17 21:00 09/04/17 21:40 09/04/17 22:00 Temperature Pulse Rate 54 L 50 L Respiratory Rate 16 Blood Pressure Pulse Oximetry 09/04/17 23:00 09/05/17 00:00 09/05/17 01:00 Temperature Pulse Rate 48 L 47 L 52 L Respiratory Rate 16 Blood Pressure Pulse Oximetry 09/05/17 02:00 09/05/17 03:00 09/05/17 04:00 Temperature Pulse Rate 50 L 48 L 48 L Respiratory Rate 16 Blood Pressure Pulse Oximetry 09/05/17 05:00 09/05/17 06:00 09/05/17 07:00 Temperature 98.1 F Pulse Rate 48 L 48 L 52 L Respiratory Rate 16 Blood Pressure 131/73 Pulse Oximetry 100 Intake & Output 09/04/17 09/05/17 09/05/17 18:59 06:59 18:59 Intake Total 880 / 880 940 / 940 100 / 100 Output Total 850 / 850 1000 / 1000 1100 / 1100 Balance 30 / 30 -60 / -60 -1000 / -1000 Weight 60 kg Intake: IV 100 / 100 700 / 700 100 / 100 Azithromycin Inj 500 MG In NS 500 / 500 Inj 250 ML @ 250 mls/hr IV.SIG Q24H [place] Rx#:[id number] Zosyn 4.5 GM Premix 4.5 gm In 100 / 100 200 / 200 100 / 100 100 ml @ 200 mls/hr IV.SIG Q6HR [place] Rx#:[id number] Oral 780 / 780 240 / 240 Output: Urine 850 / 850 1000 / 1000 1100 / 1100 Other: Date of Last Bowel Movement 09/04/17 09/04/17 09/05/17 Narrative: GENERAL: 51 year old male resting in bed in no acute distress SKIN: Large chest wound vac in place with good seal HEAD: Atraumatic. Normocephalic. EYES: Pupils equal and round. No scleral icterus. No injection or drainage. ENT: No nasal bleeding or discharge. Mucous membranes pink and moist. NECK: Trachea midline. CARDIOVASCULAR: Regular rate and rhythm. RESPIRATORY: No accessory muscle use. Clear to auscultation. Breath sounds equal bilaterally. GASTROINTESTINAL: Abdomen soft, non-tender, nondistended. MUSCULOSKELETAL: Extremities without clubbing, cyanosis, or edema. No obvious deformities. NEUROLOGICAL: Awake and alert. No obvious cranial nerve deficits. Motor grossly within normal limits. Five out of 5 muscle strength in the arms and legs. Normal speech. PSYCHIATRIC: Appropriate mood and affect; insight and judgment normal. RIGHT sided chest tube removed today Results - Labs CBC & Chem 7: 09/04/17 07:21 09/04/17 07:21 Laboratory Tests 08/01/17 08/01/17 08/01/17 21:15 21:15 21:15 WBC RBC Hgb Hct MCV MCH MCHC RDW Plt Count MPV Neut % (Auto) Lymph % (Auto) [place] % (Auto) Eos % (Auto) Baso % (Auto) Neut # (Auto) Lymph # (Auto) [place] # (Auto) Eos # (Auto) Baso # (Auto) CBC Comment WBC Differential Differential Comment Hematology Comments PT 10.8 INR 1.1 APTT 25.2 Puncture Site Patient Temperature HCO3 Base Excess O2 Saturation ABG pH ABG pCO2 ABG pO2 ABG O2 Content ABG Carboxyhemoglobin ABG Methemoglobin Hemoglobin O2 Delivery Device Liter Flow Vent Setting Inspired O2 Sodium 137 Potassium 3.2 L Chloride 97 L Carbon Dioxide 24.1 Anion Gap 16 H BUN 13 Creatinine 0.57 L Estimated GFR 150 Random Glucose 86 Hemoglobin A1c Lactic Acid 3.9 H Calcium 11.1 H Prot Corrected Calcium Phosphorus Magnesium 1.4 L Iron TIBC % Saturation Ferritin Total Bilirubin 0.2 AST 19 ALT 17 Alkaline Phosphatase 105 Troponin I B-Natriuretic Peptide Total Protein 6.9 Albumin 2.4 L Prealbumin Triglycerides Cholesterol LDL Cholesterol HDL Cholesterol Cholesterol/HDL Ratio Lipase 82 Ascorbic Acid Vitamin B12 Folate Free T4 TSH 3rd Generation Urine Color Urine Turbidity Urine pH Ur Specific [place] Urine Protein Urine Glucose (UA) Urine Ketones Urine Occult Blood Urine Nitrite Urine Bilirubin Urine Urobilinogen Ur Leukocyte Esterase Urine RBC Urine WBC Micro UA Comment Zinc 08/01/17 08/02/17 08/02/17 21:15 00:30 00:30 WBC 15.2 H RBC 3.50 L Hgb 9.7 L Hct 29.5 L MCV 84.3 MCH 27.6 MCHC 32.7 RDW 17.5 H Plt Count 409 MPV 9.3 Neut % (Auto) 74.1 H Lymph % (Auto) 13.0 [place] % (Auto) 9.9 H Eos % (Auto) 2.2 Baso % (Auto) 0.8 Neut # (Auto) 11.3 H Lymph # (Auto) 2.0 [place] # (Auto) 1.5 H Eos # (Auto) 0.3 Baso # (Auto) 0.1 CBC Comment DIFF FINAL WBC Differential Differential Comment Hematology Comments PT INR APTT Puncture Site Patient Temperature HCO3 Base Excess O2 Saturation ABG pH ABG pCO2 ABG pO2 ABG O2 Content ABG Carboxyhemoglobin ABG Methemoglobin Hemoglobin O2 Delivery Device Liter Flow Vent Setting Inspired O2 Sodium Potassium Chloride Carbon Dioxide Anion Gap BUN Creatinine Estimated GFR Random Glucose Hemoglobin A1c Lactic Acid 1.8 Calcium Prot Corrected Calcium Phosphorus Magnesium Iron TIBC % Saturation Ferritin Total Bilirubin AST ALT Alkaline Phosphatase Troponin I B-Natriuretic Peptide Total Protein Albumin Prealbumin Triglycerides Cholesterol LDL Cholesterol HDL Cholesterol Cholesterol/HDL Ratio Lipase Ascorbic Acid Vitamin B12 Folate Free T4 TSH 3rd Generation Urine Color LIGHT-YELLOW Urine Turbidity CLEAR Urine pH 7.0 Ur Specific [place] 1.034 Urine Protein NEG Urine Glucose (UA) NEG Urine Ketones NEG Urine Occult Blood TRACE H Urine Nitrite NEG Urine Bilirubin NEG Urine Urobilinogen LESS THAN 2.0 Ur Leukocyte Esterase NEG Urine RBC 3 Urine WBC 2 Micro UA Comment CATH-CULT NOT IND Zinc 08/02/17 08/02/17 08/03/17 08:40 08:40 05:45 WBC 12.5 H RBC 3.06 L Hgb 8.5 L Hct 26.2 L MCV 85.6 MCH 27.8 MCHC 32.5 RDW 17.1 Plt Count 359 MPV 9.8 Neut % (Auto) 69.1 Lymph % (Auto) 12.8 [place] % (Auto) 13.2 H Eos % (Auto) 3.9 Baso % (Auto) 1.0 Neut # (Auto) 8.6 H Lymph # (Auto) 1.6 [place] # (Auto) 1.6 H Eos # (Auto) 0.5 H Baso # (Auto) 0.1 CBC Comment DIFF FINAL WBC Differential Differential Comment Hematology Comments PT INR APTT Puncture Site Patient Temperature HCO3 Base Excess O2 Saturation ABG pH ABG pCO2 ABG pO2 ABG O2 Content ABG Carboxyhemoglobin ABG Methemoglobin Hemoglobin O2 Delivery Device Liter Flow Vent Setting Inspired O2 Sodium 138 Potassium 3.8 Chloride 106 D Carbon Dioxide 24.0 Anion Gap 8 BUN 10 Creatinine 0.53 L 0.51 L Estimated GFR 163 171 Random Glucose 78 Hemoglobin A1c Lactic Acid Calcium 10.0 D Prot Corrected Calcium Phosphorus Magnesium Iron TIBC % Saturation Ferritin Total Bilirubin AST ALT Alkaline Phosphatase Troponin I B-Natriuretic Peptide Total Protein Albumin Prealbumin Triglycerides Cholesterol LDL Cholesterol HDL Cholesterol Cholesterol/HDL Ratio Lipase Ascorbic Acid Vitamin B12 Folate Free T4 TSH 3rd Generation Urine Color Urine Turbidity Urine pH Ur Specific [place] Urine Protein Urine Glucose (UA) Urine Ketones Urine Occult Blood Urine Nitrite Urine Bilirubin Urine Urobilinogen Ur Leukocyte Esterase Urine RBC Urine WBC Micro UA Comment Zinc 08/03/17 08/03/17 08/03/17 05:45 11:15 16:55 WBC 12.3 H RBC 2.92 L Hgb 8.1 L Hct 24.8 L MCV 85.1 MCH 27.9 MCHC 32.8 RDW 17.2 Plt Count 353 MPV 10.0 Neut % (Auto) 72.8 H Lymph % (Auto) 11.9 [place] % (Auto) 10.5 H Eos % (Auto) 4.1 H Baso % (Auto) 0.7 Neut # (Auto) 9.0 H Lymph # (Auto) 1.5 [place] # (Auto) 1.3 H Eos # (Auto) 0.5 H Baso # (Auto) 0.1 CBC Comment DIFF FINAL WBC Differential Differential Comment Hematology Comments PT INR APTT Puncture Site Patient Temperature HCO3 Base Excess O2 Saturation ABG pH ABG pCO2 ABG pO2 ABG O2 Content ABG Carboxyhemoglobin ABG Methemoglobin Hemoglobin O2 Delivery Device Liter Flow Vent Setting Inspired O2 Sodium Potassium Chloride Carbon Dioxide Anion Gap BUN Creatinine Estimated GFR Random Glucose Hemoglobin A1c Lactic Acid Calcium Prot Corrected Calcium Phosphorus Magnesium Iron TIBC % Saturation Ferritin Total Bilirubin AST ALT Alkaline Phosphatase Troponin I LESS THAN 0.02 L 0.02 B-Natriuretic Peptide Total Protein Albumin Prealbumin Triglycerides Cholesterol LDL Cholesterol HDL Cholesterol Cholesterol/HDL Ratio Lipase Ascorbic Acid Vitamin B12 Folate Free T4 1.09 TSH 3rd Generation 1.760 Urine Color Urine Turbidity Urine pH Ur Specific [place] Urine Protein Urine Glucose (UA) Urine Ketones Urine Occult Blood Urine Nitrite Urine Bilirubin Urine Urobilinogen Ur Leukocyte Esterase Urine RBC Urine WBC Micro UA Comment Zinc 08/04/17 08/04/17 08/06/17 11:32 11:32 13:50 WBC 11.2 H RBC 2.99 L Hgb 8.3 L Hct 25.2 L MCV 84.3 MCH 27.7 MCHC 32.8 RDW 17.2 Plt Count 414 MPV 9.5 Neut % (Auto) 71.7 H Lymph % (Auto) 13.8 [place] % (Auto) 9.8 H Eos % (Auto) 3.8 Baso % (Auto) 0.9 Neut # (Auto) 8.1 H Lymph # (Auto) 1.6 [place] # (Auto) 1.1 H Eos # (Auto) 0.4 Baso # (Auto) 0.1 CBC Comment DIFF FINAL WBC Differential Differential Comment Hematology Comments PT INR APTT Puncture Site Patient Temperature HCO3 Base Excess O2 Saturation ABG pH ABG pCO2 ABG pO2 ABG O2 Content ABG Carboxyhemoglobin ABG Methemoglobin Hemoglobin O2 Delivery Device Liter Flow Vent Setting Inspired O2 Sodium 139 Potassium 3.0 L 3.1 L Chloride 104 Carbon Dioxide 25.3 Anion Gap 10 BUN 7 Creatinine 0.71 Estimated GFR 117 Random Glucose 89 Hemoglobin A1c Lactic Acid Calcium 9.6 Prot Corrected Calcium Phosphorus Magnesium Iron TIBC % Saturation Ferritin Total Bilirubin AST ALT Alkaline Phosphatase Troponin I B-Natriuretic Peptide Total Protein Albumin Prealbumin Triglycerides 110 Cholesterol 98 L LDL Cholesterol 52 HDL Cholesterol 24.5 L Cholesterol/HDL Ratio 4.00 Lipase Ascorbic Acid Vitamin B12 Folate Free T4 TSH 3rd Generation Urine Color Urine Turbidity Urine pH Ur Specific [place] Urine Protein Urine Glucose (UA) Urine Ketones Urine Occult Blood Urine Nitrite Urine Bilirubin Urine Urobilinogen Ur Leukocyte Esterase Urine RBC Urine WBC Micro UA Comment Zinc 08/06/17 08/07/17 08/07/17 14:38 05:38 05:38 WBC 9.6 RBC 2.83 L Hgb 8.1 L Hct 24.1 L MCV 85.1 MCH 28.4 MCHC 33.4 RDW 17.1 Plt Count 368 MPV 9.5 Neut % (Auto) 69.9 Lymph % (Auto) 14.7 [place] % (Auto) 10.2 H Eos % (Auto) 4.1 H Baso % (Auto) 1.1 Neut # (Auto) 6.7 Lymph # (Auto) 1.4 [place] # (Auto) 1.0 H Eos # (Auto) 0.4 Baso # (Auto) 0.1 CBC Comment DIFF FINAL WBC Differential Differential Comment Hematology Comments PT INR APTT Puncture Site Patient Temperature HCO3 Base Excess O2 Saturation ABG pH ABG pCO2 ABG pO2 ABG O2 Content ABG Carboxyhemoglobin ABG Methemoglobin Hemoglobin O2 Delivery Device Liter Flow Vent Setting Inspired O2 Sodium 139 Potassium 3.2 L Chloride 105 Carbon Dioxide 23.2 Anion Gap 11 BUN 4 L Creatinine 0.60 Estimated GFR 141 Random Glucose 73 L Hemoglobin A1c Lactic Acid Calcium 10.0 Prot Corrected Calcium Phosphorus 2.5 Magnesium 1.4 L Iron 18 L TIBC 181 L % Saturation 10.0 L Ferritin 78 Total Bilirubin 0.3 AST 17 ALT 10 L Alkaline Phosphatase 86 Troponin I B-Natriuretic Peptide Total Protein 5.8 L D Albumin 1.8 L Prealbumin Triglycerides Cholesterol LDL Cholesterol HDL Cholesterol Cholesterol/HDL Ratio Lipase Ascorbic Acid Vitamin B12 291 Folate 19.8 H Free T4 TSH 3rd Generation Urine Color Urine Turbidity Urine pH Ur Specific [place] Urine Protein Urine Glucose (UA) Urine Ketones Urine Occult Blood Urine Nitrite Urine Bilirubin Urine Urobilinogen Ur Leukocyte Esterase Urine RBC Urine WBC Micro UA Comment Zinc 08/07/17 08/07/17 08/08/17 15:35 17:57 04:40 WBC 12.9 H RBC 4.21 L Hgb 12.0 L D Hct 35.4 L MCV 84.0 MCH 28.5 MCHC 33.9 RDW 15.8 Plt Count 339 MPV 9.3 Neut % (Auto) 88.9 H Lymph % (Auto) 7.1 L [place] % (Auto) 2.6 Eos % (Auto) 0.9 Baso % (Auto) 0.5 Neut # (Auto) 11.5 H Lymph # (Auto) 0.9 L [place] # (Auto) 0.3 Eos # (Auto) 0.1 Baso # (Auto) 0.1 CBC Comment DIFF FINAL WBC Differential Differential Comment Hematology Comments PT INR APTT Puncture Site DRAWN IN OR Patient Temperature 98.6 HCO3 23 Base Excess -1.6 O2 Saturation 96 ABG pH 7.38 ABG pCO2 39 ABG pO2 127 H ABG O2 Content 18.1 ABG Carboxyhemoglobin 0.6 ABG Methemoglobin 1.5 Hemoglobin 13.2 O2 Delivery Device OR Liter Flow 0 Vent Setting OR Inspired O2 93 Sodium 139 Potassium 3.4 L Chloride 105 Carbon Dioxide 22.6 Anion Gap 11 BUN 4 L Creatinine 0.48 L Estimated GFR 183 Random Glucose 146 H Hemoglobin A1c Lactic Acid Calcium 8.5 D Prot Corrected Calcium Phosphorus Magnesium Iron TIBC % Saturation Ferritin Total Bilirubin 0.6 AST 7 L ALT 8 L Alkaline Phosphatase 76 Troponin I B-Natriuretic Peptide Total Protein 5.5 L Albumin 1.6 L Prealbumin Triglycerides Cholesterol LDL Cholesterol HDL Cholesterol Cholesterol/HDL Ratio Lipase Ascorbic Acid Vitamin B12 Folate Free T4 TSH 3rd Generation Urine Color Urine Turbidity Urine pH Ur Specific [place] Urine Protein Urine Glucose (UA) Urine Ketones Urine Occult Blood Urine Nitrite Urine Bilirubin Urine Urobilinogen Ur Leukocyte Esterase Urine RBC Urine WBC Micro UA Comment Zinc 08/08/17 08/08/17 08/09/17 04:40 13:35 04:55 WBC 17.1 H RBC 4.17 L Hgb 11.6 L Hct 34.7 L MCV 83.2 MCH 27.7 MCHC 33.3 RDW 15.5 Plt Count 344 MPV 9.2 Neut % (Auto) 93.1 H Lymph % (Auto) 3.9 L [place] % (Auto) 2.8 Eos % (Auto) 0.0 Baso % (Auto) 0.2 Neut # (Auto) 15.9 H Lymph # (Auto) 0.7 L [place] # (Auto) 0.5 Eos # (Auto) 0.0 Baso # (Auto) 0.0 CBC Comment DIFF FINAL WBC Differential Differential Comment Hematology Comments PT INR APTT Puncture Site Patient Temperature HCO3 Base Excess O2 Saturation ABG pH ABG pCO2 ABG pO2 ABG O2 Content ABG Carboxyhemoglobin ABG Methemoglobin Hemoglobin O2 Delivery Device Liter Flow Vent Setting Inspired O2 Sodium 140 Potassium 3.6 4.1 Chloride 106 Carbon Dioxide 23.9 Anion Gap 10 BUN 6 L Creatinine 0.46 L Estimated GFR 192 Random Glucose 98 Hemoglobin A1c Lactic Acid Calcium 8.1 L Prot Corrected Calcium Phosphorus Magnesium 2.1 D Iron TIBC % Saturation Ferritin Total Bilirubin AST ALT Alkaline Phosphatase Troponin I B-Natriuretic Peptide Total Protein Albumin Prealbumin Triglycerides Cholesterol LDL Cholesterol HDL Cholesterol Cholesterol/HDL Ratio Lipase Ascorbic Acid Vitamin B12 Folate Free T4 TSH 3rd Generation Urine Color Urine Turbidity Urine pH Ur Specific [place] Urine Protein Urine Glucose (UA) Urine Ketones Urine Occult Blood Urine Nitrite Urine Bilirubin Urine Urobilinogen Ur Leukocyte Esterase Urine RBC Urine WBC Micro UA Comment Zinc 08/09/17 08/10/17 08/10/17 04:55 02:32 02:35 WBC 14.3 H 14.6 H RBC 3.85 L 4.15 L Hgb 10.7 L 11.4 L Hct 32.4 L 34.6 L MCV 84.2 83.5 MCH 27.8 27.6 MCHC 33.0 33.0 RDW 15.9 16.5 Plt Count 358 396 MPV 9.3 9.4 Neut % (Auto) 80.5 H 72.9 H Lymph % (Auto) 11.8 17.3 [place] % (Auto) 7.2 7.8 Eos % (Auto) 0.1 1.0 Baso % (Auto) 0.4 1.0 Neut # (Auto) 11.6 H 10.7 H Lymph # (Auto) 1.7 2.5 [place] # (Auto) 1.0 H 1.1 H Eos # (Auto) 0.0 0.2 Baso # (Auto) 0.1 0.1 CBC Comment DIFF FINAL DIFF FINAL WBC Differential Differential Comment Hematology Comments PT INR APTT Puncture Site Patient Temperature HCO3 Base Excess O2 Saturation ABG pH ABG pCO2 ABG pO2 ABG O2 Content ABG Carboxyhemoglobin ABG Methemoglobin Hemoglobin O2 Delivery Device Liter Flow Vent Setting Inspired O2 Sodium 141 Potassium 3.4 L Chloride 108 H Carbon Dioxide 23.6 Anion Gap 9 BUN 5 L Creatinine 0.49 L Estimated GFR 179 Random Glucose 95 Hemoglobin A1c Lactic Acid Calcium 8.0 L Prot Corrected Calcium Phosphorus 2.8 Magnesium 1.4 L D Iron TIBC % Saturation Ferritin Total Bilirubin 0.3 AST 16 ALT 8 L Alkaline Phosphatase 76 Troponin I B-Natriuretic Peptide Total Protein 5.7 L Albumin 1.7 L Prealbumin Triglycerides Cholesterol LDL Cholesterol HDL Cholesterol Cholesterol/HDL Ratio Lipase Ascorbic Acid Vitamin B12 Folate Free T4 TSH 3rd Generation Urine Color Urine Turbidity Urine pH Ur Specific [place] Urine Protein Urine Glucose (UA) Urine Ketones Urine Occult Blood Urine Nitrite Urine Bilirubin Urine Urobilinogen Ur Leukocyte Esterase Urine RBC Urine WBC Micro UA Comment Zinc 08/10/17 08/10/17 08/10/17 02:35 10:50 10:50 WBC RBC Hgb Hct MCV MCH MCHC RDW Plt Count MPV Neut % (Auto) Lymph % (Auto) [place] % (Auto) Eos % (Auto) Baso % (Auto) Neut # (Auto) Lymph # (Auto) [place] # (Auto) Eos # (Auto) Baso # (Auto) CBC Comment WBC Differential Differential Comment Hematology Comments PT INR APTT Puncture Site Patient Temperature HCO3 Base Excess O2 Saturation ABG pH ABG pCO2 ABG pO2 ABG O2 Content ABG Carboxyhemoglobin ABG Methemoglobin Hemoglobin O2 Delivery Device Liter Flow Vent Setting Inspired O2 Sodium Potassium 4.1 Chloride Carbon Dioxide Anion Gap BUN Creatinine Estimated GFR Random Glucose Hemoglobin A1c Lactic Acid Calcium Prot Corrected Calcium Phosphorus Magnesium 1.8 Iron TIBC % Saturation Ferritin Total Bilirubin AST ALT Alkaline Phosphatase Troponin I LESS THAN 0.02 L LESS THAN 0.02 L B-Natriuretic Peptide Total Protein Albumin Prealbumin Triglycerides Cholesterol LDL Cholesterol HDL Cholesterol Cholesterol/HDL Ratio Lipase Ascorbic Acid Vitamin B12 Folate Free T4 TSH 3rd Generation Urine Color Urine Turbidity Urine pH Ur Specific [place] Urine Protein Urine Glucose (UA) Urine Ketones Urine Occult Blood Urine Nitrite Urine Bilirubin Urine Urobilinogen Ur Leukocyte Esterase Urine RBC Urine WBC Micro UA Comment Zinc 08/10/17 08/10/17 08/11/17 16:25 21:15 05:35 WBC RBC Hgb Hct MCV MCH MCHC RDW Plt Count MPV Neut % (Auto) Lymph % (Auto) [place] % (Auto) Eos % (Auto) Baso % (Auto) Neut # (Auto) Lymph # (Auto) [place] # (Auto) Eos # (Auto) Baso # (Auto) CBC Comment WBC Differential Differential Comment Hematology Comments PT INR APTT Puncture Site Patient Temperature HCO3 Base Excess O2 Saturation ABG pH ABG pCO2 ABG pO2 ABG O2 Content ABG Carboxyhemoglobin ABG Methemoglobin Hemoglobin O2 Delivery Device Liter Flow Vent Setting Inspired O2 Sodium 138 Potassium 3.5 3.9 Chloride 103 Carbon Dioxide 25.0 Anion Gap 10 BUN 4 L Creatinine 0.48 L Estimated GFR 183 Random Glucose 86 Hemoglobin A1c Lactic Acid Calcium 8.2 L Prot Corrected Calcium Phosphorus Magnesium 1.6 1.6 Iron TIBC % Saturation Ferritin Total Bilirubin AST ALT Alkaline Phosphatase Troponin I LESS THAN 0.02 L B-Natriuretic Peptide Total Protein Albumin Prealbumin Triglycerides Cholesterol LDL Cholesterol HDL Cholesterol Cholesterol/HDL Ratio Lipase Ascorbic Acid Vitamin B12 Folate Free T4 TSH 3rd Generation Urine Color Urine Turbidity Urine pH Ur Specific [place] Urine Protein Urine Glucose (UA) Urine Ketones Urine Occult Blood Urine Nitrite Urine Bilirubin Urine Urobilinogen Ur Leukocyte Esterase Urine RBC Urine WBC Micro UA Comment Zinc 08/11/17 08/11/17 08/12/17 14:55 23:21 06:00 WBC RBC Hgb Hct MCV MCH MCHC RDW Plt Count MPV Neut % (Auto) Lymph % (Auto) [place] % (Auto) Eos % (Auto) Baso % (Auto) Neut # (Auto) Lymph # (Auto) [place] # (Auto) Eos # (Auto) Baso # (Auto) CBC Comment WBC Differential Differential Comment Hematology Comments PT INR APTT Puncture Site Patient Temperature HCO3 Base Excess O2 Saturation ABG pH ABG pCO2 ABG pO2 ABG O2 Content ABG Carboxyhemoglobin ABG Methemoglobin Hemoglobin O2 Delivery Device Liter Flow Vent Setting Inspired O2 Sodium 135 L Potassium 3.9 3.8 4.1 Chloride 101 Carbon Dioxide 24.7 Anion Gap 9 BUN 3 L Creatinine 0.53 L Estimated GFR 163 Random Glucose 105 Hemoglobin A1c Lactic Acid Calcium 8.2 L Prot Corrected Calcium Phosphorus Magnesium 1.8 1.7 1.6 Iron TIBC % Saturation Ferritin Total Bilirubin AST ALT Alkaline Phosphatase Troponin I B-Natriuretic Peptide Total Protein Albumin Prealbumin Triglycerides Cholesterol LDL Cholesterol HDL Cholesterol Cholesterol/HDL Ratio Lipase Ascorbic Acid Vitamin B12 Folate Free T4 TSH 3rd Generation Urine Color Urine Turbidity Urine pH Ur Specific [place] Urine Protein Urine Glucose (UA) Urine Ketones Urine Occult Blood Urine Nitrite Urine Bilirubin Urine Urobilinogen Ur Leukocyte Esterase Urine RBC Urine WBC Micro UA Comment Zinc 08/12/17 08/13/17 08/13/17 16:30 06:00 06:20 WBC 12.2 H RBC 4.02 L Hgb 11.2 L Hct 34.2 L MCV 85.2 MCH 27.8 MCHC 32.6 RDW 16.4 Plt Count 489 H MPV 9.1 Neut % (Auto) 73.2 H Lymph % (Auto) 13.2 [place] % (Auto) 7.8 Eos % (Auto) 5.0 H Baso % (Auto) 0.8 Neut # (Auto) 8.9 H Lymph # (Auto) 1.6 [place] # (Auto) 0.9 Eos # (Auto) 0.6 H Baso # (Auto) 0.1 CBC Comment DIFF FINAL WBC Differential Differential Comment Hematology Comments PT INR APTT Puncture Site Patient Temperature HCO3 Base Excess O2 Saturation ABG pH ABG pCO2 ABG pO2 ABG O2 Content ABG Carboxyhemoglobin ABG Methemoglobin Hemoglobin O2 Delivery Device Liter Flow Vent Setting Inspired O2 Sodium 135 L Potassium 3.8 4.2 Chloride 101 Carbon Dioxide 23.7 Anion Gap 10 BUN 3 L Creatinine 0.58 L Estimated GFR 147 Random Glucose 93 Hemoglobin A1c Lactic Acid Calcium 8.6 Prot Corrected Calcium Phosphorus Magnesium 3.4 H D 1.9 D Iron TIBC % Saturation Ferritin Total Bilirubin AST ALT Alkaline Phosphatase Troponin I B-Natriuretic Peptide Total Protein Albumin Prealbumin Triglycerides Cholesterol LDL Cholesterol HDL Cholesterol Cholesterol/HDL Ratio Lipase Ascorbic Acid Vitamin B12 Folate Free T4 TSH 3rd Generation Urine Color Urine Turbidity Urine pH Ur Specific [place] Urine Protein Urine Glucose (UA) Urine Ketones Urine Occult Blood Urine Nitrite Urine Bilirubin Urine Urobilinogen Ur Leukocyte Esterase Urine RBC Urine WBC Micro UA Comment Zinc 08/13/17 08/14/17 08/14/17 09:45 05:10 05:10 WBC 10.9 RBC 3.87 L Hgb 11.1 L Hct 33.1 L MCV 85.5 MCH 28.6 MCHC 33.5 RDW 16.4 Plt Count 433 MPV 9.5 Neut % (Auto) Lymph % (Auto) [place] % (Auto) Eos % (Auto) Baso % (Auto) Neut # (Auto) Lymph # (Auto) [place] # (Auto) Eos # (Auto) Baso # (Auto) CBC Comment WBC Differential Differential Comment Hematology Comments PT INR APTT Puncture Site Cancelled Patient Temperature Cancelled HCO3 Cancelled Base Excess Cancelled O2 Saturation Cancelled ABG pH Cancelled ABG pCO2 Cancelled ABG pO2 Cancelled ABG O2 Content Cancelled ABG Carboxyhemoglobin Cancelled ABG Methemoglobin Cancelled Hemoglobin Cancelled O2 Delivery Device Cancelled Liter Flow Cancelled Vent Setting Cancelled Inspired O2 Cancelled Sodium 136 Potassium 3.8 Chloride 103 Carbon Dioxide 22.7 Anion Gap 10 BUN 4 L Creatinine 0.49 L Estimated GFR 179 Random Glucose 77 Hemoglobin A1c Lactic Acid Calcium 8.2 L Prot Corrected Calcium Phosphorus Magnesium 1.8 Iron TIBC % Saturation Ferritin Total Bilirubin AST ALT Alkaline Phosphatase Troponin I B-Natriuretic Peptide Total Protein Albumin Prealbumin Triglycerides Cholesterol LDL Cholesterol HDL Cholesterol Cholesterol/HDL Ratio Lipase Ascorbic Acid Vitamin B12 Folate Free T4 TSH 3rd Generation Urine Color Urine Turbidity Urine pH Ur Specific [place] Urine Protein Urine Glucose (UA) Urine Ketones Urine Occult Blood Urine Nitrite Urine Bilirubin Urine Urobilinogen Ur Leukocyte Esterase Urine RBC Urine WBC Micro UA Comment Zinc 08/15/17 08/15/17 08/16/17 05:36 05:36 04:42 WBC 9.9 RBC 4.31 L Hgb 12.0 L Hct 36.6 L MCV 84.9 MCH 27.8 MCHC 32.7 RDW 16.6 Plt Count 541 H MPV 9.9 Neut % (Auto) Lymph % (Auto) [place] % (Auto) Eos % (Auto) Baso % (Auto) Neut # (Auto) Lymph # (Auto) [place] # (Auto) Eos # (Auto) Baso # (Auto) CBC Comment WBC Differential Differential Comment Hematology Comments PT INR APTT Puncture Site Patient Temperature HCO3 Base Excess O2 Saturation ABG pH ABG pCO2 ABG pO2 ABG O2 Content ABG Carboxyhemoglobin ABG Methemoglobin Hemoglobin O2 Delivery Device Liter Flow Vent Setting Inspired O2 Sodium 135 L 138 Potassium 4.3 4.0 Chloride 102 105 Carbon Dioxide 20.4 L 21.9 Anion Gap 13 11 BUN 6 L 6 L Creatinine 0.52 L 0.40 L Estimated GFR 167 226 Random Glucose 137 H 96 Hemoglobin A1c Lactic Acid Calcium 8.7 7.9 L D Prot Corrected Calcium Phosphorus Magnesium 1.7 1.5 Iron TIBC % Saturation Ferritin Total Bilirubin AST ALT Alkaline Phosphatase Troponin I B-Natriuretic Peptide Total Protein Albumin Prealbumin Triglycerides Cholesterol LDL Cholesterol HDL Cholesterol Cholesterol/HDL Ratio Lipase Ascorbic Acid Vitamin B12 Folate Free T4 TSH 3rd Generation Urine Color Urine Turbidity Urine pH Ur Specific [place] Urine Protein Urine Glucose (UA) Urine Ketones Urine Occult Blood Urine Nitrite Urine Bilirubin Urine Urobilinogen Ur Leukocyte Esterase Urine RBC Urine WBC Micro UA Comment Zinc 08/16/17 08/16/17 08/17/17 04:42 10:51 05:30 WBC 11.5 H RBC 3.90 L Hgb 10.8 L Hct 33.4 L MCV 85.8 MCH 27.8 MCHC 32.4 RDW 16.5 Plt Count 436 MPV 9.5 Neut % (Auto) 80.3 H Lymph % (Auto) 9.5 [place] % (Auto) 9.9 H Eos % (Auto) 0.1 Baso % (Auto) 0.2 Neut # (Auto) 9.3 H Lymph # (Auto) 1.1 [place] # (Auto) 1.1 H Eos # (Auto) 0.0 Baso # (Auto) 0.0 CBC Comment DIFF FINAL WBC Differential Differential Comment Hematology Comments PT INR APTT Puncture Site DRAWN IN OR Patient Temperature 98.6 HCO3 23 Base Excess -1.1 O2 Saturation 96 ABG pH 7.37 L ABG pCO2 42 ABG pO2 158 H ABG O2 Content 17.6 ABG Carboxyhemoglobin 0.7 ABG Methemoglobin 1.5 Hemoglobin 12.8 O2 Delivery Device OR Liter Flow Vent Setting OR Inspired O2 100 Sodium 140 Potassium 3.7 Chloride 108 H Carbon Dioxide 22.8 Anion Gap 9 BUN 5 L Creatinine 0.41 L Estimated GFR 220 Random Glucose 83 Hemoglobin A1c Lactic Acid Calcium 7.5 L Prot Corrected Calcium Phosphorus Magnesium 1.5 Iron TIBC % Saturation Ferritin Total Bilirubin AST ALT Alkaline Phosphatase Troponin I B-Natriuretic Peptide Total Protein Albumin Prealbumin Triglycerides Cholesterol LDL Cholesterol HDL Cholesterol Cholesterol/HDL Ratio Lipase Ascorbic Acid Vitamin B12 Folate Free T4 TSH 3rd Generation Urine Color Urine Turbidity Urine pH Ur Specific [place] Urine Protein Urine Glucose (UA) Urine Ketones Urine Occult Blood Urine Nitrite Urine Bilirubin Urine Urobilinogen Ur Leukocyte Esterase Urine RBC Urine WBC Micro UA Comment Zinc 08/17/17 08/18/17 08/18/17 05:30 04:30 04:30 WBC 10.7 13.4 H RBC 3.34 L 3.40 L Hgb 9.6 L 9.4 L Hct 28.6 L 29.0 L MCV 85.5 85.3 MCH 28.6 27.7 MCHC 33.5 32.4 RDW 16.5 16.6 Plt Count 395 368 MPV 9.1 9.5 Neut % (Auto) Lymph % (Auto) [place] % (Auto) Eos % (Auto) Baso % (Auto) Neut # (Auto) Lymph # (Auto) [place] # (Auto) Eos # (Auto) Baso # (Auto) CBC Comment WBC Differential Differential Comment Hematology Comments PT INR APTT Puncture Site Patient Temperature HCO3 Base Excess O2 Saturation ABG pH ABG pCO2 ABG pO2 ABG O2 Content ABG Carboxyhemoglobin ABG Methemoglobin Hemoglobin O2 Delivery Device Liter Flow Vent Setting Inspired O2 Sodium 138 Potassium 3.0 L Chloride 105 Carbon Dioxide 21.7 Anion Gap 11 BUN 4 L Creatinine 0.41 L Estimated GFR 220 Random Glucose 83 Hemoglobin A1c Lactic Acid Calcium 7.6 L Prot Corrected Calcium Phosphorus Magnesium Iron TIBC % Saturation Ferritin Total Bilirubin AST ALT Alkaline Phosphatase Troponin I B-Natriuretic Peptide Total Protein Albumin Prealbumin Triglycerides Cholesterol LDL Cholesterol HDL Cholesterol Cholesterol/HDL Ratio Lipase Ascorbic Acid Vitamin B12 Folate Free T4 TSH 3rd Generation Urine Color Urine Turbidity Urine pH Ur Specific [place] Urine Protein Urine Glucose (UA) Urine Ketones Urine Occult Blood Urine Nitrite Urine Bilirubin Urine Urobilinogen Ur Leukocyte Esterase Urine RBC Urine WBC Micro UA Comment Zinc 08/19/17 08/19/17 08/19/17 04:21 04:21 04:21 WBC 12.2 H RBC 2.90 L Hgb 8.1 L Hct 24.9 L MCV 85.7 MCH 27.8 MCHC 32.5 RDW 15.8 Plt Count 326 MPV 9.8 Neut % (Auto) Lymph % (Auto) [place] % (Auto) Eos % (Auto) Baso % (Auto) Neut # (Auto) Lymph # (Auto) [place] # (Auto) Eos # (Auto) Baso # (Auto) CBC Comment WBC Differential Differential Comment Hematology Comments PT INR APTT Puncture Site Patient Temperature HCO3 Base Excess O2 Saturation ABG pH ABG pCO2 ABG pO2 ABG O2 Content ABG Carboxyhemoglobin ABG Methemoglobin Hemoglobin O2 Delivery Device Liter Flow Vent Setting Inspired O2 Sodium 142 Potassium 2.9 L* Chloride 111 H Carbon Dioxide 19.9 L Anion Gap 11 BUN 4 L Creatinine 0.25 L Estimated GFR 389 Random Glucose 74 Hemoglobin A1c Lactic Acid Calcium 6.5 L* D Prot Corrected Calcium 7.9 L Phosphorus Magnesium 1.5 Cancelled Iron TIBC % Saturation Ferritin Total Bilirubin AST ALT Alkaline Phosphatase Troponin I B-Natriuretic Peptide Total Protein 4.3 L Albumin 1.2 L Cancelled Prealbumin Triglycerides Cholesterol LDL Cholesterol HDL Cholesterol Cholesterol/HDL Ratio Lipase Ascorbic Acid Vitamin B12 Folate Free T4 TSH 3rd Generation Urine Color Urine Turbidity Urine pH Ur Specific [place] Urine Protein Urine Glucose (UA) Urine Ketones Urine Occult Blood Urine Nitrite Urine Bilirubin Urine Urobilinogen Ur Leukocyte Esterase Urine RBC Urine WBC Micro UA Comment Zinc 08/20/17 08/20/17 08/20/17 09:52 09:52 09:52 WBC 10.1 RBC 3.11 L Hgb 8.9 L Hct 26.6 L MCV 85.4 MCH 28.7 MCHC 33.6 RDW 16.2 Plt Count 373 MPV 9.5 Neut % (Auto) 78.9 H Lymph % (Auto) 9.8 [place] % (Auto) 8.7 H Eos % (Auto) 2.1 Baso % (Auto) 0.5 Neut # (Auto) 7.9 H Lymph # (Auto) 1.0 [place] # (Auto) 0.9 Eos # (Auto) 0.2 Baso # (Auto) 0.0 CBC Comment DIFF FINAL WBC Differential Differential Comment Hematology Comments PT INR APTT Puncture Site Patient Temperature HCO3 Base Excess O2 Saturation ABG pH ABG pCO2 ABG pO2 ABG O2 Content ABG Carboxyhemoglobin ABG Methemoglobin Hemoglobin O2 Delivery Device Liter Flow Vent Setting Inspired O2 Sodium 138 Potassium 3.6 3.6 Chloride 106 Carbon Dioxide 22.4 Anion Gap 10 BUN 3 L Creatinine 0.31 L Estimated GFR 303 Random Glucose 82 Hemoglobin A1c Lactic Acid Calcium 7.5 L D Prot Corrected Calcium Phosphorus 2.6 Magnesium 1.6 Iron TIBC % Saturation Ferritin Total Bilirubin AST ALT Alkaline Phosphatase Troponin I B-Natriuretic Peptide Total Protein Albumin 1.4 L Prealbumin Triglycerides Cholesterol LDL Cholesterol HDL Cholesterol Cholesterol/HDL Ratio Lipase Ascorbic Acid Vitamin B12 Folate Free T4 TSH 3rd Generation Urine Color Urine Turbidity Urine pH Ur Specific [place] Urine Protein Urine Glucose (UA) Urine Ketones Urine Occult Blood Urine Nitrite Urine Bilirubin Urine Urobilinogen Ur Leukocyte Esterase Urine RBC Urine WBC Micro UA Comment Zinc 08/21/17 08/21/17 08/22/17 05:07 05:07 04:40 WBC 9.6 RBC 3.60 L Hgb 10.1 L Hct 30.8 L MCV 85.5 MCH 28.2 MCHC 33.0 RDW 16.0 Plt Count 480 H MPV 10.0 Neut % (Auto) 68.6 Lymph % (Auto) 14.3 [place] % (Auto) 11.4 H Eos % (Auto) 4.9 H Baso % (Auto) 0.8 Neut # (Auto) 6.6 Lymph # (Auto) 1.4 [place] # (Auto) 1.1 H Eos # (Auto) 0.5 H Baso # (Auto) 0.1 CBC Comment DIFF FINAL WBC Differential Differential Comment Hematology Comments PT INR APTT Puncture Site Patient Temperature HCO3 Base Excess O2 Saturation ABG pH ABG pCO2 ABG pO2 ABG O2 Content ABG Carboxyhemoglobin ABG Methemoglobin Hemoglobin O2 Delivery Device Liter Flow Vent Setting Inspired O2 Sodium 139 138 Potassium 3.5 4.0 Chloride 103 104 Carbon Dioxide 25.9 24.8 Anion Gap 10 9 BUN 3 L 3 L Creatinine 0.37 L 0.37 L Estimated GFR 247 247 Random Glucose 74 75 Hemoglobin A1c Lactic Acid Calcium 7.6 L 7.8 L Prot Corrected Calcium Phosphorus 3.2 Magnesium 1.7 1.7 Iron TIBC % Saturation Ferritin Total Bilirubin AST ALT Alkaline Phosphatase Troponin I B-Natriuretic Peptide Total Protein Albumin 1.5 L Prealbumin Triglycerides Cholesterol LDL Cholesterol HDL Cholesterol Cholesterol/HDL Ratio Lipase Ascorbic Acid Vitamin B12 Folate Free T4 TSH 3rd Generation Urine Color Urine Turbidity Urine pH Ur Specific [place] Urine Protein Urine Glucose (UA) Urine Ketones Urine Occult Blood Urine Nitrite Urine Bilirubin Urine Urobilinogen Ur Leukocyte Esterase Urine RBC Urine WBC Micro UA Comment Zinc 08/22/17 08/23/17 08/23/17 04:40 05:25 05:45 WBC 8.6 13.1 H RBC 3.32 L 3.18 L Hgb 9.2 L 8.8 L Hct 28.5 L 27.0 L MCV 86.0 84.9 MCH 27.8 27.6 MCHC 32.4 32.5 RDW 16.2 16.3 Plt Count 439 464 H MPV 9.6 9.8 Neut % (Auto) 87.8 H Lymph % (Auto) 7.2 L [place] % (Auto) 4.8 Eos % (Auto) 0.0 Baso % (Auto) 0.2 Neut # (Auto) 11.5 H Lymph # (Auto) 0.9 L [place] # (Auto) 0.6 Eos # (Auto) 0.0 Baso # (Auto) 0.0 CBC Comment DIFF FINAL WBC Differential Differential Comment Hematology Comments PT INR APTT Puncture Site Patient Temperature HCO3 Base Excess O2 Saturation ABG pH ABG pCO2 ABG pO2 ABG O2 Content ABG Carboxyhemoglobin ABG Methemoglobin Hemoglobin O2 Delivery Device Liter Flow Vent Setting Inspired O2 Sodium 136 Potassium 4.3 Chloride 102 Carbon Dioxide 23.5 Anion Gap 11 BUN 6 L Creatinine 0.45 L Estimated GFR 197 Random Glucose 130 H Hemoglobin A1c 5.5 Lactic Acid Calcium 7.7 L Prot Corrected Calcium Phosphorus 3.9 Magnesium 1.4 L Iron TIBC % Saturation Ferritin Total Bilirubin 0.2 AST 16 ALT 13 Alkaline Phosphatase 106 Troponin I B-Natriuretic Peptide Total Protein 5.6 L D Albumin 1.6 L Prealbumin Triglycerides Cholesterol LDL Cholesterol HDL Cholesterol Cholesterol/HDL Ratio Lipase Ascorbic Acid Vitamin B12 Folate Free T4 1.16 TSH 3rd Generation 2.720 Urine Color Urine Turbidity Urine pH Ur Specific [place] Urine Protein Urine Glucose (UA) Urine Ketones Urine Occult Blood Urine Nitrite Urine Bilirubin Urine Urobilinogen Ur Leukocyte Esterase Urine RBC Urine WBC Micro UA Comment Zinc 08/24/17 08/24/17 08/25/17 05:48 08:47 04:01 WBC 11.3 H RBC 2.99 L Hgb 8.4 L Hct 26.8 L MCV 89.8 D MCH 28.2 MCHC 31.4 L RDW 16.9 Plt Count 426 MPV 9.2 Neut % (Auto) 79.6 H Lymph % (Auto) 10.7 [place] % (Auto) 9.2 H Eos % (Auto) 0.3 Baso % (Auto) 0.2 Neut # (Auto) 9.0 H Lymph # (Auto) 1.2 [place] # (Auto) 1.0 H Eos # (Auto) 0.0 Baso # (Auto) 0.0 CBC Comment DIFF FINAL WBC Differential Differential Comment Hematology Comments PT INR APTT Puncture Site Patient Temperature HCO3 Base Excess O2 Saturation ABG pH ABG pCO2 ABG pO2 ABG O2 Content ABG Carboxyhemoglobin ABG Methemoglobin Hemoglobin O2 Delivery Device Liter Flow Vent Setting Inspired O2 Sodium 139 139 Potassium 3.9 4.0 Chloride 107 103 Carbon Dioxide 23.1 24.9 Anion Gap 9 11 BUN 6 L 4 L Creatinine 0.55 L 0.49 L Estimated GFR 156 Greater than 89 Random Glucose 90 74 Hemoglobin A1c Lactic Acid Calcium 8.0 L 8.0 L Prot Corrected Calcium Phosphorus 3.3 3.4 Magnesium 1.6 1.4 L Iron TIBC % Saturation Ferritin Total Bilirubin 0.1 L AST 47 H ALT 23 Alkaline Phosphatase 120 H Troponin I B-Natriuretic Peptide Total Protein 5.5 L Albumin 1.7 L Prealbumin Triglycerides Cholesterol LDL Cholesterol HDL Cholesterol Cholesterol/HDL Ratio Lipase Ascorbic Acid Vitamin B12 Folate Free T4 TSH 3rd Generation Urine Color Urine Turbidity Urine pH Ur Specific [place] Urine Protein Urine Glucose (UA) Urine Ketones Urine Occult Blood Urine Nitrite Urine Bilirubin Urine Urobilinogen Ur Leukocyte Esterase Urine RBC Urine WBC Micro UA Comment Zinc 08/25/17 08/25/17 08/26/17 04:01 14:46 05:04 WBC 11.8 H RBC 3.64 L Hgb 10.2 L Hct 31.3 L MCV 86.0 MCH 27.9 MCHC 32.5 RDW 16.5 Plt Count 524 H MPV 9.1 Neut % (Auto) 73.9 H Lymph % (Auto) 13.6 [place] % (Auto) 8.7 H Eos % (Auto) 3.2 Baso % (Auto) 0.6 Neut # (Auto) 8.7 H Lymph # (Auto) 1.6 [place] # (Auto) 1.0 H Eos # (Auto) 0.4 Baso # (Auto) 0.1 CBC Comment WBC Differential . Differential Comment Auto diff final Hematology Comments PT INR APTT Puncture Site Patient Temperature HCO3 Base Excess O2 Saturation ABG pH ABG pCO2 ABG pO2 ABG O2 Content ABG Carboxyhemoglobin ABG Methemoglobin Hemoglobin O2 Delivery Device Liter Flow Vent Setting Inspired O2 Sodium 140 Potassium 3.7 Chloride 103 Carbon Dioxide 27.0 Anion Gap 10 BUN 4 L Creatinine 0.41 L Estimated GFR Greater than 89 Random Glucose 68 L Hemoglobin A1c Lactic Acid Calcium 7.5 L Prot Corrected Calcium Phosphorus Magnesium Iron TIBC % Saturation Ferritin Total Bilirubin AST ALT Alkaline Phosphatase Troponin I B-Natriuretic Peptide 867 H Total Protein Albumin Prealbumin Triglycerides Cholesterol LDL Cholesterol HDL Cholesterol Cholesterol/HDL Ratio Lipase Ascorbic Acid Vitamin B12 Folate Free T4 TSH 3rd Generation Urine Color Urine Turbidity Urine pH Ur Specific [place] Urine Protein Urine Glucose (UA) Urine Ketones Urine Occult Blood Urine Nitrite Urine Bilirubin Urine Urobilinogen Ur Leukocyte Esterase Urine RBC Urine WBC Micro UA Comment Zinc 08/27/17 08/27/17 08/29/17 10:02 10:02 12:30 WBC 11.4 H RBC 3.35 L Hgb 9.4 L Hct 29.1 L MCV 86.8 MCH 27.9 MCHC 32.2 RDW 16.8 Plt Count 579 H MPV 9.2 Neut % (Auto) 76.6 H Lymph % (Auto) 12.6 [place] % (Auto) 6.2 Eos % (Auto) 3.6 Baso % (Auto) 1.0 Neut # (Auto) 8.7 H Lymph # (Auto) 1.4 [place] # (Auto) 0.7 Eos # (Auto) 0.4 Baso # (Auto) 0.1 CBC Comment WBC Differential . Differential Comment Auto diff final Hematology Comments PT INR APTT Puncture Site Patient Temperature HCO3 Base Excess O2 Saturation ABG pH ABG pCO2 ABG pO2 ABG O2 Content ABG Carboxyhemoglobin ABG Methemoglobin Hemoglobin O2 Delivery Device Liter Flow Vent Setting Inspired O2 Sodium Potassium Chloride Carbon Dioxide Anion Gap BUN Creatinine Estimated GFR Random Glucose Hemoglobin A1c Lactic Acid Calcium Prot Corrected Calcium Phosphorus Magnesium Iron TIBC % Saturation Ferritin Total Bilirubin AST ALT Alkaline Phosphatase Troponin I B-Natriuretic Peptide Total Protein Albumin Prealbumin 9 L Triglycerides Cholesterol LDL Cholesterol HDL Cholesterol Cholesterol/HDL Ratio Lipase Ascorbic Acid ND Vitamin B12 Folate Free T4 TSH 3rd Generation Urine Color Urine Turbidity Urine pH Ur Specific [place] Urine Protein Urine Glucose (UA) Urine Ketones Urine Occult Blood Urine Nitrite Urine Bilirubin Urine Urobilinogen Ur Leukocyte Esterase Urine RBC Urine WBC Micro UA Comment Zinc 50 L 08/29/17 08/29/17 08/29/17 12:30 12:30 12:30 WBC RBC Hgb Hct MCV MCH MCHC RDW Plt Count MPV Neut % (Auto) Lymph % (Auto) [place] % (Auto) Eos % (Auto) Baso % (Auto) Neut # (Auto) Lymph # (Auto) [place] # (Auto) Eos # (Auto) Baso # (Auto) CBC Comment WBC Differential Differential Comment Hematology Comments PT INR APTT Puncture Site Patient Temperature HCO3 Base Excess O2 Saturation ABG pH ABG pCO2 ABG pO2 ABG O2 Content ABG Carboxyhemoglobin ABG Methemoglobin Hemoglobin O2 Delivery Device Liter Flow Vent Setting Inspired O2 Sodium 139 Potassium 3.9 Chloride 103 Carbon Dioxide 26.4 Anion Gap 10 BUN 3 L Creatinine 0.44 L Estimated GFR Greater than 89 Random Glucose 86 Hemoglobin A1c Lactic Acid Calcium 7.9 L Prot Corrected Calcium Phosphorus 3.8 Magnesium 1.7 1.6 Iron TIBC % Saturation Ferritin Total Bilirubin 0.2 AST 33 ALT 25 Alkaline Phosphatase 128 H Troponin I Less than 0.02 L B-Natriuretic Peptide Total Protein 5.7 L Albumin 1.7 L Prealbumin Triglycerides Cholesterol LDL Cholesterol HDL Cholesterol Cholesterol/HDL Ratio Lipase Ascorbic Acid Vitamin B12 Folate Free T4 TSH 3rd Generation Urine Color Urine Turbidity Urine pH Ur Specific [place] Urine Protein Urine Glucose (UA) Urine Ketones Urine Occult Blood Urine Nitrite Urine Bilirubin Urine Urobilinogen Ur Leukocyte Esterase Urine RBC Urine WBC Micro UA Comment Zinc 08/29/17 09/01/17 09/01/17 17:13 00:23 00:23 WBC 8.9 RBC 3.08 L Hgb 8.9 L Hct 26.0 L MCV 84.5 MCH 29.0 MCHC 34.3 RDW 16.2 Plt Count 535 H MPV 8.8 Neut % (Auto) 64.3 Lymph % (Auto) 21.5 [place] % (Auto) 8.0 Eos % (Auto) 5.0 H Baso % (Auto) 1.2 Neut # (Auto) 5.7 Lymph # (Auto) 1.9 [place] # (Auto) 0.7 Eos # (Auto) 0.4 Baso # (Auto) 0.1 CBC Comment WBC Differential . Differential Comment Auto diff final Hematology Comments PT INR APTT Puncture Site Patient Temperature HCO3 Base Excess O2 Saturation ABG pH ABG pCO2 ABG pO2 ABG O2 Content ABG Carboxyhemoglobin ABG Methemoglobin Hemoglobin O2 Delivery Device Liter Flow Vent Setting Inspired O2 Sodium 138 Potassium 4.4 3.4 L Chloride 104 Carbon Dioxide 24.0 Anion Gap 10 BUN 4 L Creatinine 0.48 L Estimated GFR Greater than 89 Random Glucose 86 Hemoglobin A1c Lactic Acid Calcium 7.6 L Prot Corrected Calcium Phosphorus 3.2 Magnesium 2.0 Iron TIBC % Saturation Ferritin Total Bilirubin 0.2 AST 60 H ALT 39 Alkaline Phosphatase 144 H Troponin I B-Natriuretic Peptide Total Protein 5.7 L Albumin 1.8 L Prealbumin Triglycerides Cholesterol LDL Cholesterol HDL Cholesterol Cholesterol/HDL Ratio Lipase Ascorbic Acid Vitamin B12 Folate Free T4 TSH 3rd Generation Urine Color Urine Turbidity Urine pH Ur Specific [place] Urine Protein Urine Glucose (UA) Urine Ketones Urine Occult Blood Urine Nitrite Urine Bilirubin Urine Urobilinogen Ur Leukocyte Esterase Urine RBC Urine WBC Micro UA Comment Zinc 09/02/17 09/04/17 09/04/17 08:11 07:21 07:21 WBC 8.7 RBC 3.29 L Hgb 9.2 L Hct 28.2 L MCV 85.7 MCH 27.8 MCHC 32.5 RDW 17.0 Plt Count 507 H MPV 8.9 Neut % (Auto) 75.1 H Lymph % (Auto) 16.6 [place] % (Auto) 7.9 Eos % (Auto) 0.2 Baso % (Auto) 0.2 Neut # (Auto) 6.5 Lymph # (Auto) 1.4 [place] # (Auto) 0.7 Eos # (Auto) 0.0 Baso # (Auto) 0.0 CBC Comment WBC Differential . Differential Comment Auto diff final Hematology Comments PT INR APTT Puncture Site Patient Temperature HCO3 Base Excess O2 Saturation ABG pH ABG pCO2 ABG pO2 ABG O2 Content ABG Carboxyhemoglobin ABG Methemoglobin Hemoglobin O2 Delivery Device Liter Flow Vent Setting Inspired O2 Sodium 140 Potassium 3.9 Chloride 106 Carbon Dioxide 23.9 Anion Gap 10 BUN 9 Creatinine 0.55 L Estimated GFR Greater than 89 Random Glucose 79 Hemoglobin A1c Lactic Acid Calcium 8.2 L Prot Corrected Calcium Phosphorus 2.6 Magnesium 1.7 Iron TIBC % Saturation Ferritin Total Bilirubin 0.2 AST 47 H ALT 38 Alkaline Phosphatase 125 H Troponin I B-Natriuretic Peptide Total Protein 5.7 L Albumin 1.9 L Prealbumin Triglycerides Cholesterol LDL Cholesterol HDL Cholesterol Cholesterol/HDL Ratio Lipase Ascorbic Acid 0.4000 Vitamin B12 Folate Free T4 TSH 3rd Generation Urine Color Urine Turbidity Urine pH Ur Specific [place] Urine Protein Urine Glucose (UA) Urine Ketones Urine Occult Blood Urine Nitrite Urine Bilirubin Urine Urobilinogen Ur Leukocyte Esterase Urine RBC Urine WBC Micro UA Comment Zinc - Imaging ITS Impressions Chest X-Ray 09/03/17 00:00 CONCLUSION: No pneumothorax on right sided chest tube removal. - Procedures 08/07 PROCEDURES PERFORMED: 1. 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 2. Closure of chest wall defect 6 x 4 cm with dermal matrix biological mesh. 3. Placement of VAC dressing to wound, 26 x 21 cm. 4. Right thoracostomy tube placement. 08/10 vac dressing 08/20 Right pedicled latissimus muscle flap to right chest wound Left pectoralis major muscle flap to right chest wound 08/23 Right chest wound VAC change (33705) Right chest wound debridement (82796, [id number] x 6) Assessment and Plan - Plan Mr. Street is a 51-year-old male with a history of locally advanced basosquamous carcinoma and hypertension who was sent to the hospital by his oncologist due to hypercalcemia. He complained of abdominal pain that was cramping in quality. He also complained of purulent discharge from his chest wall fungating mass. On 08/07/2017 patient was taken to OR for radical resection of chest wall malignancy. He underwent resection of sternum and costochondral area of ribs 2 as well as wound VAC placement. Postoperatively he was admitted to ICU. Patient developed atrial fibrillation with RVR. On 08/29 patient had runs of nonsustained ventricular tachycardia. Dr. pope evaluated patient and started patient on amiodarone drip. Atrial fibrillation with rapid ventricular rate Ventricular tachycardia Tachybradycardia syndrome -Continue amiodarone drip. Patient is currently in normal sinus rhythm with normal heart rate. -Discussed with Dr. Pope's team regarding cardiac clearance for plastic surgery on 09/02/2017. -Continue metoprolol tartrate 50 mg p.o. twice daily Malignant fungating chest wall mass -Status post surgical resection on 08/07/2017. Wound VAC is in place. Plastic surgery consulted. -Continue Zosyn 4.5 g every 6 hours and azithromycin 500 mg daily -Continue Martin for pain. 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 DW RN AND PT AND CM AND PALLIATIVE CARE NEEDS TO BECOME MORE MOBILE DW RN AND PT AND FAMILY Wound care per plastics and ore charger Full code. Lovenox. Code Status: FULL CODE Discussed Condition With: RN AND PT AND FAMILY AND CM Discharge Planning: Pending clearance by all for discharge
--- NOTE | 2017-09-05 15:11 | P.PNPAL ---
Reason for Visit Reason for visit: a. To assist with evaluation and management of symptoms including:pain b. To assist medical decision maker(s) with: better understanding of current medical conditions; weighing benefits/burdens of medical treatment options; making medical treatment decisions. Subjective Subjective/Interval History: Patient has had 15 mg of hydrocodone x 3 since last visit. Pt again rate pain in the chest area but also the back, sharp, and he feels is associated with his surgical wounds. Pt's at bedside. Pt maintains that daytime pain control is adequate but at night he wakes up from sleep from pain. Long discussion with patient and and they are amenable to a long acting opiate at night. Pt's will spend the night to see how patient would respond. Goals of care is aggressive. and wants to talk more about code status, but currently it is full code. Family/Friend Interactions: see above. at bedside. Advance Directives Living Will: Never completed Health Care Surrogate: Never completed Durable Power of Statistics Intern: Never completed Objective Vital Signs: Vital Signs 09/04/17 16:00 09/04/17 17:00 09/04/17 18:00 Temperature Pulse Rate 56 L 56 L 56 L Respiratory Rate Blood Pressure Pulse Oximetry 09/04/17 19:00 09/04/17 20:00 09/04/17 21:00 Temperature 98.3 F Pulse Rate 53 L 56 L 54 L Respiratory Rate 16 Blood Pressure 127/71 Pulse Oximetry 09/04/17 21:40 09/04/17 22:00 09/04/17 23:00 Temperature Pulse Rate 50 L 48 L Respiratory Rate 16 16 Blood Pressure Pulse Oximetry 09/05/17 00:00 09/05/17 01:00 09/05/17 02:00 Temperature Pulse Rate 47 L 52 L 50 L Respiratory Rate Blood Pressure Pulse Oximetry 09/05/17 03:00 09/05/17 04:00 09/05/17 05:00 Temperature Pulse Rate 48 L 48 L 48 L Respiratory Rate 16 Blood Pressure Pulse Oximetry 09/05/17 06:00 09/05/17 07:00 Temperature 98.1 F Pulse Rate 48 L 52 L Respiratory Rate 16 Blood Pressure 131/73 Pulse Oximetry 100 Intake & Output 09/04/17 09/05/17 09/05/17 18:59 06:59 18:59 Intake Total 880 / 880 940 / 940 100 / 100 Output Total 850 / 850 1000 / 1000 1100 / 1100 Balance 30 / 30 -60 / -60 -1000 / -1000 Weight 60 kg Intake: IV 100 / 100 700 / 700 100 / 100 Azithromycin Inj 500 MG In NS 500 / 500 Inj 250 ML @ 250 mls/hr IV.SIG Q24H [facility]WANA Rx#:[id number] Zosyn 4.5 GM Premix 4.5 gm In 100 / 100 200 / 200 100 / 100 100 ml @ 200 mls/hr IV.SIG Q6HR TAWANA Rx#:[id number] Oral 780 / 780 240 / 240 Output: Urine 850 / 850 1000 / 1000 1100 / 1100 Other: Date of Last Bowel Movement 09/04/17 09/04/17 09/05/17 Physical Exam: CONSTITUTIONAL/GENERAL: This is an 51 year old male, appears fatigue at times. SKIN: No jaundice, rashes, or lesions. Wound VAC mid-sternum. Back has stables in dressing on excision. HEAD: Atraumatic. Normocephalic. EYES: Pupils equal and round and reactive. Extraocular motions intact. No scleral icterus. No injection or drainage. Fundi not examined. ENT: Hearing grossly normal. Nose without bleeding or purulent drainage. Throat without visible erythema, exudates, masses, or lesions. NECK: Trachea midline. Supple, nontender. No palpable thyroid enlargement or nodularity. CARDIOVASCULAR: irregularly without murmurs, gallops, or rubs. RESPIRATORY/CHEST: Symmetric, unlabored respirations. Clear to auscultation. Breath sounds equal bilaterally. No wheezes, rales, or rhonchi. GASTROINTESTINAL: Abdomen soft, non-tender, nondistended. No hepato-splenomegaly , or palpable masses. No guarding. Bowel sounds present. GENITOURINARY: Without palpable bladder distension. Leroy catheter in place. MUSCULOSKELETAL: Extremities without clubbing, cyanosis, or edema. LYMPHATICS: No palpable cervical or supraclavicular adenopathy. NEUROLOGICAL: Awake and alert. Motor and sensory grossly within normal limits. Follows commands. Cognitively sharp. Moves all extremities. PSYCHIATRIC: No obvious anxiety/depression. no apparent hallucinations or other psychotic thought process. Diagnostic Tests Laboratory: Laboratory Results - last 72 hr 08/27/17 09/02/17 09/04/17 10:02 08:11 07:21 WBC 8.7 RBC 3.29 L Hgb 9.2 L Hct 28.2 L MCV 85.7 MCH 27.8 MCHC 32.5 RDW 17.0 Plt Count 507 H MPV 8.9 Neut % (Auto) 75.1 H Lymph % (Auto) 16.6 [place] % (Auto) 7.9 Eos % (Auto) 0.2 Baso % (Auto) 0.2 Neut # (Auto) 6.5 Lymph # (Auto) 1.4 [place] # (Auto) 0.7 Eos # (Auto) 0.0 Baso # (Auto) 0.0 WBC Differential . Differential Comment Auto diff final Sodium Potassium Chloride Carbon Dioxide Anion Gap BUN Creatinine Estimated GFR Random Glucose Calcium Phosphorus Magnesium Total Bilirubin AST ALT Alkaline Phosphatase Total Protein Albumin Ascorbic Acid 0.4000 Zinc 50 L 09/04/17 07:21 WBC RBC Hgb Hct MCV MCH MCHC RDW Plt Count MPV Neut % (Auto) Lymph % (Auto) [place] % (Auto) Eos % (Auto) Baso % (Auto) Neut # (Auto) Lymph # (Auto) [place] # (Auto) Eos # (Auto) Baso # (Auto) WBC Differential Differential Comment Sodium 140 Potassium 3.9 Chloride 106 Carbon Dioxide 23.9 Anion Gap 10 BUN 9 Creatinine 0.55 L Estimated GFR Greater than 89 Random Glucose 79 Calcium 8.2 L Phosphorus 2.6 Magnesium 1.7 Total Bilirubin 0.2 AST 47 H ALT 38 Alkaline Phosphatase 125 H Total Protein 5.7 L Albumin 1.9 L Ascorbic Acid Zinc Result Diagrams: 09/04/17 07:21 09/04/17 07:21 Procedures: 08/07 PROCEDURES PERFORMED: 1. 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 2. Closure of chest wall defect 6 x 4 cm with dermal matrix biological mesh. 3. Placement of VAC dressing to wound, 26 x 21 cm. 4. Right thoracostomy tube placement. 08/10 vac dressing 08/20 Right pedicled latissimus muscle flap to right chest wound Left pectoralis major muscle flap to right chest wound 08/23 Right chest wound VAC change (49320) Right chest wound debridement (01083, 11272 x 6) Assessment and Plan - Disease Oriented Problem List (1) Basal cell carcinoma (2) Open chest wound Comment: multi drug resistance psudomonas (3) Afib (4) Ventricular tachycardia - Symptom Scale (1) Pain 0-10 Scale: 2 Pertinent Non-Medical Issues: Psychosocial:Originally from [place]. Moved to [place] in the 70s. . No Children. 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 Pt's spouse would be proxy Ethical issues impacting care:none at this time. Important Contacts: spouse Barb Carpio [phone] Prognosis: Prognosis is guarded. 51 year old with basal cell cancer s/p radical resection of sternum chest. Condition complicated by arrhtymias, pain, severe post surgica wounds, infection. Code Status: Full Code Plan: == capacity- pt has capacity to make medical decsions. == if pt was to lose capacity, pt's spouse would serve as proxy. == goals of care: pt would prefer to be present. Are aggressive. == symptoms: pain- are mainly surgical in mid-sternum and in the back at incision/wounds. Pt wakes up from sleep from pain. Will start long acting morphine at night and monitor. pt not on it now, but previously had been on morphine COMPLIANCE VICE PRESIDENT pump which was effective, no rash. Bowl Movement- pt and had said his stools have been loose, declined schedule stool softner for now. == Code: status, and wants to discuss more about it. Pt remains a full code. == palliative care will continue to follow to provide support/ goals of care conversation/ and symptom managment as clinical conditon evolves. Attestation Attestation: To help prompt me to consider important information that might be impacting today's encounter and assessment, information from prior notes written by myself or my colleagues may have been "brought forward" into today's note. My signature on this note, however, is an attestation that I personally performed the exam, history, and/or decision-making noted today, and, unless otherwise indicated, the interactions with patient, family, and staff as well as the review of records all occurred today. I also attest that the listed assessment and stated plan reflect my best clinical judgment today based on the combination of historical information, prior notes, and today's exam/ interactions. When time spent is documented, it refers only to time spent today by the signer, or if indicated, combined time spent today by collaborating physician/nurse practitioner.
[2017-09-05] MEDS: Morphine Sulfate 15 MG SR Tablet PO SCH (21:03)
[2017-09-05] MEDS: Azithromycin Inj 500 MG in Sodium Chlor 0.9% Inj 250 ML IV.SIG SCH (23:45)
[2017-09-06] MEDS: Nystatin 100,000 UNITS/GM Powder 15 GM Bottle TOPICAL SCH ×2 (08:09→13:09)
[2017-09-06] MEDS: Enoxaparin Inj 40 MG/0.4 ML Syringe SQ SCH (08:09)
[2017-09-06] MEDS: Metoprolol Tartrate 50 MG Tablet PO SCH (08:10)
[2017-09-06] MEDS: Sodium Hypochlorite 0.125% Top Soln 500 ML Bottle TOPICAL SCH (08:10)
[2017-09-06] MEDS: Amiodarone 200 MG Tablet PO SCH (08:10)
[2017-09-06] MEDS: Piperacil/Tazo 4.5 GM Premix 4.5 GM/100 ML BAG IV.SIG SCH ×4 (08:12→17:57)
--- NOTE | 2017-09-06 08:52 | P.PNIM ---
Subjective Interval history: in no acute distress and resting comfortably. pain is fairly controlled. no fever. Physical Exam Vital signs: Vital Signs 09/05/17 09:00 09/05/17 10:00 09/05/17 11:00 Temperature 98.2 F Pulse Rate 62 62 53 L Respiratory Rate 16 Blood Pressure 138/77 Pulse Oximetry 99 09/05/17 12:00 09/05/17 13:00 09/05/17 14:00 Temperature Pulse Rate 52 L 52 L 52 L Respiratory Rate Blood Pressure Pulse Oximetry 09/05/17 15:00 09/05/17 16:00 09/05/17 17:00 Temperature 97.9 F Pulse Rate 54 L 50 L 50 L Respiratory Rate 18 Blood Pressure 126/73 Pulse Oximetry 98 09/05/17 18:00 09/05/17 19:00 09/05/17 20:00 Temperature 98.0 F Pulse Rate 54 L 52 L 54 L Respiratory Rate 16 Blood Pressure 129/66 Pulse Oximetry 96 09/05/17 22:33 09/06/17 00:00 09/06/17 03:00 Temperature 97.9 F 98.0 F Pulse Rate 67 49 L Respiratory Rate 18 14 14 Blood Pressure 122/70 118/69 Pulse Oximetry 95 99 Intake & Output 09/05/17 09/06/17 09/06/17 18:59 06:59 18:59 Intake Total 1000 / 1000 Output Total 2042 / 2042 1120 / 1120 Balance -1043 / -1043 -1120 / -1120 Intake: IV 200 / 200 Zosyn 4.5 GM Premix 4.5 gm In 200 / 200 100 ml @ 200 mls/hr IV.SIG Q6HR [facility]WANA Rx#:[id number] Oral 800 / 800 Output: Urine 2000 620 / 620 Stool 2 / 2 Wound Drainage 40 / 40 500 / 500 Medial Chest 40 / 40 500 / 500 Other: # Voids 2 Date of Last Bowel Movement 09/04/17 09/05/17 - Constitutional no acute distress - Routine Respiratory Exam Present: CTA bilaterally - Routine Cardiovascular Exam Present: RRR - Routine Abdominal Exam Present: soft - Routine Extremities Exam Comments: no pedal edema. - Routine Skin Exam Comments: anterior chest covered with clean dressing. - Routine Neurological Exam Present: alert, oriented X3 Results - Labs CBC & Chem 7: 09/04/17 07:21 09/04/17 07:21 - Procedures 08/07 PROCEDURES PERFORMED: 1. 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 2. Closure of chest wall defect 6 x 4 cm with dermal matrix biological mesh. 3. Placement of VAC dressing to wound, 26 x 21 cm. 4. Right thoracostomy tube placement. 08/10 vac dressing 08/20 Right pedicled latissimus muscle flap to right chest wound Left pectoralis major muscle flap to right chest wound 08/23 Right chest wound VAC change (01930) Right chest wound debridement (95686, 41677 x 6) Assessment and Plan - Plan Mr. Street is a 51-year-old male with a history of locally advanced basosquamous carcinoma and hypertension who was sent to the hospital by his oncologist due to hypercalcemia. He complained of abdominal pain that was cramping in quality. He also complained of purulent discharge from his chest wall fungating mass. On 08/07/2017 patient was taken to OR for radical resection of chest wall malignancy. He underwent resection of sternum and costochondral area of ribs 2 as well as wound VAC placement. Postoperatively he was admitted to ICU. Patient developed atrial fibrillation with RVR. On 08/29 patient had runs of nonsustained ventricular tachycardia. Dr. pope evaluated patient and started patient on amiodarone drip. Atrial fibrillation with rapid ventricular rate Ventricular tachycardia Tachybradycardia syndrome -continue Amiodarone,Metoprolol and aspirin- -evaluated by cardiology; cardiology has signed off. Malignant fungating chest wall mass -Status post surgical resection on 08/07/2017. Wound VAC is in place. Plastic surgery following. -Continue Zosyn and azithromycin -Continue [place] for pain. continue PT. palliative care following. Discharge Planning: when cleared by plastic surgery.
--- NOTE | 2017-09-06 16:57 | P.PNPAL ---
Reason for Visit Reason for visit: a. To assist with evaluation and management of symptoms including:pain b. To assist medical decision maker(s) with: better understanding of current medical conditions; weighing benefits/burdens of medical treatment options; making medical treatment decisions. Subjective Subjective/Interval History: Patient was moved to another floor at 10:30 pm at night according to patient and , and as a result patient was in pain. They are not sure if the schedule long acting morphine overnight was effective or not. Pain agian is sternal at the chest. Patient and want to continue dosage again and if needed retitrate Saturday when palliative care is available. Family/Friend Interactions: spend the night at bedside. Advance Directives Living Will: Never completed Health Care Surrogate: Never completed Durable Power of Rug Inspector: Never completed Objective Vital Signs: Vital Signs 09/05/17 17:00 09/05/17 18:00 09/05/17 19:00 Temperature Pulse Rate 50 L 54 L 52 L Respiratory Rate Blood Pressure Pulse Oximetry 09/05/17 20:00 09/05/17 22:33 09/06/17 00:00 Temperature 98.0 F 97.9 F Pulse Rate 54 L 67 Respiratory Rate 16 18 14 Blood Pressure 129/66 122/70 Pulse Oximetry 96 95 09/06/17 03:00 09/06/17 07:00 09/06/17 08:00 Temperature 98.0 F 98.2 F Pulse Rate 49 L 60 54 L Respiratory Rate 14 20 Blood Pressure 118/69 140/78 Pulse Oximetry 99 97 09/06/17 08:59 09/06/17 11:00 09/06/17 12:00 Temperature 98.2 F Pulse Rate 52 L 57 L Respiratory Rate 16 20 Blood Pressure 112/64 Pulse Oximetry 99 09/06/17 13:06 09/06/17 15:00 Temperature 98.1 F Pulse Rate 51 L Respiratory Rate 16 20 Blood Pressure 112/69 Pulse Oximetry 98 Intake & Output 09/05/17 09/06/17 09/06/17 18:59 06:59 18:59 Intake Total 1000 / 1000 450 / 450 Output Total 2042 1120 / 1120 Balance -1043 / -1043 -670 / -670 Intake: IV 200 / 200 450 / 450 Azithromycin Inj 500 MG In NS 250 / 250 Inj 250 ML @ 250 mls/hr IV.SIG Q24H [facility] Rx#:[id number] Zosyn 4.5 GM Premix 4.5 gm In 200 / 200 200 / 200 100 ml @ 200 mls/hr IV.SIG Q6HR [facility]WANA Rx#:[id number] Oral 800 / 800 Output: Urine 2000 620 / 620 Stool 2 / 2 Wound Drainage 40 / 40 500 / 500 Medial Chest 40 / 40 500 / 500 Other: # Voids 2 Date of Last Bowel Movement 09/04/17 09/05/17 09/06/17 # Bowel Movements 1 Physical Exam: CONSTITUTIONAL/GENERAL: This is an 51 year old male, appears fatigue at times. SKIN: No jaundice, rashes, or lesions. Wound VAC mid-sternum. Back has stables in dressing on excision. HEAD: Atraumatic. Normocephalic. EYES: Pupils equal and round and reactive. Extraocular motions intact. No scleral icterus. No injection or drainage. Fundi not examined. ENT: Hearing grossly normal. Nose without bleeding or purulent drainage. Throat without visible erythema, exudates, masses, or lesions. NECK: Trachea midline. Supple, nontender. No palpable thyroid enlargement or nodularity. CARDIOVASCULAR: irregularly without murmurs, gallops, or rubs. RESPIRATORY/CHEST: Symmetric, unlabored respirations. Clear to auscultation. Breath sounds equal bilaterally. No wheezes, rales, or rhonchi. GASTROINTESTINAL: Abdomen soft, non-tender, nondistended. No hepato-splenomegaly , or palpable masses. No guarding. Bowel sounds present. GENITOURINARY: Without palpable bladder distension. Leroy catheter in place. MUSCULOSKELETAL: Extremities without clubbing, cyanosis, or edema. LYMPHATICS: No palpable cervical or supraclavicular adenopathy. NEUROLOGICAL: Awake and alert. Motor and sensory grossly within normal limits. Follows commands. Cognitively sharp. Moves all extremities. PSYCHIATRIC: No obvious anxiety/depression. no apparent hallucinations or other psychotic thought process. Diagnostic Tests Laboratory: Laboratory Results - last 72 hr 09/02/17 09/04/17 09/04/17 08:11 07:21 07:21 WBC 8.7 RBC 3.29 L Hgb 9.2 L Hct 28.2 L MCV 85.7 MCH 27.8 MCHC 32.5 RDW 17.0 Plt Count 507 H MPV 8.9 Neut % (Auto) 75.1 H Lymph % (Auto) 16.6 [place] % (Auto) 7.9 Eos % (Auto) 0.2 Baso % (Auto) 0.2 Neut # (Auto) 6.5 Lymph # (Auto) 1.4 [place] # (Auto) 0.7 Eos # (Auto) 0.0 Baso # (Auto) 0.0 WBC Differential . Differential Comment Auto diff final Sodium 140 Potassium 3.9 Chloride 106 Carbon Dioxide 23.9 Anion Gap 10 BUN 9 Creatinine 0.55 L Estimated GFR Greater than 89 Random Glucose 79 Calcium 8.2 L Phosphorus 2.6 Magnesium 1.7 Total Bilirubin 0.2 AST 47 H ALT 38 Alkaline Phosphatase 125 H Total Protein 5.7 L Albumin 1.9 L Ascorbic Acid 0.4000 Result Diagrams: 09/04/17 07:21 09/04/17 07:21 Procedures: 08/07 PROCEDURES PERFORMED: 1. 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 2. Closure of chest wall defect 6 x 4 cm with dermal matrix biological mesh. 3. Placement of VAC dressing to wound, 26 x 21 cm. 4. Right thoracostomy tube placement. 08/10 vac dressing 08/20 Right pedicled latissimus muscle flap to right chest wound Left pectoralis major muscle flap to right chest wound 08/23 Right chest wound VAC change (80487) Right chest wound debridement (73101, 87172 x 6) Assessment and Plan - Disease Oriented Problem List (1) Basal cell carcinoma (2) Open chest wound Comment: multi drug resistance psudomonas (3) Afib (4) Ventricular tachycardia - Symptom Scale (1) Pain 0-10 Scale: 3 Pertinent Non-Medical Issues: Psychosocial:Originally from [place]. Moved to [place] in the 70s. . No Children. Worked in [employer] Spiritual:Hindu Legal:no known advance directive. Pt's spouse would be proxy Ethical issues impacting care:none at this time. Important Contacts: spouse Barb Carpio [phone] Prognosis: Prognosis is guarded. 51 year old with basal cell cancer s/p radical resection of sternum chest. Condition complicated by arrhtymias, pain, severe post surgica wounds, infection. Code Status: Full Code Plan: == capacity- pt has capacity to make medical decsions. == if pt was to lose capacity, pt's spouse would serve as proxy. == goals of care: pt would prefer to be present. Are aggressive. == symptoms: pain- are mainly surgical in mid-sternum and in the back at incision/wounds. Pt wakes up from sleep from pain. Given hx of arrhythmia, started long acting morphine at night. They are unsure if it was effective as pt was moved lastnight to another floor. They want to continue current dosage and monitor. Continue prn hydrocodone. Bowl Movement- pt and had said his stools have been loose, declined schedule stool softner for now. also endorse pt is moving bowels. == Code: status, full. == palliative care will continue to follow to provide support/ goals of care conversation/ and symptom managment as clinical conditon evolves. Attestation Attestation: To help prompt me to consider important information that might be impacting today's encounter and assessment, information from prior notes written by myself or my colleagues may have been "brought forward" into today's note. My signature on this note, however, is an attestation that I personally performed the exam, history, and/or decision-making noted today, and, unless otherwise indicated, the interactions with patient, family, and staff as well as the review of records all occurred today. I also attest that the listed assessment and stated plan reflect my best clinical judgment today based on the combination of historical information, prior notes, and today's exam/ interactions. When time spent is documented, it refers only to time spent today by the signer, or if indicated, combined time spent today by collaborating physician/nurse practitioner.
[2017-09-07] MEDS: Metoprolol Tartrate 50 MG Tablet PO SCH ×3 (00:09→22:02)
[2017-09-07] MEDS: Morphine Sulfate 15 MG SR Tablet PO SCH ×2 (00:10→22:02)
[2017-09-07] MEDS: Azithromycin Inj 500 MG in Sodium Chlor 0.9% Inj 250 ML IV.SIG SCH (00:11)
[2017-09-07] MEDS: Piperacil/Tazo 4.5 GM Premix 4.5 GM/100 ML BAG IV.SIG SCH ×4 (00:12→18:26)
[2017-09-07] MEDS: Nystatin 100,000 UNITS/GM Powder 15 GM Bottle TOPICAL SCH ×4 (00:12→22:03)
[2017-09-07] MEDS: Amiodarone 200 MG Tablet PO SCH (08:08)
[2017-09-07] MEDS: Enoxaparin Inj 40 MG/0.4 ML Syringe SQ SCH (08:09)
--- NOTE | 2017-09-07 14:22 | P.PNIM ---
Subjective Interval history: No distress today. Pain controlled. No nausea. Physical Exam Vital signs: Vital Signs 09/06/17 15:00 09/06/17 18:41 09/06/17 19:00 Temperature 98.1 F Pulse Rate 51 L Respiratory Rate 20 16 16 Blood Pressure 112/69 Pulse Oximetry 98 09/06/17 20:00 09/06/17 23:00 09/07/17 03:00 Temperature 98.0 F 97.9 F 97.8 F Pulse Rate 64 72 65 Respiratory Rate 14 19 14 Blood Pressure 128/65 120/78 110/62 Pulse Oximetry 95 96 95 09/07/17 08:00 09/07/17 11:59 09/07/17 12:00 Temperature 97.8 F 97.9 F Pulse Rate 55 L 55 L Respiratory Rate 19 19 19 Blood Pressure 156/72 H 131/71 Pulse Oximetry 98 98 Intake & Output 09/06/17 09/07/17 09/07/17 18:59 06:59 18:59 Intake Total 1712 / 1712 570 / 570 100 / 100 Output Total 1660 / 1660 Balance 52 / 52 570 / 570 100 / 100 Weight 85.8 kg Intake: IV 550 / 550 350 / 350 100 / 100 Azithromycin Inj 500 MG In NS 250 / 250 250 / 250 Inj 250 ML @ 250 mls/hr IV.SIG Q24H [facility] Rx#:[id number] Zosyn 4.5 GM Premix 4.5 gm In 300 / 300 100 / 100 100 / 100 100 ml @ 200 mls/hr IV.SIG Q6HR [facility]NA Rx#:[id number] Oral 600 / 600 220 / 220 Other 562 / 562 Output: Urine 620 / 620 Pleural Fluid 30 / 30 Estimated Blood Loss 10 / 10 Wound Drainage 1000 / 1000 Medial Chest 1000 / 1000 Other: Other Intake Source Saline Solution # Voids 2 Date of Last Bowel Movement 09/06/17 09/06/17 09/06/17 # Bowel Movements 1 Narrative: GENERAL: NAD, A&Ox3 HEAD: Normocephalic. NECK: Supple, trachea midline. No lymphadenopathy. EYES: No scleral icterus. No injection or drainage. CARDIOVASCULAR: Regular rate and rhythm without murmurs, gallops, or rubs. RESPIRATORY: Breath sounds equal bilaterally. No accessory muscle use. GASTROINTESTINAL: Abdomen soft, non-tender, nondistended. MUSCULOSKELETAL: No cyanosis, or edema. Large chest wound vac dressing in place. SKIN: Warm and dry. NEURO: No focal neurological deficits. Results - Labs CBC & Chem 7: 09/04/17 07:21 09/04/17 07:21 - Procedures 08/07 PROCEDURES PERFORMED: 1. 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 2. Closure of chest wall defect 6 x 4 cm with dermal matrix biological mesh. 3. Placement of VAC dressing to wound, 26 x 21 cm. 4. Right thoracostomy tube placement. 08/10 vac dressing 08/20 Right pedicled latissimus muscle flap to right chest wound Left pectoralis major muscle flap to right chest wound 08/23 Right chest wound VAC change (52686) Right chest wound debridement (63854, 02298 x 6) Assessment and Plan - Plan 51-year-old male admitted for a chest mass, now post op excision of mass. Atrial fibrillation with rapid ventricular rate Ventricular tachycardia Tachybradycardia syndrome May be related to anatomical disturbances continue Amiodarone,Metoprolol and aspirin Follow on telemetry, for recurrence Malignant fungating chest wall mass Status post surgical resection on 08/07/2017. Continue wound vac Continue zosyn Continue azithromycin PRN pain treatment DVT Prophylaxis SCDs Discharge Planning: Limited resources/income Would need outpatient care at this point and wound vac when cleared by plastic surgery
[2017-09-07] MEDS: Sodium Hypochlorite 0.125% Top Soln 500 ML Bottle TOPICAL SCH (22:02)
[2017-09-08] MEDS: Azithromycin Inj 500 MG in Sodium Chlor 0.9% Inj 250 ML IV.SIG SCH ×2 (00:43→22:10)
[2017-09-08] MEDS: Piperacil/Tazo 4.5 GM Premix 4.5 GM/100 ML BAG IV.SIG SCH ×4 (00:44→19:04)
[2017-09-08] MEDS: Nystatin 100,000 UNITS/GM Powder 15 GM Bottle TOPICAL SCH ×2 (06:42→19:08)
[2017-09-08] MEDS: Enoxaparin Inj 40 MG/0.4 ML Syringe SQ SCH (08:33)
[2017-09-08] MEDS: Metoprolol Tartrate 50 MG Tablet PO SCH ×2 (08:33→22:09)
[2017-09-08] MEDS: Amiodarone 200 MG Tablet PO SCH (08:33)
--- NOTE | 2017-09-08 11:49 | P.PNIM ---
Subjective Interval history: No complaints today. Pain is controlled. No fevers overnight. Physical Exam Vital signs: Vital Signs 09/07/17 11:59 09/07/17 12:00 09/07/17 16:00 Temperature 97.9 F 98.2 F Pulse Rate 55 L 58 L Respiratory Rate 19 19 19 Blood Pressure 131/71 121/70 Pulse Oximetry 98 97 09/07/17 20:00 09/07/17 23:00 09/08/17 00:00 Temperature 98 F 98.8 F Pulse Rate 57 L 60 50 L Respiratory Rate 16 16 Blood Pressure 119/68 115/68 Pulse Oximetry 98 99 09/08/17 00:20 09/08/17 00:21 09/08/17 04:00 Temperature 98.3 F Pulse Rate 59 L Respiratory Rate 16 16 16 Blood Pressure 110/66 Pulse Oximetry 98 09/08/17 08:45 Temperature 97.8 F Pulse Rate 52 L Respiratory Rate 18 Blood Pressure 144/69 H Pulse Oximetry 100 Intake & Output 09/07/17 09/08/17 09/08/17 18:59 06:59 18:59 Intake Total 200 / 200 1850 / 1850 Output Total 1000 / 1000 1700 / 1700 Balance -800 / -800 150 / 150 Weight 86 kg Intake: IV 200 / 200 200 / 200 Zosyn 4.5 GM Premix 4.5 gm In 200 / 200 200 / 200 100 ml @ 200 mls/hr IV.SIG Q6HR TAWANA Rx#:[id number] Oral 1650 / 1650 Output: Urine 1000 / 1000 1700 / 1700 Other: Date of Last Bowel Movement 09/06/17 09/07/17 09/07/17 # Bowel Movements 1 0 Narrative: GENERAL: NAD, A&Ox3 HEAD: Normocephalic. NECK: Supple, trachea midline. No lymphadenopathy. EYES: No scleral icterus. No injection or drainage. CARDIOVASCULAR: Regular rate and rhythm without murmurs, gallops, or rubs. RESPIRATORY: Breath sounds equal bilaterally. No accessory muscle use. GASTROINTESTINAL: Abdomen soft, non-tender, nondistended. MUSCULOSKELETAL: No cyanosis, or edema. Large chest wound vac dressing in place. SKIN: Warm and dry. NEURO: No focal neurological deficits. Results - Labs CBC & Chem 7: 09/04/17 07:21 09/04/17 07:21 - Procedures 08/07 PROCEDURES PERFORMED: 1. 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 2. Closure of chest wall defect 6 x 4 cm with dermal matrix biological mesh. 3. Placement of VAC dressing to wound, 26 x 21 cm. 4. Right thoracostomy tube placement. 08/10 vac dressing 08/20 Right pedicled latissimus muscle flap to right chest wound Left pectoralis major muscle flap to right chest wound 08/23 Right chest wound VAC change (88088) Right chest wound debridement (26214, 05681 x 6) Assessment and Plan - Plan 51-year-old male admitted for a chest mass, now post op excision of mass. No significant changes from previous day. Continue wound VAC. Surgeons following. Atrial fibrillation with rapid ventricular rate Ventricular tachycardia Tachybradycardia syndrome May be related to anatomical disturbances continue Amiodarone,Metoprolol and aspirin Follow on telemetry, for recurrence Malignant fungating chest wall mass Status post surgical resection on 08/07/2017. Continue wound vac Continue zosyn Continue azithromycin PRN pain treatment DVT Prophylaxis SCDs Discharge Planning: Limited resources/income Would need outpatient care at this point and wound vac when cleared by plastic surgery
[2017-09-08] MEDS: Sodium Hypochlorite 0.125% Top Soln 500 ML Bottle TOPICAL SCH (12:48)
[2017-09-08] MEDS ORDERED: HYDROmorphone PF Inj 2 MG/ML Vial IV.PUSH SCH (14:30)
--- NOTE | 2017-09-08 16:46 | P.PN ---
Subjective Interval history: Tolerating p.o. Pain controlled. Physical Exam Vital signs: Vital Signs 09/07/17 20:00 09/07/17 23:00 09/08/17 00:00 Temperature 98 F 98.8 F Pulse Rate 57 L 60 50 L Respiratory Rate 16 16 Blood Pressure 119/68 115/68 Pulse Oximetry 98 99 09/08/17 00:20 09/08/17 00:21 09/08/17 04:00 Temperature 98.3 F Pulse Rate 59 L Respiratory Rate 16 16 16 Blood Pressure 110/66 Pulse Oximetry 98 09/08/17 08:45 09/08/17 12:00 Temperature 97.8 F 98.2 F Pulse Rate 52 L 82 Respiratory Rate 18 18 Blood Pressure 144/69 H 123/57 L Pulse Oximetry 100 99 Intake & Output 09/07/17 09/08/17 09/08/17 18:59 06:59 18:59 Intake Total 200 / 200 1850 / 1850 100 / 100 Output Total 1000 / 1000 1700 / 1700 Balance -800 / -800 150 / 150 100 / 100 Weight 86 kg Intake: IV 200 / 200 200 / 200 100 / 100 Zosyn 4.5 GM Premix 4.5 gm In 200 / 200 200 / 200 100 / 100 100 ml @ 200 mls/hr IV.SIG Q6HR [facility]WANA Rx#:[id number] Oral 1650 / 1650 Output: Urine 1000 / 1000 1700 / 1700 Other: Date of Last Bowel Movement 09/06/17 09/07/17 09/07/17 # Bowel Movements 1 0 Narrative: Afebrile vital signs within normal limits Right chest wound VAC with good suction Results - Labs CBC & Chem 7: 09/04/17 07:21 09/04/17 07:21 - Procedures 08/07 PROCEDURES PERFORMED: 1. 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 2. Closure of chest wall defect 6 x 4 cm with dermal matrix biological mesh. 3. Placement of VAC dressing to wound, 26 x 21 cm. 4. Right thoracostomy tube placement. 08/10 vac dressing 08/20 Right pedicled latissimus muscle flap to right chest wound Left pectoralis major muscle flap to right chest wound 08/23 Right chest wound VAC change (89878) Right chest wound debridement (37602, 30153 x 6) Assessment and Plan - Assessment (1) Open chest wound Code(s): S21.109A - Unspecified open wound of unspecified front wall of thorax without penetration into thoracic cavity, initial encounter Status: Acute - Plan 51-year-old male status post right latissimus dorsi myocutaneous and left pectoralis major muscle flaps to right chest wound, now VAC'd Sterile wound VAC change performed at bedside Nursing to perform twice weekly wound VAC changes Wound VAC to be placed to -125 mmHg low continuous suction
[2017-09-08] MEDS: Morphine Sulfate 15 MG SR Tablet PO SCH (22:09)
[2017-09-09] MEDS: Piperacil/Tazo 4.5 GM Premix 4.5 GM/100 ML BAG IV.SIG SCH ×4 (02:10→17:12)
[2017-09-09] MEDS: Enoxaparin Inj 40 MG/0.4 ML Syringe SQ SCH (08:57)
[2017-09-09] MEDS: Metoprolol Tartrate 50 MG Tablet PO SCH ×2 (08:57→21:29)
[2017-09-09] MEDS: Amiodarone 200 MG Tablet PO SCH (08:57)
--- NOTE | 2017-09-09 11:23 | P.PNIM ---
Subjective Interval history: Dressing change yesterday. Patient comfortable in bed this morning. He reports that the dressing change painful but felt better afterwards. Physical Exam Vital signs: Vital Signs 09/08/17 12:00 09/08/17 13:12 09/08/17 16:00 Temperature 98.2 F 97.7 F Pulse Rate 53 L 134 H Respiratory Rate 18 18 18 Blood Pressure 123/57 L 104/71 Pulse Oximetry 99 96 09/08/17 21:20 09/08/17 22:00 09/09/17 00:00 Temperature 98.8 F Pulse Rate 120 H 95 H 62 Respiratory Rate 17 Blood Pressure 100/75 Pulse Oximetry 98 09/09/17 00:41 09/09/17 03:30 09/09/17 04:00 Temperature 98.7 F 98.3 F Pulse Rate 110 H 98 H 55 L Respiratory Rate 18 19 Blood Pressure 110/64 115/66 Pulse Oximetry 98 96 09/09/17 08:00 Temperature 98.0 F Pulse Rate 57 L Respiratory Rate 18 Blood Pressure 103/59 L Pulse Oximetry 97 Intake & Output 09/08/17 09/09/17 09/09/17 18:59 06:59 18:59 Intake Total 200 / 200 2275 / 2275 Output Total 800 / 800 1450 / 1450 Balance -600 / -600 825 / 825 Weight 86 kg Intake: IV 200 / 200 300 / 300 Zosyn 4.5 GM Premix 4.5 gm In 200 / 200 300 / 300 100 ml @ 200 mls/hr IV.SIG Q6HR [facility]WANA Rx#:[id number] Oral 1974 Output: Urine 800 / 800 1450 / 1450 Other: Date of Last Bowel Movement 09/07/17 # Bowel Movements 1 Narrative: GENERAL: NAD, A&Ox3 HEAD: Normocephalic. NECK: Supple, trachea midline. No lymphadenopathy. EYES: No scleral icterus. No injection or drainage. CARDIOVASCULAR: Regular rate and rhythm without murmurs, gallops, or rubs. RESPIRATORY: Breath sounds equal bilaterally. No accessory muscle use. GASTROINTESTINAL: Abdomen soft, non-tender, nondistended. MUSCULOSKELETAL: No cyanosis, or edema. Anterior chest has a large dressing in place. SKIN: Warm and dry. NEURO: No focal neurological deficits. Results - Labs CBC & Chem 7: 09/04/17 07:21 09/04/17 07:21 - Procedures 08/07 PROCEDURES PERFORMED: 1. 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 2. Closure of chest wall defect 6 x 4 cm with dermal matrix biological mesh. 3. Placement of VAC dressing to wound, 26 x 21 cm. 4. Right thoracostomy tube placement. 08/10 vac dressing 08/20 Right pedicled latissimus muscle flap to right chest wound Left pectoralis major muscle flap to right chest wound 08/23 Right chest wound VAC change (11941) Right chest wound debridement (59740, 68235 x 6) Assessment and Plan - Plan 51-year-old male admitted for a chest mass, now post op excision of mass. Dressing change yesterday. Pain control. Continue wound VAC. Surgeons following. Atrial fibrillation with rapid ventricular rate Ventricular tachycardia Tachybradycardia syndrome May be related to anatomical disturbances continue Amiodarone,Metoprolol and aspirin Follow on telemetry, for recurrence Malignant fungating chest wall mass Status post surgical resection on 08/07/2017. Continue wound vac Continue zosyn Continue azithromycin PRN pain treatment DVT Prophylaxis SCDs Discharge Planning: Limited resources/income Would need outpatient care at this point and wound vac when cleared by plastic surgery
--- NOTE | 2017-09-09 15:25 | P.PNPAL ---
Reason for Visit Reason for visit: a. To assist with evaluation and management of symptoms including:pain, insomnia b. To assist medical decision maker(s) with: better understanding of current medical conditions; weighing benefits/burdens of medical treatment options; making medical treatment decisions. Subjective Subjective/Interval History: Pt is a 51 year old with a prolong hospitalization for >1 month for a fungating chest mass/ locally advanced basosqumous carcionma. Pt is s/p radical surgical chest wall resection, with resection of sternum, costochondrial area. pt also has various followup surgeres (wound vac placment , debridement, flap placement etc) and followed by plastic and surgery. condition complicated by Afib/tacybrady syndrome (both cardiology and cardiophyiology involved. ID has been following for wound managment. Palliative care consulted for pain managment. Visit needed on assessment on follow up on patient symtom of pain especially at night. Long acting morphine was started at night. Pt on my visit feels pain is overall controlled. Pt now complain of insomnia at night. He feels it is not the pain that wakes him up, but the iv pump keeps beeping. in bedside agree to that assessment. They defer on increasing long acting morphine this visit, and amenable to try sleep aid. Again pain is mostly at his chest where surgical wound are and back. Rate pain 2/10 currently. He has been staying off dilaudid except for the dressing change. Pt and family at this point continue to endorse full code and continue aggressive medical management. Family grateful for visit. Advance Directives Living Will: Never completed Health Care Surrogate: Never completed Durable Power of Clinical Nursing Intern: Never completed Objective Vital Signs: Vital Signs 09/08/17 16:00 09/08/17 21:20 09/08/17 22:00 Temperature 97.7 F 98.8 F Pulse Rate 134 H 120 H 95 H Respiratory Rate 18 17 Blood Pressure 104/71 100/75 Pulse Oximetry 96 98 09/09/17 00:00 09/09/17 00:41 09/09/17 03:30 Temperature 98.7 F 98.3 F Pulse Rate 62 110 H 98 H Respiratory Rate 18 19 Blood Pressure 110/64 115/66 Pulse Oximetry 98 96 09/09/17 04:00 09/09/17 08:00 09/09/17 12:00 Temperature 98.0 F 98.7 F Pulse Rate 55 L 57 L 56 L Respiratory Rate 18 18 Blood Pressure 103/59 L 98/53 L Pulse Oximetry 97 97 Intake & Output 09/08/17 09/09/17 09/09/17 18:59 06:59 18:59 Intake Total 200 / 200 2275 / 2275 Output Total 800 / 800 1450 / 1450 Balance -600 / -600 825 / 825 Weight 86 kg Intake: IV 200 / 200 300 / 300 Zosyn 4.5 GM Premix 4.5 gm In 200 / 200 300 / 300 100 ml @ 200 mls/hr IV.SIG Q6HR [facility]NA Rx#:[id number] Oral 1974 Output: Urine 800 / 800 1450 / 1450 Other: Date of Last Bowel Movement 09/07/17 09/09/17 # Bowel Movements 1 Physical Exam: CONSTITUTIONAL/GENERAL: This is an 51 year old male, appears fatigue at times. SKIN: No jaundice, rashes, or lesions. Wound VAC mid-sternum HEAD: Atraumatic. Normocephalic. EYES: Pupils equal and round and reactive. Extraocular motions intact. No scleral icterus. No injection or drainage. Fundi not examined. ENT: Hearing grossly normal. Nose without bleeding or purulent drainage. Throat without visible erythema, exudates, masses, or lesions. NECK: Trachea midline. Supple, nontender. No palpable thyroid enlargement or nodularity. CARDIOVASCULAR: irregularly without murmurs, gallops, or rubs. RESPIRATORY/CHEST: Symmetric, unlabored respirations. Clear to auscultation. Breath sounds equal bilaterally. No wheezes, rales, or rhonchi. GASTROINTESTINAL: Abdomen soft, non-tender, nondistended. No hepato-splenomegaly , or palpable masses. No guarding. Bowel sounds present. GENITOURINARY: Without palpable bladder distension. Leroy catheter in place. MUSCULOSKELETAL: Extremities without clubbing, cyanosis, or edema. LYMPHATICS: No palpable cervical or supraclavicular adenopathy. NEUROLOGICAL: Awake and alert. Motor and sensory grossly within normal limits. Follows commands. Cognitively sharp. Moves all extremities. PSYCHIATRIC: No obvious anxiety/depression. no apparent hallucinations or other psychotic thought process. Diagnostic Tests Result Diagrams: 09/04/17 07:21 09/04/17 07:21 Imaging: ITS Impressions Chest X-Ray 09/03/17 00:00 CONCLUSION: No pneumothorax on right sided chest tube removal. Procedures: 08/07 PROCEDURES PERFORMED: 1. 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 2. Closure of chest wall defect 6 x 4 cm with dermal matrix biological mesh. 3. Placement of VAC dressing to wound, 26 x 21 cm. 4. Right thoracostomy tube placement. 08/10 vac dressing 08/20 Right pedicled latissimus muscle flap to right chest wound Left pectoralis major muscle flap to right chest wound 08/23 Right chest wound VAC change (06266) Right chest wound debridement (85660, 01797 x 6) Assessment and Plan - Disease Oriented Problem List (1) Basal cell carcinoma (2) Open chest wound Comment: multi drug resistance psudomonas (3) Afib (4) Ventricular tachycardia Pertinent Non-Medical Issues: Psychosocial:Originally from [place]. Moved to [place] in the 70s. . No Children. Worked in [employer] Spiritual:Buddhist Legal:no known advance directive. Pt's spouse would be proxy Ethical issues impacting care:none at this time. Important Contacts: spouse Barb Carpio [phone] Prognosis: Prognosis is guarded. 51 year old with basal cell cancer s/p radical resection of sternum chest. Condition complicated by arrhtymias, pain, severe post surgical wounds, infection. Code Status: Full Code Plan: == capacity- pt has capacity to make medical decsions. == if pt was to lose capacity, pt's spouse would serve as proxy. == goals of care: pt and present. Continue all medical care/ aggressive care. == symptoms: pain- pt state pain currently is well managed with hydrocodone and long acting morphine at night. Pain is mainly site of the surgery, and worse at night. Insominia- will add restoril. == Code: status, full. == palliative care will continue to follow to provide support/ goals of care conversation/ and symptom managment as clinical conditon evolves. Attestation Attestation: To help prompt me to consider important information that might be impacting today's encounter and assessment, information from prior notes written by myself or my colleagues may have been "brought forward" into today's note. My signature on this note, however, is an attestation that I personally performed the exam, history, and/or decision-making noted today, and, unless otherwise indicated, the interactions with patient, family, and staff as well as the review of records all occurred today. I also attest that the listed assessment and stated plan reflect my best clinical judgment today based on the combination of historical information, prior notes, and today's exam/ interactions. When time spent is documented, it refers only to time spent today by the signer, or if indicated, combined time spent today by collaborating physician/nurse practitioner.
[2017-09-09] MEDS: Sodium Hypochlorite 0.125% Top Soln 500 ML Bottle TOPICAL SCH (17:12)
[2017-09-09] MEDS: Morphine Sulfate 15 MG SR Tablet PO SCH (21:27)
[2017-09-09] MEDS: Nystatin 100,000 UNITS/GM Powder 15 GM Bottle TOPICAL SCH (21:29)
[2017-09-10] MEDS: Piperacil/Tazo 4.5 GM Premix 4.5 GM/100 ML BAG IV.SIG SCH ×6 (00:33→23:38)
[2017-09-10] MEDS: Azithromycin Inj 500 MG in Sodium Chlor 0.9% Inj 250 ML IV.SIG SCH ×2 (00:46→23:39)
[2017-09-10] MEDS: Nystatin 100,000 UNITS/GM Powder 15 GM Bottle TOPICAL SCH ×3 (05:35→23:39)
[2017-09-10] MEDS: Metoprolol Tartrate 50 MG Tablet PO SCH ×2 (08:54→23:37)
[2017-09-10] MEDS: Enoxaparin Inj 40 MG/0.4 ML Syringe SQ SCH (08:54)
[2017-09-10] MEDS: Sodium Hypochlorite 0.125% Top Soln 500 ML Bottle TOPICAL SCH (08:55)
[2017-09-10] MEDS: Amiodarone 200 MG Tablet PO SCH (08:55)
--- NOTE | 2017-09-10 12:23 | P.PNIM ---
Subjective Interval history: No significant changes compared to previous day. Pain control. No nausea or vomiting. Physical Exam Vital signs: Vital Signs 09/09/17 16:00 09/09/17 20:00 09/10/17 00:00 Temperature 98.6 F 98.0 F 98.4 F Pulse Rate 67 57 L 60 Respiratory Rate 18 18 18 Blood Pressure 107/68 145/70 H 133/66 Pulse Oximetry 98 100 97 09/10/17 04:00 09/10/17 08:00 Temperature 98.5 F 98.6 F Pulse Rate 66 55 L Respiratory Rate 18 20 Blood Pressure 140/70 127/68 Pulse Oximetry 98 99 Intake & Output 09/09/17 09/10/17 09/10/17 18:59 06:59 18:59 Intake Total 100 / 100 200 / 200 Output Total 400 / 400 400 / 400 Balance -300 / -300 -200 / -200 Weight 43.5 kg Intake: IV 100 / 100 200 / 200 Zosyn 4.5 GM Premix 4.5 gm In 100 / 100 200 / 200 100 ml @ 200 mls/hr IV.SIG Q6HR [facility]WANA Rx#:[id number] Output: Urine 400 / 400 400 / 400 Other: # Voids 2 Date of Last Bowel Movement 09/09/17 09/10/17 # Bowel Movements 1 Narrative: GENERAL: NAD, A&Ox3 HEAD: Normocephalic. NECK: Supple, trachea midline. No lymphadenopathy. EYES: No scleral icterus. No injection or drainage. CARDIOVASCULAR: Regular rate and rhythm without murmurs, gallops, or rubs. RESPIRATORY: Breath sounds equal bilaterally. No accessory muscle use. GASTROINTESTINAL: Abdomen soft, non-tender, nondistended. MUSCULOSKELETAL: No cyanosis, or edema. Anterior chest has a large dressing in place. SKIN: Warm and dry. NEURO: No focal neurological deficits. Results - Labs CBC & Chem 7: 09/04/17 07:21 09/04/17 07:21 - Procedures 08/07 PROCEDURES PERFORMED: 1. 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 2. Closure of chest wall defect 6 x 4 cm with dermal matrix biological mesh. 3. Placement of VAC dressing to wound, 26 x 21 cm. 4. Right thoracostomy tube placement. 08/10 vac dressing 08/20 Right pedicled latissimus muscle flap to right chest wound Left pectoralis major muscle flap to right chest wound 08/23 Right chest wound VAC change (75132) Right chest wound debridement (87797, 93281 x 6) Assessment and Plan - Plan 51-year-old male admitted for a chest mass, now post op excision of mass. Dressing change on 09/09/2017. Pain controlled. Continue wound VAC. Surgeons following. Atrial fibrillation with rapid ventricular rate Ventricular tachycardia Tachybradycardia syndrome May be related to anatomical disturbances continue Amiodarone,Metoprolol and aspirin Follow on telemetry, for recurrence Malignant fungating chest wall mass Status post surgical resection on 08/07/2017. Continue wound vac Continue zosyn Continue azithromycin PRN pain treatment DVT Prophylaxis SCDs Discharge Planning: Limited resources/income Would need outpatient care at this point and wound vac when cleared by plastic surgery
--- NOTE | 2017-09-10 15:55 | P.PNCA ---
Subjective Interval history: asleep in nad Physical Exam Vital signs: Vital Signs 09/09/17 16:00 09/09/17 20:00 09/10/17 00:00 Temperature 98.6 F 98.0 F 98.4 F Pulse Rate 67 57 L 60 Respiratory Rate 18 18 18 Blood Pressure 107/68 145/70 H 133/66 Pulse Oximetry 98 100 97 09/10/17 04:00 09/10/17 08:00 09/10/17 12:00 Temperature 98.5 F 98.6 F 97.5 F L Pulse Rate 66 55 L 60 Respiratory Rate 18 20 20 Blood Pressure 140/70 127/68 130/65 Pulse Oximetry 98 99 97 Intake & Output 09/09/17 09/10/17 09/10/17 18:59 06:59 18:59 Intake Total 100 / 100 300 / 300 Output Total 400 / 400 400 / 400 Balance -300 / -300 -100 / -100 Weight 43.5 kg Intake: IV 100 / 100 300 / 300 Zosyn 4.5 GM Premix 4.5 gm In 100 / 100 300 / 300 100 ml @ 200 mls/hr IV.SIG Q6HR TAWANA Rx#:[id number] Output: Urine 400 / 400 400 / 400 Other: # Voids 2 Date of Last Bowel Movement 09/09/17 09/10/17 # Bowel Movements 1 Assessment and Plan - Assessment (1) Afib Code(s): I48.91 - Unspecified atrial fibrillation Status: Acute (2) Basal cell carcinoma Code(s): C44.91 - Basal cell carcinoma of skin, unspecified Status: Acute (3) Ventricular tachycardia Code(s): I47.2 - Ventricular tachycardia Status: Acute - Plan Atrial fibrillation with rapid ventricular rate Ventricular tachycardia Tachybradycardia syndrome currently NSR convert to amio PO clear from cardio perspective for surgery with intermedia clinically stable
--- NOTE | 2017-09-10 17:08 | P.PNPAL ---
Reason for Visit Reason for visit: a. To assist with evaluation and management of symptoms including:pain, insomnia b. To assist medical decision maker(s) with: better understanding of current medical conditions; weighing benefits/burdens of medical treatment options; making medical treatment decisions. Subjective Subjective/Interval History: Pt is a 51 year old with a prolong hospitalization for >1 month for a fungating chest mass/ locally advanced basosqumous carcionma. Pt is s/p radical surgical chest wall resection, with resection of sternum, costochondrial area. pt also has various followup surgeres (wound vac placment , debridement, flap placement etc) and followed by plastic and surgery. condition complicated by Afib/tacybrady syndrome (both cardiology and cardiophyiology involved. ID has been following for wound managment. Palliative care consulted for pain managment, we are also following for symptom of insominia. Patient endorses continue insomnia at night, confirms. Patient feels pain is overall well managed. Goals of care remains the same. Patient looks forward to going home soon. Family/Friend Interactions: at bedside. Advance Directives Living Will: Never completed Health Care Surrogate: Never completed Durable Power of News Production Supervisor: Never completed Objective Vital Signs: Vital Signs 09/09/17 20:00 09/10/17 00:00 09/10/17 04:00 Temperature 98.0 F 98.4 F 98.5 F Pulse Rate 57 L 60 66 Respiratory Rate 18 18 18 Blood Pressure 145/70 H 133/66 140/70 Pulse Oximetry 100 97 98 09/10/17 08:00 09/10/17 12:00 09/10/17 16:00 Temperature 98.6 F 97.5 F L Pulse Rate 55 L 60 92 H Respiratory Rate 20 20 Blood Pressure 127/68 130/65 Pulse Oximetry 99 97 Intake & Output 09/09/17 09/10/17 09/10/17 18:59 06:59 18:59 Intake Total 100 / 100 300 / 300 Output Total 400 / 400 400 / 400 Balance -300 / -300 -100 / -100 Weight 43.5 kg Intake: IV 100 / 100 300 / 300 Zosyn 4.5 GM Premix 4.5 gm In 100 / 100 300 / 300 100 ml @ 200 mls/hr IV.SIG Q6HR TAWANA Rx#:[id number] Output: Urine 400 / 400 400 / 400 Other: # Voids 2 Date of Last Bowel Movement 09/09/17 09/10/17 # Bowel Movements 1 Physical Exam: CONSTITUTIONAL/GENERAL: This is an 51 year old male, appears fatigue at times. SKIN: No jaundice, rashes, or lesions. Wound VAC mid-sternum. HEAD: Atraumatic. Normocephalic. EYES: Pupils equal and round and reactive. Extraocular motions intact. No scleral icterus. No injection or drainage. Fundi not examined. ENT: Hearing grossly normal. Nose without bleeding or purulent drainage. Throat without visible erythema, exudates, masses, or lesions. NECK: Trachea midline. Supple, nontender. No palpable thyroid enlargement or nodularity. CARDIOVASCULAR: irregularly without murmurs, gallops, or rubs. RESPIRATORY/CHEST: Symmetric, unlabored respirations. Clear to auscultation. Breath sounds equal bilaterally. No wheezes, rales, or rhonchi. GASTROINTESTINAL: Abdomen soft, non-tender, nondistended. No hepato-splenomegaly , or palpable masses. No guarding. Bowel sounds present. GENITOURINARY: Without palpable bladder distension. Leroy catheter in place. MUSCULOSKELETAL: Extremities without clubbing, cyanosis, or edema. LYMPHATICS: No palpable cervical or supraclavicular adenopathy. NEUROLOGICAL: Awake and alert. Motor and sensory grossly within normal limits. Follows commands. Cognitively sharp. Moves all extremities. PSYCHIATRIC: No obvious anxiety/depression. no apparent hallucinations or other psychotic thought process. Diagnostic Tests Result Diagrams: 09/04/17 07:21 09/04/17 07:21 Procedures: 08/07 PROCEDURES PERFORMED: 1. 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 2. Closure of chest wall defect 6 x 4 cm with dermal matrix biological mesh. 3. Placement of VAC dressing to wound, 26 x 21 cm. 4. Right thoracostomy tube placement. 08/10 vac dressing 08/20 Right pedicled latissimus muscle flap to right chest wound Left pectoralis major muscle flap to right chest wound 08/23 Right chest wound VAC change (23360) Right chest wound debridement (88236, 75871 x 6) Assessment and Plan - Disease Oriented Problem List (1) Basal cell carcinoma (2) Open chest wound Comment: multi drug resistance psudomonas (3) Afib (4) Ventricular tachycardia - Symptom Scale (1) Pain 0-10 Scale: 2 Pertinent Non-Medical Issues: Psychosocial:Originally from [place]. Moved to [place] in the 70s. . No Children. Worked in [employer] Spiritual:Sikhism Legal:no known advance directive. Pt's spouse would be proxy Ethical issues impacting care:none at this time. Important Contacts: spouse Barb Carpio [phone] Prognosis: Prognosis is guarded. 51 year old with basal cell cancer s/p radical resection of sternum chest. Condition complicated by arrhtymias, pain, severe post surgical wounds, infection. Code Status: Full Code Plan: == capacity- pt has capacity to make medical decsions. == if pt was to lose capacity, pt's spouse would serve as proxy. == goals of care: pt and present. Continue all medical care/ aggressive care. == symptoms: pain- pt state pain currently is well managed with hydrocodone and long acting morphine at night. Pain is mainly site of the surgery, and worse at night. Insominia- increase dose of restoril. == Code: status, full. == palliative care will continue to follow to provide support/ goals of care conversation/ and symptom managment as clinical conditon evolves.
[2017-09-10] MEDS: Morphine Sulfate 15 MG SR Tablet PO SCH (23:36)
[2017-09-10] MEDS: Temazepam 15 MG Capsule PO SCH (23:38)
[2017-09-11] MEDS: Piperacil/Tazo 4.5 GM Premix 4.5 GM/100 ML BAG IV.SIG SCH (05:49)
[2017-09-11] MEDS: Nystatin 100,000 UNITS/GM Powder 15 GM Bottle TOPICAL SCH ×2 (05:49→17:05)
--- NOTE | 2017-09-11 08:13 | P.PNIM ---
Subjective Interval history: Follow-up for chest wound No overnight events, afebrile, pain is controlled. No constipation. Denies any shortness of breath. Physical Exam Vital signs: Vital Signs 09/10/17 12:00 09/10/17 15:00 09/10/17 16:00 Temperature 97.5 F L 97.8 F Pulse Rate 60 84 92 H Respiratory Rate 20 20 Blood Pressure 130/65 109/71 Pulse Oximetry 97 99 09/10/17 20:00 09/11/17 00:00 09/11/17 04:00 Temperature 98.3 F 98.5 F 98.0 F Pulse Rate 56 L 60 60 Respiratory Rate 18 18 18 Blood Pressure 109/61 115/66 166/78 H Pulse Oximetry 97 98 99 Intake & Output 09/10/17 09/11/17 09/11/17 18:59 06:59 18:59 Intake Total 200 / 200 Output Total 800 / 800 Balance 200 / 200 -800 / -800 Weight 43.5 kg Intake: IV 200 / 200 Zosyn 4.5 GM Premix 4.5 gm In 200 / 200 100 ml @ 200 mls/hr IV.SIG Q6HR TAWANA Rx#:[id number] Output: Urine 800 / 800 Other: Date of Last Bowel Movement 09/10/17 Narrative: GENERAL: NAD, A&Ox3 HEAD: Normocephalic. NECK: Supple, trachea midline. EYES: No scleral icterus. No injection or drainage. CARDIOVASCULAR: Irregular rhythm, normal rate, no murmurs. Wound VAC in place in the chest. RESPIRATORY: Breath sounds equal bilaterally. No accessory muscle use. GASTROINTESTINAL: Abdomen soft, non-tender, nondistended. MUSCULOSKELETAL: No cyanosis, or edema. NEURO: Alert awake and oriented 3, no focal neurological deficits. Results - Labs CBC & Chem 7: 09/04/17 07:21 09/04/17 07:21 - Procedures 08/07 PROCEDURES PERFORMED: 1. 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 2. Closure of chest wall defect 6 x 4 cm with dermal matrix biological mesh. 3. Placement of VAC dressing to wound, 26 x 21 cm. 4. Right thoracostomy tube placement. 08/10 vac dressing 08/20 Right pedicled latissimus muscle flap to right chest wound Left pectoralis major muscle flap to right chest wound 08/23 Right chest wound VAC change (58663) Right chest wound debridement (41214, 43840 x 6) Assessment and Plan - Plan 51-year-old male admitted for a chest mass, now post op excision of mass. Dressing change on 09/09/2017. Pain controlled. Continue wound VAC. Surgeons following. Atrial fibrillation with rapid ventricular rate Ventricular tachycardia Tachybradycardia syndrome May be related to anatomical disturbances continue Amiodarone switch to oral,Metoprolol and aspirin Follow on telemetry, for recurrence, cardiology has signed off. 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 Plastic surgery consulted, status post surgical resection on 08/07/2017. Biopsy showed invasive squamous cell carcinoma involving bones, cartilage and pleura. Continue wound VAC 2-3 times a week. Wound VAC changed 09/09/2017. On antibiotics, status post vancomycin, has been on Zosyn since 08/02/2017, also on azithromycin. Wound culture from the chest reviewed, grew Pseudomonas with 2 isolates. Both are sensitive to Levaquin. Plan to switch azithromycin to PO and stop Zosyn to Levaquin, discussed with plastic surgery. Will discuss with infectious disease. Continue pain management. Check CBC and BMP -Oncology was following, will discuss further plans for XRT and chemotherapy. DVT Prophylaxis SCDs Discharge Planning: Limited resources/income, needs home health care with wound VAC. Discharge once cleared by plastic surgery.
[2017-09-11] MEDS: Metoprolol Tartrate 50 MG Tablet PO SCH ×2 (08:54→21:55)
[2017-09-11] MEDS: Amiodarone 200 MG Tablet PO SCH (08:54)
[2017-09-11] MEDS: Enoxaparin Inj 40 MG/0.4 ML Syringe SQ SCH (08:54)
[2017-09-11] MEDS: Sodium Hypochlorite 0.125% Top Soln 500 ML Bottle TOPICAL SCH (09:01)
[2017-09-11 12:26] LABS: Hematocrit 31.6 % (39.0-51.0); Hemoglobin 10.2 gm/dL (13.0-17.0); Mean Corpuscular HGB Conc 32.4 % (32.0-36.0); Mean Corpuscular Hemoglobin 27.8 pg (27.0-34.0); Mean Corpuscular Volume 85.8 fL (80.0-100.0); Mean Platelet Volume 9.3 fL (7.0-11.0); Platelet Count 446 th/mm3 (150-450); Red Blood Count 3.68 mil/mm3 (4.50-5.90); Red Cell Distribution Width 17.2 % (11.6-17.2); White Blood Count 11.1 th/mm3 (4.0-11.0)
--- NOTE | 2017-09-11 12:42 | P.PNCA ---
Subjective Interval history: alert in nad Physical Exam Vital signs: Vital Signs 09/10/17 15:00 09/10/17 16:00 09/10/17 20:00 Temperature 97.8 F 98.3 F Pulse Rate 84 92 H 56 L Respiratory Rate 20 18 Blood Pressure 109/71 109/61 Pulse Oximetry 99 97 09/11/17 00:00 09/11/17 04:00 09/11/17 08:00 Temperature 98.5 F 98.0 F 98.4 F Pulse Rate 60 60 82 Respiratory Rate 18 18 16 Blood Pressure 115/66 166/78 H 143/67 H Pulse Oximetry 98 99 98 Intake & Output 09/10/17 09/11/17 09/11/17 18:59 06:59 18:59 Intake Total 200 / 200 Output Total 800 / 800 Balance 200 / 200 -800 / -800 Weight 43.5 kg Intake: IV 200 / 200 Zosyn 4.5 GM Premix 4.5 gm In 200 / 200 100 ml @ 200 mls/hr IV.SIG Q6HR TAWANA Rx#:[id number] Output: Urine 800 / 800 Other: Date of Last Bowel Movement 09/10/17 09/10/17 Assessment and Plan - Assessment (1) Afib Code(s): I48.91 - Unspecified atrial fibrillation Status: Acute (2) Basal cell carcinoma Code(s): C44.91 - Basal cell carcinoma of skin, unspecified Status: Acute (3) Ventricular tachycardia Code(s): I47.2 - Ventricular tachycardia Status: Acute - Plan Atrial fibrillation with rapid ventricular rate Ventricular tachycardia Tachybradycardia syndrome currently NSR convert to amio PO clear from cardio perspective for surgery with intermediate risk clinically stable
[2017-09-11 12:45] LABS: Anion Gap 10 meq/L (5-15); Blood Urea Nitrogen 4 mg/dL (7-18); Carbon Dioxide 25.9 meq/L (21.0-32.0); Chloride 102 meq/L (98-107); Glomerular Filtration Rate Greater Than 89 mL/min (>89); Glucose,Random 86 mg/dL (74-106); Potassium 3.8 meq/L (3.5-5.1); Sodium 138 meq/L (136-145)
--- NOTE | 2017-09-11 15:54 | P.DIET ---
Nutritional Evaluation Type of nutrition evaluation: follow-up Nutrition consult regarding: Diet Evaluation Nutrition screening: MDC (Supplement to Oral Intake, Pt w/ Low Albumin and Large Wound) Subjective Subjective Comments: Pt and unavailable when visited. Objective - Diagnosis Infected Chest Wall Malignancy - Objective % IBW: 78 (IBW = 202#) Body Weight Used for Calculations: IBW (202#) Energy Needs - Lower Range (kCal/kg): 28 Energy Needs - Upper Range (kCal/kg): 32 Lower Limit kCal/kg (kCals): 2,570 Upper Limit kCal/kg (kCals): 2,938 Lower Limit Protein Factor (Grams per Kg): 1.2 Upper Limit Protein Factor (Grams per Kg): 1.5 Lower Protein Needs (Protein): 110 Upper Protein Needs (Protein): 138 Dietitian Reviewed in Medical Record: Current diet, Curent medications, Intake & Output, Labs, Medical history, Wound/DTI (Chest incision w/ wound VAC) Diet Order: Regular w/Ensure Objective Comments: s/p radical resection of chest wall malignancy & VAC placement on 08/07 Meds: Vitamin B12 Assessment Assessment: Pt unavailable on visit. Per EMR, pt still has wound vac to chest. He is s/p radical resection of chest wall malignancy per GS notes. Pt remains at nutritional risk r/t wound VAC and medical dx of lung cancer. Pt is on a Heart Healthy diet, recommend liberalizing to Regular diet to allow more food options. Pt unable to receive cafeteria menu for lunch unless he's on a Regular diet. Per previous RD note, pts is bringing Boost from home. Dietitian following. Weights reviewed and are erratic/ unreliable as indicators: 09/05 60 kg, 09/07 85.8 kg, 09/08 86 kg, 09/09 86 kg, 09/10 43.5 kg, 09/11 43.5 kg. Recommendations: 1. Recommend Regular diet for more food options. 2. providing pt w/ Boost from home per pt preference 3. Please record % of meal eaten under Feeding Assessment in EMR 4. Monitor wts closely. Dietitian to Monitor: Lab values, Supplement acceptance, Intake & Output, Diet tolerance, Weight change, PO Intake, Medical course
[2017-09-11] MEDS: Azithromycin 250 MG Tablet PO SCH (17:07)
--- NOTE | 2017-09-11 17:09 | P.PN ---
Subjective Interval history: Patient reports minimal pain to right chest. Physical Exam Vital signs: Vital Signs 09/10/17 20:00 09/11/17 00:00 09/11/17 04:00 Temperature 98.3 F 98.5 F 98.0 F Pulse Rate 56 L 60 60 Respiratory Rate 18 18 18 Blood Pressure 109/61 115/66 166/78 H Pulse Oximetry 97 98 99 09/11/17 08:00 09/11/17 12:00 Temperature 98.4 F 98.1 F Pulse Rate 82 57 L Respiratory Rate 16 17 Blood Pressure 143/67 H 125/70 Pulse Oximetry 98 98 Intake & Output 09/10/17 09/11/17 09/11/17 18:59 06:59 18:59 Intake Total 200 / 200 Output Total 800 / 800 Balance 200 / 200 -800 / -800 Weight 43.5 kg Intake: IV 200 / 200 Zosyn 4.5 GM Premix 4.5 gm In 200 / 200 100 ml @ 200 mls/hr IV.SIG Q6HR TAWANA Rx#:[id number] Output: Urine 800 / 800 Other: Date of Last Bowel Movement 09/10/17 09/10/17 Narrative: Right chest VAC holding suction No signs cellulitis Results - Labs CBC & Chem 7: 09/11/17 11:55 09/11/17 11:55 Laboratory Results - last 24 hr 09/11/17 09/11/17 09/11/17 11:55 11:55 11:55 WBC 11.1 H RBC 3.68 L Hgb 10.2 L Hct 31.6 L MCV 85.8 MCH 27.8 MCHC 32.4 RDW 17.2 Plt Count 446 MPV 9.3 Sodium 138 Potassium 3.8 Chloride 102 Carbon Dioxide 25.9 Anion Gap 10 BUN 4 L Creatinine 0.52 L Estimated GFR Greater than 89 Random Glucose 86 Calcium 9.0 Magnesium 1.8 - Procedures 08/07 PROCEDURES PERFORMED: 1. 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 2. Closure of chest wall defect 6 x 4 cm with dermal matrix biological mesh. 3. Placement of VAC dressing to wound, 26 x 21 cm. 4. Right thoracostomy tube placement. 08/10 vac dressing 08/20 Right pedicled latissimus muscle flap to right chest wound Left pectoralis major muscle flap to right chest wound 08/23 Right chest wound VAC change (34329) Right chest wound debridement (91046, 92197 x 6) Assessment and Plan - Assessment (1) Open chest wound Code(s): S21.109A - Unspecified open wound of unspecified front wall of thorax without penetration into thoracic cavity, initial encounter Status: Acute - Plan 51-year-old male status post right latissimus dorsi myocutaneous and left pectoralis major muscle flaps to right chest wound, now VAC'd Sterile wound VAC change performed at bedside, showing improved granulation tissue and contraction of the wound since Saturday Nursing to perform twice weekly wound VAC changes Wound VAC to be placed to -125 mmHg low continuous suction We will continue to monitor wound VAC changes Patient likely candidate for skin graft in 1-2 weeks
[2017-09-11] MEDS: Morphine Sulfate 15 MG SR Tablet PO SCH (21:55)
[2017-09-11] MEDS: Temazepam 15 MG Capsule PO SCH (21:55)
[2017-09-12] MEDS: Nystatin 100,000 UNITS/GM Powder 15 GM Bottle TOPICAL SCH ×6 (06:00→22:37)
--- NOTE | 2017-09-12 07:10 | P.PNONC ---
Subjective Interval history: Resting comfortably in bed in no distress. at bedside. Objective Vital Signs/Intake & Output: Vital Signs 09/11/17 08:00 09/11/17 12:00 09/11/17 16:00 Temperature 98.4 F 98.1 F 98.0 F Pulse Rate 73 58 L 57 L Respiratory Rate 16 17 18 Blood Pressure 143/67 H 125/70 116/68 Pulse Oximetry 98 98 99 09/11/17 17:37 09/11/17 20:00 09/11/17 23:00 Temperature 97.9 F 97.9 F Pulse Rate 58 L 61 Respiratory Rate 19 16 16 Blood Pressure 116/66 131/68 Pulse Oximetry 98 98 Intake & Output 09/11/17 09/12/17 09/12/17 18:59 06:59 18:59 Intake Total 960 / 960 450 / 450 Output Total 900 / 900 1250 / 1250 Balance 60 / 60 -800 / -800 Weight 43.5 kg Intake: Oral 960 / 960 450 / 450 Output: Urine 900 / 900 1250 / 1250 Other: Date of Last Bowel Movement 09/10/17 # Bowel Movements 1 Result Diagrams: 09/11/17 11:55 09/11/17 11:55 Laboratory Results: Laboratory Results - last 24 hr 09/11/17 09/11/17 09/11/17 11:55 11:55 11:55 WBC 11.1 H RBC 3.68 L Hgb 10.2 L Hct 31.6 L MCV 85.8 MCH 27.8 MCHC 32.4 RDW 17.2 Plt Count 446 MPV 9.3 Sodium 138 Potassium 3.8 Chloride 102 Carbon Dioxide 25.9 Anion Gap 10 BUN 4 L Creatinine 0.52 L Estimated GFR Greater than 89 Random Glucose 86 Calcium 9.0 Magnesium 1.8 Medications: Active Medications Generic Name Dose Route Start Last Admin Trade Name Freq PRN Reason Stop Dose Admin Hydrocodone Bitart/Acetaminophen 2 tab 08/25/17 13:03 09/11/17 21:54 Oliver 7.5/325 PO 2 tab Q4H PRN Administration PAIN SCALE 6 TO 10 Amiodarone HCl 200 mg 09/02/17 09:00 09/11/17 08:54 Cordarone PO 200 mg DAILY TAWANA Administration Azithromycin 500 mg 09/11/17 10:00 09/11/17 17:07 Zithromax PO 500 mg DAILY TAWANA Administration Cyanocobalamin 1,000 mcg 08/25/17 09:00 09/11/17 08:55 Vitamin B12 PO 1,000 mcg DAILY TAWANA Administration Enoxaparin Sodium 40 mg 08/25/17 09:00 09/11/17 08:54 Lovenox Inj SQ 40 mg DAILY TAWANA Administration Metoprolol Tartrate 5 mg 08/25/17 00:00 08/25/17 11:45 Lopressor Inj IV.PUSH 5 mg Q5M PRN Administration HR>110 Metoprolol Tartrate 50 mg 08/25/17 09:45 09/11/17 21:55 Lopressor PO 50 mg BID TAWANA Administration Morphine Sulfate 15 mg 09/05/17 21:00 09/11/17 21:55 Oramorph Sr PO 15 mg HS TAWANA Administration Nystatin 1 applicatio 08/25/17 06:00 09/11/17 17:05 Mycostatin Powder TOPICAL Not Given Q8HR TAWANA Sodium Chloride 2 ml 08/25/17 09:00 09/11/17 08:55 Ns Flush IV.FLUSH 2 ml BID TAWANA Administration Sodium Hypochlorite 500 ml 08/25/17 09:00 09/11/17 09:01 Dakin's 0.124% Top Soln TOPICAL Not Given DAILY TAWANA Temazepam 15 mg 09/10/17 21:00 09/11/17 21:55 Restoril PO 15 mg HS TAWANA Administration Objective Remarks: GENERAL: Well-nourished, well-developed patient. SKIN: Warm and dry. HEAD: Normocephalic. EYES: No scleral icterus. No injection or drainage. Chest wall: wound vac in place RESPIRATORY: No accessory muscle use. GASTROINTESTINAL: Abdomen soft, non-tender, nondistended. EXTREMITIES: No cyanosis, or edema. MUSCULOSKELETAL: Adequate muscle tone. NEUROLOGICAL: No obvious focal deficit. Awake, alert, and oriented x3. PSYCHIATRIC: Appropriate mood and affect; insight and judgment normal. Assessment/Plan - Plan 1. Locally advanced SCC of chest wall: s/p surgical resection. Plastic surgery team following and will plan for skin graft. He will need XRT to the chest wall in the future. He will also need additional surgery to basosquamous cancers of the back under the direction of Dr. Ahn. Late note entry. Patient seen at approximately 7 pm on 09/11/2017.
[2017-09-12] MEDS: Azithromycin 250 MG Tablet PO SCH (08:50)
[2017-09-12] MEDS: Metoprolol Tartrate 50 MG Tablet PO SCH ×2 (08:51→21:21)
[2017-09-12] MEDS: Amiodarone 200 MG Tablet PO SCH (08:51)
[2017-09-12] MEDS: Enoxaparin Inj 40 MG/0.4 ML Syringe SQ SCH (08:51)
[2017-09-12] MEDS: Sodium Hypochlorite 0.125% Top Soln 500 ML Bottle TOPICAL SCH (08:52)
--- NOTE | 2017-09-12 08:52 | P.PNIM ---
Subjective Interval history: No overnight events, no fever or chills, no cough. Not short of breath. Physical Exam Vital signs: Vital Signs 09/11/17 12:00 09/11/17 16:00 09/11/17 17:37 Temperature 98.1 F 98.0 F Pulse Rate 58 L 57 L Respiratory Rate 17 18 19 Blood Pressure 125/70 116/68 Pulse Oximetry 98 99 09/11/17 20:00 09/11/17 23:00 Temperature 97.9 F 97.9 F Pulse Rate 58 L 61 Respiratory Rate 16 16 Blood Pressure 116/66 131/68 Pulse Oximetry 98 98 Intake & Output 09/11/17 09/12/17 09/12/17 18:59 06:59 18:59 Intake Total 960 / 960 450 / 450 Output Total 900 / 900 1250 / 1250 Balance 60 / 60 -800 / -800 Weight 43.5 kg Intake: Oral 960 / 960 450 / 450 Output: Urine 900 / 900 1250 / 1250 Other: Date of Last Bowel Movement 09/10/17 # Bowel Movements 1 Narrative: GENERAL: NAD, A&Ox3 HEAD: Normocephalic. NECK: Supple, trachea midline. EYES: No scleral icterus. No injection or drainage. CARDIOVASCULAR: Regular rhythm, normal rate, no murmurs. Wound VAC in place, anterior chest area. RESPIRATORY: Breath sounds equal bilaterally. No accessory muscle use. GASTROINTESTINAL: Abdomen soft, non-tender, nondistended. MUSCULOSKELETAL: No cyanosis, or edema. NEURO: Alert awake and oriented 3, no focal neurological deficits. Results - Labs CBC & Chem 7: 09/11/17 11:55 09/11/17 11:55 Laboratory Results - last 24 hr 09/11/17 09/11/17 09/11/17 11:55 11:55 11:55 WBC 11.1 H RBC 3.68 L Hgb 10.2 L Hct 31.6 L MCV 85.8 MCH 27.8 MCHC 32.4 RDW 17.2 Plt Count 446 MPV 9.3 Sodium 138 Potassium 3.8 Chloride 102 Carbon Dioxide 25.9 Anion Gap 10 BUN 4 L Creatinine 0.52 L Estimated GFR Greater than 89 Random Glucose 86 Calcium 9.0 Magnesium 1.8 - Procedures 08/07 PROCEDURES PERFORMED: 1. 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 2. Closure of chest wall defect 6 x 4 cm with dermal matrix biological mesh. 3. Placement of VAC dressing to wound, 26 x 21 cm. 4. Right thoracostomy tube placement. 08/10 vac dressing 08/20 Right pedicled latissimus muscle flap to right chest wound Left pectoralis major muscle flap to right chest wound 08/23 Right chest wound VAC change (39836) Right chest wound debridement (71056, 01064 x 6) Assessment and Plan - Plan 51-year-old male admitted for a chest mass, now post op excision of mass. Dressing change on 09/09/2017. Pain controlled. Continue wound VAC. Surgeons following. Atrial fibrillation with rapid ventricular rate Ventricular tachycardia Tachybradycardia syndrome May be related to anatomical disturbances continue Amiodarone switch to oral,Metoprolol and aspirin Follow on telemetry, for recurrence, cardiology has signed off. 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 Plastic surgery consulted, status post surgical resection on 08/07/2017. Biopsy showed invasive squamous cell carcinoma involving bones, cartilage and pleura. -On antibiotics, status post vancomycin, has been on Zosyn since 08/02/2017, also on azithromycin. Wound culture from the chest reviewed, grew Pseudomonas with 2 isolates. Has also completed treatment for possible pneumonia. Discussed with infectious disease, may stop antibiotics for previous wound culture. Continue pain management. Leukocytosis stable. -Oncology following, s/p surgical resection, he will need XRT in the future as outpatient and additional surgery for the bases, scans are of the back under Dr. Ahn. For skin graft in 1-2 weeks per plastic surgery after discussing on 09/11. Continue wound VAC changes twice a week. Hospital-acquired pneumonia-resolved, stop antibiotics as above. Has been on antibiotics for 2 weeks. DVT Prophylaxis SCDs Discharge Planning: Limited resources/income, needs home health care with wound VAC. Discharge once cleared by plastic surgery.
--- NOTE | 2017-09-12 14:41 | P.PNCA ---
Subjective Interval history: alert in nad Physical Exam Vital signs: Vital Signs 09/11/17 16:00 09/11/17 17:37 09/11/17 20:00 Temperature 98.0 F 97.9 F Pulse Rate 57 L 58 L Respiratory Rate 18 19 16 Blood Pressure 116/68 116/66 Pulse Oximetry 99 98 09/11/17 23:00 09/12/17 08:00 09/12/17 11:00 Temperature 97.9 F 98.5 F 98.3 F Pulse Rate 61 56 L 57 L Respiratory Rate 16 20 20 Blood Pressure 131/68 130/68 116/68 Pulse Oximetry 98 98 99 09/12/17 12:00 Temperature Pulse Rate 53 L Respiratory Rate Blood Pressure Pulse Oximetry Intake & Output 09/11/17 09/12/17 09/12/17 18:59 06:59 18:59 Intake Total 960 / 960 450 / 450 Output Total 900 / 900 1250 / 1250 350 / 350 Balance 60 / 60 -800 / -800 -350 / -350 Weight 43.5 kg Intake: Oral 960 / 960 450 / 450 Output: Urine 900 / 900 1250 / 1250 350 / 350 Other: Date of Last Bowel Movement 09/10/17 09/12/17 # Bowel Movements 1 Assessment and Plan - Assessment (1) Afib Code(s): I48.91 - Unspecified atrial fibrillation Status: Acute (2) Basal cell carcinoma Code(s): C44.91 - Basal cell carcinoma of skin, unspecified Status: Acute (3) Ventricular tachycardia Code(s): I47.2 - Ventricular tachycardia Status: Acute - Plan Atrial fibrillation with rapid ventricular rate Ventricular tachycardia Tachybradycardia syndrome currently NSR convert to amio PO clear from cardio perspective for surgery with intermediate risk clinically stable
--- NOTE | 2017-09-12 20:30 | ECG ---
Date Performed: 09/12/2017 Time Performed: 10:10:21 PTAGE: 51 years EKG: SINUS BRADYCARDIA PREVIOUS TRACING : 08/30/2017 14.21 Patient is no longer in atrial flutter rcompared to fernando umanzor tracing DOCTOR: Jordan Harris Interpretating Date/Time 09/12/2017 20:28:18
[2017-09-12] MEDS: Temazepam 15 MG Capsule PO SCH (21:21)
[2017-09-12] MEDS: Morphine Sulfate 15 MG SR Tablet PO SCH (21:21)
[2017-09-13] MEDS: Nystatin 100,000 UNITS/GM Powder 15 GM Bottle TOPICAL SCH ×3 (06:00→22:23)
[2017-09-13] MEDS: Enoxaparin Inj 40 MG/0.4 ML Syringe SQ SCH (09:30)
[2017-09-13] MEDS: Sodium Hypochlorite 0.125% Top Soln 500 ML Bottle TOPICAL SCH (09:32)
--- NOTE | 2017-09-13 10:42 | P.PNIM ---
Subjective Interval history: No overnight events, no pain. Eating well, afebrile. Denies palpitations or chest pain. Physical Exam Vital signs: Vital Signs 09/12/17 11:00 09/12/17 12:00 09/12/17 15:00 Temperature 98.3 F 97.4 F L Pulse Rate 57 L 53 L 73 Respiratory Rate 20 20 Blood Pressure 116/68 155/79 H Pulse Oximetry 99 100 09/12/17 16:00 09/12/17 16:35 09/12/17 20:00 Temperature 97.9 F Pulse Rate 60 56 L Respiratory Rate 18 18 Blood Pressure 123/68 Pulse Oximetry 97 09/12/17 23:00 09/13/17 00:00 09/13/17 04:00 Temperature 98 F 98 F Pulse Rate 57 L 60 52 L Respiratory Rate 18 18 Blood Pressure 130/72 115/64 Pulse Oximetry 97 97 09/13/17 04:17 09/13/17 08:00 Temperature 97.9 F Pulse Rate 60 55 L Respiratory Rate 20 Blood Pressure 132/74 Pulse Oximetry 99 Intake & Output 09/12/17 09/13/17 09/13/17 18:59 06:59 18:59 Intake Total 716 / 716 Output Total 1100 / 1100 Balance -384 / -384 Weight 43.5 kg Intake: Oral 716 / 716 Output: Urine 1100 / 1100 Other: Date of Last Bowel Movement 09/12/17 Narrative: GENERAL: NAD, A&Ox3 HEAD: Normocephalic. NECK: Supple, trachea midline. EYES: No scleral icterus. No injection or drainage. CARDIOVASCULAR: Regular rhythm, normal rate, no murmurs. Wound VAC in place, anterior chest area. RESPIRATORY: Breath sounds equal bilaterally. No accessory muscle use. GASTROINTESTINAL: Abdomen soft, non-tender, nondistended. MUSCULOSKELETAL: No cyanosis, or edema. NEURO: Alert awake and oriented 3, no focal neurological deficits. Results - Labs CBC & Chem 7: 09/11/17 11:55 09/11/17 11:55 - Procedures 08/07 PROCEDURES PERFORMED: 1. 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 2. Closure of chest wall defect 6 x 4 cm with dermal matrix biological mesh. 3. Placement of VAC dressing to wound, 26 x 21 cm. 4. Right thoracostomy tube placement. 08/10 vac dressing 08/20 Right pedicled latissimus muscle flap to right chest wound Left pectoralis major muscle flap to right chest wound 08/23 Right chest wound VAC change (29090) Right chest wound debridement (87724, 63159 x 6) Assessment and Plan - Plan 51-year-old male admitted for a chest mass, now post op excision of mass. Dressing change on 09/09/2017. Pain controlled. Continue wound VAC. Surgeons following. Atrial fibrillation with rapid ventricular rate Ventricular tachycardia Tachybradycardia syndrome May be related to anatomical disturbances continue Amiodarone switch to oral,Metoprolol and aspirin. Repeat EKG shows sinus bradycardia. 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 Plastic surgery consulted, status post surgical resection on 08/07/2017. Biopsy showed invasive squamous cell carcinoma involving bones, cartilage and pleura. -On antibiotics, status post vancomycin, has been on Zosyn since 08/02/2017, also on azithromycin. Wound culture from the chest reviewed, grew Pseudomonas with 2 isolates. Has also completed treatment for possible pneumonia. Discussed with infectious disease, may stop antibiotics for previous wound culture. Continue pain management. Leukocytosis stable. -Oncology following, s/p surgical resection, he will need XRT in the future as outpatient and additional surgery for the bases, scans are of the back under Dr. Ahn. For skin graft in 1-2 weeks per plastic surgery after discussing on 09/11. Continue wound VAC changes twice a week. Hospital-acquired pneumonia-resolved, stop antibiotics as above. Has been on antibiotics for 2 weeks. DVT Prophylaxis SCDs Discharge Planning: Limited resources/income, needs home health care with wound VAC. Discharge once cleared by plastic surgery.
--- NOTE | 2017-09-13 12:25 | P.PNCA ---
Subjective Interval history: alert in nad Physical Exam Vital signs: Vital Signs 09/12/17 15:00 09/12/17 16:00 09/12/17 16:35 Temperature 97.4 F L Pulse Rate 73 60 Respiratory Rate 20 18 Blood Pressure 155/79 H Pulse Oximetry 100 09/12/17 20:00 09/12/17 23:00 09/13/17 00:00 Temperature 97.9 F 98 F Pulse Rate 56 L 57 L 60 Respiratory Rate 18 18 Blood Pressure 123/68 130/72 Pulse Oximetry 97 97 09/13/17 04:00 09/13/17 04:17 09/13/17 08:00 Temperature 98 F 97.9 F Pulse Rate 52 L 60 55 L Respiratory Rate 18 20 Blood Pressure 115/64 132/74 Pulse Oximetry 97 99 Intake & Output 09/12/17 09/13/17 09/13/17 18:59 06:59 18:59 Intake Total 716 / 716 Output Total 1100 / 1100 Balance -384 / -384 Weight 43.5 kg Intake: Oral 716 / 716 Output: Urine 1100 / 1100 Other: Date of Last Bowel Movement 09/12/17 Assessment and Plan - Assessment (1) Afib Code(s): I48.91 - Unspecified atrial fibrillation Status: Acute (2) Basal cell carcinoma Code(s): C44.91 - Basal cell carcinoma of skin, unspecified Status: Acute (3) Ventricular tachycardia Code(s): I47.2 - Ventricular tachycardia Status: Acute - Plan Atrial fibrillation with rapid ventricular rate Ventricular tachycardia Tachybradycardia syndrome currently NSR convert to amio PO clear from cardio perspective for surgery with intermediate risk clinically stable
[2017-09-13] MEDS: Amiodarone 200 MG Tablet PO SCH (12:53)
[2017-09-13] MEDS: Metoprolol Tartrate 50 MG Tablet PO SCH ×2 (12:53→22:22)
[2017-09-13] MEDS: HYDROmorphone PF Inj 2 MG/ML Vial IV.PUSH PRN ×2 (18:00→20:58)
--- NOTE | 2017-09-13 19:40 | P.PN ---
Subjective Interval history: Patient reports minimal pain to right chest. Otherwise without new complaints. Physical Exam Vital signs: Vital Signs 09/12/17 20:00 09/12/17 23:00 09/13/17 00:00 Temperature 97.9 F 98 F Pulse Rate 56 L 57 L 60 Respiratory Rate 18 18 Blood Pressure 123/68 130/72 Pulse Oximetry 97 97 09/13/17 04:00 09/13/17 04:17 09/13/17 08:00 Temperature 98 F 97.9 F Pulse Rate 52 L 60 55 L Respiratory Rate 18 20 Blood Pressure 115/64 132/74 Pulse Oximetry 97 99 09/13/17 12:00 09/13/17 16:00 Temperature 98.4 F 98.6 F Pulse Rate 75 64 Respiratory Rate 16 15 Blood Pressure 121/66 122/68 Pulse Oximetry 98 97 Intake & Output 09/13/17 09/13/17 09/14/17 06:59 18:59 06:59 Weight 43.5 kg Other: # Bowel Movements 1 Narrative: Right chest wound VAC holding suction Significant blanching erythema to lateral surrounding skin and purulence visible under VAC dressing Results - Labs CBC & Chem 7: 09/11/17 11:55 09/11/17 11:55 - Procedures 08/07 PROCEDURES PERFORMED: 1. 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 2. Closure of chest wall defect 6 x 4 cm with dermal matrix biological mesh. 3. Placement of VAC dressing to wound, 26 x 21 cm. 4. Right thoracostomy tube placement. 08/10 vac dressing 08/20 Right pedicled latissimus muscle flap to right chest wound Left pectoralis major muscle flap to right chest wound 08/23 Right chest wound VAC change (17637) Right chest wound debridement (98506, 25680 x 6) Assessment and Plan - Assessment (1) Open chest wound Code(s): S21.109A - Unspecified open wound of unspecified front wall of thorax without penetration into thoracic cavity, initial encounter Status: Acute - Plan 51-year-old male status post right latissimus dorsi myocutaneous and left pectoralis major muscle flaps to right chest wound, now VAC'd Nursing to perform M/W/F wound VAC changes Wound VAC to be placed to -125 mmHg low continuous suction Nursing to change right chest wound VAC as newly developing right lateral chest cellulitis Ancef for cellulitis
[2017-09-13] MEDS ORDERED: HYDROmorphone PF Inj 2 MG/ML Vial IV.PUSH ONE (20:45)
[2017-09-13] MEDS: Temazepam 15 MG Capsule PO SCH (22:22)
[2017-09-13] MEDS: Morphine Sulfate 15 MG SR Tablet PO SCH (22:22)
[2017-09-14] MEDS: Nystatin 100,000 UNITS/GM Powder 15 GM Bottle TOPICAL SCH ×3 (06:24→21:45)
[2017-09-14] MEDS: Sodium Hypochlorite 0.125% Top Soln 500 ML Bottle TOPICAL SCH (08:19)
[2017-09-14] MEDS: Metoprolol Tartrate 50 MG Tablet PO SCH ×3 (08:19→21:44)
[2017-09-14] MEDS: Amiodarone 200 MG Tablet PO SCH (08:19)
[2017-09-14] MEDS: ceFAZolin 2 GM Premix Inj 2 GM/50 ML PIGGYBACK IV.SIG SCH ×2 (08:20→15:32)
[2017-09-14] MEDS: Enoxaparin Inj 40 MG/0.4 ML Syringe SQ SCH (08:21)
--- NOTE | 2017-09-14 09:36 | P.PNIM ---
Subjective Interval history: No overnight events, no fever. Complaining of pain on the chest from the wound. Grumpy that the wound VAC was replaced last night at 10 PM. Not short of breath, afebrile. Physical Exam Vital signs: Vital Signs 09/13/17 12:00 09/13/17 16:00 09/13/17 22:50 Temperature 98.4 F 98.6 F 98.3 F Pulse Rate 75 64 62 Respiratory Rate 16 15 18 Blood Pressure 121/66 122/68 148/80 H Pulse Oximetry 98 97 98 09/14/17 00:00 09/14/17 07:16 09/14/17 08:00 Temperature 97.8 F 97.8 F 97.8 F Pulse Rate 111 H 103 H 95 H Respiratory Rate 18 18 14 Blood Pressure 119/64 94/61 L 99/61 L Pulse Oximetry 96 96 96 09/14/17 09:10 Temperature Pulse Rate Respiratory Rate 16 Blood Pressure Pulse Oximetry Intake & Output 09/13/17 09/14/17 09/14/17 18:59 06:59 18:59 Intake Total 50 / 50 Output Total 1600 / 1600 Balance -1550 / -1550 Weight 43.5 kg 43.6 kg Intake: IV 50 / 50 Ancef 2 GM Premix Inj 2 gm In 50 / 50 50 ml @ 100 mls/hr IV.SIG Q8H [facility] Rx#:[id number] Output: Urine 1600 / 1600 Other: Mode Setting Midline Chest Continuous Date of Last Bowel Movement 09/13/17 # Bowel Movements 1 Narrative: GENERAL: NAD, A&Ox3 CARDIOVASCULAR: Regular rhythm, normal rate, no murmurs. Wound VAC in place, anterior chest area with blanching erythema surrounding skin, mild purulence under VAC dressing, wound VAC holding suction RESPIRATORY: Breath sounds equal bilaterally. No accessory muscle use. GASTROINTESTINAL: Abdomen soft, non-tender, nondistended. MUSCULOSKELETAL: No cyanosis, or edema. NEURO: Alert awake and oriented 3, no focal neurological deficits. Grumpy. Results - Labs CBC & Chem 7: 09/11/17 11:55 09/11/17 11:55 - Procedures 08/07 PROCEDURES PERFORMED: 1. 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 2. Closure of chest wall defect 6 x 4 cm with dermal matrix biological mesh. 3. Placement of VAC dressing to wound, 26 x 21 cm. 4. Right thoracostomy tube placement. 08/10 vac dressing 08/20 Right pedicled latissimus muscle flap to right chest wound Left pectoralis major muscle flap to right chest wound 08/23 Right chest wound VAC change (51244) Right chest wound debridement (07827, 31868 x 6) Assessment and Plan - Plan 51-year-old male admitted for a chest mass, status post excision, found to have invasive squamous cell carcinoma, wound VAC was placed care of plastic surgery, now awaiting skin grafting. Hospital course complicated by atrial fibrillation and hospital-acquired pneumonia. 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 - Plastic surgery consulted, status post surgical resection on 08/07/2017. Biopsy showed invasive squamous cell carcinoma involving bones, cartilage and pleura. - Wound culture from the chest reviewed, grew Pseudomonas with 2 isolates, status post Zosyn, infectious disease was involved. Continue pain management -Oncology following, s/p surgical resection, he will need XRT in the future as outpatient and additional surgery for the squamous cell CA in the back with Dr. Ahn as outpatient. For skin graft in 1-2 weeks per plastic surgery around the last week of September or first week of September. Continue wound VAC changes MWF. Atrial fibrillation with rapid ventricular rate Ventricular tachycardia Tachybradycardia syndrome -May be related to anatomical disturbances, Cardiology following, continue Amiodarone, Metoprolol and aspirin. Hospital-acquired pneumonia-resolved, finished antibiotics for 2 weeks. DVT Prophylaxis: lovenox Discharge Planning: Limited resources/income, needs home health care with wound VAC. Discharge once cleared by plastic surgery after graft placement
--- NOTE | 2017-09-14 13:07 | P.PNCA ---
Subjective Interval history: assymptomatic in nad Physical Exam Vital signs: Vital Signs 09/13/17 16:00 09/13/17 22:50 09/14/17 00:00 Temperature 98.6 F 98.3 F 97.8 F Pulse Rate 64 62 111 H Respiratory Rate 15 18 18 Blood Pressure 122/68 148/80 H 119/64 Pulse Oximetry 97 98 96 09/14/17 07:16 09/14/17 08:00 09/14/17 09:10 Temperature 97.8 F 97.8 F Pulse Rate 103 H 125 H Respiratory Rate 18 14 16 Blood Pressure 94/61 L 99/61 L Pulse Oximetry 96 96 09/14/17 12:00 09/14/17 12:29 Temperature 98.3 F Pulse Rate 105 H 131 H Respiratory Rate 16 Blood Pressure 97/72 L Pulse Oximetry 97 Intake & Output 09/13/17 09/14/17 09/14/17 18:59 06:59 18:59 Intake Total 50 / 50 Output Total 1600 / 1600 Balance -1550 / -1550 Weight 43.5 kg 43.6 kg Intake: IV 50 / 50 Ancef 2 GM Premix Inj 2 gm In 50 / 50 50 ml @ 100 mls/hr IV.SIG Q8H [facility] Rx#:[id number] Output: Urine 1600 / 1600 Other: Mode Setting Midline Chest Continuous Continuous Date of Last Bowel Movement 09/13/17 # Bowel Movements 1 Assessment and Plan - Assessment (1) Afib Code(s): I48.91 - Unspecified atrial fibrillation Status: Acute (2) Basal cell carcinoma Code(s): C44.91 - Basal cell carcinoma of skin, unspecified Status: Acute (3) Ventricular tachycardia Code(s): I47.2 - Ventricular tachycardia Status: Acute - Plan Atrial fibrillation with rapid ventricular rate Ventricular tachycardia Tachybradycardia syndrome currently NSR convert to amio PO clear from cardio perspective for surgery with intermediate risk clinically stable
[2017-09-14] MEDS: Sod Chloride 0.9% Inj 1,000 ML IV.CONT SCH (15:33)
[2017-09-14] MEDS: Morphine Sulfate 15 MG SR Tablet PO SCH (21:43)
[2017-09-14] MEDS: Temazepam 15 MG Capsule PO SCH (21:44)
[2017-09-15] MEDS: ceFAZolin 2 GM Premix Inj 2 GM/50 ML PIGGYBACK IV.SIG SCH ×3 (02:32→15:50)
[2017-09-15] MEDS: Sod Chloride 0.9% Inj 1,000 ML IV.CONT SCH ×2 (02:35→13:53)
[2017-09-15] MEDS: Nystatin 100,000 UNITS/GM Powder 15 GM Bottle TOPICAL SCH ×3 (05:52→21:32)
[2017-09-15] MEDS: Sodium Hypochlorite 0.125% Top Soln 500 ML Bottle TOPICAL SCH (08:50)
[2017-09-15] MEDS: Amiodarone 200 MG Tablet PO SCH (08:55)
[2017-09-15] MEDS: Enoxaparin Inj 40 MG/0.4 ML Syringe SQ SCH (08:56)
[2017-09-15] MEDS: Metoprolol Tartrate 50 MG Tablet PO SCH ×2 (08:56→20:37)
[2017-09-15 09:39] LABS: Baso # (Auto) 0.1 th/mm3 (0.0-0.2); Baso % (Auto) 1.5 % (0.0-2.0); Eos # (Auto) 0.6 th/mm3 (0.0-0.4); Eos % (Auto) 7.7 % (0.0-4.0); Hematocrit 34.8 % (39.0-51.0); Hemoglobin 11.3 gm/dL (13.0-17.0); Lymph # (Auto) 1.8 th/mm3 (1.0-4.8); Lymph % (Auto) 24.7 % (9.0-44.0); Mean Corpuscular HGB Conc 32.6 % (32.0-36.0); Mean Corpuscular Hemoglobin 28.6 pg (27.0-34.0); Mean Corpuscular Volume 87.8 fL (80.0-100.0); Mean Platelet Volume 9.5 fL (7.0-11.0); Mono % (Auto) 13.9 % (0.0-8.0); Neut # (Auto) 3.9 th/mm3 (1.8-7.7); Neut % (Auto) 52.2 % (16.0-70.0); Platelet Count 393 th/mm3 (150-450); Red Blood Count 3.96 mil/mm3 (4.50-5.90); Red Cell Distribution Width 17.4 % (11.6-17.2); White Blood Count 7.5 th/mm3 (4.0-11.0)
--- NOTE | 2017-09-15 09:52 | P.PNIM ---
Subjective Interval history: No overnight events but has been in atrial fibrillation with RVR overnight. Denies any palpitations, chest pain or shortness of breath. Afebrile. Physical Exam Vital signs: Vital Signs 09/14/17 12:00 09/14/17 12:29 09/14/17 13:32 Temperature 98.3 F Pulse Rate 105 H 131 H Respiratory Rate 16 18 Blood Pressure 97/72 L Pulse Oximetry 97 09/14/17 14:25 09/14/17 16:00 09/14/17 20:00 Temperature 98.1 F 98.2 F Pulse Rate 67 130 H Respiratory Rate 18 12 16 Blood Pressure 97/66 L 110/62 Pulse Oximetry 96 97 09/15/17 00:00 09/15/17 04:00 09/15/17 08:00 Temperature 98.3 F 98.1 F 98.2 F Pulse Rate 108 H 129 H 131 H Respiratory Rate 16 16 17 Blood Pressure 104/64 101/57 L 86/50 L Pulse Oximetry 97 99 96 09/15/17 08:05 Temperature Pulse Rate 92 H Respiratory Rate Blood Pressure 94/62 L Pulse Oximetry Intake & Output 09/14/17 09/15/17 09/15/17 18:59 06:59 18:59 Intake Total 100 / 100 1000 / 1000 100 / 100 Output Total 2100 / 2100 600 / 600 Balance -1999 / -1999 400 / 400 100 / 100 Weight 43.6 kg Intake: IV 100 / 100 1000 / 1000 100 / 100 NS Inj 1,000 ML @ 84 mls/hr IV. 1000 / 1000 CONT .[id number] [facility] Rx#:[id number] Ancef 2 GM Premix Inj 2 gm In 100 / 100 100 / 100 50 ml @ 100 mls/hr IV.SIG Q8H [facility] Rx#:[id number] Output: Urine 2100 / 2100 600 / 600 Other: Mode Setting Midline Chest Continuous Continuous # Voids 5 # Bowel Movements 2 Narrative: GENERAL: NAD, A&Ox3 CARDIOVASCULAR: Irregular rhythm, tachycardic, no murmurs. Wound VAC in place, anterior chest area with blanching erythema surrounding skin, mild purulence under VAC dressing, wound VAC holding suction RESPIRATORY: Breath sounds equal bilaterally. No accessory muscle use. GASTROINTESTINAL: Abdomen soft, non-tender, nondistended. MUSCULOSKELETAL: No cyanosis, or edema. NEURO: Alert awake and oriented 3, no focal neurological deficits. Results - Labs CBC & Chem 7: 09/15/17 08:23 09/11/17 11:55 Laboratory Results - last 24 hr 09/15/17 08:23 WBC 7.5 RBC 3.96 L Hgb 11.3 L Hct 34.8 L MCV 87.8 MCH 28.6 MCHC 32.6 RDW 17.4 H Plt Count 393 MPV 9.5 Neut % (Auto) 52.2 Lymph % (Auto) 24.7 Payne % (Auto) 13.9 H Eos % (Auto) 7.7 H Baso % (Auto) 1.5 Neut # (Auto) 3.9 Lymph # (Auto) 1.8 Payne # (Auto) 1.0 H Eos # (Auto) 0.6 H Baso # (Auto) 0.1 WBC Differential . Differential Comment Auto diff final - Procedures 08/07 PROCEDURES PERFORMED: 1. 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 2. Closure of chest wall defect 6 x 4 cm with dermal matrix biological mesh. 3. Placement of VAC dressing to wound, 26 x 21 cm. 4. Right thoracostomy tube placement. 08/10 vac dressing 08/20 Right pedicled latissimus muscle flap to right chest wound Left pectoralis major muscle flap to right chest wound 08/23 Right chest wound VAC change (47760) Right chest wound debridement (31893, 53191 x 6) Assessment and Plan - Plan 51-year-old male admitted for a chest mass, status post excision, found to have invasive squamous cell carcinoma, wound VAC was placed care of plastic surgery, now awaiting skin grafting. Hospital course complicated by atrial fibrillation and hospital-acquired pneumonia. 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 - Plastic surgery consulted, status post surgical resection on 08/07/2017. Biopsy showed invasive squamous cell carcinoma involving bones, cartilage and pleura. - Wound culture from the chest reviewed, grew Pseudomonas with 2 isolates, status post Zosyn, infectious disease was involved. Continue pain management -Oncology following, s/p surgical resection, he will need XRT in the future as outpatient and additional surgery for the squamous cell CA in the back with Dr. Ahn as outpatient. For skin graft in 1-2 weeks per plastic surgery around the last week of September or first week of September. Continue wound VAC changes MWF. Atrial fibrillation with rapid ventricular rate Ventricular tachycardia Tachybradycardia syndrome -May be related to anatomical disturbances, Cardiology following, continue Amiodarone, Metoprolol and aspirin. EKG showed atrial fibrillation. Check BMP , and hemoglobin for anemia. He usually goes into atrial fibrillation with anemia. Discussed with Dr. Sandoval. Hospital-acquired pneumonia-resolved, finished antibiotics for 2 weeks. DVT Prophylaxis: lovenox Discharge Planning: Limited resources/income, needs home health care with wound VAC. Discharge once cleared by plastic surgery after graft placement
[2017-09-15 09:57] LABS: Anion Gap 9 meq/L (5-15); Blood Urea Nitrogen 7 mg/dL (7-18); Calcium 8.6 mg/dL (8.5-10.1); Carbon Dioxide 25.4 meq/L (21.0-32.0); Chloride 105 meq/L (98-107); Glomerular Filtration Rate Greater Than 89 mL/min (>89); Glucose,Random 87 mg/dL (74-106); Potassium 3.9 meq/L (3.5-5.1); Sodium 139 meq/L (136-145)
--- NOTE | 2017-09-15 10:26 | P.PNCA ---
Subjective Interval history: alert in nad Physical Exam Vital signs: Vital Signs 09/14/17 12:00 09/14/17 12:29 09/14/17 13:32 Temperature 98.3 F Pulse Rate 105 H 131 H Respiratory Rate 16 18 Blood Pressure 97/72 L Pulse Oximetry 97 09/14/17 14:25 09/14/17 16:00 09/14/17 20:00 Temperature 98.1 F 98.2 F Pulse Rate 67 130 H Respiratory Rate 18 12 16 Blood Pressure 97/66 L 110/62 Pulse Oximetry 96 97 09/15/17 00:00 09/15/17 04:00 09/15/17 08:00 Temperature 98.3 F 98.1 F 98.2 F Pulse Rate 108 H 129 H 131 H Respiratory Rate 16 16 17 Blood Pressure 104/64 101/57 L 86/50 L Pulse Oximetry 97 99 96 09/15/17 08:05 Temperature Pulse Rate 92 H Respiratory Rate Blood Pressure 94/62 L Pulse Oximetry Intake & Output 09/14/17 09/15/17 09/15/17 18:59 06:59 18:59 Intake Total 100 / 100 1000 / 1000 100 / 100 Output Total 2100 / 2100 600 / 600 Balance -1999 / -2000 400 / 400 100 / 100 Weight 43.6 kg Intake: IV 100 / 100 1000 / 1000 100 / 100 NS Inj 1,000 ML @ 84 mls/hr IV. 1000 / 1000 CONT .[id number] [facility] Rx#:[id number] Ancef 2 GM Premix Inj 2 gm In 100 / 100 100 / 100 50 ml @ 100 mls/hr IV.SIG Q8H [facility] Rx#:[id number] Output: Urine 2100 / 2100 600 / 600 Other: Mode Setting Midline Chest Continuous Continuous # Voids 5 # Bowel Movements 2 Assessment and Plan - Assessment (1) Afib Code(s): I48.91 - Unspecified atrial fibrillation Status: Acute (2) Basal cell carcinoma Code(s): C44.91 - Basal cell carcinoma of skin, unspecified Status: Acute (3) Ventricular tachycardia Code(s): I47.2 - Ventricular tachycardia Status: Acute - Plan Atrial fibrillation with rapid ventricular rate Ventricular tachycardia Tachybradycardia syndrome hr intermittantly >100, hypotensive, will follow trends, if hr remains persistantly > 100 will reconsult EP, cbc, bmp today stable, d/w Dr Dillard convert to amio PO clear from cardio perspective for surgery with intermediate risk
[2017-09-15 10:39] LABS: Magnesium 2.1 mg/dL (1.5-2.5)
--- NOTE | 2017-09-15 16:07 | ECG ---
Date Performed: 09/14/2017 Time Performed: 15:38:25 PTAGE: 51 years EKG: ATRIAL FLUTTER/TACHYCARDIA WITH RAPID VENTRICULAR RESPONSE POSSIBLE RIGHT VENTRICULAR CONDU CTION DELAY NONSPECIFIC ST & T-WAVE ABNORMALITY ABNORMAL ECG Compared to PREVIOUS TRACING , there is a rhythm change from Sinus rhythm to atrial flutter. Previous tracing did show borderline short AL interval. PREVIOUS TRACIN 018 10.10 DOCTOR: Pierce Jamil Interpretating Date/Time 09/15/2017 16:06:20
[2017-09-15] MEDS ORDERED: Digoxin Inj 500 MCG/2 ML Ampul IV.PUSH ONE (18:45)
[2017-09-15] MEDS: Morphine Sulfate 15 MG SR Tablet PO SCH (20:37)
[2017-09-15] MEDS: Temazepam 15 MG Capsule PO SCH (20:38)
[2017-09-16] MEDS ORDERED: Digoxin Inj 500 MCG/2 ML Ampul IV.PUSH ONE (00:45)
[2017-09-16] MEDS: ceFAZolin 2 GM Premix Inj 2 GM/50 ML PIGGYBACK IV.SIG SCH ×3 (01:34→17:30)
[2017-09-16] MEDS: Nystatin 100,000 UNITS/GM Powder 15 GM Bottle TOPICAL SCH ×3 (05:54→21:55)
[2017-09-16] MEDS: Sod Chloride 0.9% Inj 1,000 ML IV.CONT SCH ×2 (05:56→13:50)
[2017-09-16] MEDS: Sodium Hypochlorite 0.125% Top Soln 500 ML Bottle TOPICAL SCH (08:45)
[2017-09-16] MEDS: Amiodarone 200 MG Tablet PO SCH (08:48)
[2017-09-16] MEDS: Digoxin 250 MCG Tablet PO SCH (08:48)
[2017-09-16] MEDS: Enoxaparin Inj 40 MG/0.4 ML Syringe SQ SCH (08:49)
[2017-09-16] MEDS: Metoprolol Tartrate 50 MG Tablet PO SCH ×2 (08:49→21:54)
--- NOTE | 2017-09-16 09:24 | P.PNIM ---
Subjective Interval history: Status post digoxin loading, heart rate is now in the 60s, blood pressure improved. Patient denies any chest pain or shortness of breath. No nausea or vomiting. Denies any headache. Discussed with Dr. Sandoval yesterday. Physical Exam Vital signs: Vital Signs 09/15/17 12:00 09/15/17 15:00 09/15/17 16:00 Temperature 97.8 F 98.2 F Pulse Rate 132 H 130 H Respiratory Rate 16 16 16 Blood Pressure 100/68 101/68 Pulse Oximetry 98 97 09/15/17 19:00 09/15/17 20:36 09/15/17 21:29 Temperature 98.9 F Pulse Rate 56 L 131 H 65 Respiratory Rate 16 Blood Pressure 92/68 L 101/69 114/72 Pulse Oximetry 09/16/17 00:00 09/16/17 01:31 09/16/17 03:00 Temperature 97.9 F 98 F Pulse Rate 95 H 88 103 H Respiratory Rate 16 16 Blood Pressure 111/69 107/77 112/68 Pulse Oximetry 95 96 09/16/17 04:00 09/16/17 08:00 Temperature 98.4 F Pulse Rate 64 64 Respiratory Rate 18 Blood Pressure 130/73 Pulse Oximetry 97 Intake & Output 09/15/17 09/16/17 09/16/17 18:59 06:59 18:59 Intake Total 2350 / 2350 250 / 250 Output Total 550 / 550 1000 / 1000 Balance 1800 / 1800 -1000 / -1000 250 / 250 Intake: IV 1150 / 1150 250 / 250 NS Inj 1,000 ML @ 84 mls/hr IV. 1000 / 1000 200 / 200 CONT .[id number] [facility] Rx#:[id number] Ancef 2 GM Premix Inj 2 gm In 150 / 150 50 / 50 50 ml @ 100 mls/hr IV.SIG Q8H [facility] Rx#:[id number] Oral 1200 / 1200 Output: Urine 550 / 550 1000 / 1000 Other: Mode Setting Midline Chest Continuous Continuous # Voids 5 1 # Bowel Movements 0 Narrative: GENERAL: NAD, A&Ox3 CARDIOVASCULAR: Regular rate and rhythm, no murmurs. Wound VAC in place, anterior chest area with erythema surrounding skin, wound VAC holding suction RESPIRATORY: Breath sounds equal bilaterally. No accessory muscle use. GASTROINTESTINAL: Abdomen soft, non-tender, nondistended. MUSCULOSKELETAL: No cyanosis, or edema. NEURO: Alert awake and oriented 3, no focal neurological deficits. Results - Labs CBC & Chem 7: 09/15/17 08:23 09/15/17 08:23 Laboratory Results - last 24 hr 09/15/17 09/15/17 09/15/17 08:23 08:23 08:23 WBC 7.5 RBC 3.96 L Hgb 11.3 L Hct 34.8 L MCV 87.8 MCH 28.6 MCHC 32.6 RDW 17.4 H Plt Count 393 MPV 9.5 Neut % (Auto) 52.2 Lymph % (Auto) 24.7 [place] % (Auto) 13.9 H Eos % (Auto) 7.7 H Baso % (Auto) 1.5 Neut # (Auto) 3.9 Lymph # (Auto) 1.8 [place] # (Auto) 1.0 H Eos # (Auto) 0.6 H Baso # (Auto) 0.1 WBC Differential . Differential Comment Auto diff final Sodium 139 Potassium 3.9 Chloride 105 Carbon Dioxide 25.4 Anion Gap 9 BUN 7 Creatinine 0.57 L Estimated GFR Greater than 89 Random Glucose 87 Calcium 8.6 Magnesium 2.1 Cancelled - Procedures 08/07 PROCEDURES PERFORMED: 1. 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 2. Closure of chest wall defect 6 x 4 cm with dermal matrix biological mesh. 3. Placement of VAC dressing to wound, 26 x 21 cm. 4. Right thoracostomy tube placement. 08/10 vac dressing 08/20 Right pedicled latissimus muscle flap to right chest wound Left pectoralis major muscle flap to right chest wound 08/23 Right chest wound VAC change (03724) Right chest wound debridement (73998, 59170 x 6) Assessment and Plan - Plan 51-year-old male admitted for a chest mass, status post excision, found to have invasive squamous cell carcinoma, wound VAC was placed care of plastic surgery, now awaiting skin grafting. Hospital course complicated by atrial fibrillation and hospital-acquired pneumonia. 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 - Plastic surgery following, status post surgical resection on 08/07/2017. Biopsy showed invasive squamous cell carcinoma involving bones, cartilage and pleura. - Wound culture from the chest rgrew Pseudomonas with 2 isolates, status post Zosyn, infectious disease was involved. Continue pain management - Oncology following, s/p surgical resection, he will need XRT in the future as outpatient and additional surgery for the squamous cell CA in the back with Dr. Ahn as outpatient. Cleared by Oncology for discharge. - For skin graft in 1-2 weeks per plastic surgery around the last week of September or first week of September. Continue wound VAC changes MWF. Atrial fibrillation with rapid ventricular rate Ventricular tachycardia Tachybradycardia syndrome -May be related to anatomical disturbances, Cardiology following, continue Amiodarone, Metoprolol and aspirin. Went into Afib RVR again with hypotension. He usually goes into atrial fibrillation with anemia and electrolyte imbalance , Hgb and electrolytes WNL. Started digoxin loading, check digoxin tomorrow, now back in SR. Discussed with Dr. Sandoval, consult Dr. Crawley for EP studies. Hospital-acquired pneumonia-resolved, finished antibiotics for 2 weeks. DVT Prophylaxis: lovenox Discharge Planning: Limited resources/income, needs home health care with wound VAC. Discharge once cleared by plastic surgery after graft placement
[2017-09-16] MEDS: HYDROmorphone PF Inj 2 MG/ML Vial IV.PUSH PRN (12:51)
[2017-09-16] MEDS: Morphine Sulfate 15 MG SR Tablet PO SCH (21:54)
[2017-09-16] MEDS: Temazepam 15 MG Capsule PO SCH (21:55)
[2017-09-17] MEDS: ceFAZolin 2 GM Premix Inj 2 GM/50 ML PIGGYBACK IV.SIG SCH ×4 (01:30→23:26)
[2017-09-17] MEDS: Sod Chloride 0.9% Inj 1,000 ML IV.CONT SCH ×2 (01:33→21:22)
[2017-09-17] MEDS: Nystatin 100,000 UNITS/GM Powder 15 GM Bottle TOPICAL SCH ×3 (06:16→23:20)
[2017-09-17 08:17] LABS: Anion Gap 9 meq/L (5-15); Blood Urea Nitrogen 4 mg/dL (7-18); Calcium 8.3 mg/dL (8.5-10.1); Chloride 107 meq/L (98-107); Glomerular Filtration Rate Greater Than 89 mL/min (>89); Glucose,Random 73 mg/dL (74-106); Magnesium 1.6 mg/dL (1.5-2.5); Potassium 3.7 meq/L (3.5-5.1); Sodium 140 meq/L (136-145)
[2017-09-17 08:32] LABS: Digoxin 0.9 ng/mL (0.8-2.0)
[2017-09-17] MEDS: Amiodarone 200 MG Tablet PO SCH (09:24)
[2017-09-17] MEDS: Metoprolol Tartrate 50 MG Tablet PO SCH ×2 (09:24→21:24)
[2017-09-17] MEDS: Digoxin 250 MCG Tablet PO SCH (09:24)
[2017-09-17] MEDS: Enoxaparin Inj 40 MG/0.4 ML Syringe SQ SCH (09:25)
--- NOTE | 2017-09-17 12:18 | P.PN ---
Subjective Interval history: awake and alert no complains of pain telemetry- in SR up and ambulated this am per patient - no complains Physical Exam Vital signs: Vital Signs 09/16/17 15:48 09/16/17 16:00 09/16/17 20:00 Temperature 97.9 F Pulse Rate 64 64 Respiratory Rate 16 19 Blood Pressure 132/74 Pulse Oximetry 97 09/16/17 21:45 09/17/17 00:00 09/17/17 00:50 Temperature 97.9 F 98 F Pulse Rate 62 62 65 Respiratory Rate 17 17 Blood Pressure 125/75 125/75 Pulse Oximetry 97 97 09/17/17 04:40 09/17/17 08:00 Temperature 97.7 F 98.5 F Pulse Rate 60 58 L Respiratory Rate 16 20 Blood Pressure 134/72 127/69 Pulse Oximetry 96 96 Intake & Output 09/16/17 09/17/17 09/17/17 18:59 06:59 18:59 Intake Total 1350 / 1350 4350 / 4350 Output Total 1000 / 1000 2500 / 2500 Balance 350 / 350 1850 / 1850 Weight 44 kg Intake: IV 1350 / 1350 1050 / 1050 NS Inj 1,000 ML @ 84 mls/hr IV. 1200 / 1200 1000 / 1000 CONT .[id number] [facility] Rx#:[id number] Ancef 2 GM Premix Inj 2 gm In 150 / 150 50 / 50 50 ml @ 100 mls/hr IV.SIG Q8H [facility] Rx#:[id number] Oral 3300 / 3300 Output: Urine 1000 / 1000 2500 / 2500 Other: Mode Setting Midline Chest Continuous Continuous Date of Last Bowel Movement 09/13/17 # Bowel Movements 0 Narrative: awake and alertno acute distress anicteric chest wall- with VAC in place, mild surrounding eruthema of skin around VAC area regular rhythm abdomen soft, nontender extremities no edema neuro exam- non focal Results - Labs CBC & Chem 7: 09/15/17 08:23 09/17/17 06:48 Laboratory Results - last 24 hr 09/17/17 06:48 Sodium 140 Potassium 3.7 Chloride 107 Carbon Dioxide 24.0 Anion Gap 9 BUN 4 L Creatinine 0.34 L Estimated GFR Greater than 89 Random Glucose 73 L Calcium 8.3 L Magnesium 1.6 Digoxin 0.9 - Procedures 08/07 PROCEDURES PERFORMED: 1. 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 2. Closure of chest wall defect 6 x 4 cm with dermal matrix biological mesh. 3. Placement of VAC dressing to wound, 26 x 21 cm. 4. Right thoracostomy tube placement. 08/10 vac dressing 08/20 Right pedicled latissimus muscle flap to right chest wound Left pectoralis major muscle flap to right chest wound 08/23 Right chest wound VAC change (79349) Right chest wound debridement (09847, 90480 x 6) Assessment and Plan - Plan 51-year-old male admitted for a chest mass, status post excision, found to have invasive squamous cell carcinoma, wound VAC was placed care of plastic surgery, now awaiting skin grafting. Hospital course complicated by atrial fibrillation and hospital-acquired pneumonia. 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 - Plastic surgery following, status post surgical resection on 08/07/2017. Biopsy showed invasive squamous cell carcinoma involving bones, cartilage and pleura. - Wound culture from the chest rgrew Pseudomonas with 2 isolates, status post Zosyn, infectious disease was involved. Continue pain management - Oncology following, s/p surgical resection, he will need XRT in the future as outpatient and additional surgery for the squamous cell CA in the back with Dr. Ahn as outpatient. Cleared by Oncology for discharge. - For skin graft in 1-2 weeks per plastic surgery around the last week of September or first week of September. Continue wound VAC changes MWF. - started on IV Cefazolin by Plastics Paroxysmal Atrial fibrillation with rapid ventricular rate- now in SR HR- 60s S/P Ventricular tachycardia Tachybradycardia syndrome -May be related to anatomical disturbances, Cardiology following, continue Metoprolol and aspirin. Went into Afib RVR again with hypotension 09/15. He usually goes into atrial fibrillation with anemia and electrolyte imbalance, Hgb and electrolytes WNL. Started digoxin loading 09/16, ff digoxin level - started on Amiodarone 200 mg daily. digoxin 0.25 mg daily - Cardiology ff- Dr. Sandoval, - if recurs- EP consult Hospital-acquired pneumonia-resolved, finished antibiotics for 2 weeks. DVT Prophylaxis: lovenox Discharge Planning: Limited resources/income, needs home health care with wound VAC. Discharge once cleared by plastic surgery after graft placement Patient up and ambulating
--- NOTE | 2017-09-17 14:41 | P.PNCA ---
Subjective Interval history: alert in nad Physical Exam Vital signs: Vital Signs 09/16/17 15:48 09/16/17 16:00 09/16/17 20:00 Temperature 97.9 F Pulse Rate 64 64 Respiratory Rate 16 19 Blood Pressure 132/74 Pulse Oximetry 97 09/16/17 21:45 09/17/17 00:00 09/17/17 00:50 Temperature 97.9 F 98 F Pulse Rate 62 62 65 Respiratory Rate 17 17 Blood Pressure 125/75 125/75 Pulse Oximetry 97 97 09/17/17 04:40 09/17/17 08:00 09/17/17 12:00 Temperature 97.7 F 98.5 F 97.9 F Pulse Rate 60 58 L 50 L Respiratory Rate 16 20 19 Blood Pressure 134/72 127/69 130/71 Pulse Oximetry 96 96 99 Intake & Output 09/16/17 09/17/17 09/17/17 18:59 06:59 18:59 Intake Total 1350 / 1350 4350 / 4350 Output Total 1000 / 1000 2500 / 2500 Balance 350 / 350 1850 / 1850 Weight 44 kg Intake: IV 1350 / 1350 1050 / 1050 NS Inj 1,000 ML @ 84 mls/hr IV. 1200 / 1200 1000 / 1000 CONT .[id number] [facility] Rx#:[id number] Ancef 2 GM Premix Inj 2 gm In 150 / 150 50 / 50 50 ml @ 100 mls/hr IV.SIG Q8H [facility] Rx#:[id number] Oral 3300 / 3300 Output: Urine 1000 / 1000 2500 / 2500 Other: Mode Setting Midline Chest Continuous Continuous Date of Last Bowel Movement 09/13/17 # Bowel Movements 0 Assessment and Plan - Assessment (1) Afib Code(s): I48.91 - Unspecified atrial fibrillation Status: Acute (2) Basal cell carcinoma Code(s): C44.91 - Basal cell carcinoma of skin, unspecified Status: Acute (3) Ventricular tachycardia Code(s): I47.2 - Ventricular tachycardia Status: Acute - Plan Atrial fibrillation with rapid ventricular rate Ventricular tachycardia Tachybradycardia syndrome in nsr today convert to amio PO clear from cardio perspective for surgery with intermediate risk
[2017-09-17] MEDS: Sodium Hypochlorite 0.125% Top Soln 500 ML Bottle TOPICAL SCH (21:22)
[2017-09-17] MEDS: Temazepam 15 MG Capsule PO SCH (21:24)
[2017-09-17] MEDS: Morphine Sulfate 15 MG SR Tablet PO SCH (21:24)
[2017-09-18] MEDS: Sod Chloride 0.9% Inj 1,000 ML IV.CONT SCH ×2 (01:50→15:49)
[2017-09-18] MEDS: ceFAZolin 2 GM Premix Inj 2 GM/50 ML PIGGYBACK IV.SIG SCH ×2 (09:50→15:28)
[2017-09-18] MEDS: Amiodarone 200 MG Tablet PO SCH (10:01)
[2017-09-18] MEDS: Digoxin 250 MCG Tablet PO SCH (10:02)
[2017-09-18] MEDS: Metoprolol Tartrate 50 MG Tablet PO SCH ×2 (10:03→21:29)
[2017-09-18] MEDS: Enoxaparin Inj 40 MG/0.4 ML Syringe SQ SCH (10:04)
[2017-09-18] MEDS: Sodium Hypochlorite 0.125% Top Soln 500 ML Bottle TOPICAL SCH (10:04)
[2017-09-18] MEDS: Nystatin 100,000 UNITS/GM Powder 15 GM Bottle TOPICAL SCH ×3 (10:14→21:30)
--- NOTE | 2017-09-18 10:51 | P.PN ---
Subjective Interval history: no complains of chest pain or palpitation complains of not getting enough sleep- people - "things beeping, people walking in" no diarrhea telemetry reviewed around 10 30 am short runs of WCT- about 5 beats- patient asymptomatic Physical Exam Vital signs: Vital Signs 09/17/17 12:00 09/17/17 16:00 09/17/17 20:00 Temperature 97.9 F 98.7 F Pulse Rate 61 58 L Respiratory Rate 19 20 17 Blood Pressure 130/71 127/72 Pulse Oximetry 99 97 09/17/17 21:10 09/18/17 00:00 09/18/17 05:00 Temperature 98.5 F 98.8 F 97.8 F Pulse Rate 63 69 69 Respiratory Rate 17 17 18 Blood Pressure 128/68 122/66 115/69 Pulse Oximetry 98 95 98 09/18/17 10:22 Temperature Pulse Rate 53 L Respiratory Rate Blood Pressure Pulse Oximetry Intake & Output 09/17/17 09/18/17 09/18/17 18:59 06:59 18:59 Intake Total 1870 / 1870 2525 / 2525 Output Total 880 / 880 2402 / 2402 Balance 990 / 990 123 / 123 Weight 43.5 kg Intake: IV 1100 / 1100 50 / 50 NS Inj 1,000 ML @ 84 mls/hr IV. 1000 / 1000 CONT .[id number] [facility] Rx#:[id number] Ancef 2 GM Premix Inj 2 gm In 100 / 100 50 / 50 50 ml @ 100 mls/hr IV.SIG Q8H [facility] Rx#:[id number] Oral 770 / 770 1825 / 1825 Other 650 / 650 Output: Urine 880 / 880 2400 / 2400 Stool 2 / 2 Other: Mode Setting Midline Chest Continuous Continuous Other Intake Source Saline Solution Date of Last Bowel Movement 09/13/17 # Bowel Movements 0 0 Narrative: awake and alert no acute distress anicteric chest wall- with VAC in place, mild surrounding erythema of skin around VAC area regular rhythm- HR 64/min abdomen soft, nontender extremities no edema neuro exam- non focal Results - Labs CBC & Chem 7: 09/15/17 08:23 09/17/17 06:48 - Procedures 08/07 PROCEDURES PERFORMED: 1. 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 2. Closure of chest wall defect 6 x 4 cm with dermal matrix biological mesh. 3. Placement of VAC dressing to wound, 26 x 21 cm. 4. Right thoracostomy tube placement. 08/10 vac dressing 08/20 Right pedicled latissimus muscle flap to right chest wound Left pectoralis major muscle flap to right chest wound 08/23 Right chest wound VAC change (01028) Right chest wound debridement (81865, 18755 x 6) Assessment and Plan - Plan 51-year-old male admitted for a chest mass, status post excision, found to have invasive squamous cell carcinoma, wound VAC was placed care of plastic surgery, now awaiting skin grafting. Hospital course complicated by atrial fibrillation and hospital-acquired pneumonia. 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 - Plastic surgery following, status post surgical resection on 08/07/2017. Biopsy showed invasive squamous cell carcinoma involving bones, cartilage and pleura. - Wound culture from the chest rgrew Pseudomonas with 2 isolates, status post Zosyn, infectious disease was involved. Continue pain management - Oncology following, s/p surgical resection, he will need XRT in the future as outpatient and additional surgery for the squamous cell CA in the back with Dr. Ahn as outpatient. Cleared by Oncology for discharge. - For skin graft in 1-2 weeks per plastic surgery around the last week of September or first week of September. Continue wound VAC changes MWF. - started on IV Cefazolin by Plastics Paroxysmal Atrial fibrillation with rapid ventricular rate- now in SR HR- 60s S/P Ventricular tachycardia Tachybradycardia syndrome -May be related to anatomical disturbances, Cardiology following, continue Metoprolol and aspirin. Went into Afib RVR again with hypotension 09/15. He usually goes into atrial fibrillation with anemia and electrolyte imbalance, Hgb and electrolytes WNL. Started digoxin loading 09/16, ff digoxin level - started on Amiodarone 200 mg daily. digoxin 0.25 mg daily - Cardiology ff- Dr. Sandoval - if recurs- EP consult Hospital-acquired pneumonia-resolved, finished antibiotics for 2 weeks. DVT Prophylaxis: lovenox Discharge Planning: Limited resources/income, needs home health care with wound VAC. Discharge once cleared by plastic surgery after graft placement Patient up and ambulating
[2017-09-18] MEDS: HYDROmorphone PF Inj 2 MG/ML Vial IV.PUSH PRN (15:28)
--- NOTE | 2017-09-18 15:41 | P.DIET ---
Nutritional Evaluation Type of nutrition evaluation: follow-up Nutrition consult regarding: Diet Evaluation Nutrition screening: MDC (Supplement to Oral Intake, Pt w/ Low Albumin and Large Wound) Subjective Subjective Comments: Receives Boost from home. Eating 100% at many meals. Likes fuit cup, mashed potatoes, wellington cris, and big breakfasts. Objective - Diagnosis Infected Chest Wall Malignancy - Objective % IBW: 78 (IBW = 202#) Body Weight Used for Calculations: IBW (202#) Energy Needs - Lower Range (kCal/kg): 28 Energy Needs - Upper Range (kCal/kg): 32 Lower Limit kCal/kg (kCals): 2,570 Upper Limit kCal/kg (kCals): 2,938 Lower Limit Protein Factor (Grams per Kg): 1.2 Upper Limit Protein Factor (Grams per Kg): 1.5 Lower Protein Needs (Protein): 110 Upper Protein Needs (Protein): 138 Dietitian Reviewed in Medical Record: Current diet, Curent medications, Intake & Output, Labs, Medical history, Wound/DTI (Chest incision w/ wound VAC) Diet Order: Heart healthy Oral Diet Intake Amount: Good 75-90% Objective Comments: s/p radical resection of chest wall malignancy & VAC placement on 08/07 Meds: Vitamin B12 Assessment Assessment: Pt still has wound vac to chest wall. He is s/p radical resection of chest wall malignancy. Pt remains at nutritional risk r/t wound VAC, medical dx of lung cancer, weight loss with a BMI of 11.7. PO intake has shown an improving trend. Pt is on a Heart Healthy diet, recommend liberalizing to Regular diet to allow more food options. Pt unable to receive cafeteria menu for lunch unless he 's on a Regular diet. Per previous RD note, pts is bringing Boost from home. Dietitian following. Weights reviewed and are erratic/ unreliable as indicators: 09/05 60 kg, 09/07 85.8 kg, 09/08 86 kg, 09/09 86 kg, 09/10 43.5 kg, 43.5 kg, CBW = 43.5 kg. Recommendations: 1. Recommend Regular diet for more food options. 2. providing pt w/ Boost from home per pt preference 3. Please record % of meal eaten under Feeding Assessment in EMR 4. Monitor wts closely. Dietitian to Monitor: Lab values, Supplement acceptance, Intake & Output, Diet tolerance, Weight change, PO Intake, Medical course
--- NOTE | 2017-09-18 15:44 | P.PNPAL ---
Reason for Visit Reason for visit: a. To assist with evaluation and management of symptoms including:pain, insomnia b. To assist medical decision maker(s) with: better understanding of current medical conditions; weighing benefits/burdens of medical treatment options; making medical treatment decisions. Subjective Subjective/Interval History: Pt is a 51 year old with a prolong hospitalization for >1 month for a fungating chest mass/ locally advanced basosqumous carcionma. Pt is s/p radical surgical chest wall resection, with resection of sternum, costochondrial area. pt also has various followup surgeres (wound vac placment , debridement, flap placement etc) and followed by plastic and surgery. condition complicated by Afib/tacybrady syndrome (both cardiology and cardiophyiology involved. ID has been following for wound managment. Palliative care consulted for pain managment, we are also following for symptom of insominia. Pt had run of WCT reported, but pt was asymptomatic. Patient feels pain which is mostly at his chest/ s/p surgical wound, is the same and current pain regimen is effective. Decline changing it. He just cannot sleep through the night due to various disruption and beeping. Pt and ask for increase in sleep med. can spend the night to monitor. Family/Friend Interactions: see above Advance Directives Living Will: Never completed Health Care Surrogate: Never completed Durable Power of Activities Aide: Never completed Objective Vital Signs: Vital Signs 09/17/17 16:00 09/17/17 20:00 09/17/17 21:10 Temperature 98.7 F 98.5 F Pulse Rate 58 L 63 Respiratory Rate 20 17 17 Blood Pressure 127/72 128/68 Pulse Oximetry 97 98 09/18/17 00:00 09/18/17 05:00 09/18/17 08:00 Temperature 98.8 F 97.8 F 98.1 F Pulse Rate 69 69 55 L Respiratory Rate 17 18 19 Blood Pressure 122/66 115/69 120/63 Pulse Oximetry 95 98 96 09/18/17 10:22 09/18/17 12:00 Temperature 97.9 F Pulse Rate 53 L 59 L Respiratory Rate 19 Blood Pressure 121/64 Pulse Oximetry 98 Intake & Output 09/17/17 09/18/17 09/18/17 18:59 06:59 18:59 Intake Total 1870 / 1870 2525 / 2525 50 / 50 Output Total 880 / 880 2402 / 2402 Balance 990 / 990 123 / 123 50 / 50 Weight 43.5 kg Intake: IV 1100 / 1100 50 / 50 50 / 50 NS Inj 1,000 ML @ 84 mls/hr IV. 1000 / 1000 CONT .[id number] TAWANA Rx#:[id number] Ancef 2 GM Premix Inj 2 gm In 100 / 100 50 / 50 50 / 50 50 ml @ 100 mls/hr IV.SIG Q8H TAWANA Rx#:[id number] Oral 770 / 770 1825 / 1825 Other 650 / 650 Output: Urine 880 / 880 2400 / 2400 Stool 2 / 2 Other: Mode Setting Midline Chest Continuous Continuous Other Intake Source Saline Solution Date of Last Bowel Movement 09/13/17 # Bowel Movements 0 0 Physical Exam: CONSTITUTIONAL/GENERAL: This is an 51 year old male, appears fatigue at times. SKIN: No jaundice, rashes, or lesions. Wound VAC mid-sternum. HEAD: Atraumatic. Normocephalic. EYES: Pupils equal and round and reactive. Extraocular motions intact. No scleral icterus. No injection or drainage. Fundi not examined. ENT: Hearing grossly normal. Nose without bleeding or purulent drainage. Throat without visible erythema, exudates, masses, or lesions. NECK: Trachea midline. Supple, nontender. No palpable thyroid enlargement or nodularity. CARDIOVASCULAR: irregularly without murmurs, gallops, or rubs. RESPIRATORY/CHEST: Symmetric, unlabored respirations. Clear to auscultation. Breath sounds equal bilaterally. No wheezes, rales, or rhonchi. GASTROINTESTINAL: Abdomen soft, non-tender, nondistended. No hepato-splenomegaly , or palpable masses. No guarding. Bowel sounds present. GENITOURINARY: Without palpable bladder distension. Leroy catheter in place. MUSCULOSKELETAL: Extremities without clubbing, cyanosis, or edema. LYMPHATICS: No palpable cervical or supraclavicular adenopathy. NEUROLOGICAL: Awake and alert. Motor and sensory grossly within normal limits. Follows commands. Cognitively sharp. Moves all extremities. PSYCHIATRIC: No obvious anxiety/depression. no apparent hallucinations or other psychotic thought process. Diagnostic Tests Laboratory: Laboratory Results - last 72 hr 09/17/17 06:48 Sodium 140 Potassium 3.7 Chloride 107 Carbon Dioxide 24.0 Anion Gap 9 BUN 4 L Creatinine 0.34 L Estimated GFR Greater than 89 Random Glucose 73 L Calcium 8.3 L Magnesium 1.6 Digoxin 0.9 Result Diagrams: 09/15/17 08:23 09/17/17 06:48 Procedures: 08/07 PROCEDURES PERFORMED: 1. 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 2. Closure of chest wall defect 6 x 4 cm with dermal matrix biological mesh. 3. Placement of VAC dressing to wound, 26 x 21 cm. 4. Right thoracostomy tube placement. 08/10 vac dressing 08/20 Right pedicled latissimus muscle flap to right chest wound Left pectoralis major muscle flap to right chest wound 08/23 Right chest wound VAC change (32202) Right chest wound debridement (97238, 90422 x 6) Assessment and Plan - Disease Oriented Problem List (1) Basal cell carcinoma (2) Open chest wound Comment: multi drug resistance psudomonas (3) Afib (4) Ventricular tachycardia - Symptom Scale (1) Pain 0-10 Scale: 6 Pertinent Non-Medical Issues: Psychosocial:Originally from [place]. Moved to [place] in the 70s. . No Children. Worked in [employer] Spiritual:Sabianism Legal:no known advance directive. Pt's spouse would be proxy Ethical issues impacting care:none at this time. Important Contacts: spouse Barb Carpio [phone] Prognosis: Prognosis is guarded. 51 year old with basal cell cancer s/p radical resection of sternum chest. Condition complicated by arrhtymias, pain, severe post surgical wounds, infection. Code Status: Full Code Plan: == capacity- pt has capacity to make medical decsions. == if pt was to lose capacity, pt's spouse would serve as proxy. == goals of care: pt and present. Continue all medical care/ aggressive care. == symptoms: pain- pt state pain currently is well managed with hydrocodone and long acting morphine at night. Pain is mainly site of the surgery feels current regiment is well managed. Insominia- increase dose of restoril tonight. == Code: status, full. == palliative care will continue to follow to provide support/ goals of care conversation/ and symptom managment as clinical conditon evolves. Attestation Attestation: To help prompt me to consider important information that might be impacting today's encounter and assessment, information from prior notes written by myself or my colleagues may have been "brought forward" into today's note. My signature on this note, however, is an attestation that I personally performed the exam, history, and/or decision-making noted today, and, unless otherwise indicated, the interactions with patient, family, and staff as well as the review of records all occurred today. I also attest that the listed assessment and stated plan reflect my best clinical judgment today based on the combination of historical information, prior notes, and today's exam/ interactions. When time spent is documented, it refers only to time spent today by the signer, or if indicated, combined time spent today by collaborating physician/nurse practitioner.
--- NOTE | 2017-09-18 16:02 | P.PNCA ---
Subjective Interval history: asleep in nad Physical Exam Vital signs: Vital Signs 09/17/17 20:00 09/17/17 21:10 09/18/17 00:00 Temperature 98.5 F 98.8 F Pulse Rate 63 69 Respiratory Rate 17 17 17 Blood Pressure 128/68 122/66 Pulse Oximetry 98 95 09/18/17 05:00 09/18/17 08:00 09/18/17 10:22 Temperature 97.8 F 98.1 F Pulse Rate 69 55 L 53 L Respiratory Rate 18 19 Blood Pressure 115/69 120/63 Pulse Oximetry 98 96 09/18/17 12:00 Temperature 97.9 F Pulse Rate 59 L Respiratory Rate 19 Blood Pressure 121/64 Pulse Oximetry 98 Intake & Output 09/17/17 09/18/17 09/18/17 18:59 06:59 18:59 Intake Total 1870 / 1870 2525 / 2525 1050 / 1050 Output Total 880 / 880 2402 / 2402 Balance 990 / 990 123 / 123 1050 / 1050 Weight 43.5 kg Intake: IV 1100 / 1100 50 / 50 1050 / 1050 NS Inj 1,000 ML @ 84 mls/hr IV. 1000 / 1000 1000 / 1000 CONT .[id number] TAWANA Rx#:[id number] Ancef 2 GM Premix Inj 2 gm In 100 / 100 50 / 50 50 / 50 50 ml @ 100 mls/hr IV.SIG Q8H TAWANA Rx#:[id number] Oral 770 / 770 1825 / 1825 Other 650 / 650 Output: Urine 880 / 880 2400 / 2400 Stool 2 / 2 Other: Mode Setting Midline Chest Continuous Continuous Other Intake Source Saline Solution Date of Last Bowel Movement 09/13/17 # Bowel Movements 0 0 Assessment and Plan - Assessment (1) Afib Code(s): I48.91 - Unspecified atrial fibrillation Status: Acute (2) Basal cell carcinoma Code(s): C44.91 - Basal cell carcinoma of skin, unspecified Status: Acute (3) Ventricular tachycardia Code(s): I47.2 - Ventricular tachycardia Status: Acute - Plan Atrial fibrillation with rapid ventricular rate Ventricular tachycardia Tachybradycardia syndrome in nsr today convert to amio PO clear from cardio perspective for surgery with intermediate risk
[2017-09-18] MEDS: Temazepam 15 MG Capsule PO SCH (21:28)
[2017-09-18] MEDS: Morphine Sulfate 15 MG SR Tablet PO SCH (21:29)
[2017-09-19] MEDS: ceFAZolin 2 GM Premix Inj 2 GM/50 ML PIGGYBACK IV.SIG SCH ×4 (04:56→23:30)
[2017-09-19] MEDS: Sod Chloride 0.9% Inj 1,000 ML IV.CONT SCH ×2 (04:57→16:29)
[2017-09-19] MEDS: Nystatin 100,000 UNITS/GM Powder 15 GM Bottle TOPICAL SCH ×3 (05:14→23:30)
[2017-09-19] MEDS: Metoprolol Tartrate 50 MG Tablet PO SCH ×2 (09:33→22:31)
[2017-09-19] MEDS: Digoxin 250 MCG Tablet PO SCH ×2 (09:33→09:37)
[2017-09-19] MEDS: Amiodarone 200 MG Tablet PO SCH (09:34)
[2017-09-19] MEDS: Enoxaparin Inj 40 MG/0.4 ML Syringe SQ SCH (09:35)
--- NOTE | 2017-09-19 10:53 | P.PN ---
Subjective Interval history: no complains good po voiding well Physical Exam Vital signs: Vital Signs 09/18/17 12:00 09/18/17 16:00 09/18/17 20:00 Temperature 97.9 F 98.3 F 98.7 F Pulse Rate 59 L 56 L 57 L Respiratory Rate 19 20 17 Blood Pressure 121/64 116/71 147/72 H Pulse Oximetry 98 99 96 09/18/17 20:29 09/18/17 23:00 09/19/17 00:00 Temperature 98 F Pulse Rate 61 56 L 56 L Respiratory Rate 18 Blood Pressure 146/66 H Pulse Oximetry 98 09/19/17 03:00 09/19/17 04:00 09/19/17 08:44 Temperature 98.4 F 98.2 F Pulse Rate 58 L 56 L 51 L Respiratory Rate 18 18 Blood Pressure 117/57 L 130/69 Pulse Oximetry 96 96 Intake & Output 09/18/17 09/19/17 09/19/17 18:59 06:59 18:59 Intake Total 2090 / 2090 2500 / 2500 Output Total 1600 / 1600 Balance 490 / 490 2500 / 2500 Weight 39.6 kg Intake: IV 1100 / 1100 1000 / 1000 NS Inj 1,000 ML @ 84 mls/hr IV. 1000 / 1000 1000 / 1000 CONT .[id number] TAWANA Rx#:[id number] Ancef 2 GM Premix Inj 2 gm In 100 / 100 50 ml @ 100 mls/hr IV.SIG Q8H TAWANA Rx#:[id number] Oral 990 / 990 800 / 800 Anesthesia Amount 700 / 700 Output: Urine 1600 / 1600 Other: Mode Setting Midline Chest Continuous Continuous Continuous Date of Last Bowel Movement 09/13/17 # Bowel Movements 0 Narrative: awake and alert no acute distress anicteric chest wall- with VAC in place, mild surrounding erythema of skin around VAC area regular rhythm- HR 56/min abdomen soft, nontender extremities no edema neuro exam- non focal Results - Labs CBC & Chem 7: 09/15/17 08:23 09/17/17 06:48 - Procedures 08/07 PROCEDURES PERFORMED: 1. 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 2. Closure of chest wall defect 6 x 4 cm with dermal matrix biological mesh. 3. Placement of VAC dressing to wound, 26 x 21 cm. 4. Right thoracostomy tube placement. 08/10 vac dressing 08/20 Right pedicled latissimus muscle flap to right chest wound Left pectoralis major muscle flap to right chest wound 08/23 Right chest wound VAC change (83778) Right chest wound debridement (32831, 14867 x 6) Assessment and Plan - Plan 51-year-old male admitted for a chest mass, status post excision, found to have invasive squamous cell carcinoma, wound VAC was placed care of plastic surgery, now awaiting skin grafting. Hospital course complicated by atrial fibrillation and hospital-acquired pneumonia. 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 - Plastic surgery following, status post surgical resection on 08/07/2017. Biopsy showed invasive squamous cell carcinoma involving bones, cartilage and pleura. - Wound culture from the chest rgrew Pseudomonas with 2 isolates, status post Zosyn, infectious disease was involved. Continue pain management - Oncology following, s/p surgical resection, he will need XRT in the future as outpatient and additional surgery for the squamous cell CA in the back with Dr. Ahn as outpatient. Cleared by Oncology for discharge. - For skin graft in 1-2 weeks per plastic surgery Continue wound VAC changes MWF. - started on IV Cefazolin by Plastics Paroxysmal Atrial fibrillation with rapid ventricular rate- now in SR HR- 60 this am S/P Ventricular tachycardia Tachybradycardia syndrome -May be related to anatomical disturbances, Cardiology following, continue Metoprolol and aspirin. Went into Afib RVR again with hypotension 09/15. He usually goes into atrial fibrillation with anemia and electrolyte imbalance, Hgb and electrolytes WNL. Started digoxin loading 09/16, ff digoxin level - started on Amiodarone 200 mg daily. digoxin 0.25 mg daily - Cardiology ff- Dr. Sandoval - if recurs- EP consult Hospital-acquired pneumonia-resolved, finished antibiotics for 2 weeks. DVT Prophylaxis: lovenox Discharge Planning: Limited resources/income, needs home health care with wound VAC. Discharge once cleared by plastic surgery after graft placement Patient up and ambulating
--- NOTE | 2017-09-19 11:59 | P.PNPAL ---
Reason for Visit Reason for visit: a. To assist with evaluation and management of symptoms including:pain, insomnia, constipation. b. To assist medical decision maker(s) with: better understanding of current medical conditions; weighing benefits/burdens of medical treatment options; making medical treatment decisions. Subjective Subjective/Interval History: Pt is a 51 year old with a prolong hospitalization for >1 month for a fungating chest mass/ locally advanced basosqumous carcionma. Pt is s/p radical surgical chest wall resection, with resection of sternum, costochondrial area. pt also has various followup surgeres (wound vac placment , debridement, flap placement etc) and followed by plastic and surgery. condition complicated by Afib/tacybrady syndrome (both cardiology and cardiophyiology involved. ID has been following for wound managment. Palliative care consulted for pain managment, we are also following for symptom of insominia. Patient feels pain which is mostly at his chest/ s/p surgical wound, is the same and current pain regimen is effective. Decline changing it. Patient slept much better overnight, and pt's iv pump did not wake pt up due to nursing staff being aware of the issue. who is ate bedside stated pt is constipated and has not have bm since 4 days ago. He has refused meds. I spoke with patient, he denies having nause or vomiting. After discussion, he is amenable to schedule senna. Family/Friend Interactions: see above. Advance Directives Living Will: Never completed Health Care Surrogate: Never completed Durable Power of Marketing/Sales Person: Never completed Objective Vital Signs: Vital Signs 09/18/17 12:00 09/18/17 16:00 09/18/17 20:00 Temperature 97.9 F 98.3 F 98.7 F Pulse Rate 59 L 56 L 57 L Respiratory Rate 19 20 17 Blood Pressure 121/64 116/71 147/72 H Pulse Oximetry 98 99 96 09/18/17 20:29 09/18/17 23:00 09/19/17 00:00 Temperature 98 F Pulse Rate 61 56 L 56 L Respiratory Rate 18 Blood Pressure 146/66 H Pulse Oximetry 98 09/19/17 03:00 09/19/17 04:00 09/19/17 08:00 Temperature 98.4 F Pulse Rate 58 L 56 L 51 L Respiratory Rate 18 Blood Pressure 117/57 L Pulse Oximetry 96 09/19/17 08:44 09/19/17 10:00 Temperature 98.2 F Pulse Rate 51 L Respiratory Rate 18 16 Blood Pressure 130/69 Pulse Oximetry 96 Intake & Output 09/18/17 09/19/17 09/19/17 18:59 06:59 18:59 Intake Total 2090 / 2090 2500 / 2500 Output Total 1600 / 1600 Balance 490 / 490 2500 / 2500 Weight 39.6 kg Intake: IV 1100 / 1100 1000 / 1000 NS Inj 1,000 ML @ 84 mls/hr IV. 1000 / 1000 1000 / 1000 CONT .[id number] TAWANA Rx#:[id number] Ancef 2 GM Premix Inj 2 gm In 100 / 100 50 ml @ 100 mls/hr IV.SIG Q8H TAWANA Rx#:[id number] Oral 990 / 990 800 / 800 Anesthesia Amount 700 / 700 Output: Urine 1600 / 1600 Other: Mode Setting Midline Chest Continuous Continuous Continuous Date of Last Bowel Movement 09/13/17 # Bowel Movements 0 Physical Exam: CONSTITUTIONAL/GENERAL: This is an 51 year old male, appears fatigue at times. SKIN: No jaundice, rashes, or lesions. Wound VAC mid-sternum. HEAD: Atraumatic. Normocephalic. EYES: Pupils equal and round and reactive. Extraocular motions intact. No scleral icterus. No injection or drainage. Fundi not examined. ENT: Hearing grossly normal. Nose without bleeding or purulent drainage. Throat without visible erythema, exudates, masses, or lesions. NECK: Trachea midline. Supple, nontender. No palpable thyroid enlargement or nodularity. CARDIOVASCULAR: irregularly without murmurs, gallops, or rubs. RESPIRATORY/CHEST: Symmetric, unlabored respirations. Clear to auscultation. Breath sounds equal bilaterally. No wheezes, rales, or rhonchi. GASTROINTESTINAL: Abdomen soft, non-tender, nondistended. No hepato-splenomegaly , or palpable masses. No guarding. Bowel sounds present. GENITOURINARY: Without palpable bladder distension. Leroy catheter in place. MUSCULOSKELETAL: Extremities without clubbing, cyanosis, or edema. LYMPHATICS: No palpable cervical or supraclavicular adenopathy. NEUROLOGICAL: Awake and alert. Motor and sensory grossly within normal limits. Follows commands. Cognitively sharp. Moves all extremities. PSYCHIATRIC: No obvious anxiety/depression. no apparent hallucinations or other psychotic thought process. Diagnostic Tests Laboratory: Laboratory Results - last 72 hr 09/17/17 06:48 Sodium 140 Potassium 3.7 Chloride 107 Carbon Dioxide 24.0 Anion Gap 9 BUN 4 L Creatinine 0.34 L Estimated GFR Greater than 89 Random Glucose 73 L Calcium 8.3 L Magnesium 1.6 Digoxin 0.9 Result Diagrams: 09/15/17 08:23 09/17/17 06:48 Procedures: 08/07 PROCEDURES PERFORMED: 1. 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 2. Closure of chest wall defect 6 x 4 cm with dermal matrix biological mesh. 3. Placement of VAC dressing to wound, 26 x 21 cm. 4. Right thoracostomy tube placement. 08/10 vac dressing 08/20 Right pedicled latissimus muscle flap to right chest wound Left pectoralis major muscle flap to right chest wound 08/23 Right chest wound VAC change (71582) Right chest wound debridement (05091, 42398 x 6) Assessment and Plan - Disease Oriented Problem List (1) Basal cell carcinoma (2) Open chest wound Comment: multi drug resistance psudomonas (3) Afib (4) Ventricular tachycardia - Symptom Scale (1) Pain 0-10 Scale: 3 (2) Insomnia 0-10 Scale: Unable to quantify Pertinent Non-Medical Issues: Psychosocial:Originally from [place]. Moved to [place] in the 70s. . No Children. Worked in [employer] Spiritual:Mormon Legal:no known advance directive. Pt's spouse would be proxy Ethical issues impacting care:none at this time. Important Contacts: spouse Barb Carpio [phone] Prognosis: Prognosis is guarded. 51 year old with basal cell cancer s/p radical resection of sternum chest. Condition complicated by arrhtymias, pain, severe post surgical wounds, infection. Code Status: Full Code Plan: == capacity- pt has capacity to make medical decsions. == if pt was to lose capacity, pt's spouse would serve as proxy. == goals of care: pt and present. Continue all medical care/ aggressive care. == symptoms: pain- pt state pain currently is well managed with hydrocodone and long acting morphine at night. Pain is mainly site of the surgery feels current regiment is well managed. Insominia- increase dose of restoril tonight. constipation- on opiates for pain control, will scheninole Axel. == Code: status, full. == palliative care will continue to follow to provide support/ goals of care conversation/ and symptom managment as clinical conditon evolves.
[2017-09-19] MEDS: Sodium Hypochlorite 0.125% Top Soln 500 ML Bottle TOPICAL SCH (13:46)
[2017-09-19] MEDS: Senna/Docusate Sodium 8.6/50 MG Tablet PO SCH (16:29)
--- NOTE | 2017-09-19 21:22 | P.PNCA ---
Subjective Interval history: alert in nad Physical Exam Vital signs: Vital Signs 09/18/17 23:00 09/19/17 00:00 09/19/17 03:00 Temperature 98 F 98.4 F Pulse Rate 56 L 56 L 58 L Respiratory Rate 18 18 Blood Pressure 146/66 H 117/57 L Pulse Oximetry 98 96 09/19/17 04:00 09/19/17 08:00 09/19/17 08:44 Temperature 98.2 F Pulse Rate 56 L 51 L 51 L Respiratory Rate 18 Blood Pressure 130/69 Pulse Oximetry 96 09/19/17 10:00 09/19/17 12:00 09/19/17 12:53 Temperature 98.6 F Pulse Rate 55 L 55 L Respiratory Rate 16 18 Blood Pressure 136/67 Pulse Oximetry 97 Intake & Output 09/19/17 09/19/17 09/20/17 06:59 18:59 06:59 Intake Total 2550 / 2550 2200 / 2200 50 / 50 Output Total 2142 / 2142 Balance 2550 / 2550 58 / 58 50 / 50 Weight 39.6 kg Intake: IV 1050 / 1050 50 / 50 50 / 50 NS Inj 1,000 ML @ 84 mls/hr IV. 1000 / 1000 CONT .[id number] TAWANA Rx#:[id number] Ancef 2 GM Premix Inj 2 gm In 50 / 50 50 / 50 50 / 50 50 ml @ 100 mls/hr IV.SIG Q8H TAWANA Rx#:[id number] Oral 800 / 800 800 / 800 Anesthesia Amount 700 / 700 700 / 700 Other 650 / 650 Output: Urine 1600 / 1600 Stool 2 / 2 Pleural Fluid 30 / 30 Estimated Blood Loss 10 / 10 Wound Drainage 500 / 500 Medial Chest 500 / 500 Other: Mode Setting Midline Chest Continuous Continuous Other Intake Source Saline Solution # Voids 1 Date of Last Bowel Movement 09/13/17 # Bowel Movements 0 Assessment and Plan - Assessment (1) Afib Code(s): I48.91 - Unspecified atrial fibrillation Status: Acute (2) Basal cell carcinoma Code(s): C44.91 - Basal cell carcinoma of skin, unspecified Status: Acute (3) Ventricular tachycardia Code(s): I47.2 - Ventricular tachycardia Status: Acute - Plan Atrial fibrillation with rapid ventricular rate Ventricular tachycardia Tachybradycardia syndrome in nsr today convert to amio PO clear from cardio perspective for surgery with intermediate risk
[2017-09-19] MEDS: Morphine Sulfate 15 MG SR Tablet PO SCH (22:29)
[2017-09-19] MEDS: Temazepam 15 MG Capsule PO SCH (22:29)
[2017-09-20] MEDS: Sod Chloride 0.9% Inj 1,000 ML IV.CONT SCH ×2 (03:33→17:00)
[2017-09-20] MEDS: Enoxaparin Inj 40 MG/0.4 ML Syringe SQ SCH (08:41)
[2017-09-20] MEDS: Senna/Docusate Sodium 8.6/50 MG Tablet PO SCH (08:42)
[2017-09-20] MEDS: Metoprolol Tartrate 50 MG Tablet PO SCH ×2 (08:42→21:20)
[2017-09-20] MEDS: Sodium Hypochlorite 0.125% Top Soln 500 ML Bottle TOPICAL SCH (08:43)
[2017-09-20] MEDS: Amiodarone 200 MG Tablet PO SCH (08:43)
[2017-09-20] MEDS: Digoxin 250 MCG Tablet PO SCH (08:43)
[2017-09-20] MEDS: ceFAZolin 2 GM Premix Inj 2 GM/50 ML PIGGYBACK IV.SIG SCH ×2 (08:44→17:01)
[2017-09-20] MEDS: Nystatin 100,000 UNITS/GM Powder 15 GM Bottle TOPICAL SCH ×3 (08:45→21:20)
--- NOTE | 2017-09-20 10:39 | P.PN ---
Subjective Interval history: seen with supportive at bedside looking forward to VAC change to day-"it's gonna hurt" no reported diarrhea Physical Exam Vital signs: Vital Signs 09/19/17 12:00 09/19/17 12:53 09/19/17 20:00 Temperature 98.6 F 98 F Pulse Rate 55 L 55 L 55 L Respiratory Rate 18 18 Blood Pressure 136/67 155/78 H Pulse Oximetry 97 96 09/20/17 00:00 09/20/17 00:42 09/20/17 04:00 Temperature 98.6 F Pulse Rate 52 L 48 L Respiratory Rate 16 18 Blood Pressure 129/74 Pulse Oximetry 96 09/20/17 08:00 Temperature 98.6 F Pulse Rate 52 L Respiratory Rate 17 Blood Pressure 144/80 H Pulse Oximetry 95 Intake & Output 09/19/17 09/20/17 09/20/17 18:59 06:59 18:59 Intake Total 2200 / 2200 100 / 100 Output Total 2142 / 2142 900 / 900 Balance 58 / 58 -800 / -800 Intake: IV 50 / 50 100 / 100 Ancef 2 GM Premix Inj 2 gm In 50 / 50 100 / 100 50 ml @ 100 mls/hr IV.SIG Q8H [facility] Rx#:[id number] Oral 800 / 800 Anesthesia Amount 700 / 700 Other 650 / 650 Output: Urine 1600 / 1600 900 / 900 Stool 2 / 2 Pleural Fluid 30 / 30 Estimated Blood Loss 10 / 10 Wound Drainage 500 / 500 Medial Chest 500 / 500 Other: Mode Setting Midline Chest Continuous Continuous Other Intake Source Saline Solution # Voids 1 Date of Last Bowel Movement 09/13/17 09/19/17 09/19/17 # Bowel Movements 0 1 Narrative: awake and alert no acute distress anicteric chest wall- with VAC in place, mild surrounding erythema of skin around VAC area regular rhythm- HR 40s-50s abdomen soft, nontender extremities no edema neuro exam- non focal Results - Labs CBC & Chem 7: 09/15/17 08:23 09/17/17 06:48 - Procedures 08/07 PROCEDURES PERFORMED: 1. 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 2. Closure of chest wall defect 6 x 4 cm with dermal matrix biological mesh. 3. Placement of VAC dressing to wound, 26 x 21 cm. 4. Right thoracostomy tube placement. 08/10 vac dressing 08/20 Right pedicled latissimus muscle flap to right chest wound Left pectoralis major muscle flap to right chest wound 08/23 Right chest wound VAC change (27883) Right chest wound debridement (80076, 98098 x 6) Assessment and Plan - Plan 51-year-old male admitted for a chest mass, status post excision, found to have invasive squamous cell carcinoma, wound VAC was placed care of plastic surgery, now awaiting skin grafting. Hospital course complicated by atrial fibrillation and hospital-acquired pneumonia. 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 - Plastic surgery following, status post surgical resection on 08/07/2017. Biopsy showed invasive squamous cell carcinoma involving bones, cartilage and pleura. - Wound culture from the chest rgrew Pseudomonas with 2 isolates, status post Zosyn, infectious disease was involved. Continue pain management - Oncology following, s/p surgical resection, he will need XRT in the future as outpatient and additional surgery for the squamous cell CA in the back with Dr. Ahn as outpatient. Cleared by Oncology for discharge. - For skin graft in 1-2 weeks per plastic surgery Continue wound VAC changes MWF. - started on IV Cefazolin by Plastics Paroxysmal Atrial fibrillation with rapid ventricular rate- now in SR HR-40-50s S/P Ventricular tachycardia Tachybradycardia syndrome -May be related to anatomical disturbances, Cardiology following, continue Metoprolol and aspirin. Went into Afib RVR again with hypotension 09/15. He usually goes into atrial fibrillation with anemia and electrolyte imbalance, Hgb and electrolytes WNL. Started digoxin loading 09/16, ff digoxin level - on Amiodarone 200 mg daily. digoxin 0.25 mg daily, o LOpressor 50 mg po bid- maintaining good BPs - Cardiology ff- Dr. Sandoval - if recurs- EP consult - will d/w him- re- adjusting meds Hospital-acquired pneumonia-resolved, finished antibiotics for 2 weeks. Severe protein calorie malnutrition - dietitian ff DVT Prophylaxis: lovenox Discharge Planning: Limited resources/income, needs home health care with wound VAC. Discharge once cleared by plastic surgery after graft placement Patient up and ambulating
[2017-09-20] MEDS: HYDROmorphone PF Inj 2 MG/ML Vial IV.PUSH PRN (13:32)
[2017-09-20] MEDS: Temazepam 15 MG Capsule PO SCH (21:18)
[2017-09-20] MEDS: Morphine Sulfate 15 MG SR Tablet PO SCH (21:19)
[2017-09-21] MEDS: ceFAZolin 2 GM Premix Inj 2 GM/50 ML PIGGYBACK IV.SIG SCH ×3 (01:15→18:02)
[2017-09-21] MEDS: Sod Chloride 0.9% Inj 1,000 ML IV.CONT SCH ×2 (02:57→22:29)
--- NOTE | 2017-09-21 08:50 | P.PN ---
Subjective Interval history: awake and alert states had a good "solid" bowel movement yesterday good po no pain complains Physical Exam Vital signs: Vital Signs 09/20/17 11:00 09/20/17 12:00 09/20/17 15:00 Temperature 98.0 F 98.2 F 98.2 F Pulse Rate 54 L 52 L 49 L Respiratory Rate 15 16 15 Blood Pressure 124/67 147/72 H 147/74 H Pulse Oximetry 95 96 09/20/17 20:00 09/20/17 22:03 09/21/17 01:14 Temperature 98.2 F Pulse Rate 48 L Respiratory Rate 16 18 18 Blood Pressure 151/72 H Pulse Oximetry 97 09/21/17 04:00 Temperature 98.4 F Pulse Rate 55 L Respiratory Rate 18 Blood Pressure 158/78 H Pulse Oximetry 55 L Intake & Output 09/20/17 09/21/17 09/21/17 18:59 06:59 18:59 Intake Total 100 / 100 50 / 50 Balance 100 / 100 50 / 50 Weight 99.9 kg Intake: IV 100 / 100 50 / 50 Ancef 2 GM Premix Inj 2 gm In 100 / 100 50 / 50 50 ml @ 100 mls/hr IV.SIG Q8H [facility] Rx#:[id number] Other: Mode Setting Midline Chest Continuous Continuous # Voids 4 Date of Last Bowel Movement 09/19/17 09/20/17 Narrative: awake and alert no acute distress anicteric chest wall- with VAC in place, mild surrounding erythema of skin around VAC area back- post op clarissa in place- about 12-[address], small area quarter size- superficial open wound, dry regular rhythm- HR now in the 50 abdomen soft, nontender extremities no edema neuro exam- non focal Results - Labs CBC & Chem 7: 09/15/17 08:23 09/17/17 06:48 - Procedures 08/07 PROCEDURES PERFORMED: 1. 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 2. Closure of chest wall defect 6 x 4 cm with dermal matrix biological mesh. 3. Placement of VAC dressing to wound, 26 x 21 cm. 4. Right thoracostomy tube placement. 08/10 vac dressing 08/20 Right pedicled latissimus muscle flap to right chest wound Left pectoralis major muscle flap to right chest wound 08/23 Right chest wound VAC change (03044) Right chest wound debridement (64029, 60019 x 6) Assessment and Plan - Plan 51-year-old male admitted for a chest mass, status post excision, found to have invasive squamous cell carcinoma, wound VAC was placed care of plastic surgery, now awaiting skin grafting. Hospital course complicated by atrial fibrillation and hospital-acquired pneumonia. 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 - Plastic surgery following, status post surgical resection on 08/07/2017. Biopsy showed invasive squamous cell carcinoma involving bones, cartilage and pleura. - Wound culture from the chest rgrew Pseudomonas with 2 isolates, status post Zosyn, infectious disease was involved. Continue pain management - Oncology following, s/p surgical resection, he will need XRT in the future as outpatient and additional surgery for the squamous cell CA in the back with Dr. Ahn as outpatient. Cleared by Oncology for discharge. - For skin graft in 1-2 weeks per plastic surgery Continue wound VAC changes MWF- last changed 07/21 - started on IV Cefazolin by Plastics - will ask nurse to call Plastics- regrding- regarding clarissa in the back- removal date Paroxysmal Atrial fibrillation with rapid ventricular rate- now in SR HR-40-50s - sinus HR S/P Ventricular tachycardia Tachybradycardia syndrome -May be related to anatomical disturbances, Cardiology following, continue Metoprolol and aspirin. Went into Afib RVR again with hypotension 09/15. He usually goes into atrial fibrillation with anemia and electrolyte imbalance, Hgb and electrolytes WNL. Started digoxin loading 09/16, ff digoxin level - on Amiodarone 200 mg daily. digoxin 0.25 mg daily- DC - Lopressor 50 mg po bid - decrease to 25 mg po bid- Hold if parameters less than 55 - Cardiology ff- Dr. Sandoval - if recurs- EP consult - re- adjusting meds Hospital-acquired pneumonia-resolved, finished antibiotics for 2 weeks. Severe protein calorie malnutrition - dietitian ff DVT Prophylaxis: lovenox Discharge Planning: Limited resources/income, needs home health care with wound VAC. Discharge once cleared by plastic surgery after graft placement Patient up and ambulating
[2017-09-21] MEDS: Enoxaparin Inj 40 MG/0.4 ML Syringe SQ SCH (09:38)
[2017-09-21] MEDS: Senna/Docusate Sodium 8.6/50 MG Tablet PO SCH (09:38)
[2017-09-21] MEDS: Amiodarone 200 MG Tablet PO SCH (09:38)
[2017-09-21] MEDS: Nystatin 100,000 UNITS/GM Powder 15 GM Bottle TOPICAL SCH ×3 (09:41→22:39)
[2017-09-21] MEDS: Metoprolol Tartrate 25 MG Tablet PO SCH ×2 (09:43→22:30)
[2017-09-21] MEDS: Sodium Hypochlorite 0.125% Top Soln 500 ML Bottle TOPICAL SCH (09:43)
--- NOTE | 2017-09-21 13:58 | P.PNCA ---
Subjective Interval history: asleep in nad Physical Exam Vital signs: Vital Signs 09/20/17 15:00 09/20/17 20:00 09/20/17 22:03 Temperature 98.2 F 98.2 F Pulse Rate 49 L 48 L Respiratory Rate 15 16 18 Blood Pressure 147/74 H 151/72 H Pulse Oximetry 96 97 09/21/17 01:14 09/21/17 04:00 09/21/17 08:00 Temperature 98.4 F 98.2 F Pulse Rate 55 L 52 L Respiratory Rate 18 18 14 Blood Pressure 158/78 H 136/70 Pulse Oximetry 55 L 94 L 09/21/17 12:00 Temperature 98.7 F Pulse Rate 63 Respiratory Rate 16 Blood Pressure 124/68 Pulse Oximetry 96 Intake & Output 09/20/17 09/21/17 09/21/17 18:59 06:59 18:59 Intake Total 100 / 100 50 / 50 Balance 100 / 100 50 / 50 Weight 99.9 kg Intake: IV 100 / 100 50 / 50 Ancef 2 GM Premix Inj 2 gm In 100 / 100 50 / 50 50 ml @ 100 mls/hr IV.SIG Q8H [facility] Rx#:[id number] Other: Mode Setting Midline Chest Continuous Continuous # Voids 4 Date of Last Bowel Movement 09/19/17 09/20/17 Assessment and Plan - Assessment (1) Afib Code(s): I48.91 - Unspecified atrial fibrillation Status: Acute (2) Basal cell carcinoma Code(s): C44.91 - Basal cell carcinoma of skin, unspecified Status: Acute (3) Ventricular tachycardia Code(s): I47.2 - Ventricular tachycardia Status: Acute - Plan Atrial fibrillation with rapid ventricular rate Ventricular tachycardia Tachybradycardia syndrome in nsr today convert to amio PO clear from cardio perspective for surgery with intermediate risk paige into 40's yest, dig held, d/w Dr Hill
[2017-09-21] MEDS: Morphine Sulfate 15 MG SR Tablet PO SCH (22:30)
[2017-09-21] MEDS: Temazepam 15 MG Capsule PO SCH (22:39)
[2017-09-22] MEDS: Sod Chloride 0.9% Inj 1,000 ML IV.CONT SCH ×2 (01:52→15:37)
[2017-09-22] MEDS: ceFAZolin 2 GM Premix Inj 2 GM/50 ML PIGGYBACK IV.SIG SCH ×4 (01:52→23:36)
[2017-09-22] MEDS: Nystatin 100,000 UNITS/GM Powder 15 GM Bottle TOPICAL SCH ×3 (06:10→22:20)
[2017-09-22] MEDS: Metoprolol Tartrate 25 MG Tablet PO SCH ×2 (09:21→22:17)
[2017-09-22] MEDS: Senna/Docusate Sodium 8.6/50 MG Tablet PO SCH (09:21)
[2017-09-22] MEDS: Enoxaparin Inj 40 MG/0.4 ML Syringe SQ SCH (09:21)
[2017-09-22] MEDS: Amiodarone 200 MG Tablet PO SCH (09:22)
[2017-09-22] MEDS: Sodium Hypochlorite 0.125% Top Soln 500 ML Bottle TOPICAL SCH (09:23)
--- NOTE | 2017-09-22 13:22 | P.PNCA ---
Subjective Interval history: asleep in nad Physical Exam Vital signs: Vital Signs 09/21/17 16:00 09/21/17 20:20 09/21/17 23:00 Temperature 98.2 F 99 F Pulse Rate 55 L 100 H Respiratory Rate 12 17 16 Blood Pressure 130/66 130/80 Pulse Oximetry 96 96 09/22/17 00:50 09/22/17 01:42 09/22/17 03:00 Temperature 98.7 F Pulse Rate 88 Respiratory Rate 18 18 18 Blood Pressure 128/78 Pulse Oximetry 97 09/22/17 06:30 09/22/17 08:00 Temperature 98 F 98.1 F Pulse Rate 50 L 52 L Respiratory Rate 16 16 Blood Pressure 121/66 136/74 Pulse Oximetry 96 97 Intake & Output 09/21/17 09/22/17 09/22/17 18:59 06:59 18:59 Intake Total 50 / 50 2600 / 2600 50 / 50 Output Total 1300 / 1300 Balance 50 / 50 1300 / 1300 50 / 50 Weight 100 kg Intake: IV 50 / 50 100 / 100 50 / 50 Ancef 2 GM Premix Inj 2 gm In 50 / 50 100 / 100 50 / 50 50 ml @ 100 mls/hr IV.SIG Q8H [facility] Rx#:[id number] Oral 2500 / 2500 Output: Urine 1300 / 1300 Stool 0 / 0 Other: Mode Setting Midline Chest Intermittent Continuous Continuous # Voids 700 Date of Last Bowel Movement 09/20/17 # Bowel Movements 0 Assessment and Plan - Assessment (1) Afib Code(s): I48.91 - Unspecified atrial fibrillation Status: Acute (2) Basal cell carcinoma Code(s): C44.91 - Basal cell carcinoma of skin, unspecified Status: Acute (3) Ventricular tachycardia Code(s): I47.2 - Ventricular tachycardia Status: Acute - Plan Atrial fibrillation with rapid ventricular rate Ventricular tachycardia Tachybradycardia syndrome in nsr today convert to amio PO clear from cardio perspective for surgery with intermediate risk paige into 40's, dig held, d/w Dr Hill 09/20/17
--- NOTE | 2017-09-22 15:00 | P.PN ---
Subjective Interval history: no complains seen with supportive at bedside Physical Exam Vital signs: Vital Signs 09/21/17 16:00 09/21/17 20:20 09/21/17 23:00 Temperature 98.2 F 99 F Pulse Rate 55 L 100 H Respiratory Rate 12 17 16 Blood Pressure 130/66 130/80 Pulse Oximetry 96 96 09/22/17 00:50 09/22/17 01:42 09/22/17 03:00 Temperature 98.7 F Pulse Rate 88 Respiratory Rate 18 18 18 Blood Pressure 128/78 Pulse Oximetry 97 09/22/17 06:30 09/22/17 08:00 09/22/17 12:00 Temperature 98 F 98.1 F 98.0 F Pulse Rate 50 L 52 L 52 L Respiratory Rate 16 16 14 Blood Pressure 121/66 136/74 160/76 H Pulse Oximetry 96 97 97 Intake & Output 09/21/17 09/22/17 09/22/17 18:59 06:59 18:59 Intake Total 50 / 50 2600 / 2600 50 / 50 Output Total 1300 / 1300 Balance 50 / 50 1300 / 1300 50 / 50 Weight 100 kg Intake: IV 50 / 50 100 / 100 50 / 50 Ancef 2 GM Premix Inj 2 gm In 50 / 50 100 / 100 50 / 50 50 ml @ 100 mls/hr IV.SIG Q8H [facility] Rx#:[id number] Oral 2500 / 2500 Output: Urine 1300 / 1300 Stool 0 / 0 Other: Mode Setting Midline Chest Intermittent Continuous Continuous # Voids 700 Date of Last Bowel Movement 09/20/17 # Bowel Movements 0 Narrative: awake and alert no acute distress anicteric chest wall- with VAC in place, mild surrounding erythema of skin around VAC area back- post op clarissa in place- about 12-[address], small area quarter size- superficial open wound, dry regular rhythm- HR now in the 50s abdomen soft, nontender extremities no edema neuro exam- non focal Results - Labs CBC & Chem 7: 09/15/17 08:23 09/17/17 06:48 - Procedures 08/07 PROCEDURES PERFORMED: 1. 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 2. Closure of chest wall defect 6 x 4 cm with dermal matrix biological mesh. 3. Placement of VAC dressing to wound, 26 x 21 cm. 4. Right thoracostomy tube placement. 08/10 vac dressing 08/20 Right pedicled latissimus muscle flap to right chest wound Left pectoralis major muscle flap to right chest wound 08/23 Right chest wound VAC change (24456) Right chest wound debridement (70960, 31459 x 6) Assessment and Plan - Plan 51-year-old male admitted for a chest mass, status post excision, found to have invasive squamous cell carcinoma, wound VAC was placed care of plastic surgery, now awaiting skin grafting. Hospital course complicated by atrial fibrillation and hospital-acquired pneumonia. 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 - Plastic surgery following, status post surgical resection on 08/07/2017. Biopsy showed invasive squamous cell carcinoma involving bones, cartilage and pleura. - Wound culture from the chest rgrew Pseudomonas with 2 isolates, status post Zosyn, infectious disease was involved. Continue pain management - Oncology following, s/p surgical resection, he will need XRT in the future as outpatient and additional surgery for the squamous cell CA in the back with Dr. Ahn as outpatient. Cleared by Oncology for discharge. - For skin graft in 1-2 weeks per plastic surgery Continue wound VAC changes MWF- last changed 07/21 - started on IV Cefazolin by Plastics - will ask nurse to call Plastics- regarding- regarding clarissa in the back- removal date Paroxysmal Atrial fibrillation with rapid ventricular rate- now in SR HR-40-50s - sinus HR S/P Ventricular tachycardia Tachybradycardia syndrome -May be related to anatomical disturbances, Cardiology following, continue Metoprolol and aspirin. Went into Afib RVR again with hypotension 09/15. He usually goes into atrial fibrillation with anemia and electrolyte imbalance, Hgb and electrolytes WNL. Started digoxin loading 09/16, ff digoxin level - on Amiodarone 200 mg daily. digoxin 0.25 mg daily- DC - Lopressor 50 mg po bid - decrease to 25 mg po bid- Hold if parameters less than 55 - Cardiology ff- Dr. Sandoval - if recurs- EP consult - re- adjusting meds Hospital-acquired pneumonia-resolved, finished antibiotics for 2 weeks. Severe protein calorie malnutrition - dietitian ff DVT Prophylaxis: lovenox Discharge Planning: Limited resources/income, needs home health care with wound VAC. Discharge once cleared by plastic surgery after graft placement Patient up and ambulating
[2017-09-22] MEDS: Temazepam 15 MG Capsule PO SCH (22:17)
[2017-09-22] MEDS: Morphine Sulfate 15 MG SR Tablet PO SCH (22:17)
[2017-09-23] MEDS: Sod Chloride 0.9% Inj 1,000 ML IV.CONT SCH ×2 (07:25→13:28)
[2017-09-23] MEDS: Nystatin 100,000 UNITS/GM Powder 15 GM Bottle TOPICAL SCH ×3 (07:25→23:26)
[2017-09-23] MEDS: Enoxaparin Inj 40 MG/0.4 ML Syringe SQ SCH (09:04)
[2017-09-23] MEDS: Amiodarone 200 MG Tablet PO SCH (09:04)
[2017-09-23] MEDS: Senna/Docusate Sodium 8.6/50 MG Tablet PO SCH (09:04)
[2017-09-23] MEDS: Metoprolol Tartrate 25 MG Tablet PO SCH ×2 (09:04→22:26)
[2017-09-23] MEDS: ceFAZolin 2 GM Premix Inj 2 GM/50 ML PIGGYBACK IV.SIG SCH ×3 (09:04→23:25)
[2017-09-23] MEDS: Sodium Hypochlorite 0.125% Top Soln 500 ML Bottle TOPICAL SCH (09:05)
--- NOTE | 2017-09-23 13:43 | P.PN ---
Subjective Interval history: awake and alert, HR in the 50s- now 55 no complains good pain control for VAC change today Physical Exam Vital signs: Vital Signs 09/22/17 16:00 09/22/17 21:20 09/23/17 00:45 Temperature 98.3 F 98.2 F 98 F Pulse Rate 55 L 55 L 58 L Respiratory Rate 15 16 17 Blood Pressure 176/88 H 148/85 H 130/76 Pulse Oximetry 98 97 98 09/23/17 04:20 09/23/17 07:00 09/23/17 12:00 Temperature 98 F 98.7 F 98.5 F Pulse Rate 54 L 60 53 L Respiratory Rate 16 18 20 Blood Pressure 159/89 H 171/79 H 133/75 Pulse Oximetry 98 94 L 96 Intake & Output 09/22/17 09/23/17 09/23/17 18:59 06:59 18:59 Intake Total 50 / 50 1150 / 1150 1050 / 1050 Output Total 625 / 625 1600 / 1600 650 / 650 Balance -575 / -575 -450 / -450 400 / 400 Weight 100 kg Intake: IV 50 / 50 100 / 100 1050 / 1050 NS Inj 1,000 ML @ 84 mls/hr IV. 1000 / 1000 CONT .[id number] [facility] Rx#:[id number] Ancef 2 GM Premix Inj 2 gm In 50 / 50 100 / 100 50 / 50 50 ml @ 100 mls/hr IV.SIG Q8H [facility] Rx#:[id number] Oral 1050 / 1050 Output: Urine 475 / 475 1600 / 1600 650 / 650 Wound Drainage 150 / 150 Medial Chest 150 / 150 Other: Mode Setting Midline Chest Continuous Continuous # Voids 5 Date of Last Bowel Movement 09/21/17 # Bowel Movements 0 Narrative: awake and alert no acute distress anicteric chest wall- with VAC in place, mild surrounding erythema of skin around VAC area back- post op clarissa in place- about 12-[address], small area quarter size- superficial open wound, dry regular rhythm- HR - 66/min abdomen soft, nontender extremities no edema neuro exam- non focal Results - Labs CBC & Chem 7: 09/15/17 08:23 09/17/17 06:48 - Procedures 08/07 PROCEDURES PERFORMED: 1. 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 2. Closure of chest wall defect 6 x 4 cm with dermal matrix biological mesh. 3. Placement of VAC dressing to wound, 26 x 21 cm. 4. Right thoracostomy tube placement. 08/10 vac dressing 08/20 Right pedicled latissimus muscle flap to right chest wound Left pectoralis major muscle flap to right chest wound 08/23 Right chest wound VAC change (99318) Right chest wound debridement (48764, 92024 x 6) Assessment and Plan - Plan 51-year-old male admitted for a chest mass, status post excision, found to have invasive squamous cell carcinoma, wound VAC was placed care of plastic surgery, now awaiting skin grafting. Hospital course complicated by atrial fibrillation and hospital-acquired pneumonia. 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 - Plastic surgery following, status post surgical resection on 08/07/2017. Biopsy showed invasive squamous cell carcinoma involving bones, cartilage and pleura. - Wound culture from the chest rgrew Pseudomonas with 2 isolates, status post Zosyn, infectious disease was involved. Continue pain management - Oncology following, s/p surgical resection, he will need XRT in the future as outpatient and additional surgery for the squamous cell CA in the back with Dr. Ahn as outpatient. Cleared by Oncology for discharge. - For skin graft in 1-2 weeks per plastic surgery Continue wound VAC changes MWF- last changed 07/21 -on IV Cefazolin per Plastics - will ask nurse to call Plastics- regarding- regarding clarissa in the back- removal date- ask nurse to call them again Paroxysmal Atrial fibrillation with rapid ventricular rate- now in SR HR-40-50s - sinus HR S/P Ventricular tachycardia Tachybradycardia syndrome -May be related to anatomical disturbances, Cardiology following, continue Metoprolol and aspirin. Went into Afib RVR again with hypotension 09/15. He usually goes into atrial fibrillation with anemia and electrolyte imbalance, Hgb and electrolytes WNL. Started digoxin loading 09/16, - on Amiodarone 200 mg daily. - digoxin DC 09/22 - Lopressor 50 mg po bid - decrease to 25 mg po bid 09/22 - Hold if parameters less than 55 - Cardiology ff- Dr. Sandoval - if recurs- EP consult - re- adjusting meds Hospital-acquired pneumonia-resolved, finished antibiotics for 2 weeks. Severe protein calorie malnutrition - dietitian ff DVT Prophylaxis: lovenox Discharge Planning: Limited resources/income, needs home health care with wound VAC. Discharge once cleared by plastic surgery after graft placement Patient up and ambulating
--- NOTE | 2017-09-23 13:50 | P.PNCA ---
Subjective Interval history: asleep in nad Physical Exam Vital signs: Vital Signs 09/22/17 16:00 09/22/17 21:20 09/23/17 00:45 Temperature 98.3 F 98.2 F 98 F Pulse Rate 55 L 55 L 58 L Respiratory Rate 15 16 17 Blood Pressure 176/88 H 148/85 H 130/76 Pulse Oximetry 98 97 98 09/23/17 04:20 09/23/17 07:00 09/23/17 12:00 Temperature 98 F 98.7 F 98.5 F Pulse Rate 54 L 60 53 L Respiratory Rate 16 18 20 Blood Pressure 159/89 H 171/79 H 133/75 Pulse Oximetry 98 94 L 96 Intake & Output 09/22/17 09/23/17 09/23/17 18:59 06:59 18:59 Intake Total 50 / 50 1150 / 1150 1050 / 1050 Output Total 625 / 625 1600 / 1600 650 / 650 Balance -575 / -575 -450 / -450 400 / 400 Weight 100 kg Intake: IV 50 / 50 100 / 100 1050 / 1050 NS Inj 1,000 ML @ 84 mls/hr IV. 1000 / 1000 CONT .[id number] [facility] Rx#:[id number] Ancef 2 GM Premix Inj 2 gm In 50 / 50 100 / 100 50 / 50 50 ml @ 100 mls/hr IV.SIG Q8H [facility] Rx#:[id number] Oral 1050 / 1050 Output: Urine 475 / 475 1600 / 1600 650 / 650 Wound Drainage 150 / 150 Medial Chest 150 / 150 Other: Mode Setting Midline Chest Continuous Continuous # Voids 5 Date of Last Bowel Movement 09/21/17 # Bowel Movements 0 Assessment and Plan - Assessment (1) Afib Code(s): I48.91 - Unspecified atrial fibrillation Status: Acute (2) Basal cell carcinoma Code(s): C44.91 - Basal cell carcinoma of skin, unspecified Status: Acute (3) Ventricular tachycardia Code(s): I47.2 - Ventricular tachycardia Status: Acute - Plan Atrial fibrillation with rapid ventricular rate Ventricular tachycardia Tachybradycardia syndrome in nsr today convert to amio PO clear from cardio perspective for surgery with intermediate risk paige into 40's, dig held, d/w Dr Hill 09/20/17
--- NOTE | 2017-09-23 19:51 | P.PN ---
Subjective Interval history: Patient reports minimal pain with VAC changes. No new complaints Physical Exam Vital signs: Vital Signs 09/22/17 21:20 09/23/17 00:45 09/23/17 04:20 Temperature 98.2 F 98 F 98 F Pulse Rate 55 L 58 L 54 L Respiratory Rate 16 17 16 Blood Pressure 148/85 H 130/76 159/89 H Pulse Oximetry 97 98 98 09/23/17 07:00 09/23/17 12:00 09/23/17 16:00 Temperature 98.7 F 98.5 F 98.4 F Pulse Rate 60 53 L 51 L Respiratory Rate 18 20 20 Blood Pressure 171/79 H 133/75 138/73 Pulse Oximetry 94 L 96 96 Intake & Output 09/23/17 09/23/17 09/24/17 06:59 18:59 06:59 Intake Total 1150 / 1150 1100 / 1100 Output Total 1600 / 1600 650 / 650 Balance -450 / -450 450 / 450 Weight 100 kg Intake: IV 100 / 100 1100 / 1100 NS Inj 1,000 ML @ 84 mls/hr IV. 1000 / 1000 CONT .[id number] [facility] Rx#:[id number] Ancef 2 GM Premix Inj 2 gm In 100 / 100 100 / 100 50 ml @ 100 mls/hr IV.SIG Q8H [facility] Rx#:[id number] Oral 1050 / 1050 Output: Urine 1600 / 1600 650 / 650 Other: Mode Setting Midline Chest Continuous Continuous Date of Last Bowel Movement 09/21/17 09/22/17 # Bowel Movements 0 Narrative: Right chest VAC dressing holding good suction Results - Labs CBC & Chem 7: 09/15/17 08:23 09/17/17 06:48 - Procedures 08/07 PROCEDURES PERFORMED: 1. 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 2. Closure of chest wall defect 6 x 4 cm with dermal matrix biological mesh. 3. Placement of VAC dressing to wound, 26 x 21 cm. 4. Right thoracostomy tube placement. 08/10 vac dressing 08/20 Right pedicled latissimus muscle flap to right chest wound Left pectoralis major muscle flap to right chest wound 08/23 Right chest wound VAC change (43504) Right chest wound debridement (89379, 65937 x 6) Assessment and Plan - Assessment (1) Open chest wound Code(s): S21.109A - Unspecified open wound of unspecified front wall of thorax without penetration into thoracic cavity, initial encounter Status: Acute - Plan 51-year-old male status post right latissimus dorsi myocutaneous and left pectoralis major muscle flaps to right chest wound, now VAC'd Nursing to perform M/W/F wound VAC changes Wound VAC to be placed to -125 mmHg low continuous suction We will plan for split-thickness skin graft closure of right chest wound this
[2017-09-23] MEDS: Morphine Sulfate 15 MG SR Tablet PO SCH (22:25)
[2017-09-23] MEDS: Temazepam 15 MG Capsule PO SCH (22:26)
[2017-09-24] MEDS: HYDROmorphone PF Inj 2 MG/ML Vial IV.PUSH PRN (06:28)
[2017-09-24] MEDS: Sod Chloride 0.9% Inj 1,000 ML IV.CONT SCH ×2 (07:49→15:22)
[2017-09-24] MEDS: Nystatin 100,000 UNITS/GM Powder 15 GM Bottle TOPICAL SCH ×2 (07:49→15:22)
[2017-09-24] MEDS: ceFAZolin 2 GM Premix Inj 2 GM/50 ML PIGGYBACK IV.SIG SCH ×2 (07:50→16:23)
[2017-09-24] MEDS: Enoxaparin Inj 40 MG/0.4 ML Syringe SQ SCH (08:01)
[2017-09-24] MEDS: Senna/Docusate Sodium 8.6/50 MG Tablet PO SCH (08:01)
[2017-09-24] MEDS: Amiodarone 200 MG Tablet PO SCH (08:02)
[2017-09-24] MEDS: Sodium Hypochlorite 0.125% Top Soln 500 ML Bottle TOPICAL SCH (08:02)
[2017-09-24] MEDS: Metoprolol Tartrate 25 MG Tablet PO SCH ×2 (08:02→20:49)
--- NOTE | 2017-09-24 10:01 | P.PN ---
Physical Exam Vital signs: Vital Signs 09/23/17 12:00 09/23/17 16:00 09/23/17 20:00 Temperature 98.5 F 98.4 F 98.2 F Pulse Rate 53 L 49 L 54 L Respiratory Rate 20 20 18 Blood Pressure 133/75 138/73 148/78 H Pulse Oximetry 96 96 97 09/24/17 00:00 09/24/17 04:00 09/24/17 07:54 Temperature 98.5 F 99.5 F 99 F Pulse Rate 56 L 60 55 L Respiratory Rate 18 18 18 Blood Pressure 140/80 165/73 H 183/86 H Pulse Oximetry 100 95 Intake & Output 09/23/17 09/24/17 09/24/17 18:59 06:59 18:59 Intake Total 1100 / 1100 100 / 100 Output Total 1400 / 1400 700 / 700 Balance -300 / -300 -700 / -700 100 / 100 Weight 100 kg Intake: IV 1100 / 1100 100 / 100 NS Inj 1,000 ML @ 84 mls/hr IV. 1000 / 1000 CONT .[id number] [facility] Rx#:[id number] Ancef 2 GM Premix Inj 2 gm In 100 / 100 100 / 100 50 ml @ 100 mls/hr IV.SIG Q8H [facility] Rx#:[id number] Output: Urine 1400 / 1400 700 / 700 Other: Mode Setting Midline Chest Continuous Continuous Date of Last Bowel Movement 09/22/17 Narrative: Subjective Interval history: In bed appears in some pain says he has more pain after wound vac was changes. No fever or chills. No n/v/d/c. POss wound grafting on Physical Exam GENERAL: Awake and alert. SKIN: with VAC in place, mild surrounding erythema of skin around VAC area CARDIOVASCULAR: Wound vac in place. Regular rate and rhythm without murmurs, gallops, or rubs. RESPIRATORY: Breath sounds equal bilaterally. No accessory muscle use. GASTROINTESTINAL: Abdomen soft, non-tender, nondistended. MUSCULOSKELETAL: No cyanosis, or edema. 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 Hospital course complicated by atrial fibrillation and hospital-acquired pneumonia. 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 - Plastic surgery following, status post surgical resection on 08/07/2017. Biopsy showed invasive squamous cell carcinoma involving bones, cartilage and pleura. - Wound culture from the chest rgrew Pseudomonas with 2 isolates, status post Zosyn, infectious disease was involved. Continue pain management - Oncology following, s/p surgical resection, he will need XRT in the future as outpatient and additional surgery for the squamous cell CA in the back with Dr. Ahn as outpatient. Cleared by Oncology for discharge. - For skin graft in 1-2 weeks per plastic surgery Continue wound VAC changes MWF- last changed 07/21 -on IV Cefazolin per Plastics - will ask nurse to call Plastics- regarding- regarding clarissa in the back- removal date- ask nurse to call them again Paroxysmal Atrial fibrillation with rapid ventricular rate- now in SR HR-40-50s - sinus HR S/P Ventricular tachycardia Tachybradycardia syndrome -May be related to anatomical disturbances, Cardiology following, continue Metoprolol and aspirin. Went into Afib RVR again with hypotension 09/15. He usually goes into atrial fibrillation with anemia and electrolyte imbalance, Hgb and electrolytes WNL. Started digoxin loading 09/16, - on Amiodarone 200 mg daily. - digoxin DC 09/22 - Lopressor 50 mg po bid - decrease to 25 mg po bid 09/22 - Hold if parameters less than 55 - Cardiology ff- Dr. Sandoval - if recurs- EP consult - re- adjusting meds Hospital-acquired pneumonia-resolved, finished antibiotics for 2 weeks. Severe protein calorie malnutrition - dietitian ff DVT Prophylaxis: lovenox Discharge Planning: Limited resources/income, needs home health care with wound VAC. Discharge once cleared by plastic surgery after graft placement Patient up and ambulating Results - Labs CBC & Chem 7: 09/15/17 08:23 09/17/17 06:48 - Procedures 08/07 PROCEDURES PERFORMED: 1. 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 2. Closure of chest wall defect 6 x 4 cm with dermal matrix biological mesh. 3. Placement of VAC dressing to wound, 26 x 21 cm. 4. Right thoracostomy tube placement. 08/10 vac dressing 08/20 Right pedicled latissimus muscle flap to right chest wound Left pectoralis major muscle flap to right chest wound 08/23 Right chest wound VAC change (25778) Right chest wound debridement (84704, 35941 x 6)
--- NOTE | 2017-09-24 12:46 | P.PNCA ---
Subjective Interval history: asleep in nad Physical Exam Vital signs: Vital Signs 09/23/17 16:00 09/23/17 20:00 09/24/17 00:00 Temperature 98.4 F 98.2 F 98.5 F Pulse Rate 49 L 54 L 56 L Respiratory Rate 20 18 18 Blood Pressure 138/73 148/78 H 140/80 Pulse Oximetry 96 97 100 09/24/17 04:00 09/24/17 07:54 Temperature 99.5 F 99 F Pulse Rate 60 55 L Respiratory Rate 18 18 Blood Pressure 165/73 H 183/86 H Pulse Oximetry 95 Intake & Output 09/23/17 09/24/17 09/24/17 18:59 06:59 18:59 Intake Total 1100 / 1100 100 / 100 Output Total 1400 / 1400 700 / 700 Balance -300 / -300 -700 / -700 100 / 100 Weight 100 kg Intake: IV 1100 / 1100 100 / 100 NS Inj 1,000 ML @ 84 mls/hr IV. 1000 / 1000 CONT .[id number] [facility] Rx#:[id number] Ancef 2 GM Premix Inj 2 gm In 100 / 100 100 / 100 50 ml @ 100 mls/hr IV.SIG Q8H [facility] Rx#:[id number] Output: Urine 1400 / 1400 700 / 700 Other: Mode Setting Midline Chest Continuous Continuous Continuous Date of Last Bowel Movement 09/22/17 Assessment and Plan - Assessment (1) Afib Code(s): I48.91 - Unspecified atrial fibrillation Status: Acute (2) Basal cell carcinoma Code(s): C44.91 - Basal cell carcinoma of skin, unspecified Status: Acute (3) Ventricular tachycardia Code(s): I47.2 - Ventricular tachycardia Status: Acute - Plan Atrial fibrillation with rapid ventricular rate Ventricular tachycardia Tachybradycardia syndrome in nsr today convert to amio PO clear from cardio perspective for surgery with intermediate risk paige into 40's, dig held, d/w Dr Hill 09/20/17
[2017-09-24] MEDS ORDERED: Morphine Sulfate Inj 2 MG/ML Vial IV.PUSH ONE (16:14)
[2017-09-24] MEDS ORDERED: HYDROmorphone PF Inj 2 MG/ML Vial IV.PUSH PRN (16:30)
[2017-09-24] MEDS: Temazepam 15 MG Capsule PO SCH (20:49)
[2017-09-24] MEDS: Morphine Sulfate 15 MG SR Tablet PO SCH (20:50)
[2017-09-25] MEDS: ceFAZolin 2 GM Premix Inj 2 GM/50 ML PIGGYBACK IV.SIG SCH ×2 (00:03→08:27)
[2017-09-25] MEDS: Nystatin 100,000 UNITS/GM Powder 15 GM Bottle TOPICAL SCH ×4 (00:03→22:06)
[2017-09-25] MEDS: Sod Chloride 0.9% Inj 1,000 ML IV.CONT SCH ×2 (04:04→15:20)
[2017-09-25] MEDS: Sodium Hypochlorite 0.125% Top Soln 500 ML Bottle TOPICAL SCH (08:27)
[2017-09-25] MEDS: Amiodarone 200 MG Tablet PO SCH (08:27)
[2017-09-25] MEDS: Metoprolol Tartrate 25 MG Tablet PO SCH ×2 (08:27→22:04)
[2017-09-25] MEDS: Enoxaparin Inj 40 MG/0.4 ML Syringe SQ SCH (08:28)
[2017-09-25] MEDS: Senna/Docusate Sodium 8.6/50 MG Tablet PO SCH (08:28)
--- NOTE | 2017-09-25 10:20 | P.PN ---
Physical Exam Vital signs: Vital Signs 09/24/17 12:00 09/24/17 16:00 09/24/17 20:00 Temperature 98.6 F 98.6 F 98.8 F Pulse Rate 56 L 54 L 55 L Respiratory Rate 18 16 18 Blood Pressure 145/77 H 173/86 H 168/82 H Pulse Oximetry 96 95 97 09/24/17 21:00 09/25/17 00:00 09/25/17 04:00 Temperature 98.5 F 97.7 F Pulse Rate 58 L 60 49 L Respiratory Rate 18 18 Blood Pressure 155/80 H 150/83 H Pulse Oximetry 99 97 09/25/17 07:00 Temperature 98.1 F Pulse Rate 51 L Respiratory Rate 18 Blood Pressure 125/73 Pulse Oximetry 95 Intake & Output 09/24/17 09/25/17 09/25/17 18:59 06:59 18:59 Intake Total 150 / 150 50 / 50 Output Total 750 / 750 700 / 700 Balance -600 / -600 -700 / -700 50 / 50 Weight 100 kg Intake: IV 150 / 150 50 / 50 Ancef 2 GM Premix Inj 2 gm In 150 / 150 50 / 50 50 ml @ 100 mls/hr IV.SIG Q8H [facility] Rx#:[id number] Output: Urine 750 / 750 700 / 700 Other: Mode Setting Midline Chest Continuous Continuous Continuous Date of Last Bowel Movement 09/22/17 Narrative: Subjective Interval history: Less chest pain today. However he complains of some back pain. Feels better. No n/v/d/c. Poss wound grafting on Physical Exam GENERAL: Awake and alert. SKIN: with VAC in place, mild surrounding erythema of skin around VAC area CARDIOVASCULAR: Wound vac in place, redness around. Regular rate and rhythm without murmurs, gallops, or rubs. RESPIRATORY: Breath sounds equal bilaterally. No accessory muscle use. GASTROINTESTINAL: Abdomen soft, non-tender, nondistended. MUSCULOSKELETAL: No cyanosis, or edema. 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 Hospital course complicated by atrial fibrillation and hospital-acquired pneumonia. 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 - Plastic surgery following, status post surgical resection on 08/07/2017. Biopsy showed invasive squamous cell carcinoma involving bones, cartilage and pleura. - Wound culture from the chest rgrew Pseudomonas with 2 isolates, status post Zosyn, infectious disease was involved. Continue pain management - Oncology following, s/p surgical resection, he will need XRT in the future as outpatient and additional surgery for the squamous cell CA in the back with Dr. Ahn as outpatient. Cleared by Oncology for discharge. - For skin graft in 1-2 weeks per plastic surgery Continue wound VAC changes MWF- last changed 07/21 -on IV Cefazolin per Plastics - will ask nurse to call Plastics- regarding- regarding clarissa in the back- removal date- ask nurse to call them again Paroxysmal Atrial fibrillation with rapid ventricular rate- now in SR HR-40-50s - sinus HR S/P Ventricular tachycardia Tachybradycardia syndrome -May be related to anatomical disturbances, Cardiology following, continue Metoprolol and aspirin. Went into Afib RVR again with hypotension 09/15. He usually goes into atrial fibrillation with anemia and electrolyte imbalance, Hgb and electrolytes WNL. Started digoxin loading 09/16, - on Amiodarone 200 mg daily. - digoxin DC 09/22 - Lopressor 50 mg po bid - decrease to 25 mg po bid 09/22 - Hold if parameters less than 55 - Cardiology ff- Dr. Sandoval - if recurs- EP consult - re- adjusting meds. So far HR stable. dC digoxin as low HR cont amio = Hospital-acquired pneumonia-resolved, finished antibiotics for 2 weeks. Severe protein calorie malnutrition - dietitian ff DVT Prophylaxis: lovenox Discharge Planning: Limited resources/income, needs home health care with wound VAC. Discharge once cleared by plastic surgery after graft placement. Poss graft placement on . Dr Turner plastic surgery ff Patient up and ambulating with physical therapy Results - Labs CBC & Chem 7: 09/15/17 08:23 09/17/17 06:48 - Procedures 08/07 PROCEDURES PERFORMED: 1. 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 2. Closure of chest wall defect 6 x 4 cm with dermal matrix biological mesh. 3. Placement of VAC dressing to wound, 26 x 21 cm. 4. Right thoracostomy tube placement. 08/10 vac dressing 08/20 Right pedicled latissimus muscle flap to right chest wound Left pectoralis major muscle flap to right chest wound 08/23 Right chest wound VAC change (53600) Right chest wound debridement (82713, 35388 x 6)
--- NOTE | 2017-09-25 13:47 | P.PNCA ---
Subjective Interval history: alert in nad Physical Exam Vital signs: Vital Signs 09/24/17 16:00 09/24/17 20:00 09/24/17 21:00 Temperature 98.6 F 98.8 F Pulse Rate 54 L 55 L 58 L Respiratory Rate 16 18 Blood Pressure 173/86 H 168/82 H Pulse Oximetry 95 97 09/25/17 00:00 09/25/17 04:00 09/25/17 07:00 Temperature 98.5 F 97.7 F 98.1 F Pulse Rate 60 49 L 51 L Respiratory Rate 18 18 18 Blood Pressure 155/80 H 150/83 H 125/73 Pulse Oximetry 99 97 95 09/25/17 08:00 09/25/17 10:50 09/25/17 11:00 Temperature 98.1 F Pulse Rate 49 L 79 Respiratory Rate 16 16 Blood Pressure 128/74 Pulse Oximetry 95 Intake & Output 09/24/17 09/25/17 09/25/17 18:59 06:59 18:59 Intake Total 150 / 150 100 / 100 Output Total 750 / 750 700 / 700 Balance -600 / -600 -700 / -700 100 / 100 Weight 100 kg Intake: IV 150 / 150 100 / 100 Ancef 2 GM Premix Inj 2 gm In 150 / 150 100 / 100 50 ml @ 100 mls/hr IV.SIG Q8H [facility] Rx#:[id number] Output: Urine 750 / 750 700 / 700 Other: Mode Setting Midline Chest Continuous Continuous Continuous Date of Last Bowel Movement 09/22/17 09/25/17 Assessment and Plan - Assessment (1) Afib Code(s): I48.91 - Unspecified atrial fibrillation Status: Acute (2) Basal cell carcinoma Code(s): C44.91 - Basal cell carcinoma of skin, unspecified Status: Acute (3) Ventricular tachycardia Code(s): I47.2 - Ventricular tachycardia Status: Acute - Plan Atrial fibrillation with rapid ventricular rate Ventricular tachycardia Tachybradycardia syndrome in nsr today convert to amio PO clear from cardio perspective for surgery with intermediate risk paige into 40's, improved, dig held, d/w Dr Hill 09/20/17
[2017-09-25] MEDS: ceFAZolin Inj 2,000 MG in Sodium Chlor 0.9% Inj 100 ML IV.SIG SCH (15:20)
[2017-09-25] MEDS ORDERED: Metoprolol Tartrate 25 MG Tablet PO SCH (15:30)
[2017-09-25] MEDS ORDERED: Chlorhexidine Gluconate 2% 1 Pack (2 Cloths) TOPICAL SCH (15:30)
--- NOTE | 2017-09-25 15:31 | P.DIET ---
Nutritional Evaluation Type of nutrition evaluation: follow-up Nutrition consult regarding: Diet Evaluation Nutrition screening: MDC (Supplement to Oral Intake, Pt w/ Low Albumin and Large Wound) Subjective Subjective Comments: Receives Boost from home. Eating 100% at many meals. Likes fuit cup, mashed potatoes, wellington cris, and big breakfasts. Objective - Diagnosis Infected Chest Wall Malignancy - Objective % IBW: 78 (IBW = 202#) Body Weight Used for Calculations: IBW (202#) Energy Needs - Lower Range (kCal/kg): 28 Energy Needs - Upper Range (kCal/kg): 32 Lower Limit kCal/kg (kCals): 2,570 Upper Limit kCal/kg (kCals): 2,938 Lower Limit Protein Factor (Grams per Kg): 1.2 Upper Limit Protein Factor (Grams per Kg): 1.5 Lower Protein Needs (Protein): 110 Upper Protein Needs (Protein): 138 Dietitian Reviewed in Medical Record: Current diet, Curent medications, Intake & Output, Labs, Medical history, Wound/DTI (Chest incision w/ wound VAC) Diet Order: Heart healthy Oral Diet Intake Amount: Good 75-90% Objective Comments: s/p radical resection of chest wall malignancy & VAC placement on 08/07 Meds: Vitamin B12 Assessment Assessment: Pt still has wound vac to chest wall. He is s/p radical resection of chest wall malignancy. Pt remains at nutritional risk r/t wound VAC, and medical dx of lung cancer. PO intake has shown an improving trend. Pt is on a Heart Healthy diet, recommend liberalizing to Regular diet to allow more food options. Pt unable to receive cafeteria menu for lunch unless he's on a Regular diet. Per previous RD note, pts is bringing Boost from home. Weights reviewed and are erratic/ unreliable as indicators: 09/05 60 kg, 09/07 85.8 kg, 09/08 86 kg, 86 kg, 09/10 43.5 kg, 09/11 43.5 kg, 09/18 = 43.5 kg. and CBW 100 kg. Recommendations: 1. Recommend Regular diet for more food options. 2. providing pt w/ Boost from home per pt preference 3. Please record % of meal eaten under Feeding Assessment in EMR 4. Monitor wts closely. Dietitian to Monitor: Lab values, Supplement acceptance, Intake & Output, Diet tolerance, Weight change, PO Intake, Medical course
[2017-09-25] MEDS ORDERED: Sodium Chlor 0.9% Inj 500 ML IV.SIG SCH (16:00)
--- NOTE | 2017-09-25 18:49 | P.PN ---
Physical Exam Vital signs: Vital Signs 09/24/17 20:00 09/24/17 21:00 09/25/17 00:00 Temperature 98.8 F 98.5 F Pulse Rate 55 L 58 L 60 Respiratory Rate 18 18 Blood Pressure 168/82 H 155/80 H Pulse Oximetry 97 99 09/25/17 04:00 09/25/17 07:00 09/25/17 08:00 Temperature 97.7 F 98.1 F Pulse Rate 49 L 51 L 49 L Respiratory Rate 18 18 Blood Pressure 150/83 H 125/73 Pulse Oximetry 97 95 09/25/17 10:50 09/25/17 11:00 09/25/17 12:00 Temperature 98.1 F Pulse Rate 79 54 L Respiratory Rate 16 16 Blood Pressure 128/74 Pulse Oximetry 95 09/25/17 16:00 Temperature 98.3 F Pulse Rate 91 H Respiratory Rate 17 Blood Pressure 116/63 Pulse Oximetry 93 L Intake & Output 09/24/17 09/25/17 09/25/17 18:59 06:59 18:59 Intake Total 150 / 150 1200 / 1200 Output Total 750 / 750 700 / 700 Balance -600 / -600 -700 / -700 1200 / 1200 Weight 100 kg Intake: IV 150 / 150 1200 / 1200 NS Inj 1,000 ML @ 84 mls/hr IV. 1000 / 1000 CONT .[id number] [facility] Rx#:[id number] Ancef 2 GM Premix Inj 2 gm In 150 / 150 100 / 100 50 ml @ 100 mls/hr IV.SIG Q8H [facility] Rx#:[id number] Ancef Inj 2,000 MG In NS Inj 100 / 100 100 ML @ 100 mls/hr IV.SIG Q8H [facility] Rx#:[id number] Output: Urine 750 / 750 700 / 700 Other: Mode Setting Midline Chest Continuous Continuous Continuous Date of Last Bowel Movement 09/22/17 09/25/17 Narrative: Subjective Interval history: Less chest pain today. However he complains of some back pain. Feels better. No n/v/d/c. Poss wound grafting on Physical Exam GENERAL: Awake and alert. SKIN: with VAC in place, mild surrounding erythema of skin around VAC area CARDIOVASCULAR: Wound vac in place, redness around. Regular rate and rhythm without murmurs, gallops, or rubs. RESPIRATORY: Breath sounds equal bilaterally. No accessory muscle use. GASTROINTESTINAL: Abdomen soft, non-tender, nondistended. MUSCULOSKELETAL: No cyanosis, or edema. 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 Hospital course complicated by atrial fibrillation and hospital-acquired pneumonia. 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 - Plastic surgery following, status post surgical resection on 08/07/2017. Biopsy showed invasive squamous cell carcinoma involving bones, cartilage and pleura. - Wound culture from the chest rgrew Pseudomonas with 2 isolates, status post Zosyn, infectious disease was involved. Continue pain management - Oncology following, s/p surgical resection, he will need XRT in the future as outpatient and additional surgery for the squamous cell CA in the back with Dr. Ahn as outpatient. Cleared by Oncology for discharge. - For skin graft in 1-2 weeks per plastic surgery Continue wound VAC changes MWF- last changed 07/21 -on IV Cefazolin per Plastics - will ask nurse to call Plastics- regarding- regarding clarissa in the back- removal date- ask nurse to call them again Paroxysmal Atrial fibrillation with rapid ventricular rate- now in SR HR-40-50s - sinus HR S/P Ventricular tachycardia Tachybradycardia syndrome -May be related to anatomical disturbances, Cardiology following, continue Metoprolol and aspirin. Went into Afib RVR again with hypotension 09/15. He usually goes into atrial fibrillation with anemia and electrolyte imbalance, Hgb and electrolytes WNL. Started digoxin loading 09/16, - on Amiodarone 200 mg daily. - digoxin DC 09/22 - Lopressor 50 mg po bid - decrease to 25 mg po bid 09/22 - Hold if parameters less than 55 - Cardiology ff- Dr. Sandoval - if recurs- EP consult - re- adjusting meds. So far HR stable. dC digoxin as low HR cont amio = Hospital-acquired pneumonia-resolved, finished antibiotics for 2 weeks. Severe protein calorie malnutrition - dietitian ff DVT Prophylaxis: lovenox Discharge Planning: Limited resources/income, needs home health care with wound VAC. Discharge once cleared by plastic surgery after graft placement. Poss graft placement on . Dr Turner plastic surgery ff Patient up and ambulating with physical therapy Results - Labs CBC & Chem 7: 09/15/17 08:23 09/17/17 06:48 - Procedures 08/07 PROCEDURES PERFORMED: 1. 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 2. Closure of chest wall defect 6 x 4 cm with dermal matrix biological mesh. 3. Placement of VAC dressing to wound, 26 x 21 cm. 4. Right thoracostomy tube placement. 08/10 vac dressing 08/20 Right pedicled latissimus muscle flap to right chest wound Left pectoralis major muscle flap to right chest wound 08/23 Right chest wound VAC change (42995) Right chest wound debridement (65764, 28147 x 6)
[2017-09-25] MEDS: Temazepam 15 MG Capsule PO SCH (22:05)
[2017-09-25] MEDS: Morphine Sulfate 15 MG SR Tablet PO SCH (22:05)
[2017-09-26] MEDS: ceFAZolin Inj 2,000 MG in Sodium Chlor 0.9% Inj 100 ML IV.SIG SCH ×3 (01:09→16:47)
[2017-09-26] MEDS: Sod Chloride 0.9% Inj 1,000 ML IV.CONT SCH ×2 (06:26→12:12)
[2017-09-26] MEDS: Nystatin 100,000 UNITS/GM Powder 15 GM Bottle TOPICAL SCH ×3 (06:26→21:53)
[2017-09-26 07:22] LABS: Baso # (Auto) 0.2 th/mm3 (0.0-0.2); Eos # (Auto) 0.4 th/mm3 (0.0-0.4); Eos % (Auto) 8.2 % (0.0-4.0); Hemoglobin 9.5 gm/dL (13.0-17.0); Lymph # (Auto) 1.5 th/mm3 (1.0-4.8); Lymph % (Auto) 27.8 % (9.0-44.0); Mean Corpuscular HGB Conc 32.8 % (32.0-36.0); Mean Corpuscular Hemoglobin 28.3 pg (27.0-34.0); Mean Corpuscular Volume 86.3 fL (80.0-100.0); Mean Platelet Volume 9.7 fL (7.0-11.0); Mono # (Auto) 0.6 th/mm3 (0.0-0.9); Mono % (Auto) 11.6 % (0.0-8.0); Neut # (Auto) 2.6 th/mm3 (1.8-7.7); Neut % (Auto) 48.4 % (16.0-70.0); Platelet Count 315 th/mm3 (150-450); Red Blood Count 3.36 mil/mm3 (4.50-5.90); Red Cell Distribution Width 16.1 % (11.6-17.2); White Blood Count 5.4 th/mm3 (4.0-11.0)
[2017-09-26 08:18] LABS: Anion Gap 8 meq/L (5-15); Blood Urea Nitrogen 5 mg/dL (7-18); Calcium 7.8 mg/dL (8.5-10.1); Carbon Dioxide 26.2 meq/L (21.0-32.0); Chloride 107 meq/L (98-107); Glomerular Filtration Rate Greater Than 89 mL/min (>89); Glucose,Random 82 mg/dL (74-106); Potassium 3.5 meq/L (3.5-5.1); Sodium 141 meq/L (136-145)
[2017-09-26] MEDS: Sodium Hypochlorite 0.125% Top Soln 500 ML Bottle TOPICAL SCH (09:48)
[2017-09-26] MEDS: Senna/Docusate Sodium 8.6/50 MG Tablet PO SCH (09:48)
[2017-09-26] MEDS: Enoxaparin Inj 40 MG/0.4 ML Syringe SQ SCH (09:48)
[2017-09-26] MEDS: Metoprolol Tartrate 25 MG Tablet PO SCH ×2 (10:00→21:51)
[2017-09-26] MEDS: Amiodarone 200 MG Tablet PO SCH (10:30)
[2017-09-26] MEDS ORDERED: HYDROmorphone PF Inj 2 MG/ML Vial ONE (11:34)
[2017-09-26] MEDS ORDERED: fentaNYL Citrate Inj 100 MCG/2 ML Ampul ONE (11:35)
[2017-09-26] MEDS ORDERED: Bupivacaine/Epinephrine Inj 0.25% 50 ML Vial ONE (11:37)
[2017-09-26] MEDS ORDERED: Phenylephrine/NS 1000 MCG/10ML Syringe IV.PUSH ONE (12:00)
[2017-09-26] MEDS ORDERED: Sodium Chlor 0.9% Inj 250 ML IV.SIG ONE (12:00)
[2017-09-26] MEDS ORDERED: Esmolol Bolus Inj 100 MG/10 ML Vial IV.PUSH ONE (12:00)
[2017-09-26] MEDS ORDERED: Lidocaine PF 1% Inj 5 ML Syringe INFILTRATN ONE (12:00)
--- NOTE | 2017-09-26 14:16 | P.DCO ---
- Home Health Nursing Order: Medical education, Signs/symptoms of disease process, Medication education-adverse effect, Nursing assessment with vital signs - Certification I have seen patient Britton [address] on 09/26/17. My clinical findings support the need for the requested home health care services because: Limited mobility due to disease progression, Patient has SOB I certify that my clinical findings support that this patient is homebound because: Post-op weakness
--- NOTE | 2017-09-26 14:17 | P.PN ---
Physical Exam Vital signs: Vital Signs 09/25/17 16:00 09/25/17 20:00 09/26/17 00:00 Temperature 98.3 F 98.4 F 98.3 F Pulse Rate 91 H 53 L 56 L Respiratory Rate 17 16 17 Blood Pressure 116/63 140/67 144/72 H Pulse Oximetry 93 L 96 96 09/26/17 02:00 09/26/17 04:00 09/26/17 06:49 Temperature 98.2 F Pulse Rate 56 L Respiratory Rate 12 17 12 Blood Pressure 151/69 H Pulse Oximetry 96 09/26/17 08:00 09/26/17 12:56 Temperature 98.0 F Pulse Rate 55 L 61 Respiratory Rate 17 Blood Pressure 145/75 H Pulse Oximetry 96 Intake & Output 09/25/17 09/26/17 09/26/17 18:59 06:59 18:59 Intake Total 1200 / 1200 1500 / 1500 2100 / 2100 Output Total 250 / 250 900 / 900 710 / 710 Balance 950 / 950 600 / 600 1390 / 1390 Intake: IV 1200 / 1200 1100 / 1100 2100 / 2100 NS Inj 1,000 ML @ 84 mls/hr IV. 1000 / 1000 1000 / 1000 2000 / 2000 CONT .[id number] [facility] Rx#:[id number] Ancef 2 GM Premix Inj 2 gm In 100 / 100 50 ml @ 100 mls/hr IV.SIG Q8H [facility] Rx#:[id number] Ancef Inj 2,000 MG In NS Inj 100 / 100 100 / 100 100 / 100 100 ML @ 100 mls/hr IV.SIG Q8H [facility] Rx#:[id number] Oral 400 / 400 Output: Urine 250 / 250 900 / 900 700 / 700 Estimated Blood Loss 10 / 10 Other: Mode Setting Midline Chest Continuous Continuous Continuous Date of Last Bowel Movement 09/25/17 # Bowel Movements 1 Narrative: Subjective Interval history: Chest pain and back pain the same. No n/v/d/c. Crank Hand recommends regular diet, will change diet to regular. Physical Exam GENERAL: Awake and alert. SKIN: with VAC in place, mild surrounding erythema of skin around VAC area CARDIOVASCULAR: Wound vac in place, redness around. Regular rate and rhythm without murmurs, gallops, or rubs. RESPIRATORY: Breath sounds equal bilaterally. No accessory muscle use. GASTROINTESTINAL: Abdomen soft, non-tender, nondistended. MUSCULOSKELETAL: No cyanosis, or edema. 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 Hospital course complicated by atrial fibrillation and hospital-acquired pneumonia. 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 - Plastic surgery following, status post surgical resection on 08/07/2017. Biopsy showed invasive squamous cell carcinoma involving bones, cartilage and pleura. - Wound culture from the chest rgrew Pseudomonas with 2 isolates, status post Zosyn, infectious disease was involved. Continue pain management - Oncology following, s/p surgical resection, he will need XRT in the future as outpatient and additional surgery for the squamous cell CA in the back with Dr. Ahn as outpatient. Cleared by Oncology for discharge. - For skin graft in 1-2 weeks per plastic surgery Continue wound VAC changes MWF- last changed 07/21 -on IV Cefazolin per Plastics - will ask nurse to call Plastics- regarding- regarding clarissa in the back- removal date- ask nurse to call them again Paroxysmal Atrial fibrillation with rapid ventricular rate- now in SR HR-40-50s - sinus HR S/P Ventricular tachycardia Tachybradycardia syndrome -May be related to anatomical disturbances, Cardiology following, continue Metoprolol and aspirin. Went into Afib RVR again with hypotension 09/15. He usually goes into atrial fibrillation with anemia and electrolyte imbalance, Hgb and electrolytes WNL. Started digoxin loading 09/16, - on Amiodarone 200 mg daily. - digoxin DC 09/22 - Lopressor 50 mg po bid - decrease to 25 mg po bid 09/22 - Hold if parameters less than 55 - Cardiology ff- Dr. Sandoval - if recurs- EP consult - re- adjusting meds. So far HR stable. dC digoxin as low HR cont amio = Hospital-acquired pneumonia-resolved, finished antibiotics for 2 weeks. Severe protein calorie malnutrition - dietitian ff DVT Prophylaxis: lovenox Discharge Planning: Limited resources/income, needs home health care with wound VAC. Discharge once cleared by plastic surgery after graft placement. Poss graft placement on . Dr Turner plastic surgery ff Patient is ambulating with physical therapy Results - Labs CBC & Chem 7: 09/26/17 05:51 09/26/17 05:51 Laboratory Results - last 24 hr 09/26/17 09/26/17 05:51 05:51 WBC 5.4 RBC 3.36 L Hgb 9.5 L Hct 29.0 L MCV 86.3 MCH 28.3 MCHC 32.8 RDW 16.1 Plt Count 315 MPV 9.7 Neut % (Auto) 48.4 Lymph % (Auto) 27.8 Ness % (Auto) 11.6 H Eos % (Auto) 8.2 H Baso % (Auto) 4.0 H Neut # (Auto) 2.6 Lymph # (Auto) 1.5 Ness # (Auto) 0.6 Eos # (Auto) 0.4 Baso # (Auto) 0.2 WBC Differential . Differential Comment Auto diff final Sodium 141 Potassium 3.5 Chloride 107 Carbon Dioxide 26.2 Anion Gap 8 BUN 5 L Creatinine 0.46 L Estimated GFR Greater than 89 Random Glucose 82 Calcium 7.8 L - Procedures 08/07 PROCEDURES PERFORMED: 1. 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 2. Closure of chest wall defect 6 x 4 cm with dermal matrix biological mesh. 3. Placement of VAC dressing to wound, 26 x 21 cm. 4. Right thoracostomy tube placement. 08/10 vac dressing 08/20 Right pedicled latissimus muscle flap to right chest wound Left pectoralis major muscle flap to right chest wound 08/23 Right chest wound VAC change (18146) Right chest wound debridement (98646, 20897 x 6) Assessment and Plan - Assessment (1) Open chest wound Code(s): S21.109A - Unspecified open wound of unspecified front wall of thorax without penetration into thoracic cavity, initial encounter Status: Acute (2) Afib Code(s): I48.91 - Unspecified atrial fibrillation Status: Acute (3) Ventricular tachycardia Code(s): I47.2 - Ventricular tachycardia Status: Acute (4) Basal cell carcinoma Code(s): C44.91 - Basal cell carcinoma of skin, unspecified Status: Acute (5) Pain Code(s): R52 - Pain, unspecified Status: Acute (6) Insomnia Code(s): G47.00 - Insomnia, unspecified Status: Acute (7) Constipation Code(s): K59.00 - Constipation, unspecified Status: Acute
[2017-09-26] MEDS ORDERED: Metoprolol Inj 5 MG/5 ML Vial IV.PUSH SCH (15:00)
[2017-09-26] MEDS ORDERED: Atropine Inj 1 MG/10 ML Syringe ONE (15:03)
[2017-09-26] MEDS: Mag Sulf 1 gm/100 ml Premix 100 ML IV.SIG SCH ×2 (16:07→16:51)
--- NOTE | 2017-09-26 19:09 | P.PNCA ---
Subjective Interval history: alert in nad Physical Exam Vital signs: Vital Signs 09/25/17 20:00 09/26/17 00:00 09/26/17 02:00 Temperature 98.4 F 98.3 F Pulse Rate 53 L 56 L Respiratory Rate 16 17 12 Blood Pressure 140/67 144/72 H Pulse Oximetry 96 96 09/26/17 04:00 09/26/17 06:49 09/26/17 08:00 Temperature 98.2 F 98.0 F Pulse Rate 56 L 55 L Respiratory Rate 17 12 17 Blood Pressure 151/69 H 145/75 H Pulse Oximetry 96 96 09/26/17 12:56 09/26/17 13:48 09/26/17 14:00 Temperature 98.6 F Pulse Rate 61 86 96 H Respiratory Rate 15 16 Blood Pressure 118/63 134/63 Pulse Oximetry 95 09/26/17 14:15 09/26/17 14:30 09/26/17 14:45 Temperature Pulse Rate 125 H 135 H 130 H Respiratory Rate 16 15 16 Blood Pressure 134/63 129/66 131/77 Pulse Oximetry 09/26/17 15:00 09/26/17 15:15 09/26/17 15:30 Temperature 98.4 F Pulse Rate 62 65 67 Respiratory Rate 15 15 15 Blood Pressure 138/66 140/75 134/74 Pulse Oximetry 96 09/26/17 16:00 09/26/17 17:03 Temperature 97.4 F L Pulse Rate 61 68 Respiratory Rate 17 Blood Pressure 148/76 H Pulse Oximetry 96 Intake & Output 09/26/17 09/26/17 09/27/17 06:59 18:59 06:59 Intake Total 1500 / 1500 2440 / 2440 Output Total 900 / 900 1210 / 1210 Balance 600 / 600 1230 / 1230 Intake: IV 1100 / 1100 2200 / 2200 NS Inj 1,000 ML @ 84 mls/hr IV. 1000 / 1000 2000 / 2000 CONT .[id number] [facility] Rx#:[id number] Ancef Inj 2,000 MG In NS Inj 100 / 100 200 / 200 100 ML @ 100 mls/hr IV.SIG Q8H [facility] Rx#:[id number] Oral 400 / 400 240 / 240 Output: Urine 900 / 900 1200 / 1200 Estimated Blood Loss 10 / 10 Other: Mode Setting Midline Chest Continuous Continuous Assessment and Plan - Assessment (1) Afib Code(s): I48.91 - Unspecified atrial fibrillation Status: Acute (2) Basal cell carcinoma Code(s): C44.91 - Basal cell carcinoma of skin, unspecified Status: Acute (3) Ventricular tachycardia Code(s): I47.2 - Ventricular tachycardia Status: Acute - Plan Atrial fibrillation with rapid ventricular rate Ventricular tachycardia Tachybradycardia syndrome in nsr today convert to amio PO clear from cardio perspective for surgery with intermediate risk paige into 40's, improved, dig held, d/w Dr Hill 09/20/17 in afib rvr converted to nsr after 5 mg iv lopressor, 2 gr iv mag
[2017-09-26] MEDS: Temazepam 15 MG Capsule PO SCH (21:50)
[2017-09-26] MEDS: Morphine Sulfate 15 MG SR Tablet PO SCH (21:51)
[2017-09-27] MEDS: Sod Chloride 0.9% Inj 1,000 ML IV.CONT SCH ×2 (01:01→14:30)
[2017-09-27] MEDS: ceFAZolin Inj 2,000 MG in Sodium Chlor 0.9% Inj 100 ML IV.SIG SCH ×3 (01:01→18:00)
[2017-09-27] MEDS: Nystatin 100,000 UNITS/GM Powder 15 GM Bottle TOPICAL SCH ×3 (05:46→22:41)
[2017-09-27] MEDS: Enoxaparin Inj 40 MG/0.4 ML Syringe SQ SCH (08:38)
[2017-09-27] MEDS: Senna/Docusate Sodium 8.6/50 MG Tablet PO SCH (08:40)
[2017-09-27] MEDS: Amiodarone 200 MG Tablet PO SCH (08:40)
[2017-09-27] MEDS: Metoprolol Tartrate 25 MG Tablet PO SCH ×2 (08:41→22:47)
[2017-09-27] MEDS: Sodium Hypochlorite 0.125% Top Soln 500 ML Bottle TOPICAL SCH (08:42)
--- NOTE | 2017-09-27 08:50 | ECG ---
Date Performed: 09/26/2017 Time Performed: 15:08:57 PTAGE: 51 years EKG: Sinus rhythm MINIMAL ST DEPRESSION BORDERLINE ECG PREVIOUS TRACING : 09/14/2017 15.38 Compared to previous tracing, sinus rhythm has replaced atr ial flutter with 2:1 AV conduction, heart rate has slowed. DOCTOR: Oswald Dubose Interpretating Date/Time 09/27/2017 08:49:43
[2017-09-27] MEDS: Morphine Inj 4 MG/ML Vial IV.PUSH PRN ×2 (11:13→14:56)
--- NOTE | 2017-09-27 13:06 | P.PNCA ---
Subjective Interval history: alert in nad Physical Exam Vital signs: Vital Signs 09/26/17 13:48 09/26/17 14:00 09/26/17 14:15 Temperature 98.6 F Pulse Rate 86 96 H 125 H Respiratory Rate 15 16 16 Blood Pressure 118/63 134/63 134/63 Pulse Oximetry 95 09/26/17 14:30 09/26/17 14:45 09/26/17 15:00 Temperature Pulse Rate 135 H 130 H 62 Respiratory Rate 15 16 15 Blood Pressure 129/66 131/77 138/66 Pulse Oximetry 09/26/17 15:15 09/26/17 15:30 09/26/17 16:00 Temperature 98.4 F Pulse Rate 65 67 61 Respiratory Rate 15 15 Blood Pressure 140/75 134/74 Pulse Oximetry 96 09/26/17 17:03 09/26/17 20:00 09/26/17 23:00 Temperature 97.4 F L 98 F 97.9 F Pulse Rate 68 65 91 H Respiratory Rate 17 16 17 Blood Pressure 148/76 H 106/62 107/64 Pulse Oximetry 96 94 L 95 09/27/17 00:00 09/27/17 04:00 09/27/17 04:56 Temperature 97.9 F Pulse Rate 65 64 62 Respiratory Rate 17 18 Blood Pressure 159/83 H Pulse Oximetry 94 L 09/27/17 09:05 Temperature 98.3 F Pulse Rate 64 Respiratory Rate 16 Blood Pressure 156/78 H Pulse Oximetry 97 Intake & Output 09/26/17 09/27/17 09/27/17 18:59 06:59 18:59 Intake Total 2440 / 2440 521 / 521 Output Total 1210 / 1210 400 / 400 Balance 1230 / 1230 121 / 121 Weight 94.6 kg Intake: IV 2200 / 2200 100 / 100 NS Inj 1,000 ML @ 84 mls/hr IV. 1999 / 1999 CONT .[id number] [facility] Rx#:[id number] Ancef Inj 2,000 MG In NS Inj 200 / 200 100 / 100 100 ML @ 100 mls/hr IV.SIG Q8H [facility] Rx#:[id number] Oral 240 / 240 421 / 421 Output: Urine 1200 / 1200 400 / 400 Estimated Blood Loss 10 / 10 Other: Mode Setting Midline Chest Continuous Continuous Date of Last Bowel Movement 09/25/17 Assessment and Plan - Assessment (1) Afib Code(s): I48.91 - Unspecified atrial fibrillation Status: Acute (2) Basal cell carcinoma Code(s): C44.91 - Basal cell carcinoma of skin, unspecified Status: Acute (3) Ventricular tachycardia Code(s): I47.2 - Ventricular tachycardia Status: Acute - Plan Atrial fibrillation with rapid ventricular rate Ventricular tachycardia Tachybradycardia syndrome in nsr today convert to amio PO clear from cardio perspective for surgery with intermediate risk paige into 40's, improved, dig held, d/w Dr Hill 09/20/17 in afib rvr converted to nsr after 5 mg iv lopressor, 2 gr iv mag 09/25/17
--- NOTE | 2017-09-27 15:31 | P.PN ---
Physical Exam Vital signs: Vital Signs 09/26/17 16:00 09/26/17 17:03 09/26/17 20:00 Temperature 97.4 F L 98 F Pulse Rate 61 68 65 Respiratory Rate 17 16 Blood Pressure 148/76 H 106/62 Pulse Oximetry 96 94 L 09/26/17 23:00 09/27/17 00:00 09/27/17 04:00 Temperature 97.9 F Pulse Rate 91 H 65 64 Respiratory Rate 17 17 Blood Pressure 107/64 Pulse Oximetry 95 09/27/17 04:56 09/27/17 09:05 09/27/17 13:19 Temperature 97.9 F 98.3 F 98.6 F Pulse Rate 62 64 67 Respiratory Rate 18 16 16 Blood Pressure 159/83 H 156/78 H 124/77 Pulse Oximetry 94 L 97 96 Intake & Output 09/26/17 09/27/17 09/27/17 18:59 06:59 18:59 Intake Total 2440 / 2440 521 / 521 Output Total 1210 / 1210 400 / 400 Balance 1230 / 1230 121 / 121 Weight 94.6 kg Intake: IV 2200 / 2200 100 / 100 NS Inj 1,000 ML @ 84 mls/hr IV. 1999 / 1999 CONT .[id number] [facility] Rx#:[id number] Ancef Inj 2,000 MG In NS Inj 200 / 200 100 / 100 100 ML @ 100 mls/hr IV.SIG Q8H [facility] Rx#:[id number] Oral 240 / 240 421 / 421 Output: Urine 1200 / 1200 400 / 400 Estimated Blood Loss 10 / 10 Other: Mode Setting Midline Chest Continuous Continuous Date of Last Bowel Movement 09/25/17 Narrative: Subjective Interval history: More chest pain today after graft and wound vac change. Less DC from the wound. No fever or chills. No n/v/d/c. Eating fairly well. Physical Exam GENERAL: Awake and alert. SKIN: with VAC in place, mild surrounding erythema of skin around VAC area CARDIOVASCULAR: Wound vac in place, redness around. Regular rate and rhythm without murmurs, gallops, or rubs. RESPIRATORY: Breath sounds equal bilaterally. No accessory muscle use. GASTROINTESTINAL: Abdomen soft, non-tender, nondistended. MUSCULOSKELETAL: No cyanosis, or edema. 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 Hospital course complicated by atrial fibrillation and hospital-acquired pneumonia. 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 - Plastic surgery following, status post surgical resection on 08/07/2017. Biopsy showed invasive squamous cell carcinoma involving bones, cartilage and pleura. - Wound culture from the chest rgrew Pseudomonas with 2 isolates, status post Zosyn, infectious disease was involved. Continue pain management - Oncology following, s/p surgical resection, he will need XRT in the future as outpatient and additional surgery for the squamous cell CA in the back with Dr. Ahn as outpatient. Cleared by Oncology for discharge. - For skin graft in 1-2 weeks per plastic surgery Continue wound VAC changes MWF- last changed 07/21 -on IV Cefazolin per Plastics - will ask nurse to call Plastics- regarding- regarding clarissa in the back- removal date- ask nurse to call them again Paroxysmal Atrial fibrillation with rapid ventricular rate- now in SR HR-40-50s - sinus HR S/P Ventricular tachycardia Tachybradycardia syndrome -May be related to anatomical disturbances, Cardiology following, continue Metoprolol and aspirin. Went into Afib RVR again with hypotension 09/15. He usually goes into atrial fibrillation with anemia and electrolyte imbalance, Hgb and electrolytes WNL. Started digoxin loading 09/16, - on Amiodarone 200 mg daily. - digoxin DC 09/22 - Lopressor 50 mg po bid - decrease to 25 mg po bid 09/22 - Hold if parameters less than 55 - Cardiology ff- Dr. Sandoval - if recurs- EP consult - re- adjusting meds. So far HR stable. dC digoxin as low HR cont amio = Hospital-acquired pneumonia-resolved, finished antibiotics for 2 weeks. Severe protein calorie malnutrition - dietitian ff DVT Prophylaxis: lovenox Discharge Planning: Limited resources/income, needs home health care with wound VAC. Discharge once cleared by plastic surgery after graft placement. S/P graft placement, wound vac change on 09/27/17. Dr Turner plastic surgery ff. Patient is ambulating with physical therapy. Results - Labs CBC & Chem 7: 09/26/17 05:51 09/26/17 05:51 - Procedures 08/07 PROCEDURES PERFORMED: 1. 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 2. Closure of chest wall defect 6 x 4 cm with dermal matrix biological mesh. 3. Placement of VAC dressing to wound, 26 x 21 cm. 4. Right thoracostomy tube placement. 08/10 vac dressing 08/20 Right pedicled latissimus muscle flap to right chest wound Left pectoralis major muscle flap to right chest wound 08/23 Right chest wound VAC change (67680) Right chest wound debridement (35545, 26554 x 6) Assessment and Plan - Assessment (1) Open chest wound Code(s): S21.109A - Unspecified open wound of unspecified front wall of thorax without penetration into thoracic cavity, initial encounter Status: Acute (2) Afib Code(s): I48.91 - Unspecified atrial fibrillation Status: Acute (3) Ventricular tachycardia Code(s): I47.2 - Ventricular tachycardia Status: Acute (4) Basal cell carcinoma Code(s): C44.91 - Basal cell carcinoma of skin, unspecified Status: Acute (5) Pain Code(s): R52 - Pain, unspecified Status: Acute (6) Insomnia Code(s): G47.00 - Insomnia, unspecified Status: Acute (7) Constipation Code(s): K59.00 - Constipation, unspecified Status: Acute
[2017-09-27] MEDS: Temazepam 15 MG Capsule PO SCH (22:47)
[2017-09-27] MEDS: Morphine Sulfate 15 MG SR Tablet PO SCH (22:48)
[2017-09-28] MEDS: Sod Chloride 0.9% Inj 1,000 ML IV.CONT SCH ×2 (01:01→17:30)
[2017-09-28] MEDS: ceFAZolin Inj 2,000 MG in Sodium Chlor 0.9% Inj 100 ML IV.SIG SCH ×3 (02:46→17:30)
[2017-09-28] MEDS: Nystatin 100,000 UNITS/GM Powder 15 GM Bottle TOPICAL SCH ×3 (06:48→22:30)
--- NOTE | 2017-09-28 08:37 | P.PN ---
Physical Exam Vital signs: Vital Signs 09/27/17 09:05 09/27/17 13:19 09/27/17 20:00 Temperature 98.3 F 98.6 F Pulse Rate 64 67 57 L Respiratory Rate 16 16 Blood Pressure 156/78 H 124/77 Pulse Oximetry 97 96 09/27/17 22:00 09/28/17 00:00 09/28/17 04:00 Temperature 98.1 F 98.2 F 97.9 F Pulse Rate 59 L 56 L 53 L Respiratory Rate 18 16 16 Blood Pressure 149/79 H 143/74 H 139/75 Pulse Oximetry 97 94 L 94 L Intake & Output 09/27/17 09/28/17 09/28/17 18:59 06:59 18:59 Intake Total 2668 / 2668 1440 / 1440 Output Total 1390 / 1390 375 / 375 Balance 1278 / 1278 1065 / 1065 Weight 78.8 kg Intake: IV 1100 / 1100 1200 / 1200 NS Inj 1,000 ML @ 84 mls/hr IV. 1000 / 1000 1000 / 1000 CONT .[id number] [facility] Rx#:[id number] Ancef Inj 2,000 MG In NS Inj 100 / 100 200 / 200 100 ML @ 100 mls/hr IV.SIG Q8H [facility] Rx#:[id number] Oral 560 / 560 240 / 240 Other 1008 / 1008 Output: Urine 1200 / 1200 375 / 375 Pleural Fluid 30 / 30 Estimated Blood Loss 10 / 10 Wound Drainage 150 / 150 Medial Chest 150 / 150 Other: Mode Setting Midline Chest Continuous Continuous Other Intake Source Saline Solution Date of Last Bowel Movement 09/25/17 09/25/17 Narrative: Subjective Interval history: Less chest pain today. Not much DC from the wound. No fever or chills. No n/v/d/c. Eating fairly well. Physical Exam GENERAL: Awake and alert. SKIN: with VAC in place, mild surrounding erythema of skin around VAC area CARDIOVASCULAR: Wound vac in place, redness around. Regular rate and rhythm without murmurs, gallops, or rubs. RESPIRATORY: Breath sounds equal bilaterally. No accessory muscle use. GASTROINTESTINAL: Abdomen soft, non-tender, nondistended. MUSCULOSKELETAL: No cyanosis, or edema. 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 Hospital course complicated by atrial fibrillation and hospital-acquired pneumonia. 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 - Plastic surgery following, status post surgical resection on 08/07/2017. Biopsy showed invasive squamous cell carcinoma involving bones, cartilage and pleura. - Wound culture from the chest rgrew Pseudomonas with 2 isolates, status post Zosyn, infectious disease was involved. Continue pain management - Oncology following, s/p surgical resection, he will need XRT in the future as outpatient and additional surgery for the squamous cell CA in the back with Dr. Ahn as outpatient. Cleared by Oncology for discharge. - For skin graft in 1-2 weeks per plastic surgery Continue wound VAC changes MWF- last changed 07/21 -on IV Cefazolin per Plastics - will ask nurse to call Plastics- regarding- regarding clarissa in the back- removal date- ask nurse to call them again Paroxysmal Atrial fibrillation with rapid ventricular rate- now in SR HR-40-50s - sinus HR S/P Ventricular tachycardia Tachybradycardia syndrome -May be related to anatomical disturbances, Cardiology following, continue Metoprolol and aspirin. Went into Afib RVR again with hypotension 09/15. He usually goes into atrial fibrillation with anemia and electrolyte imbalance, Hgb and electrolytes WNL. Started digoxin loading 09/16, - on Amiodarone 200 mg daily. - digoxin DC 09/22 - Lopressor 50 mg po bid - decrease to 25 mg po bid 09/22 - Hold if parameters less than 55 - Cardiology ff- Dr. Sandoval - if recurs- EP consult - re- adjusting meds. So far HR stable. dC digoxin as low HR cont amio = Hospital-acquired pneumonia-resolved, finished antibiotics for 2 weeks. Severe protein calorie malnutrition - dietitian ff DVT Prophylaxis: lovenox Discharge Planning: Limited resources/income, needs home health care with wound VAC. Discharge once cleared by plastic surgery after graft placement. S/P graft placement, wound vac change on 09/27/17. Dr Turner plastic surgery ff. Patient is ambulating with physical therapy. Results - Labs CBC & Chem 7: 09/26/17 05:51 09/26/17 05:51 - Procedures 08/07 PROCEDURES PERFORMED: 1. 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 2. Closure of chest wall defect 6 x 4 cm with dermal matrix biological mesh. 3. Placement of VAC dressing to wound, 26 x 21 cm. 4. Right thoracostomy tube placement. 08/10 vac dressing 08/20 Right pedicled latissimus muscle flap to right chest wound Left pectoralis major muscle flap to right chest wound 08/23 Right chest wound VAC change (26013) Right chest wound debridement (15630, 98072 x 6) Assessment and Plan - Assessment (1) Open chest wound Code(s): S21.109A - Unspecified open wound of unspecified front wall of thorax without penetration into thoracic cavity, initial encounter Status: Acute (2) Afib Code(s): I48.91 - Unspecified atrial fibrillation Status: Acute (3) Ventricular tachycardia Code(s): I47.2 - Ventricular tachycardia Status: Acute (4) Basal cell carcinoma Code(s): C44.91 - Basal cell carcinoma of skin, unspecified Status: Acute (5) Pain Code(s): R52 - Pain, unspecified Status: Acute (6) Insomnia Code(s): G47.00 - Insomnia, unspecified Status: Acute (7) Constipation Code(s): K59.00 - Constipation, unspecified Status: Acute
[2017-09-28] MEDS: Enoxaparin Inj 40 MG/0.4 ML Syringe SQ SCH (09:06)
[2017-09-28] MEDS: Senna/Docusate Sodium 8.6/50 MG Tablet PO SCH (09:07)
[2017-09-28] MEDS: Amiodarone 200 MG Tablet PO SCH (09:07)
[2017-09-28] MEDS: Metoprolol Tartrate 25 MG Tablet PO SCH ×2 (09:07→20:51)
[2017-09-28] MEDS: Sodium Hypochlorite 0.125% Top Soln 500 ML Bottle TOPICAL SCH (09:07)
--- NOTE | 2017-09-28 13:19 | P.PNCA ---
Subjective Interval history: alert in nad Physical Exam Vital signs: Vital Signs 09/27/17 20:00 09/27/17 22:00 09/28/17 00:00 Temperature 98.1 F 98.2 F Pulse Rate 57 L 59 L 56 L Respiratory Rate 18 16 Blood Pressure 149/79 H 143/74 H Pulse Oximetry 97 94 L 09/28/17 04:00 09/28/17 08:00 09/28/17 12:00 Temperature 97.9 F 98.3 F 98.2 F Pulse Rate 53 L 65 61 Respiratory Rate 16 20 20 Blood Pressure 139/75 137/80 133/73 Pulse Oximetry 94 L 97 97 Intake & Output 09/27/17 09/28/17 09/28/17 18:59 06:59 18:59 Intake Total 2668 / 2668 1440 / 1440 100 / 100 Output Total 1390 / 1390 375 / 375 Balance 1278 / 1278 1065 / 1065 100 / 100 Weight 78.8 kg Intake: IV 1100 / 1100 1200 / 1200 100 / 100 NS Inj 1,000 ML @ 84 mls/hr IV. 1000 / 1000 1000 / 1000 CONT .[id number] [facility] Rx#:[id number] Ancef Inj 2,000 MG In NS Inj 100 / 100 200 / 200 100 / 100 100 ML @ 100 mls/hr IV.SIG Q8H [facility] Rx#:[id number] Oral 560 / 560 240 / 240 Other 1008 / 1008 Output: Urine 1200 / 1200 375 / 375 Pleural Fluid 30 / 30 Estimated Blood Loss 10 / 10 Wound Drainage 150 / 150 Medial Chest 150 / 150 Other: Mode Setting Midline Chest Continuous Continuous Continuous Other Intake Source Saline Solution Date of Last Bowel Movement 09/25/17 09/25/17 09/26/17 Assessment and Plan - Assessment (1) Afib Code(s): I48.91 - Unspecified atrial fibrillation Status: Acute (2) Basal cell carcinoma Code(s): C44.91 - Basal cell carcinoma of skin, unspecified Status: Acute (3) Ventricular tachycardia Code(s): I47.2 - Ventricular tachycardia Status: Acute - Plan Atrial fibrillation with rapid ventricular rate Ventricular tachycardia Tachybradycardia syndrome in nsr today convert to amio PO clear from cardio perspective for surgery with intermediate risk paige into 40's, improved, dig held, d/w Dr Hill 09/20/17 in afib rvr converted to nsr after 5 mg iv lopressor, 2 gr iv mag 09/25/17
--- NOTE | 2017-09-28 19:22 | P.OP ---
- Preoperative Diagnosis (1) Open chest wound Comment: multi drug resistance psudomonas Date of procedure: 09/26/17 Procedure: Split-thickness skin graft from right thigh to right chest wound, roughly 140 cm ([id number], [id number]) Anesthesia: GETA Surgeon: Joey Stauffer MD Operation and Findings: 51-year-old male with right chest wound. Risks benefits alternative treatments discussed. All questions answered and the patient expressed understanding. Patient elected to assume the risks of split-thickness skin graft from right thigh to right chest wound. Informed consent obtained. The surgical site was marked in the preoperative holding bay. The patient was taken to the operating room and all pressure points were padded. A surgical timeout was performed. After the smooth induction of general anesthesia the VAC dressing was removed and the donor site was instilled with quarter percent Marcaine with epinephrine. Surgical sites were prepped and draped in the usual sterile fashion. The chest wound was pulse lavaged with 3 L of irrigant. Hemostasis was ensured. The chest wound measured roughly 15 x 6 and 11 x 4 cm. 2 respectively sized skin grafts were procured from the right anterior and lateral thigh using the dermatome. These were meshed in a 1-1.5 fashion. The skin grafts were contoured with the tenotomy scissors and fixed over the right chest wounds with clarissa. The wound was dressed with Vaseline gauze followed by a VAC dressing set to 125 mmHg. Hemostasis of the donor site was ensured then dressed with Tegaderms. All needle sponge and instrument counts were correct 2. The patient was awoken from anesthesia and arrived stable and doing well to the PACU.
[2017-09-28] MEDS: Morphine Sulfate 15 MG SR Tablet PO SCH (20:49)
[2017-09-28] MEDS: Temazepam 15 MG Capsule PO SCH (20:49)
[2017-09-29] MEDS: ceFAZolin Inj 2,000 MG in Sodium Chlor 0.9% Inj 100 ML IV.SIG SCH ×3 (01:12→17:32)
[2017-09-29] MEDS: Sod Chloride 0.9% Inj 1,000 ML IV.CONT SCH ×2 (01:15→14:00)
[2017-09-29] MEDS: Nystatin 100,000 UNITS/GM Powder 15 GM Bottle TOPICAL SCH ×2 (05:09→13:59)
[2017-09-29] MEDS: Senna/Docusate Sodium 8.6/50 MG Tablet PO SCH (09:13)
[2017-09-29] MEDS: Enoxaparin Inj 40 MG/0.4 ML Syringe SQ SCH (09:13)
[2017-09-29] MEDS: Amiodarone 200 MG Tablet PO SCH (09:13)
[2017-09-29] MEDS: Metoprolol Tartrate 25 MG Tablet PO SCH ×2 (09:14→20:05)
[2017-09-29] MEDS: Sodium Hypochlorite 0.125% Top Soln 500 ML Bottle TOPICAL SCH (09:14)
--- NOTE | 2017-09-29 09:36 | P.PN ---
Physical Exam Vital signs: Vital Signs 09/28/17 12:00 09/28/17 14:25 09/28/17 15:00 Temperature 98.2 F 98.2 F Pulse Rate 61 61 Respiratory Rate 20 20 20 Blood Pressure 133/73 161/88 H Pulse Oximetry 97 95 09/28/17 16:00 09/28/17 17:34 09/28/17 20:00 Temperature 98.0 F Pulse Rate 61 89 Respiratory Rate 20 14 20 Blood Pressure 161/76 H Pulse Oximetry 94 L 09/28/17 22:30 09/28/17 23:00 09/29/17 00:00 Temperature 98.9 F Pulse Rate 60 74 Respiratory Rate 18 16 Blood Pressure 120/62 Pulse Oximetry 92 L 09/29/17 03:00 09/29/17 03:47 09/29/17 04:00 Temperature 98.2 F Pulse Rate 70 51 L Respiratory Rate 18 18 Blood Pressure 143/72 H Pulse Oximetry 94 L 09/29/17 08:00 Temperature 98 F Pulse Rate 106 H Respiratory Rate 14 Blood Pressure 133/75 Pulse Oximetry 98 Intake & Output 09/28/17 09/29/17 09/29/17 18:59 06:59 18:59 Intake Total 3048 / 3048 2400 / 2400 Output Total 565 / 565 2500 / 2500 Balance 2483 / 2483 -100 / -100 Weight 82 kg Intake: IV 1100 / 1100 1200 / 1200 NS Inj 1,000 ML @ 84 mls/hr IV. 1000 / 1000 1000 / 1000 CONT .[id number] [facility] Rx#:[id number] Ancef Inj 2,000 MG In NS Inj 100 / 100 200 / 200 100 ML @ 100 mls/hr IV.SIG Q8H [facility]WANA Rx#:[id number] Oral 240 / 240 1200 / 1200 Anesthesia Amount 700 / 700 Other 1008 / 1008 Output: Urine 375 / 375 2500 / 2500 Stool 0 / 0 Pleural Fluid 30 / 30 Estimated Blood Loss 10 / 10 Wound Drainage 150 / 150 Medial Chest 150 / 150 Other: Mode Setting Midline Chest Continuous Continuous Other Intake Source Saline Solution # Voids 5 Date of Last Bowel Movement 09/26/17 09/28/17 # Bowel Movements 1 Narrative: Subjective Interval history: Says he is having more chest pain today. Received morphine and feels much better. No fever or chills. No n/v/d/c. Eating fairly well. Hopes he goes soon home. Lives with . Physical Exam GENERAL: Awake and alert. SKIN: with VAC in place, mild surrounding erythema of skin around VAC area CARDIOVASCULAR: Wound vac in place, redness around. Regular rate and rhythm without murmurs, gallops, or rubs. RESPIRATORY: Breath sounds equal bilaterally. No accessory muscle use. GASTROINTESTINAL: Abdomen soft, non-tender, nondistended. MUSCULOSKELETAL: No cyanosis, or edema. 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 Hospital course complicated by atrial fibrillation and hospital-acquired pneumonia. 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 - Plastic surgery following, status post surgical resection on 08/07/2017. Biopsy showed invasive squamous cell carcinoma involving bones, cartilage and pleura. - Wound culture from the chest rgrew Pseudomonas with 2 isolates, status post Zosyn, infectious disease was involved. Continue pain management - Oncology following, s/p surgical resection, he will need XRT in the future as outpatient and additional surgery for the squamous cell CA in the back with Dr. Ahn as outpatient. Cleared by Oncology for discharge. - For skin graft in 1-2 weeks per plastic surgery Continue wound VAC changes MWF- last changed 07/21 -on IV Cefazolin per Plastics - will ask nurse to call Plastics- regarding- regarding clarissa in the back- removal date- ask nurse to call them again Paroxysmal Atrial fibrillation with rapid ventricular rate- now in SR HR-40-50s - sinus HR S/P Ventricular tachycardia Tachybradycardia syndrome -May be related to anatomical disturbances, Cardiology following, continue Metoprolol and aspirin. Went into Afib RVR again with hypotension 09/15. He usually goes into atrial fibrillation with anemia and electrolyte imbalance, Hgb and electrolytes WNL. Started digoxin loading 09/16, - on Amiodarone 200 mg daily. - digoxin DC 09/22 - Lopressor 50 mg po bid - decrease to 25 mg po bid 09/22 - Hold if parameters less than 55 - Cardiology ff- Dr. Sandoval - if recurs- EP consult - re- adjusting meds. So far HR stable. dC digoxin as low HR cont amio = Hospital-acquired pneumonia-resolved, finished antibiotics for 2 weeks. Severe protein calorie malnutrition - dietitian ff DVT Prophylaxis: lovenox Discharge Planning: Limited resources/income, needs home health care with wound VAC. Discharge once cleared by plastic surgery after graft placement. S/P graft placement, wound vac change on 09/27/17. Dr Turner plastic surgery ff. Patient is ambulating with physical therapy. Results - Labs CBC & Chem 7: 09/26/17 05:51 09/26/17 05:51 - Procedures 08/07 PROCEDURES PERFORMED: 1. 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 2. Closure of chest wall defect 6 x 4 cm with dermal matrix biological mesh. 3. Placement of VAC dressing to wound, 26 x 21 cm. 4. Right thoracostomy tube placement. 08/10 vac dressing 08/20 Right pedicled latissimus muscle flap to right chest wound Left pectoralis major muscle flap to right chest wound 08/23 Right chest wound VAC change (54769) Right chest wound debridement (14266, 31931 x 6) 09/27/[address] Turner Split-thickness skin graft from right thigh to right chest wound, roughly 140 cm (02675, 83943) Assessment and Plan - Assessment (1) Open chest wound Code(s): S21.109A - Unspecified open wound of unspecified front wall of thorax without penetration into thoracic cavity, initial encounter Status: Acute (2) Afib Code(s): I48.91 - Unspecified atrial fibrillation Status: Acute (3) Ventricular tachycardia Code(s): I47.2 - Ventricular tachycardia Status: Acute (4) Basal cell carcinoma Code(s): C44.91 - Basal cell carcinoma of skin, unspecified Status: Acute (5) Pain Code(s): R52 - Pain, unspecified Status: Acute (6) Insomnia Code(s): G47.00 - Insomnia, unspecified Status: Acute (7) Constipation Code(s): K59.00 - Constipation, unspecified Status: Acute
[2017-09-29] MEDS: Morphine Inj 4 MG/ML Vial IV.PUSH PRN ×3 (11:25→20:05)
--- NOTE | 2017-09-29 11:46 | P.PNCA ---
Subjective Interval history: asleep in nad Physical Exam Vital signs: Vital Signs 09/28/17 12:00 09/28/17 14:25 09/28/17 15:00 Temperature 98.2 F 98.2 F Pulse Rate 61 61 Respiratory Rate 20 20 20 Blood Pressure 133/73 161/88 H Pulse Oximetry 97 95 09/28/17 16:00 09/28/17 17:34 09/28/17 20:00 Temperature 98.0 F Pulse Rate 61 89 Respiratory Rate 20 14 20 Blood Pressure 161/76 H Pulse Oximetry 94 L 09/28/17 22:30 09/28/17 23:00 09/29/17 00:00 Temperature 98.9 F Pulse Rate 60 74 Respiratory Rate 18 16 Blood Pressure 120/62 Pulse Oximetry 92 L 09/29/17 03:00 09/29/17 03:47 09/29/17 04:00 Temperature 98.2 F Pulse Rate 70 51 L Respiratory Rate 18 18 Blood Pressure 143/72 H Pulse Oximetry 94 L 09/29/17 08:00 Temperature 98 F Pulse Rate 106 H Respiratory Rate 14 Blood Pressure 133/75 Pulse Oximetry 98 Intake & Output 09/28/17 09/29/17 09/29/17 18:59 06:59 18:59 Intake Total 3048 / 3048 2400 / 2400 Output Total 565 / 565 2500 / 2500 Balance 2483 / 2483 -100 / -100 Weight 82 kg Intake: IV 1100 / 1100 1200 / 1200 NS Inj 1,000 ML @ 84 mls/hr IV. 1000 / 1000 1000 / 1000 CONT .[id number] [facility] Rx#:[id number] Ancef Inj 2,000 MG In NS Inj 100 / 100 200 / 200 100 ML @ 100 mls/hr IV.SIG Q8H [facility] Rx#:[id number] Oral 240 / 240 1200 / 1200 Anesthesia Amount 700 / 700 Other 1008 / 1008 Output: Urine 375 / 375 2500 / 2500 Stool 0 / 0 Pleural Fluid 30 / 30 Estimated Blood Loss 10 / 10 Wound Drainage 150 / 150 Medial Chest 150 / 150 Other: Mode Setting Midline Chest Continuous Continuous Other Intake Source Saline Solution # Voids 5 Date of Last Bowel Movement 09/26/17 09/28/17 # Bowel Movements 1 Assessment and Plan - Assessment (1) Afib Code(s): I48.91 - Unspecified atrial fibrillation Status: Acute (2) Basal cell carcinoma Code(s): C44.91 - Basal cell carcinoma of skin, unspecified Status: Acute (3) Ventricular tachycardia Code(s): I47.2 - Ventricular tachycardia Status: Acute - Plan Atrial fibrillation with rapid ventricular rate Ventricular tachycardia Tachybradycardia syndrome in nsr today convert to amio PO clear from cardio perspective for surgery with intermediate risk paige into 40's, improved, dig held, d/w Dr Hill 09/20/17 in afib rvr converted to nsr after 5 mg iv lopressor, 2 gr iv mag 09/25/17
[2017-09-29] MEDS: Temazepam 15 MG Capsule PO SCH (20:05)
[2017-09-29] MEDS: Morphine Sulfate 15 MG SR Tablet PO SCH (20:05)
[2017-09-30] MEDS: Nystatin 100,000 UNITS/GM Powder 15 GM Bottle TOPICAL SCH ×3 (00:34→14:23)
[2017-09-30] MEDS: Morphine Inj 4 MG/ML Vial IV.PUSH PRN ×6 (00:34→21:31)
[2017-09-30] MEDS: ceFAZolin Inj 2,000 MG in Sodium Chlor 0.9% Inj 100 ML IV.SIG SCH ×3 (00:38→15:41)
[2017-09-30] MEDS: Sod Chloride 0.9% Inj 1,000 ML IV.CONT SCH ×2 (00:40→14:12)
[2017-09-30] MEDS: Enoxaparin Inj 40 MG/0.4 ML Syringe SQ SCH (08:33)
[2017-09-30] MEDS: Amiodarone 200 MG Tablet PO SCH (08:34)
[2017-09-30] MEDS: Metoprolol Tartrate 25 MG Tablet PO SCH ×2 (08:34→20:19)
[2017-09-30] MEDS: Senna/Docusate Sodium 8.6/50 MG Tablet PO SCH (08:34)
--- NOTE | 2017-09-30 08:52 | P.PN ---
Physical Exam Vital signs: Vital Signs 09/29/17 11:00 09/29/17 15:00 09/29/17 16:00 Temperature 98.0 F 98.7 F Pulse Rate 100 H 90 90 Respiratory Rate 14 14 Blood Pressure 130/75 111/77 Pulse Oximetry 95 95 09/29/17 16:05 09/29/17 20:00 09/29/17 20:16 Temperature 98.2 F Pulse Rate 67 67 Respiratory Rate 14 18 Blood Pressure 148/79 H Pulse Oximetry 96 09/29/17 23:00 09/30/17 00:00 09/30/17 03:00 Temperature 98.2 F 98.4 F Pulse Rate 121 H 56 L 58 L Respiratory Rate 20 16 Blood Pressure 121/73 119/69 Pulse Oximetry 94 L 94 L 09/30/17 04:00 Temperature Pulse Rate 57 L Respiratory Rate Blood Pressure Pulse Oximetry Intake & Output 09/29/17 09/30/17 09/30/17 18:59 06:59 18:59 Intake Total 1100 / 1100 1200 / 1200 Output Total 800 / 800 500 / 500 Balance 300 / 300 700 / 700 Weight 89.1 kg Intake: IV 1100 / 1100 1200 / 1200 NS Inj 1,000 ML @ 84 mls/hr IV. 1000 / 1000 1000 / 1000 CONT .[id number] [facility]WA[facility] Rx#:[id number] Ancef Inj 2,000 MG In NS Inj 100 / 100 200 / 200 100 ML @ 100 mls/hr IV.SIG Q8H [facility] Rx#:[id number] Output: Urine 800 / 800 500 / 500 Other: Mode Setting Midline Chest Continuous Continuous Date of Last Bowel Movement 09/28/17 09/28/17 Narrative: Subjective Interval history: Feels improving. Pain is fairly controlled by medications. Wound VAC with minimum drainage. No fever or chills. No n/v/d/c. Physical Exam GENERAL: Awake and alert. SKIN: with VAC in place, mild surrounding erythema of skin around VAC area CARDIOVASCULAR: Wound vac in place, redness around. Regular rate and rhythm without murmurs, gallops, or rubs. RESPIRATORY: Breath sounds equal bilaterally. No accessory muscle use. GASTROINTESTINAL: Abdomen soft, non-tender, nondistended. MUSCULOSKELETAL: No cyanosis, or edema. 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 Hospital course complicated by atrial fibrillation and hospital-acquired pneumonia. 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 - Plastic surgery following, status post surgical resection on 08/07/2017. Biopsy showed invasive squamous cell carcinoma involving bones, cartilage and pleura. - Wound culture from the chest rgrew Pseudomonas with 2 isolates, status post Zosyn, infectious disease was involved. Continue pain management - Oncology following, s/p surgical resection, he will need XRT in the future as outpatient and additional surgery for the squamous cell CA in the back with Dr. Ahn as outpatient. Cleared by Oncology for discharge. - For skin graft in 1-2 weeks per plastic surgery Continue wound VAC changes MWF- last changed 07/21 -on IV Cefazolin per Plastics - will ask nurse to call Plastics- regarding- regarding clarissa in the back- removal date- ask nurse to call them again Paroxysmal Atrial fibrillation with rapid ventricular rate- now in SR HR-40-50s - sinus HR S/P Ventricular tachycardia Tachybradycardia syndrome -May be related to anatomical disturbances, Cardiology following, continue Metoprolol and aspirin. Went into Afib RVR again with hypotension 09/15. He usually goes into atrial fibrillation with anemia and electrolyte imbalance, Hgb and electrolytes WNL. Started digoxin loading 09/16, - on Amiodarone 200 mg daily. - digoxin DC 09/22 - Lopressor 50 mg po bid - decrease to 25 mg po bid 09/22 - Hold if parameters less than 55 - Cardiology ff- Dr. Sandoval - if recurs- EP consult - re- adjusting meds. So far HR stable. dC digoxin as low HR cont amio = Hospital-acquired pneumonia-resolved, finished antibiotics for 2 weeks. Severe protein calorie malnutrition - dietitian ff DVT Prophylaxis: lovenox Discharge Planning: Limited resources/income, needs home health care with wound VAC. Discharge once cleared by plastic surgery after graft placement. S/P graft placement, wound vac change on 09/27/17. Dr Turner plastic surgery ff. Patient is ambulating with physical therapy. Results - Labs CBC & Chem 7: 09/26/17 05:51 09/26/17 05:51 - Procedures 08/07 PROCEDURES PERFORMED: 1. 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 2. Closure of chest wall defect 6 x 4 cm with dermal matrix biological mesh. 3. Placement of VAC dressing to wound, 26 x 21 cm. 4. Right thoracostomy tube placement. 08/10 vac dressing 08/20 Right pedicled latissimus muscle flap to right chest wound Left pectoralis major muscle flap to right chest wound 08/23 Right chest wound VAC change (22698) Right chest wound debridement (64815, 46195 x 6) 09/27/[address] Turner Split-thickness skin graft from right thigh to right chest wound, roughly 140 cm (02567, 49818) Assessment and Plan - Assessment (1) Open chest wound Code(s): S21.109A - Unspecified open wound of unspecified front wall of thorax without penetration into thoracic cavity, initial encounter Status: Acute (2) Afib Code(s): I48.91 - Unspecified atrial fibrillation Status: Acute (3) Ventricular tachycardia Code(s): I47.2 - Ventricular tachycardia Status: Acute (4) Basal cell carcinoma Code(s): C44.91 - Basal cell carcinoma of skin, unspecified Status: Acute (5) Pain Code(s): R52 - Pain, unspecified Status: Acute (6) Insomnia Code(s): G47.00 - Insomnia, unspecified Status: Acute (7) Constipation Code(s): K59.00 - Constipation, unspecified Status: Acute
[2017-09-30] MEDS: Sodium Hypochlorite 0.125% Top Soln 500 ML Bottle TOPICAL SCH (09:31)
--- NOTE | 2017-09-30 14:46 | P.PNCA ---
Subjective Interval history: alert in nad Physical Exam Vital signs: Vital Signs 09/29/17 15:00 09/29/17 16:00 09/29/17 16:05 Temperature 98.7 F Pulse Rate 90 90 Respiratory Rate 14 14 Blood Pressure 111/77 Pulse Oximetry 95 09/29/17 20:00 09/29/17 20:16 09/29/17 23:00 Temperature 98.2 F 98.2 F Pulse Rate 67 67 121 H Respiratory Rate 18 20 Blood Pressure 148/79 H 121/73 Pulse Oximetry 96 94 L 09/30/17 00:00 09/30/17 03:00 09/30/17 04:00 Temperature 98.4 F Pulse Rate 56 L 58 L 57 L Respiratory Rate 16 Blood Pressure 119/69 Pulse Oximetry 94 L Intake & Output 09/29/17 09/30/17 09/30/17 18:59 06:59 18:59 Intake Total 1100 / 1100 1200 / 1200 1000 / 1000 Output Total 800 / 800 500 / 500 Balance 300 / 300 700 / 700 1000 / 1000 Weight 89.1 kg Intake: IV 1100 / 1100 1200 / 1200 1000 / 1000 NS Inj 1,000 ML @ 84 mls/hr IV. 1000 / 1000 1000 / 1000 1000 / 1000 CONT .[id number] [facility] Rx#:[id number] Ancef Inj 2,000 MG In NS Inj 100 / 100 200 / 200 100 ML @ 100 mls/hr IV.SIG Q8H [facility] Rx#:[id number] Output: Urine 800 / 800 500 / 500 Other: Mode Setting Midline Chest Continuous Continuous Continuous Date of Last Bowel Movement 09/28/17 09/28/17 09/28/17 Assessment and Plan - Assessment (1) Afib Code(s): I48.91 - Unspecified atrial fibrillation Status: Acute (2) Basal cell carcinoma Code(s): C44.91 - Basal cell carcinoma of skin, unspecified Status: Acute (3) Ventricular tachycardia Code(s): I47.2 - Ventricular tachycardia Status: Acute - Plan Atrial fibrillation with rapid ventricular rate Ventricular tachycardia Tachybradycardia syndrome in nsr today convert to amio PO clear from cardio perspective for surgery with intermediate risk paige into 40's, improved, dig held, d/w Dr Hill 09/20/17 in afib rvr converted to nsr after 5 mg iv lopressor, 2 gr iv mag 09/25/17
[2017-09-30] MEDS: Morphine Sulfate 15 MG SR Tablet PO SCH (20:18)
[2017-09-30] MEDS: Temazepam 15 MG Capsule PO SCH (21:31)
[2017-10-01] MEDS: Nystatin 100,000 UNITS/GM Powder 15 GM Bottle TOPICAL SCH ×4 (00:13→21:03)
[2017-10-01] MEDS: Sod Chloride 0.9% Inj 1,000 ML IV.CONT SCH ×2 (01:20→16:13)
[2017-10-01] MEDS: ceFAZolin Inj 2,000 MG in Sodium Chlor 0.9% Inj 100 ML IV.SIG SCH ×4 (01:36→23:47)
[2017-10-01] MEDS: Morphine Inj 4 MG/ML Vial IV.PUSH PRN ×5 (04:25→21:01)
[2017-10-01] MEDS: Enoxaparin Inj 40 MG/0.4 ML Syringe SQ SCH (09:28)
[2017-10-01] MEDS: Amiodarone 200 MG Tablet PO SCH (09:29)
[2017-10-01] MEDS: Metoprolol Tartrate 25 MG Tablet PO SCH ×2 (09:29→21:00)
[2017-10-01] MEDS: Senna/Docusate Sodium 8.6/50 MG Tablet PO SCH (09:29)
[2017-10-01] MEDS: Sodium Hypochlorite 0.125% Top Soln 500 ML Bottle TOPICAL SCH (09:31)
--- NOTE | 2017-10-01 11:19 | P.PN ---
Subjective Interval history: Pt seen 09/30/17 Doing well. Pain controlled. No complaints. No drainage from donor site dressing. Physical Exam Vital signs: Vital Signs 09/30/17 12:00 09/30/17 16:00 09/30/17 21:50 Temperature 98.1 F 98.3 F 98.2 F Pulse Rate 56 L 56 L 60 Respiratory Rate 20 20 16 Blood Pressure 178/80 H 170/82 H 150/77 H Pulse Oximetry 98 96 98 10/01/17 00:00 10/01/17 02:13 10/01/17 05:00 Temperature 98.7 F 98 F Pulse Rate 60 67 63 Respiratory Rate 17 17 Blood Pressure 130/67 119/80 Pulse Oximetry 98 99 10/01/17 08:00 Temperature 98.1 F Pulse Rate 59 L Respiratory Rate 20 Blood Pressure 155/76 H Pulse Oximetry 94 L Intake & Output 09/30/17 10/01/17 10/01/17 18:59 06:59 18:59 Intake Total 2060 / 2060 3100 / 3100 Output Total 400 / 400 2925 / 2925 400 / 400 Balance 1660 / 1660 175 / 175 -400 / -400 Weight 89 kg Intake: IV 1100 / 1100 1200 / 1200 NS Inj 1,000 ML @ 84 mls/hr IV. 1000 / 1000 1000 / 1000 CONT .[id number] [facility] Rx#:[id number] Ancef Inj 2,000 MG In NS Inj 100 / 100 200 / 200 100 ML @ 100 mls/hr IV.SIG Q8H [facility] Rx#:[id number] Oral 960 / 960 1900 / 1900 Output: Urine 400 / 400 2925 / 2925 400 / 400 Other: Mode Setting Midline Chest Continuous Continuous Continuous Date of Last Bowel Movement 09/28/17 09/30/17 # Bowel Movements 0 # Incontinent Bowel Movements 1 Narrative: VAC w/ good sxn Minimal surrounding erythema Donor site without signs infection Results - Labs CBC & Chem 7: 09/26/17 05:51 09/26/17 05:51 - Procedures 08/07 PROCEDURES PERFORMED: 1. 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 2. Closure of chest wall defect 6 x 4 cm with dermal matrix biological mesh. 3. Placement of VAC dressing to wound, 26 x 21 cm. 4. Right thoracostomy tube placement. 08/10 vac dressing 08/20 Right pedicled latissimus muscle flap to right chest wound Left pectoralis major muscle flap to right chest wound 08/23 Right chest wound VAC change (86786) Right chest wound debridement (79498, 02191 x 6) 09/27/[address] Turner Split-thickness skin graft from right thigh to right chest wound, roughly 140 cm (40136, 89249) Assessment and Plan - Assessment (1) Open chest wound Code(s): S21.109A - Unspecified open wound of unspecified front wall of thorax without penetration into thoracic cavity, initial encounter Status: Acute - Plan 51-year-old male status post right latissimus dorsi myocutaneous and left pectoralis major muscle flaps to right chest wound, followed by skin graft from RLE, now VAC'd over skin graft Do not remove VAC Wound VAC to be placed to -125 mmHg low continuous suction May reinforce/replace thigh donor site dressing prn
--- NOTE | 2017-10-01 14:02 | P.PNCA ---
Subjective Interval history: asleep in nad Physical Exam Vital signs: Vital Signs 09/30/17 16:00 09/30/17 21:50 10/01/17 00:00 Temperature 98.3 F 98.2 F Pulse Rate 56 L 60 60 Respiratory Rate 20 16 Blood Pressure 170/82 H 150/77 H Pulse Oximetry 96 98 10/01/17 02:13 10/01/17 05:00 10/01/17 08:00 Temperature 98.7 F 98 F 98.1 F Pulse Rate 67 63 59 L Respiratory Rate 17 17 20 Blood Pressure 130/67 119/80 155/76 H Pulse Oximetry 98 99 94 L 10/01/17 11:00 Temperature 98.7 F Pulse Rate 55 L Respiratory Rate 20 Blood Pressure 149/78 H Pulse Oximetry 94 L Intake & Output 09/30/17 10/01/17 10/01/17 18:59 06:59 18:59 Intake Total 2060 / 2060 3100 / 3100 Output Total 400 / 400 2925 / 2925 400 / 400 Balance 1660 / 1660 175 / 175 -400 / -400 Weight 89 kg Intake: IV 1100 / 1100 1200 / 1200 NS Inj 1,000 ML @ 84 mls/hr IV. 1000 / 1000 1000 / 1000 CONT .[id number] [facility]WANA Rx#:[id number] Ancef Inj 2,000 MG In NS Inj 100 / 100 200 / 200 100 ML @ 100 mls/hr IV.SIG Q8H [facility]WANA Rx#:[id number] Oral 960 / 960 1900 / 1900 Output: Urine 400 / 400 2925 / 2925 400 / 400 Other: Mode Setting Midline Chest Continuous Continuous Continuous Date of Last Bowel Movement 09/28/17 09/30/17 # Bowel Movements 0 # Incontinent Bowel Movements 1 Assessment and Plan - Assessment (1) Afib Code(s): I48.91 - Unspecified atrial fibrillation Status: Acute (2) Basal cell carcinoma Code(s): C44.91 - Basal cell carcinoma of skin, unspecified Status: Acute (3) Ventricular tachycardia Code(s): I47.2 - Ventricular tachycardia Status: Acute - Plan Atrial fibrillation with rapid ventricular rate Ventricular tachycardia Tachybradycardia syndrome in nsr today convert to amio PO clear from cardio perspective for surgery with intermediate risk paige into 40's, improved, dig held, d/w Dr Hill 09/20/17 in afib rvr converted to nsr after 5 mg iv lopressor, 2 gr iv mag 09/25/17
--- NOTE | 2017-10-01 16:48 | P.PN ---
Physical Exam Vital signs: Vital Signs 09/30/17 21:50 10/01/17 00:00 10/01/17 02:13 Temperature 98.2 F 98.7 F Pulse Rate 60 60 67 Respiratory Rate 16 17 Blood Pressure 150/77 H 130/67 Pulse Oximetry 98 98 10/01/17 05:00 10/01/17 08:00 10/01/17 11:00 Temperature 98 F 98.1 F 98.7 F Pulse Rate 63 59 L 55 L Respiratory Rate 17 20 20 Blood Pressure 119/80 155/76 H 149/78 H Pulse Oximetry 99 94 L 94 L Intake & Output 09/30/17 10/01/17 10/01/17 18:59 06:59 18:59 Intake Total 2060 / 2060 3100 / 3100 1100 / 1100 Output Total 400 / 400 2925 / 2925 400 / 400 Balance 1660 / 1660 175 / 175 700 / 700 Weight 89 kg Intake: IV 1100 / 1100 1200 / 1200 1100 / 1100 NS Inj 1,000 ML @ 84 mls/hr IV. 1000 / 1000 1000 / 1000 1000 / 1000 CONT .[id number] [facility] Rx#:[id number] Ancef Inj 2,000 MG In NS Inj 100 / 100 200 / 200 100 / 100 100 ML @ 100 mls/hr IV.SIG Q8H [facility] Rx#:[id number] Oral 960 / 960 1900 / 1900 Output: Urine 400 / 400 2925 / 2925 400 / 400 Other: Mode Setting Midline Chest Continuous Continuous Continuous # Voids 2 Date of Last Bowel Movement 09/28/17 09/30/17 # Bowel Movements 0 1 # Incontinent Bowel Movements 1 Narrative: Subjective Interval history: Feels improving. Pain is fairly controlled by medications. Wound VAC with minimum drainage. No fever or chills. No n/v/d/c. Physical Exam GENERAL: Awake and alert. SKIN: with VAC in place, mild surrounding erythema of skin around VAC area CARDIOVASCULAR: Wound vac in place, redness around. Regular rate and rhythm without murmurs, gallops, or rubs. RESPIRATORY: Breath sounds equal bilaterally. No accessory muscle use. GASTROINTESTINAL: Abdomen soft, non-tender, nondistended. MUSCULOSKELETAL: No cyanosis, or edema. 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 Hospital course complicated by atrial fibrillation and hospital-acquired pneumonia. 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 - Plastic surgery following, status post surgical resection on 08/07/2017. Biopsy showed invasive squamous cell carcinoma involving bones, cartilage and pleura. - Wound culture from the chest rgrew Pseudomonas with 2 isolates, status post Zosyn, infectious disease was involved. Continue pain management - Oncology following, s/p surgical resection, he will need XRT in the future as outpatient and additional surgery for the squamous cell CA in the back with Dr. Ahn as outpatient. Cleared by Oncology for discharge. - For skin graft in 1-2 weeks per plastic surgery Continue wound VAC changes MWF- last changed 07/21 -on IV Cefazolin per Plastics - Wound VAC to be placed to -125 mmHg low continuous suction, Dr Turner ff plastic surgeon Paroxysmal Atrial fibrillation with rapid ventricular rate- now in SR HR-40-50s - sinus HR S/P Ventricular tachycardia Tachybradycardia syndrome -May be related to anatomical disturbances, Cardiology following, continue Metoprolol and aspirin. Went into Afib RVR again with hypotension 09/15. He usually goes into atrial fibrillation with anemia and electrolyte imbalance, Hgb and electrolytes WNL. Started digoxin loading 09/16, - on Amiodarone 200 mg daily. - digoxin DC 09/22 - Lopressor 50 mg po bid - decrease to 25 mg po bid 09/22 - Hold if parameters less than 55 - Cardiology ff- Dr. Sandoval - if recurs- EP consult - re- adjusting meds. So far HR stable. dC digoxin as low HR cont amio = Hospital-acquired pneumonia-resolved, finished antibiotics for 2 weeks. Severe protein calorie malnutrition - dietitian ff DVT Prophylaxis: lovenox Discharge Planning: Limited resources/income, needs home health care with wound VAC. Discharge once cleared by plastic surgery after graft placement. S/P graft placement, wound vac change on 09/27/17. Dr Turner plastic surgery ff. Patient is ambulating with physical therapy. Results - Labs CBC & Chem 7: 09/26/17 05:51 09/26/17 05:51 - Procedures 08/07 PROCEDURES PERFORMED: 1. 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 2. Closure of chest wall defect 6 x 4 cm with dermal matrix biological mesh. 3. Placement of VAC dressing to wound, 26 x 21 cm. 4. Right thoracostomy tube placement. 08/10 vac dressing 08/20 Right pedicled latissimus muscle flap to right chest wound Left pectoralis major muscle flap to right chest wound 08/23 Right chest wound VAC change (30108) Right chest wound debridement (01981, 84813 x 6) 09/27/[address] Turner Split-thickness skin graft from right thigh to right chest wound, roughly 140 cm (17603, 96287) Assessment and Plan - Assessment (1) Open chest wound Code(s): S21.109A - Unspecified open wound of unspecified front wall of thorax without penetration into thoracic cavity, initial encounter Status: Acute (2) Afib Code(s): I48.91 - Unspecified atrial fibrillation Status: Acute (3) Ventricular tachycardia Code(s): I47.2 - Ventricular tachycardia Status: Acute (4) Basal cell carcinoma Code(s): C44.91 - Basal cell carcinoma of skin, unspecified Status: Acute (5) Pain Code(s): R52 - Pain, unspecified Status: Acute (6) Insomnia Code(s): G47.00 - Insomnia, unspecified Status: Acute (7) Constipation Code(s): K59.00 - Constipation, unspecified Status: Acute
[2017-10-01] MEDS: Morphine Sulfate 15 MG SR Tablet PO SCH (21:00)
[2017-10-01] MEDS: Temazepam 15 MG Capsule PO SCH (23:06)
[2017-10-02] MEDS: Morphine Inj 4 MG/ML Vial IV.PUSH PRN ×3 (06:27→16:03)
[2017-10-02] MEDS: Sod Chloride 0.9% Inj 1,000 ML IV.CONT SCH ×2 (06:27→11:02)
[2017-10-02] MEDS: Nystatin 100,000 UNITS/GM Powder 15 GM Bottle TOPICAL SCH ×2 (07:49→13:42)
[2017-10-02] MEDS: Amiodarone 200 MG Tablet PO SCH (08:18)
[2017-10-02] MEDS: Sodium Hypochlorite 0.125% Top Soln 500 ML Bottle TOPICAL SCH (08:19)
[2017-10-02] MEDS: Metoprolol Tartrate 25 MG Tablet PO SCH ×2 (08:19→21:04)
[2017-10-02] MEDS: ceFAZolin Inj 2,000 MG in Sodium Chlor 0.9% Inj 100 ML IV.SIG SCH ×2 (08:20→17:35)
[2017-10-02] MEDS: Senna/Docusate Sodium 8.6/50 MG Tablet PO SCH (08:21)
[2017-10-02] MEDS: Enoxaparin Inj 40 MG/0.4 ML Syringe SQ SCH (08:22)
--- NOTE | 2017-10-02 08:50 | P.PN ---
Physical Exam Vital signs: Vital Signs 10/01/17 11:00 10/01/17 12:00 10/01/17 16:47 Temperature 98.7 F 97.6 F Pulse Rate 55 L 52 L 58 L Respiratory Rate 20 20 Blood Pressure 149/78 H 161/76 H Pulse Oximetry 94 L 97 10/01/17 20:00 10/01/17 21:45 10/02/17 00:00 Temperature 98.8 F Pulse Rate 58 L 56 L 52 L Respiratory Rate 17 Blood Pressure 147/75 H Pulse Oximetry 96 10/02/17 02:11 10/02/17 03:49 10/02/17 04:45 Temperature 98.1 F 99 F Pulse Rate 64 49 L 60 Respiratory Rate 18 17 Blood Pressure 140/66 135/65 Pulse Oximetry 97 96 Intake & Output 10/01/17 10/02/17 10/02/17 18:59 06:59 18:59 Intake Total 1100 / 1100 3125 / 3125 Output Total 400 / 400 1500 / 1500 Balance 700 / 700 1625 / 1625 Weight 88.5 kg Intake: IV 1100 / 1100 1200 / 1200 NS Inj 1,000 ML @ 84 mls/hr IV. 1000 / 1000 1000 / 1000 CONT .[id number] [facility] Rx#:[id number] Ancef Inj 2,000 MG In NS Inj 100 / 100 200 / 200 100 ML @ 100 mls/hr IV.SIG Q8H [facility] Rx#:[id number] Oral 1925 / 1925 Output: Urine 400 / 400 1500 / 1500 Other: Mode Setting Midline Chest Continuous Continuous # Voids 2 # Bowel Movements 1 0 # Incontinent Bowel Movements 0 Narrative: Subjective Interval history: Follow-up invasive squamous cell carcinoma involving the deep tissue bones cartilage and pleura anterior chest wall status post skin graft/A. fib with RVR Feels tired today sleeping. Says he looks for to do physical therapy. No fever or chills. Pain in his chest is fairly controlled by medications. Wound VAC with minimum drainage. No fever or chills. No n/v/d/c. Physical Exam GENERAL: Awake and alert. SKIN: with VAC in place, mild surrounding erythema of skin around VAC area CARDIOVASCULAR: Wound vac in place, redness around. Regular rate and rhythm without murmurs, gallops, or rubs. RESPIRATORY: Breath sounds equal bilaterally. No accessory muscle use. GASTROINTESTINAL: Abdomen soft, non-tender, nondistended. MUSCULOSKELETAL: No cyanosis, or edema. 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 Hospital course complicated by atrial fibrillation and hospital-acquired pneumonia. 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 - Plastic surgery following, status post surgical resection on 08/07/2017. Biopsy showed invasive squamous cell carcinoma involving bones, cartilage and pleura. - Wound culture from the chest rgrew Pseudomonas with 2 isolates, status post Zosyn, infectious disease was involved. Continue pain management - Oncology following, s/p surgical resection, he will need XRT in the future as outpatient and additional surgery for the squamous cell CA in the back with Dr. Ahn as outpatient. Cleared by Oncology for discharge. - For skin graft in 1-2 weeks per plastic surgery Continue wound VAC changes MW- last changed 07/21 -on IV Cefazolin per Plastics - Wound VAC to be placed to -125 mmHg low continuous suction, Dr Turner ff plastic surgeon Paroxysmal Atrial fibrillation with rapid ventricular rate- now in SR HR-40-50s - sinus HR S/P Ventricular tachycardia Tachybradycardia syndrome -May be related to anatomical disturbances, Cardiology following, continue Metoprolol and aspirin. Went into Afib RVR again with hypotension 09/15. He usually goes into atrial fibrillation with anemia and electrolyte imbalance, Hgb and electrolytes WNL. Started digoxin loading 09/16, - on Amiodarone 200 mg daily. - digoxin DC 09/22 - Lopressor 50 mg po bid - decrease to 25 mg po bid 09/22 - Hold if parameters less than 55 - Cardiology ff- Dr. Sandoval - if recurs- EP consult - re- adjusting meds. So far HR stable. dC digoxin as low HR cont amio = Hospital-acquired pneumonia-resolved, finished antibiotics for 2 weeks. Severe protein calorie malnutrition - dietitian ff DVT Prophylaxis: lovenox Discharge Planning: Limited resources/income, needs home health care with wound VAC. Discharge once cleared by plastic surgery after graft placement. S/P graft placement, wound vac change on 09/27/17. Dr Turner plastic surgery ff. Patient is ambulating with physical therapy. Discussed with the patient, nurse, Dr. Turner Results - Labs CBC & Chem 7: 09/26/17 05:51 09/26/17 05:51 - Procedures 08/07 PROCEDURES PERFORMED: 1. 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 2. Closure of chest wall defect 6 x 4 cm with dermal matrix biological mesh. 3. Placement of VAC dressing to wound, 26 x 21 cm. 4. Right thoracostomy tube placement. 08/10 vac dressing 08/20 Right pedicled latissimus muscle flap to right chest wound Left pectoralis major muscle flap to right chest wound 08/23 Right chest wound VAC change (97906) Right chest wound debridement (50491, 15333 x 6) 09/27/[address] Turner Split-thickness skin graft from right thigh to right chest wound, roughly 140 cm (15333, 94821) Assessment and Plan - Assessment (1) Open chest wound Code(s): S21.109A - Unspecified open wound of unspecified front wall of thorax without penetration into thoracic cavity, initial encounter Status: Acute (2) Afib Code(s): I48.91 - Unspecified atrial fibrillation Status: Acute (3) Ventricular tachycardia Code(s): I47.2 - Ventricular tachycardia Status: Acute (4) Basal cell carcinoma Code(s): C44.91 - Basal cell carcinoma of skin, unspecified Status: Acute (5) Pain Code(s): R52 - Pain, unspecified Status: Acute (6) Insomnia Code(s): G47.00 - Insomnia, unspecified Status: Acute (7) Constipation Code(s): K59.00 - Constipation, unspecified Status: Acute
--- NOTE | 2017-10-02 15:53 | P.PNCA ---
Subjective Interval history: asleep in nad Physical Exam Vital signs: Vital Signs 10/01/17 16:47 10/01/17 20:00 10/01/17 21:45 Temperature 97.6 F 98.8 F Pulse Rate 58 L 58 L 56 L Respiratory Rate 20 17 Blood Pressure 161/76 H 147/75 H Pulse Oximetry 97 96 10/02/17 00:00 10/02/17 02:11 10/02/17 03:49 Temperature 98.1 F Pulse Rate 52 L 64 49 L Respiratory Rate 18 Blood Pressure 140/66 Pulse Oximetry 97 10/02/17 04:45 10/02/17 08:00 10/02/17 11:00 Temperature 99 F 98 F 97.9 F Pulse Rate 60 51 L 56 L Respiratory Rate 17 20 56 H Blood Pressure 135/65 161/78 H 123/76 Pulse Oximetry 96 95 96 Intake & Output 10/01/17 10/02/17 10/02/17 18:59 06:59 18:59 Intake Total 1100 / 1100 3125 / 3125 100 / 100 Output Total 400 / 400 1500 / 1500 350 / 350 Balance 700 / 700 1625 / 1625 -250 / -250 Weight 88.5 kg Intake: IV 1100 / 1100 1200 / 1200 100 / 100 NS Inj 1,000 ML @ 84 mls/hr IV. 1000 / 1000 1000 / 1000 CONT .[id number] [facility] Rx#:[id number] Ancef Inj 2,000 MG In NS Inj 100 / 100 200 / 200 100 / 100 100 ML @ 100 mls/hr IV.SIG Q8H [facility] Rx#:[id number] Oral 1925 / 1925 Output: Urine 400 / 400 1500 / 1500 350 / 350 Other: Mode Setting Midline Chest Continuous Continuous Continuous # Voids 2 # Bowel Movements 1 0 # Incontinent Bowel Movements 0 Assessment and Plan - Assessment (1) Afib Code(s): I48.91 - Unspecified atrial fibrillation Status: Acute (2) Basal cell carcinoma Code(s): C44.91 - Basal cell carcinoma of skin, unspecified Status: Acute (3) Ventricular tachycardia Code(s): I47.2 - Ventricular tachycardia Status: Acute - Plan Atrial fibrillation with rapid ventricular rate Ventricular tachycardia Tachybradycardia syndrome in nsr today convert to amio PO clear from cardio perspective for surgery with intermediate risk paige into 40's, improved, dig held, d/w Dr Hill 09/20/17 in afib rvr converted to nsr after 5 mg iv lopressor, 2 gr iv mag 09/25/17
--- NOTE | 2017-10-02 16:12 | P.DIET ---
Nutritional Evaluation Type of nutrition evaluation: follow-up Nutrition consult regarding: Diet Evaluation Nutrition screening: [facility] [place] (Supplement to Oral Intake, Pt w/ Low Albumin and Large Wound) Subjective Subjective Comments: Receives Boost from home. Eating 100% at many meals. Likes fruit cup, mashed potatoes, wellington cris, and big breakfasts. He denies N/V/D/C. Denies trouble chewing/swallowing. Does not drink Boost every day, but only when brings it. Objective - Diagnosis Infected Chest Wall Malignancy - Objective % IBW: 96 (IBW = 202#) Body Weight Used for Calculations: IBW (91.8kg) Energy Needs - Lower Range (kCal/kg): 28 Energy Needs - Upper Range (kCal/kg): 32 Lower Limit kCal/kg (kCals): 2,570 Upper Limit kCal/kg (kCals): 2,938 Lower Limit Protein Factor (Grams per Kg): 1.2 Upper Limit Protein Factor (Grams per Kg): 1.5 Lower Protein Needs (Protein): 110 Upper Protein Needs (Protein): 138 Dietitian Reviewed in Medical Record: Current diet, Curent medications, Intake & Output, Labs, Wound/DTI (Chest incision w/ wound VAC) Diet Order: Regular Oral Diet Intake Amount: Good 75-90% Objective Comments: 09/28 s/p split thickness skin graft to chest wound & wound VAC placement 08/07 s/p radical resection of chest wall malignancy & VAC placement Meds: Vitamin B12 LBM 10/01 Assessment Assessment: Pts diet changed from heart healthy to regular. Says he's eating great and is drinking Boost when his brings it for him. Tells me the electric shaver mechanic is very helpful in providing options that the pt enjoys. Denied N/V/D/C. 09/28 skin graft to R chest wound w/ VAC placement. Erratic wts noted. If pt is able to transfer out of bed, please zero out bed and reweigh him for an accurate wt. Otherwise if there is a standing scale and pt can stand, please weigh him w/ that. Dietitian following. Recommendations: 1. Boost provided by . 2. Please record % of meal eaten under Feeding Assessment in EMR 3. If pt can stand, weigh w/ standing scale if there is one available. 4. If pt cannot stand, transfer out of bed and zero scale for updated accurate wt. multiple erratic wts documented since admission Dietitian to Monitor: Lab values, Supplement acceptance, Intake & Output, Diet tolerance, Weight change, PO Intake, Wound/skin status, Medical course
[2017-10-02] MEDS: Morphine Sulfate 15 MG SR Tablet PO SCH (21:04)
[2017-10-02] MEDS: Temazepam 15 MG Capsule PO SCH (21:04)
[2017-10-03] MEDS: Nystatin 100,000 UNITS/GM Powder 15 GM Bottle TOPICAL SCH ×3 (00:39→14:53)
[2017-10-03] MEDS: ceFAZolin Inj 2,000 MG in Sodium Chlor 0.9% Inj 100 ML IV.SIG SCH ×3 (00:40→16:25)
--- NOTE | 2017-10-03 07:47 | P.PN ---
Physical Exam Vital signs: Vital Signs 10/02/17 08:00 10/02/17 11:00 10/02/17 15:00 Temperature 98 F 97.9 F 98.9 F Pulse Rate 51 L 56 L 58 L Respiratory Rate 20 56 H 20 Blood Pressure 161/78 H 123/76 150/72 H Pulse Oximetry 95 96 96 10/02/17 16:00 10/02/17 20:00 10/02/17 20:20 Temperature 98.3 F Pulse Rate 60 62 61 Respiratory Rate 18 Blood Pressure 161/78 H Pulse Oximetry 95 10/02/17 23:00 10/03/17 03:00 Temperature 98.3 F 97.7 F Pulse Rate 55 L 52 L Respiratory Rate 18 18 Blood Pressure 141/73 H 153/76 H Pulse Oximetry 96 95 Intake & Output 10/02/17 10/03/17 10/03/17 18:59 06:59 18:59 Intake Total 850 / 850 240 / 240 100 / 100 Output Total 1650 / 1650 1450 / 1450 Balance -800 / -800 -1210 / -1210 100 / 100 Weight 88.6 kg Intake: IV 850 / 850 100 / 100 NS Inj 1,000 ML @ 84 mls/hr IV. 650 / 650 CONT .[id number] [facility] Rx#:[id number] Ancef Inj 2,000 MG In NS Inj 200 / 200 100 / 100 100 ML @ 100 mls/hr IV.SIG Q8H [facility] Rx#:[id number] Oral 240 / 240 Output: Urine 1650 / 1650 1450 / 1450 Other: Mode Setting Midline Chest Continuous Continuous # Bowel Movements 0 Narrative: Subjective Interval history: Follow-up invasive squamous cell carcinoma involving the deep tissue bones cartilage and pleura anterior chest wall status post skin graft/A. fib with RVR Feels better today. Eager to have wound vac removed and to go home. Wound vac with minimal drainage. Improving with PT. . No fever or chills. Pain in his chest is fairly controlled by medications. Wound VAC with minimum drainage. No fever or chills. No n/v/d/c. Physical Exam GENERAL: Awake and alert. SKIN: with VAC in place, mild surrounding erythema of skin around VAC area CARDIOVASCULAR: Wound vac in place, redness around. Regular rate and rhythm without murmurs, gallops, or rubs. RESPIRATORY: Breath sounds equal bilaterally. No accessory muscle use. GASTROINTESTINAL: Abdomen soft, non-tender, nondistended. MUSCULOSKELETAL: No cyanosis, or edema. 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 Hospital course complicated by atrial fibrillation and hospital-acquired pneumonia. 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 - Plastic surgery following, status post surgical resection on 08/07/2017. Biopsy showed invasive squamous cell carcinoma involving bones, cartilage and pleura. - Wound culture from the chest rgrew Pseudomonas with 2 isolates, status post Zosyn, infectious disease was involved. Continue pain management - Oncology following, s/p surgical resection, he will need XRT in the future as outpatient and additional surgery for the squamous cell CA in the back with Dr. Ahn as outpatient. Cleared by Oncology for discharge. - For skin graft in 1-2 weeks per plastic surgery Continue wound VAC changes MWF- last changed 07/21 -on IV Cefazolin per Plastics - Wound VAC to be placed to -125 mmHg low continuous suction, Dr Turner ff plastic surgeon Paroxysmal Atrial fibrillation with rapid ventricular rate- now in SR HR-40-50s - sinus HR S/P Ventricular tachycardia Tachybradycardia syndrome -May be related to anatomical disturbances, Cardiology following, continue Metoprolol and aspirin. Went into Afib RVR again with hypotension 09/15. He usually goes into atrial fibrillation with anemia and electrolyte imbalance, Hgb and electrolytes WNL. Started digoxin loading 09/16, - on Amiodarone 200 mg daily. - digoxin DC 09/22 - Lopressor 50 mg po bid - decrease to 25 mg po bid 09/22 - Hold if parameters less than 55 - Cardiology ff- Dr. Sandoval - if recurs- EP consult - re- adjusting meds. So far HR stable. dC digoxin as low HR cont amio = Hospital-acquired pneumonia-resolved, finished antibiotics for 2 weeks. Severe protein calorie malnutrition - dietitian ff DVT Prophylaxis: lovenox Discharge Planning: Limited resources/income, needs home health care with wound VAC. Discharge once cleared by plastic surgery after graft placement. S/P graft placement, wound vac change on 09/27/17. Dr Turner plastic surgery ff. DR Turner to evaluate for wound vac for removal Once wound vac is removed plan to DC Patient is ambulating with physical therapy. Discussed with the patient, nurse Results - Labs CBC & Chem 7: 09/26/17 05:51 09/26/17 05:51 - Procedures 08/07 PROCEDURES PERFORMED: 1. 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 2. Closure of chest wall defect 6 x 4 cm with dermal matrix biological mesh. 3. Placement of VAC dressing to wound, 26 x 21 cm. 4. Right thoracostomy tube placement. 08/10 vac dressing 08/20 Right pedicled latissimus muscle flap to right chest wound Left pectoralis major muscle flap to right chest wound 08/23 Right chest wound VAC change (05602) Right chest wound debridement (95610, 42222 x 6) 09/27/[address] Turner Split-thickness skin graft from right thigh to right chest wound, roughly 140 cm (87430, 16697) Assessment and Plan - Assessment (1) Open chest wound Code(s): S21.109A - Unspecified open wound of unspecified front wall of thorax without penetration into thoracic cavity, initial encounter Status: Acute (2) Afib Code(s): I48.91 - Unspecified atrial fibrillation Status: Acute (3) Ventricular tachycardia Code(s): I47.2 - Ventricular tachycardia Status: Acute (4) Basal cell carcinoma Code(s): C44.91 - Basal cell carcinoma of skin, unspecified Status: Acute (5) Pain Code(s): R52 - Pain, unspecified Status: Acute (6) Insomnia Code(s): G47.00 - Insomnia, unspecified Status: Acute (7) Constipation Code(s): K59.00 - Constipation, unspecified Status: Acute
[2017-10-03] MEDS: Sodium Hypochlorite 0.125% Top Soln 500 ML Bottle TOPICAL SCH (08:08)
[2017-10-03] MEDS: Amiodarone 200 MG Tablet PO SCH (08:08)
[2017-10-03] MEDS: Metoprolol Tartrate 25 MG Tablet PO SCH ×2 (08:08→21:59)
[2017-10-03] MEDS: Senna/Docusate Sodium 8.6/50 MG Tablet PO SCH (08:10)
[2017-10-03] MEDS: Enoxaparin Inj 40 MG/0.4 ML Syringe SQ SCH (08:11)
[2017-10-03] MEDS: Morphine Inj 4 MG/ML Vial IV.PUSH PRN ×3 (10:07→18:27)
[2017-10-03] MEDS: Sod Chloride 0.9% Inj 1,000 ML IV.CONT SCH ×2 (10:58)
--- NOTE | 2017-10-03 14:16 | P.PNCA ---
Subjective Interval history: asleep in nad Physical Exam Vital signs: Vital Signs 10/02/17 15:00 10/02/17 16:00 10/02/17 20:00 Temperature 98.9 F 98.3 F Pulse Rate 58 L 60 62 Respiratory Rate 20 18 Blood Pressure 150/72 H 161/78 H Pulse Oximetry 96 95 10/02/17 20:20 10/02/17 23:00 10/03/17 03:00 Temperature 98.3 F 97.7 F Pulse Rate 61 55 L 52 L Respiratory Rate 18 18 Blood Pressure 141/73 H 153/76 H Pulse Oximetry 96 95 10/03/17 08:00 10/03/17 11:00 Temperature 97.9 F 98.5 F Pulse Rate 54 L 56 L Respiratory Rate 20 20 Blood Pressure 139/83 127/68 Pulse Oximetry 96 95 Intake & Output 10/02/17 10/03/17 10/03/17 18:59 06:59 18:59 Intake Total 850 / 850 240 / 240 200 / 200 Output Total 1650 / 1650 1450 / 1450 Balance -800 / -800 -1210 / -1210 200 / 200 Weight 88.6 kg Intake: IV 850 / 850 200 / 200 NS Inj 1,000 ML @ 84 mls/hr IV. 650 / 650 CONT .[id number] [facility] Rx#:[id number] Ancef Inj 2,000 MG In NS Inj 200 / 200 200 / 200 100 ML @ 100 mls/hr IV.SIG Q8H [facility] Rx#:[id number] Oral 240 / 240 Output: Urine 1650 / 1650 1450 / 1450 Other: Mode Setting Midline Chest Continuous Continuous Continuous # Bowel Movements 0 Assessment and Plan - Assessment (1) Afib Code(s): I48.91 - Unspecified atrial fibrillation Status: Acute (2) Basal cell carcinoma Code(s): C44.91 - Basal cell carcinoma of skin, unspecified Status: Acute (3) Ventricular tachycardia Code(s): I47.2 - Ventricular tachycardia Status: Acute - Plan Atrial fibrillation with rapid ventricular rate Ventricular tachycardia Tachybradycardia syndrome in nsr today convert to amio PO clear from cardio perspective for surgery with intermediate risk paige into 40's, improved, dig held, d/w Dr Hill 09/20/17 in afib rvr converted to nsr after 5 mg iv lopressor, 2 gr iv mag 09/25/17
[2017-10-03] MEDS: Temazepam 15 MG Capsule PO SCH (21:59)
[2017-10-03] MEDS: Morphine Sulfate 15 MG SR Tablet PO SCH (21:59)
[2017-10-04] MEDS: ceFAZolin Inj 2,000 MG in Sodium Chlor 0.9% Inj 100 ML IV.SIG SCH ×3 (00:15→19:48)
[2017-10-04] MEDS: Sod Chloride 0.9% Inj 1,000 ML IV.CONT SCH ×2 (00:16→13:32)
[2017-10-04] MEDS: Nystatin 100,000 UNITS/GM Powder 15 GM Bottle TOPICAL SCH ×4 (00:16→21:21)
--- NOTE | 2017-10-04 09:22 | P.PN ---
Physical Exam Vital signs: Vital Signs 10/03/17 11:00 10/03/17 16:00 10/03/17 17:35 Temperature 98.5 F 97.8 F Pulse Rate 56 L 59 L 58 L Respiratory Rate 20 20 Blood Pressure 127/68 137/69 Pulse Oximetry 95 95 10/03/17 20:00 10/04/17 00:00 10/04/17 04:00 Temperature 98.0 F 98.2 F 98.3 F Pulse Rate 63 60 63 Respiratory Rate 18 18 18 Blood Pressure 176/86 H 149/78 H 150/80 H Pulse Oximetry 96 95 96 10/04/17 07:40 Temperature 98.2 F Pulse Rate 56 L Respiratory Rate 12 Blood Pressure 166/85 H Pulse Oximetry 95 Intake & Output 10/03/17 10/04/17 10/04/17 18:59 06:59 18:59 Intake Total 300 / 300 1000 / 1000 Output Total 1974 700 / 700 Balance -1675 / -1675 300 / 300 Weight 88.6 kg Intake: IV 300 / 300 1000 / 1000 NS Inj 1,000 ML @ 84 mls/hr IV. 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 fib with RVR Pain at the chest at the surgical site, wound vac with minimal drainage. Lj fever or chills. No fever or chills. No n/v/d/c. Physical Exam GENERAL: Awake and alert. SKIN: with VAC in place, mild surrounding erythema of skin around VAC area improved. CARDIOVASCULAR: Wound vac in place, redness around. Regular rate and rhythm without murmurs, gallops, or rubs. RESPIRATORY: Breath sounds equal bilaterally. No accessory muscle use. GASTROINTESTINAL: Abdomen soft, non-tender, nondistended. MUSCULOSKELETAL: No cyanosis, or edema. 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 Hospital course complicated by atrial fibrillation and hospital-acquired pneumonia. 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 - Plastic surgery following, status post surgical resection on 08/07/2017. Biopsy showed invasive squamous cell carcinoma involving bones, cartilage and pleura. - Wound culture from the chest rgrew Pseudomonas with 2 isolates, status post Zosyn, infectious disease was involved. Continue pain management - Oncology following, s/p surgical resection, he will need XRT in the future as outpatient and additional surgery for the squamous cell CA in the back with Dr. Ahn as outpatient. Cleared by Oncology for discharge. - For skin graft in 1-2 weeks per plastic surgery Continue wound VAC changes MWF- last changed 07/21 -on IV Cefazolin per Plastics - S/P skin graft, Wound VAC in place, minimal drainage, Dr Turner ff plastic surgeon Paroxysmal Atrial fibrillation with rapid ventricular rate- now in SR HR-40-50s - sinus HR S/P Ventricular tachycardia Tachybradycardia syndrome -May be related to anatomical disturbances, Cardiology following, continue Metoprolol and aspirin. Went into Afib RVR again with hypotension 09/15. He usually goes into atrial fibrillation with anemia and electrolyte imbalance, Hgb and electrolytes WNL. Started digoxin loading 09/16, - on Amiodarone 200 mg daily. - digoxin DC 09/22 - Lopressor 50 mg po bid - decrease to 25 mg po bid 09/22 - Hold if parameters less than 55 - Cardiology ff- Dr. Sandoval - if recurs- EP consult - re- adjusting meds. So far HR stable. dC digoxin as low HR cont amio = Hospital-acquired pneumonia-resolved, finished antibiotics for 2 weeks. Severe protein calorie malnutrition - dietitian ff DVT Prophylaxis: lovenox Discharge Planning: Limited resources/income, needs home health care with wound VAC. Discharge once cleared by plastic surgery after graft placement. S/P graft placement, wound vac change on 09/27/17. Dr Turner plastic surgery ff. Dr Turner to evaluate for wound vac for removal Once wound vac is removed plan to DC Patient is ambulating with physical therapy. Discussed with the patient, nurse Results - Labs CBC & Chem 7: 09/26/17 05:51 09/26/17 05:51 - Procedures 08/07 PROCEDURES PERFORMED: 1. 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 2. Closure of chest wall defect 6 x 4 cm with dermal matrix biological mesh. 3. Placement of VAC dressing to wound, 26 x 21 cm. 4. Right thoracostomy tube placement. 08/10 vac dressing 08/20 Right pedicled latissimus muscle flap to right chest wound Left pectoralis major muscle flap to right chest wound 08/23 Right chest wound VAC change (93417) Right chest wound debridement (60134, 76358 x 6) 09/27/[address] Turner Split-thickness skin graft from right thigh to right chest wound, roughly 140 cm (56011, 94366) Assessment and Plan - Assessment (1) Open chest wound Code(s): S21.109A - Unspecified open wound of unspecified front wall of thorax without penetration into thoracic cavity, initial encounter Status: Acute (2) Afib Code(s): I48.91 - Unspecified atrial fibrillation Status: Acute (3) Ventricular tachycardia Code(s): I47.2 - Ventricular tachycardia Status: Acute (4) Basal cell carcinoma Code(s): C44.91 - Basal cell carcinoma of skin, unspecified Status: Acute (5) Pain Code(s): R52 - Pain, unspecified Status: Acute (6) Insomnia Code(s): G47.00 - Insomnia, unspecified Status: Acute (7) Constipation Code(s): K59.00 - Constipation, unspecified Status: Acute
[2017-10-04] MEDS: Amiodarone 200 MG Tablet PO SCH (09:25)
[2017-10-04] MEDS: Senna/Docusate Sodium 8.6/50 MG Tablet PO SCH (09:25)
[2017-10-04] MEDS: Enoxaparin Inj 40 MG/0.4 ML Syringe SQ SCH (09:26)
[2017-10-04] MEDS: Metoprolol Tartrate 25 MG Tablet PO SCH ×2 (09:27→21:21)
[2017-10-04] MEDS: Sodium Hypochlorite 0.125% Top Soln 500 ML Bottle TOPICAL SCH (09:39)
--- NOTE | 2017-10-04 11:39 | P.PNCA ---
Subjective Interval history: alert in nad Physical Exam Vital signs: Vital Signs 10/03/17 16:00 10/03/17 17:35 10/03/17 20:00 Temperature 97.8 F 98.0 F Pulse Rate 59 L 58 L 63 Respiratory Rate 20 18 Blood Pressure 137/69 176/86 H Pulse Oximetry 95 96 10/04/17 00:00 10/04/17 04:00 10/04/17 07:40 Temperature 98.2 F 98.3 F 98.2 F Pulse Rate 60 63 56 L Respiratory Rate 18 18 12 Blood Pressure 149/78 H 150/80 H 166/85 H Pulse Oximetry 95 96 95 10/04/17 10:36 Temperature Pulse Rate Respiratory Rate 18 Blood Pressure Pulse Oximetry Intake & Output 10/03/17 10/04/17 10/04/17 18:59 06:59 18:59 Intake Total 300 / 300 1100 / 1100 Output Total 1974 700 / 700 Balance -1675 / -1675 400 / 400 Weight 88.6 kg Intake: IV 300 / 300 1100 / 1100 NS Inj 1,000 ML @ 84 mls/hr IV. 1000 / 1000 CONT .[id number] [facility] Rx#:[id number] Ancef Inj 2,000 MG In NS Inj 300 / 300 100 / 100 100 ML @ 100 mls/hr IV.SIG Q8H [facility] Rx#:[id number] Output: Urine 1974 700 / 700 Other: Mode Setting Midline Chest Continuous Continuous Assessment and Plan - Assessment (1) Afib Code(s): I48.91 - Unspecified atrial fibrillation Status: Acute (2) Basal cell carcinoma Code(s): C44.91 - Basal cell carcinoma of skin, unspecified Status: Acute (3) Ventricular tachycardia Code(s): I47.2 - Ventricular tachycardia Status: Acute - Plan Atrial fibrillation with rapid ventricular rate Ventricular tachycardia Tachybradycardia syndrome in nsr today convert to amio PO clear from cardio perspective for surgery with intermediate risk paige into 40's, improved, dig held, d/w Dr Hill 09/20/17 in afib rvr converted to nsr after 5 mg iv lopressor, 2 gr iv mag 09/25/17
[2017-10-04] MEDS: Morphine Inj 4 MG/ML Vial IV.PUSH PRN (16:04)
[2017-10-04] MEDS: Morphine Sulfate 15 MG SR Tablet PO SCH (21:20)
[2017-10-04] MEDS: Temazepam 15 MG Capsule PO SCH (21:20)
[2017-10-05] MEDS: Sod Chloride 0.9% Inj 1,000 ML IV.CONT SCH ×3 (00:09→22:39)
[2017-10-05] MEDS: ceFAZolin Inj 2,000 MG in Sodium Chlor 0.9% Inj 100 ML IV.SIG SCH ×4 (01:29→22:40)
[2017-10-05] MEDS: Nystatin 100,000 UNITS/GM Powder 15 GM Bottle TOPICAL SCH ×3 (05:50→22:39)
[2017-10-05] MEDS: Sodium Hypochlorite 0.125% Top Soln 500 ML Bottle TOPICAL SCH (09:13)
[2017-10-05] MEDS: Senna/Docusate Sodium 8.6/50 MG Tablet PO SCH (09:22)
[2017-10-05] MEDS: Enoxaparin Inj 40 MG/0.4 ML Syringe SQ SCH (09:22)
[2017-10-05] MEDS: Metoprolol Tartrate 25 MG Tablet PO SCH ×2 (09:22→22:39)
[2017-10-05] MEDS: Amiodarone 200 MG Tablet PO SCH (09:22)
--- NOTE | 2017-10-05 11:25 | P.PN ---
Physical Exam Vital signs: Vital Signs 10/04/17 12:00 10/04/17 16:03 10/04/17 17:58 Temperature 97.3 F L Pulse Rate 56 L Respiratory Rate 16 18 18 Blood Pressure 196/127 H Pulse Oximetry 95 10/04/17 19:47 10/04/17 20:00 10/05/17 00:00 Temperature 97.6 F 97.9 F Pulse Rate 58 L 57 L Respiratory Rate 18 14 18 Blood Pressure 156/83 H 186/82 H Pulse Oximetry 95 97 10/05/17 04:00 10/05/17 08:00 Temperature 98.1 F 98.0 F Pulse Rate 56 L 51 L Respiratory Rate 18 18 Blood Pressure 156/77 H 150/79 H Pulse Oximetry 95 95 Intake & Output 10/04/17 10/05/17 10/05/17 18:59 06:59 18:59 Intake Total 1100 / 1100 1200 / 1200 Output Total 1000 / 1000 Balance 1100 / 1100 200 / 200 Intake: IV 1100 / 1100 1200 / 1200 NS Inj 1,000 ML @ 84 mls/hr IV. 1000 / 1000 1000 / 1000 CONT .[id number] [facility] Rx#:[id number] Ancef Inj 2,000 MG In NS Inj 100 / 100 200 / 200 100 ML @ 100 mls/hr IV.SIG Q8H [facility] Rx#:[id number] Output: Urine 1000 / 1000 Other: Date of Last Bowel Movement 10/04/17 Narrative: Subjective Interval history: Follow-up invasive squamous cell carcinoma involving the deep tissue bones cartilage and pleura anterior chest wall status post skin graft/A. fib with RVR Pain at the chest at the surgical site, wound vac was removed he has a large dressing on the chest which is clean dry and intact. No fever or chills. No n/v/d/c. Pain in his chest at the surgical site is fairly controlled by medications. Physical Exam GENERAL: Awake and alert. SKIN: Wound VAC removed, large dressing on the chest CDI. CARDIOVASCULAR: Wound vac in place, redness around. Regular rate and rhythm without murmurs, gallops, or rubs. RESPIRATORY: Breath sounds equal bilaterally. No accessory muscle use. GASTROINTESTINAL: Abdomen soft, non-tender, nondistended. MUSCULOSKELETAL: No cyanosis, or edema. 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 Hospital course complicated by atrial fibrillation and hospital-acquired pneumonia. 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 - Plastic surgery following, status post surgical resection on 08/07/2017. Biopsy showed invasive squamous cell carcinoma involving bones, cartilage and pleura. - Wound culture from the chest rgrew Pseudomonas with 2 isolates, status post Zosyn, infectious disease was involved. Continue pain management - Oncology following, s/p surgical resection, he will need XRT in the future as outpatient and additional surgery for the squamous cell CA in the back with Dr. Ahn as outpatient. Cleared by Oncology for discharge. - For skin graft in 1-2 weeks per plastic surgery Continue wound VAC changes MWF- last changed 07/21 -on IV Cefazolin per Plastics - S/P skin graft, Wound VAC in place, minimal drainage, Dr Turner ff plastic surgeon Paroxysmal Atrial fibrillation with rapid ventricular rate- now in SR HR-40-50s - sinus HR S/P Ventricular tachycardia Tachybradycardia syndrome -May be related to anatomical disturbances, Cardiology following, continue Metoprolol and aspirin. Went into Afib RVR again with hypotension 09/15. He usually goes into atrial fibrillation with anemia and electrolyte imbalance, Hgb and electrolytes WNL. Started digoxin loading 09/16, - on Amiodarone 200 mg daily. - digoxin DC 09/22 - Lopressor 50 mg po bid - decrease to 25 mg po bid 09/22 - Hold if parameters less than 55 - Cardiology ff- Dr. Sandoval - if recurs- EP consult - re- adjusting meds. So far HR stable. dC digoxin as low HR cont amio = Hospital-acquired pneumonia-resolved, finished antibiotics for 2 weeks. Severe protein calorie malnutrition - dietitian ff DVT Prophylaxis: lovenox Discharge Planning: Limited resources/income, needs home health care with wound VAC. Discharge once cleared by plastic surgery after graft placement. S/P graft placement, wound vac change on 09/27/17. Dr Turner plastic surgery ff. Dr Turner to evaluate for wound vac for removal Wound vac removed 10/04/17, plan to DC on Saturday Patient is ambulating with physical therapy. Discussed with the patient, nurse Results - Labs CBC & Chem 7: 09/26/17 05:51 09/26/17 05:51 - Procedures 08/07 PROCEDURES PERFORMED: 1. 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 2. Closure of chest wall defect 6 x 4 cm with dermal matrix biological mesh. 3. Placement of VAC dressing to wound, 26 x 21 cm. 4. Right thoracostomy tube placement. 08/10 vac dressing 08/20 Right pedicled latissimus muscle flap to right chest wound Left pectoralis major muscle flap to right chest wound 08/23 Right chest wound VAC change (81390) Right chest wound debridement (79363, 81562 x 6) 09/27/[address] Turner Split-thickness skin graft from right thigh to right chest wound, roughly 140 cm (96352, 18216) Assessment and Plan - Assessment (1) Open chest wound Code(s): S21.109A - Unspecified open wound of unspecified front wall of thorax without penetration into thoracic cavity, initial encounter Status: Acute (2) Afib Code(s): I48.91 - Unspecified atrial fibrillation Status: Acute (3) Ventricular tachycardia Code(s): I47.2 - Ventricular tachycardia Status: Acute (4) Basal cell carcinoma Code(s): C44.91 - Basal cell carcinoma of skin, unspecified Status: Acute (5) Pain Code(s): R52 - Pain, unspecified Status: Acute (6) Insomnia Code(s): G47.00 - Insomnia, unspecified Status: Acute (7) Constipation Code(s): K59.00 - Constipation, unspecified Status: Acute
--- NOTE | 2017-10-05 11:36 | P.PNCA ---
Subjective Interval history: asleep in nad Physical Exam Vital signs: Vital Signs 10/04/17 12:00 10/04/17 16:03 10/04/17 17:58 Temperature 97.3 F L Pulse Rate 56 L Respiratory Rate 16 18 18 Blood Pressure 196/127 H Pulse Oximetry 95 10/04/17 19:47 10/04/17 20:00 10/05/17 00:00 Temperature 97.6 F 97.9 F Pulse Rate 58 L 57 L Respiratory Rate 18 14 18 Blood Pressure 156/83 H 186/82 H Pulse Oximetry 95 97 10/05/17 04:00 10/05/17 08:00 Temperature 98.1 F 98.0 F Pulse Rate 56 L 51 L Respiratory Rate 18 18 Blood Pressure 156/77 H 150/79 H Pulse Oximetry 95 95 Intake & Output 10/04/17 10/05/17 10/05/17 18:59 06:59 18:59 Intake Total 1100 / 1100 1200 / 1200 Output Total 1000 / 1000 Balance 1100 / 1100 200 / 200 Intake: IV 1100 / 1100 1200 / 1200 NS Inj 1,000 ML @ 84 mls/hr IV. 1000 / 1000 1000 / 1000 CONT .[id number] [facility] Rx#:[id number] Ancef Inj 2,000 MG In NS Inj 100 / 100 200 / 200 100 ML @ 100 mls/hr IV.SIG Q8H [facility] Rx#:[id number] Output: Urine 1000 / 1000 Other: Date of Last Bowel Movement 10/04/17 Assessment and Plan - Assessment (1) Afib Code(s): I48.91 - Unspecified atrial fibrillation Status: Acute (2) Basal cell carcinoma Code(s): C44.91 - Basal cell carcinoma of skin, unspecified Status: Acute (3) Ventricular tachycardia Code(s): I47.2 - Ventricular tachycardia Status: Acute - Plan Atrial fibrillation with rapid ventricular rate Ventricular tachycardia Tachybradycardia syndrome in nsr today convert to amio PO clear from cardio perspective for surgery with intermediate risk paige into 40's, improved, dig held, d/w Dr Hill 09/20/17 in afib rvr converted to nsr after 5 mg iv lopressor, 2 gr iv mag 09/25/17
[2017-10-05] MEDS: Morphine Inj 4 MG/ML Vial IV.PUSH PRN ×2 (12:55→16:06)
[2017-10-05] MEDS: Morphine Sulfate 15 MG SR Tablet PO SCH (22:38)
[2017-10-05] MEDS: Temazepam 15 MG Capsule PO SCH (22:38)
[2017-10-06] MEDS: ceFAZolin Inj 2,000 MG in Sodium Chlor 0.9% Inj 100 ML IV.SIG SCH ×3 (00:02→15:49)
[2017-10-06] MEDS: Nystatin 100,000 UNITS/GM Powder 15 GM Bottle TOPICAL SCH ×3 (06:24→22:09)
--- NOTE | 2017-10-06 08:30 | P.PN ---
Physical Exam Vital signs: Vital Signs 10/05/17 11:00 10/05/17 15:00 10/05/17 20:00 Temperature 99.5 F 98.7 F 100 F H Pulse Rate 56 L 53 L 57 L Respiratory Rate 18 18 Blood Pressure 153/74 H 175/81 H 154/74 H Pulse Oximetry 96 98 94 L 10/06/17 04:08 Temperature Pulse Rate Respiratory Rate Blood Pressure 147/72 H Pulse Oximetry 94 L Intake & Output 10/05/17 10/06/17 10/06/17 18:59 06:59 18:59 Intake Total 1920 / 1920 100 / 100 Output Total 1550 / 1550 Balance 370 / 370 100 / 100 Intake: IV 1200 / 1200 100 / 100 NS Inj 1,000 ML @ 84 mls/hr IV. 1000 / 1000 CONT .[id number] [facility] Rx#:[id number] Ancef Inj 2,000 MG In NS Inj 200 / 200 100 / 100 100 ML @ 100 mls/hr IV.SIG Q8H [facility] Rx#:[id number] Oral 720 / 720 Output: Urine 1550 / 1550 Other: Post Void Residual 600 Date of Last Bowel Movement 10/04/17 Narrative: Subjective Interval history: Follow-up invasive squamous cell carcinoma involving the deep tissue bones cartilage and pleura anterior chest wall status post skin graft/A. fib with RVR Pain at the surgical site in the chest has improved significantly after the wound VAC was removed. He has some dressing which is clean dry and intact. No drainage. Possible discharge tomorrow if cleared by Dr. Gerard light. Case management is following for discharge plan. No fever or chills. No n/v/d/c. Pain in his chest at the surgical site is fairly controlled by medications. Physical Exam GENERAL: Awake and alert. SKIN: Wound VAC removed, large dressing on the chest CDI. CARDIOVASCULAR: Wound vac in place, redness around. Regular rate and rhythm without murmurs, gallops, or rubs. RESPIRATORY: Breath sounds equal bilaterally. No accessory muscle use. GASTROINTESTINAL: Abdomen soft, non-tender, nondistended. MUSCULOSKELETAL: No cyanosis, or edema. 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 Hospital course complicated by atrial fibrillation and hospital-acquired pneumonia. 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 - Plastic surgery following, status post surgical resection on 08/07/2017. Biopsy showed invasive squamous cell carcinoma involving bones, cartilage and pleura. - Wound culture from the chest rgrew Pseudomonas with 2 isolates, status post Zosyn, infectious disease was involved. Continue pain management - Oncology following, s/p surgical resection, he will need XRT in the future as outpatient and additional surgery for the squamous cell CA in the back with Dr. Ahn as outpatient. Cleared by Oncology for discharge. - For skin graft in 1-2 weeks per plastic surgery Continue wound VAC changes MWF- last changed 07/21 -on IV Cefazolin per Plastics - S/P skin graft, Wound VAC in place, minimal drainage, Dr Stauffer ff plastic surgeon Paroxysmal Atrial fibrillation with rapid ventricular rate- now in SR HR-40-50s - sinus HR S/P Ventricular tachycardia Tachybradycardia syndrome -May be related to anatomical disturbances, Cardiology following, continue Metoprolol and aspirin. Went into Afib RVR again with hypotension 09/15. He usually goes into atrial fibrillation with anemia and electrolyte imbalance, Hgb and electrolytes WNL. Started digoxin loading 09/16, - on Amiodarone 200 mg daily. - digoxin DC 09/22 - Lopressor 50 mg po bid - decrease to 25 mg po bid 09/22 - Hold if parameters less than 55 - Cardiology ff- Dr. Sandoval - if recurs- EP consult - re- adjusting meds. So far HR stable. dC digoxin as low HR cont amio = Hospital-acquired pneumonia-resolved, finished antibiotics for 2 weeks. Severe protein calorie malnutrition - dietitian ff DVT Prophylaxis: lovenox Discharge Planning: Limited resources/income, needs home health care with wound VAC. Discharge once cleared by plastic surgery after graft placement. S/P graft placement, wound vac change on 09/27/17. Dr Stauffer plastic surgery ff. Dr Stauffer to evaluate for wound vac for removal Wound vac removed 10/04/17, plan to DC on Saturday 10/[address] Stauffer plastic surgeon Patient is ambulating with physical therapy. Discussed with the patient, nurse Results - Labs CBC & Chem 7: 09/26/17 05:51 09/26/17 05:51 - Procedures 08/07 PROCEDURES PERFORMED: 1. 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 2. Closure of chest wall defect 6 x 4 cm with dermal matrix biological mesh. 3. Placement of VAC dressing to wound, 26 x 21 cm. 4. Right thoracostomy tube placement. 08/10 vac dressing 08/20 Right pedicled latissimus muscle flap to right chest wound Left pectoralis major muscle flap to right chest wound 08/23 Right chest wound VAC change (36783) Right chest wound debridement (46222, 63918 x 6) 09/27/[address] Stauffer Split-thickness skin graft from right thigh to right chest wound, roughly 140 cm (63846, 74991) Assessment and Plan - Assessment (1) Open chest wound Code(s): S21.109A - Unspecified open wound of unspecified front wall of thorax without penetration into thoracic cavity, initial encounter Status: Acute (2) Afib Code(s): I48.91 - Unspecified atrial fibrillation Status: Acute (3) Ventricular tachycardia Code(s): I47.2 - Ventricular tachycardia Status: Acute (4) Basal cell carcinoma Code(s): C44.91 - Basal cell carcinoma of skin, unspecified Status: Acute (5) Pain Code(s): R52 - Pain, unspecified Status: Acute (6) Insomnia Code(s): G47.00 - Insomnia, unspecified Status: Acute (7) Constipation Code(s): K59.00 - Constipation, unspecified Status: Acute
[2017-10-06] MEDS: Sodium Hypochlorite 0.125% Top Soln 500 ML Bottle TOPICAL SCH (08:47)
[2017-10-06] MEDS: Metoprolol Tartrate 25 MG Tablet PO SCH ×2 (08:47→22:02)
[2017-10-06] MEDS: Senna/Docusate Sodium 8.6/50 MG Tablet PO SCH (08:50)
[2017-10-06] MEDS: Enoxaparin Inj 40 MG/0.4 ML Syringe SQ SCH (08:50)
[2017-10-06] MEDS: Amiodarone 200 MG Tablet PO SCH (08:50)
[2017-10-06] MEDS: Sod Chloride 0.9% Inj 1,000 ML IV.CONT SCH ×2 (10:58→15:50)
[2017-10-06] MEDS: Morphine Inj 4 MG/ML Vial IV.PUSH PRN ×3 (10:58→20:10)
--- NOTE | 2017-10-06 13:15 | P.PNCA ---
Subjective Interval history: asleep in nad Physical Exam Vital signs: Vital Signs 10/05/17 15:00 10/05/17 20:00 10/06/17 04:08 Temperature 98.7 F 100 F H Pulse Rate 53 L 57 L Respiratory Rate 18 18 Blood Pressure 175/81 H 154/74 H 147/72 H Pulse Oximetry 98 94 L 94 L 10/06/17 08:00 Temperature 98.4 F Pulse Rate 53 L Respiratory Rate 18 Blood Pressure 176/79 H Pulse Oximetry 96 Intake & Output 10/05/17 10/06/17 10/06/17 18:59 06:59 18:59 Intake Total 1920 / 1920 100 / 100 100 / 100 Output Total 1550 / 1550 Balance 370 / 370 100 / 100 100 / 100 Intake: IV 1200 / 1200 100 / 100 100 / 100 NS Inj 1,000 ML @ 84 mls/hr IV. 1000 / 1000 CONT .[id number] [facility] Rx#:[id number] Ancef Inj 2,000 MG In NS Inj 200 / 200 100 / 100 100 / 100 100 ML @ 100 mls/hr IV.SIG Q8H [facility] Rx#:[id number] Oral 720 / 720 Output: Urine 1550 / 1550 Other: Post Void Residual 600 Date of Last Bowel Movement 10/04/17 Assessment and Plan - Assessment (1) Afib Code(s): I48.91 - Unspecified atrial fibrillation Status: Acute (2) Basal cell carcinoma Code(s): C44.91 - Basal cell carcinoma of skin, unspecified Status: Acute (3) Ventricular tachycardia Code(s): I47.2 - Ventricular tachycardia Status: Acute - Plan Atrial fibrillation with rapid ventricular rate Ventricular tachycardia Tachybradycardia syndrome in nsr today convert to amio PO clear from cardio perspective for surgery with intermediate risk paige into 40's, improved, dig held, d/w Dr Hill 09/20/17 in afib rvr converted to nsr after 5 mg iv lopressor, 2 gr iv mag 09/25/17
[2017-10-06] MEDS: Temazepam 15 MG Capsule PO SCH (22:02)
[2017-10-06] MEDS: Morphine Sulfate 15 MG SR Tablet PO SCH (22:02)
[2017-10-07] MEDS: ceFAZolin Inj 2,000 MG in Sodium Chlor 0.9% Inj 100 ML IV.SIG SCH ×2 (00:14→11:08)
[2017-10-07] MEDS: Morphine Inj 4 MG/ML Vial IV.PUSH PRN ×2 (06:17→11:15)
[2017-10-07] MEDS: Nystatin 100,000 UNITS/GM Powder 15 GM Bottle TOPICAL SCH ×2 (07:46→14:54)
[2017-10-07] MEDS: Senna/Docusate Sodium 8.6/50 MG Tablet PO SCH (09:49)
[2017-10-07] MEDS: Metoprolol Tartrate 25 MG Tablet PO SCH (09:50)
[2017-10-07] MEDS: Amiodarone 200 MG Tablet PO SCH (09:50)
[2017-10-07] MEDS: Enoxaparin Inj 40 MG/0.4 ML Syringe SQ SCH (10:29)
[2017-10-07] MEDS: Sodium Hypochlorite 0.125% Top Soln 500 ML Bottle TOPICAL SCH (11:10)
[2017-10-07] MEDS ORDERED: Metoprolol Tartrate 25 MG Tablet PO SCH (11:12)
--- NOTE | 2017-10-07 14:31 | P.DCO ---
- Home Health Nursing Order: Medical education, Signs/symptoms of disease process, Medication education-adverse effect, Wound care and dressing changes, Nursing assessment with vital signs - Certification I have seen patient [address] on 10/07/17. My clinical findings support the need for the requested home health care services because: Limited mobility due to disease progression, Patient has SOB, Deconditioned with increased weakness, High risk of falls I certify that my clinical findings support that this patient is homebound because: Post-op weakness, Unsteady gait/balance, Unsafe to leave home unassisted, Unable to use public transportation
--- NOTE | 2017-10-07 14:35 | P.PNCA ---
Subjective Interval history: alert in nad Physical Exam Vital signs: Vital Signs 10/06/17 18:00 10/06/17 20:00 10/07/17 00:00 Temperature 98.9 F 97.9 F 97.6 F Pulse Rate 56 L 56 L 53 L Respiratory Rate 18 18 18 Blood Pressure 159/80 H 177/82 H 158/83 H Pulse Oximetry 95 95 95 10/07/17 08:00 10/07/17 08:09 Temperature 97.3 F L 97.5 F L Pulse Rate 55 L 51 L Respiratory Rate 20 18 Blood Pressure 116/81 155/76 H Pulse Oximetry 96 96 Intake & Output 10/06/17 10/07/17 10/07/17 18:59 06:59 18:59 Intake Total 2060 / 2060 200 / 200 1000 / 1000 Output Total 1999 1240 / 1240 800 / 800 Balance 60 / 60 -1040 / -1040 200 / 200 Intake: IV 1100 / 1100 200 / 200 1000 / 1000 NS Inj 1,000 ML @ 84 mls/hr IV. 1000 / 1000 1000 / 1000 CONT .[id number] [facility] Rx#:[id number] Ancef Inj 2,000 MG In NS Inj 100 / 100 200 / 200 100 ML @ 100 mls/hr IV.SIG Q8H [facility] Rx#:[id number] Oral 960 / 960 Output: Urine 1999 1240 / 1240 800 / 800 Assessment and Plan - Assessment (1) Afib Code(s): I48.91 - Unspecified atrial fibrillation Status: Acute (2) Basal cell carcinoma Code(s): C44.91 - Basal cell carcinoma of skin, unspecified Status: Acute (3) Ventricular tachycardia Code(s): I47.2 - Ventricular tachycardia Status: Acute - Plan Atrial fibrillation with rapid ventricular rate Ventricular tachycardia Tachybradycardia syndrome in nsr today convert to amio PO clear from cardio perspective for surgery with intermediate risk paige into 40's, improved, dig held, d/w Dr Hill 09/20/17 in afib rvr converted to nsr after 5 mg iv lopressor, 2 gr iv mag 09/25/17
--- NOTE | 2017-10-07 19:13 | P.DS ---
Date of admission: 08/01/17 22:55 Primary care physician: UNKNOWN Attending physician on discharge: Marisol Mason Anticipated date of discharge: 10/07/17 Brief History from admission: 51-year-old male with a past medical history significant for locally advanced basosquamous carcinoma and hypertension presents to the emergency department for the evaluation of abnormal labs. The patient states he was sent in by his oncologist due to an abnormal calcium level. He also reports abdominal pain that is cramping in nature, intermittent and similar to previous episodes. The patient also complains of purulent drainage from his chest wall wound for the previous 2 days. He completed chemotherapy approximately 2 weeks. He denies any chest pain or shortness of breath. No fevers/chills. Positive weight loss , fatigue, nausea, vomiting. No lateralizing signs/symptoms. DS: Diagnosis - Discharge Diagnosis (1) Open chest wound Status: Acute (2) Basal cell carcinoma Status: Acute DS: Medications - Discharge Medications Prescriptions: amiodarone 200 mg PO DAILY 30 Days #30 tab metoprolol tartrate 12.5 mg PO BID #15 tab mupirocin 1 applicatio TOPICAL STAT #1 tube oxycodone-acetaminophen [Percocet] 1 tab PO Q4H PRN #90 tab PRN Reason: Pain DS: Summary Hospital Course: 51-year-old male admitted for a chest mass, status post excision, found to have invasive squamous cell carcinoma, wound VAC was placed care of plastic surgery, now awaiting skin grafting. Hospital course complicated by atrial fibrillation and hospital-acquired pneumonia. 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 - Plastic surgery following, status post surgical resection on 08/07/2017. Biopsy showed invasive squamous cell carcinoma involving bones, cartilage and pleura. - Wound culture from the chest grew Pseudomonas with 2 isolates, status post Zosyn, infectious disease was involved. Continue pain management - Oncology following, s/p surgical resection, he will need XRT in the future as outpatient and additional surgery for the squamous cell CA in the back with Dr. Ahn as outpatient. Cleared by Oncology for discharge. - For skin graft in 1-2 weeks per plastic surgery Continue wound VAC changes MWF- last changed 07/21 -on IV Cefazolin per Plastics - S/P skin graft, Wound VAC in place, minimal drainage, Dr Stauffer ff plastic surgeon. Wound vac removed. Patient cleared for discharge from plastics Eforsce was utilized to review the patients narcotic history. Patient is having significant pain caused by invasive squamous cell CA which will last more than 3 days. Trial of Tylenol has not helped. I believe that it is medically necessary to treat patients pain because it is affecting patients ability to function. Paroxysmal Atrial fibrillation with rapid ventricular rate- now in SR HR-40-50s - sinus HR S/P Ventricular tachycardia Tachybradycardia syndrome -May be related to anatomical disturbances, Cardiology following, continue Metoprolol and aspirin. Went into Afib RVR again with hypotension 09/15. He usually goes into atrial fibrillation with anemia and electrolyte imbalance, Hgb and electrolytes WNL. Started digoxin loading 09/16, - on Amiodarone 200 mg daily. - digoxin DC 09/22 - Lopressor 50 mg po bid - decrease to 25 mg po bid 09/22 - Hold if parameters less than 55 - Cardiology following, cleared for discharge Hospital-acquired pneumonia-resolved, finished antibiotics for 2 weeks. Severe protein calorie malnutrition - dietitian ff - Time Spent with Patient Total time spent providing and/or coordinating discharge services: Greater than 30 minutes Exam Vital signs: Vital Signs 10/06/17 20:00 10/07/17 00:00 10/07/17 08:00 Temperature 97.9 F 97.6 F 97.3 F L Pulse Rate 56 L 53 L 55 L Respiratory Rate 18 18 20 Blood Pressure 177/82 H 158/83 H 116/81 Pulse Oximetry 95 95 96 10/07/17 08:09 10/07/17 15:54 Temperature 97.5 F L 97.9 F Pulse Rate 51 L 54 L Respiratory Rate 18 21 Blood Pressure 155/76 H 178/86 H Pulse Oximetry 96 96 Intake & Output 10/07/17 10/07/17 10/08/17 06:59 18:59 06:59 Intake Total 200 / 200 1000 / 1000 Output Total 1240 / 1240 800 / 800 Balance -1040 / -1040 200 / 200 Intake: IV 200 / 200 1000 / 1000 NS Inj 1,000 ML @ 84 mls/hr IV. 1000 / 1000 CONT .[id number] [facility] Rx#:[id number] Ancef Inj 2,000 MG In NS Inj 200 / 200 100 ML @ 100 mls/hr IV.SIG Q8H [facility] Rx#:[id number] Output: Urine 1240 / 1240 800 / 800 Other: Date of Last Bowel Movement 10/04/17 Narrative: GENERAL: Thin, ill appearing male patient, INAD. Awake and alert. SKIN: Wound VAC removed, large dressing on the chest C/D/I. Incision appears to be healing well, clarissa in place. HEENT: NC/AT. EOMI. No sclera icterus. No nasal drainage. MMM. CARDIOVASCULAR: Regular rate and rhythm without murmurs, gallops, or rubs. RESPIRATORY: Breath sounds equal bilaterally. No accessory muscle use. Clear to auscultation. GASTROINTESTINAL: Abdomen soft, non-tender, nondistended. +BS MUSCULOSKELETAL: No cyanosis, or edema. BACK: Post op clarissa in place- about 12-[address], small area quarter size- superficial open wound, dry NEUROLOGIC: Awake and alert. CNII-XII grossly intact. Motor grossly intact. Nonfocal. Normal speech. PSYCHIATRIC: Appropriate mood and affect. Results Procedures completed during hospitalization: 08/07 PROCEDURES PERFORMED: 1. 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 2. Closure of chest wall defect 6 x 4 cm with dermal matrix biological mesh. 3. Placement of VAC dressing to wound, 26 x 21 cm. 4. Right thoracostomy tube placement. 08/10 vac dressing 08/20 Right pedicled latissimus muscle flap to right chest wound Left pectoralis major muscle flap to right chest wound 08/23 Right chest wound VAC change (19929) Right chest wound debridement (59641, 10580 x 6) 09/27/[address] Stauffer Split-thickness skin graft from right thigh to right chest wound, roughly 140 cm (40130, 12682) - Impressions ITS Impressions Chest X-Ray 09/03/17 00:00 CONCLUSION: No pneumothorax on right sided chest tube removal. Discharge Plan - Discharge Disposition Patient Disposition: /Home Health Service - Discharge Condition Condition: Stable - Discharge Order Discharge Orders: Discharge Order (Routine); Ordered 10/07/17 Ordered By: Sarita Leslie - Discharge Details Anticipated Discharge Date: 10/07/17 - Physicians Team Primary Care Provider: UNKNOWN, Attending Provider: Marisol Mason Other Providers: Leila Sandoval MD ; Zeyad Ahn MD ; Esau Sandoval MD ; Jerrod Jenkins MD ; Joey Stauffer MD ; Vicente Melgar MD ; Iain Rodriguez MD ; [facility] ; Yoselin Alonso ; Carly Crawley MD - Rxs /Orders / Referrals /Forms Prescriptions: New amiodarone 200 mg Tablet 200 mg PO DAILY 30 Days Qty: 30 RF: 0 metoprolol tartrate 25 mg Tablet 12.5 mg PO BID Qty: 15 RF: 0 mupirocin 2 % Ointment 1 applicatio Topical STAT Qty: 1 RF: 0 oxycodone-acetaminophen [Percocet] 10-325 mg Tablet 1 tab PO Q4H PRN (Reason: Pain) Qty: 90 RF: 0 Continue sodium hypochlorite 0.25 % Solution 473 ml TOPICAL BID vismodegib 150 mg Capsule 150 mg PO ONCE Ambulatory Orders / Order Sets / DME: [facility] (1 each) (Routine) Location: Determined by Patient Ordered By: Sarita Leslie Referrals: UNKNOWN, [Primary Care Provider] - See Instructions (Please call [facility] to make appt.) - Discharge Instructions Patient Printed Instructions: Metoprolol (By mouth), Amiodarone (By mouth), A- fib (Atrial Fibrillation) (DC), Basal Cell Carcinoma (DC), Debridement (DC), Skin Grafting (DC)
== END 2017-10-07 18:37 | disposition home health service (06) ==
LOC: HCIS 22:55 → N05 08-26 13:00 → HCIS 08-30 21:27 → N05 09-05 21:39
PROVIDERS: ADMIT Family Medicine; ATTEND Family Medicine